=== PATIENT | male | born 1950 | race African-American/Black ===

== ENCOUNTER → 2020-07-18 14:21 | Outpatient (CLI) | payer MEDICARE, MEDICAID, SELFPAY | PROVIDERS: Visit Provider Emergency Medicine | DX: Z20.822 Contact with and (suspected) exposure to COVID-19 (principal) | CPT/HCPCS: U0003 ==

== ENCOUNTER 2020-07-20 08:20 | Day surgery (SDC) | payer MEDICARE, MEDICAID, SELFPAY ==
[2020-07-11 13:31] VITALS: BMI 29.7
[2020-07-20] VITALS (10 sets, daily range): BP systolic 117–190; BP diastolic 75–113; PULSE 54–83; RESP 18; TEMP 36.1–36.3; O2SAT 97–100
--- NOTE | 2020-07-20 09:53 | HMH.PROC ---
[facility] Procedure Note Procedure Note:: Upper Endoscopy Procedure Report: Esophagogastroduodenoscopy with cold biopsies and variceal band ligation Endoscopost: Aleks Mcrae II, MD Referring Physician: Luigi Nunez MD Date of Procedure: July 20, 2020 Equipment: Olympus GIF 190 standard upper endoscope Sedation: MAC sedation Indications: Mr. Love is a 70-year-old gentleman with anemia. I do not have any reports from referring physician and patient has cognitive impairment and is unable to provide reliable history. Procedure: Prior to the procedure, a history and physical exam was performed, and patient's medications and allergies were reviewed. The risks, benefits and alternatives of the sedation and procedure were discussed with the patient. All questions were answered and informed consent was obtained. The patient was brought to the procedure room. Patient identification and proposed procedure were verified by the physician and the nurse. The patient was placed in a left lateral decubitus position and the scope was passed under direct vision. Throughout the procedure, the patient's blood pressure, pulse, and oxygen saturations were monitored continuously. The upper GI endoscopy was accomplished without difficulty. The patient tolerated the procedure well. Findings: The scope was passed directly into the upper esophagus and advanced to the third portion of the duodenum. The post bulbar duodenum and duodenal bulb were normal with normal mucosa and conniventes. The scope was withdrawn through a normal duodenal bulb and pylorus into the stomach. There was reactive gastropathy of the antrum. There was a superficial small ulceration in the prepyloric region. Cold biopsies were taken from the lesser curvature to rule out H pylori. There was mild chronic gastritis and possible early portal gastropathy. Upon retroflexion there were small fundic varices. There was no hiatal hernia. The scope was then withdrawn into the esophagus. There was no evidence of reflux esophagitis or Coleman's. There was a serrated Z-line so biopsies were taken at the GE junction. There were large grade 2-3 esophageal varices with stigmata. Because of these large varices and the patient's reported history of anemia, these varices were banded using 7 bands with excellent ligation effect. The remainder of the esophageal mucosa was normal. Impression: 1. Esophageal varices?grade 2-3 status post band ligation x7 2. Small gastric fundic varices 4. Mild to moderate gastropathy with superficial prepyloric gastric ulceration Plan: I will follow-up the biopsies. I suspect that the patient has portal hypertension based upon the endoscopic findings. I would recommend ultrasound of the liver or CT scan of the abdomen and pelvis. I will check additional lab work today.
--- NOTE | 2020-07-20 10:16 | US_ITS ---
PROCEDURE: US LIVER CLINICAL INDICATION: R/O PORTAL HTN COMPARISON: No exams were available for comparison FINDINGS: PANCREAS: Pancreas is not well delineated due to overlying bowel gas. CT or MRI without and with contrast with pancreatic protocol may provide further evaluation if clinically desired. LIVER: Collateral vessels are present around the portal vein with no obvious color flow within the portal vein suspicious for portal vein thrombosis. No focal liver lesions are demonstrated. RIGHT KIDNEY: Unremarkable. Normal size and echogenicity. No hydronephrosis GALLBLADDER: The gallbladder slightly distended. No obvious stones. There is a small amount of pericholecystic fluid. IMPRESSION: No definite blood flow within the portal vein with collateral vessels in the periportal region consistent with portal vein thrombosis. Dictated by: Enmanuel Peter MD 07/20/2020 12:08 Enmanuel Peter MD in [place] 07/20/2020 12:08
[2020-07-20 11:28] LABS: Chloride 105 mmol/L (98-107)
[2020-07-20 11:29] LABS: Potassium 4.3 mmoL/L (3.5-5.1); Sodium 140 mmol/L (136-145)
[2020-07-20 11:31] LABS: Alanine Aminotransferase 38 U/L (12-78); Aspartate Amino Transferase 53 U/L (17-59); Blood Urea Nitrogen 13 mg/dl (9-20); Creatinine Clearance Estimated 84 mL/min (50-200); Estimated Glomerular Filt Rate 112 ml/min (>60); GFR (African American) 136 ML/MIN (>60)
[2020-07-20 11:32] LABS: Albumin Level 4.6 g/dl (3.5-5.0); Albumin/Globulin Ratio 1.4 (1.1-1.8); Alkaline Phosphatase 95 U/L (38-126); Ammonia 31 umol/L (9-30); Anion Gap 11.3 mEq/L (5-15); Bilirubin,Total 1.6 mg/dl (0.2-1.3); Carbon Dioxide 28 mmol/L (22.0-30.0); Globulin 3.3 g/dL (1.3-3.2); Glucose 116 mg/dl (74-100); Iron 87 ug/dL (49-181); Total Protein,Serum 7.9 g/dl (6.3-8.2)
--- NOTE | 2020-07-20 12:04 | SUR.PHASEII ---
TYLENOL ELIXIR 650MG PO GIVEN PER ORDER.
[2020-07-20 12:07] LABS: Ferritin 34.5 ng/ml (17.9-464)
--- NOTE | 2020-07-20 12:15 | SUR.PHASEII ---
REPORT CALLED TO SPEEDY AT [facility] [place]. DR CONTE CALLED WITH RESULTS OF LIVER US, PORTAL VEIN THROMBOSIS. DR. HOLLAND NOTIFIED AND VERBALIZED UNDERSTANDING, NO NEW ORDERS AT THIS TIME. VICHY UPDATE ON THIS INFO GIVEN TO MAGDALENA. VICHY STAFF MEMEBER THAT WAS WITH PT TOOK DISCHARGE INFORMATION WITH HER AND SWITCHED OUT WITH ANOTHER CAREGIVE, KALEE PULIDO. KALEE ACCOMPANIED PT OUT OF POST OP. PT STABLE AND AT BASELING.
--- NOTE | 2020-07-20 17:29 | P.PN_ITS ---
[facility] Anesthesia Checklist - Patient Identification Patient Identification: Arm Band - Structural Data Admitted From: Home Planned Operative Procedure/s: EGD Verified Documents: Surgical Consent, History and Physical - NPO Status Verified Time NPO: 00:00 - Airway Assessment C-Spine Mobility Assessed: Yes TMJ Mobility Assessed: Yes Dentition: Good Dentition - Neurological Assessment Level of Consciousness: Awake, Alert - Anesthesia Plan Anesthesia Risk discussed: Yes Anesthesia Plan: Verified ASA Class: III Anesthesia Type: MAC [facility] History Medical History: Reports:: Diabetes Mellitus Type 2, Hyperlipidemia, Hypertension Denies:: Cancer, Diabetes Mellitus Type 1, Internal Pacemaker, MRSA, Seizures *Have you ever received a pneumonia vaccine?: Yes *Have you received a flu vaccine this season?: Yes Anesthesia experience/problems:: None Other Surgeries: No: Pacemaker Amputation: No Fractures: No - *Social History Last grade of school completed: 9th or 10th Smoking Status: Former smoker Tobacco Type: cigarettes Alcohol Intake: former Alcohol Intake Frequency:: other Substance Use Type: denies use *Occupational Status:: disabled *Travel in the last 8 weeks: None Family Hx:: Unable to obtain
[2020-07-21 08:14] LABS: Hep A Ab, IgM Negative (Negative); Hepatitis B Core Antibody IgM Negative (Negative); Hepatitis B Surface Antigen Negative (Negative)
[2020-07-21 11:34] LABS: POC Glucose,Bedside 120 (70-110)
[2020-07-21 12:30] LABS: AFP, Tumor Marker 2.3 ng/mL (0.0-8.3); Hepatitis C Antibody 0.3 s/co ratio (0.0-0.9)
[2020-07-23 15:09] LABS: ALT (SGPT) P5P 35 IU/L (0-55); AST (SGOT) P5P 47 IU/L (0-40); Alpha 2-Macroglobulins, Qn 210 mg/dL (110-276); Apolipoprotein A-1 200 mg/dL (101-178); Bilirubin, Total 1.2 mg/dL (0.0-1.2); Cholesterol, Total 187 mg/dL (100-199); Fibrosis Score 0.45 (0.00-0.21); Fibrosis Stage F1-F2 (.); GGT 46 IU/L (0-65); Glucose 107 mg/dL (65-99); Haptoglobin 90 mg/dL (32-363); Steatosis Score 0.49 (0.00-0.30); Triglycerides 180 mg/dL (0-149)
== END 2020-07-20 12:21 | disposition home or self-care (01) ==
LOC: OUTP 08:24
PROVIDERS: PCP Emergency Medicine; Visit Provider Internal Medicine Gastroenterology
PROC: 0DJ08ZZ Inspection of Upper Intestinal Tract, Via Natural or Artificial Opening Endoscopic (ICD-10-PCS; CPT 43235; principal; 2020-07-20 09:30)
DX: I85.00 Esophageal varices without bleeding (principal); I86.4 Gastric varices; K31.9 Disease of stomach and duodenum, unspecified; K25.9 Gastric ulcer, unspecified as acute or chronic, without hemorrhage or perforation; K29.30 Chronic superficial gastritis without bleeding; G31.84 Mild cognitive impairment of uncertain or unknown etiology; D64.9 Anemia, unspecified; E11.9 Type 2 diabetes mellitus without complications; E78.5 Hyperlipidemia, unspecified; I10 Essential (primary) hypertension; Z87.891 Personal history of nicotine dependence; K74.60 Unspecified cirrhosis of liver; Z79.899 Other long term (current) drug therapy
CPT/HCPCS: 43239; 43244; 36415; 76705; 80053; 80074; 82105; 82140; 82728; 82962; 83540; 88305

== ENCOUNTER → 2020-08-20 11:38 | Outpatient (CLI) | payer MEDICARE, MEDICAID, SELFPAY | PROVIDERS: Visit Provider Emergency Medicine | DX: L02.212 Cutaneous abscess of back [any part, except buttock and flank] (principal) | CPT/HCPCS: 87070; 87077; 87186; 87205 ==

== ENCOUNTER → 2020-09-21 10:21 | Outpatient (CLI) | payer MEDICARE, MEDICAID, SELFPAY ==
--- NOTE | 2020-09-21 10:26 | CT_ITS ---
PROCEDURE: CT ABDOMEN PELVIS WO/W CON CLINICAL INDICATION: ANEMIA, UNSPECIFIED, UPPER GASTROINTESTINAL BLEEDING COMPARISON: No exams were available for comparison TECHNIQUE: IV Contrast: 75ML Isovue 370 Oral Contrast None Axial images obtained with sagittal and coronal reformats. All CT scans at the facility use one or more dose reduction, viz: automated exposure control, ma/kV adjustment per patient size (including targeted exams where dose is matched to indication, i.e. head), or iterative reconstruction technique. FINDINGS: LOWER THORAX: Minor bibasal atelectasis. Calcified granuloma in the right lower lobe. ABDOMEN & PELVIS: Few calcifications noted in the liver, likely secondary to prior granulomatous disease. There is minor surface irregularity and nodularity of the liver, concerning for cirrhosis. No focal lesions or abnormal enhancement is noted. The gallbladder is distended and demonstrates minor pericholecystic fluid. No evidence of calcified gallstones. No intra or extrahepatic biliary dilation. The pancreas, adrenal glands, and kidneys are unremarkable. The spleen measures 13 centimeters in the craniocaudal dimension, at the upper limit of normal. Few colonic diverticula without evidence of diverticulitis in the visualized colon. Otherwise the visualized large and small bowel loops demonstrate no focal abnormality. No free fluid or free intraperitoneal air noted. Vascular calcification is noted. Gastroesophageal and splenorenal collateral vessels are noted. Minor degenerative changes of the visualized lumbar spine. IMPRESSION: Findings are consistent with cirrhosis of the liver. Gastroesophageal and splenorenal portosystemic collateral circulation. Distended gallbladder with pericholecystic fluid, raises the concern for cholecystitis in correct clinical context. No evidence of cholelithiasis. Dictated by: Jody Mulligan 09/21/2020 14:29 Jdoy Mulligan in [place] 09/21/2020 14:29
== END ==
PROVIDERS: PCP Emergency Medicine; Visit Provider Internal Medicine Gastroenterology
DX: D64.9 Anemia, unspecified (principal); K92.89 Other specified diseases of the digestive system; I85.00 Esophageal varices without bleeding; K74.69 Other cirrhosis of liver
CPT/HCPCS: 74178; Q9967

== ENCOUNTER 2021-11-09 07:02 | Emergency (ER) | payer MEDICARE, MEDICAID, SELFPAY ==
[2021-11-09] VITALS (8 sets, daily range): BP systolic 114–144; BP diastolic 57–72; PULSE 63–77; RESP 12–18; TEMP 36.9–37; O2SAT 94–98; BMI 20.9
--- NOTE | 2021-11-09 07:09 | ECG_ITS ---
APPROVED REPORT Exam: Resting ECG HR:76 bpm ECG Measurements Heart Rate 76 AXES KS 144 P 63 QRSd 87 QRS 76 QT 403 T 51 QTc 434 Conclusion SINUS RHYTHM NORMAL ECG UNCONFIRMED REPORT Electronically signed by : Kalyan Mcdonald MD 11/10/2021 15:25:29
--- NOTE | 2021-11-09 07:09 | XR_ITS ---
PROCEDURE INFORMATION: Exam: XR Chest Exam date and time: 11/09/2021 7:25 AM Age: 71 years old Clinical indication: Angina; Additional info: Cardiac work up TECHNIQUE: Imaging protocol: Radiologic exam of the chest. Views: 1 view. COMPARISON: CT ABDOMEN PELVIS WO/W CON 09/21/2020 10:51 AM FINDINGS: Lungs: Unremarkable. No consolidation. Pleural spaces: Blunting in the left costophrenic angle may represent pleural reaction or pleural effusion Heart/Mediastinum: Unremarkable. No cardiomegaly. Bones/joints: Unremarkable. IMPRESSION: Blunting in the left costophrenic angle may represent pleural reaction or pleural effusion
[2021-11-09 07:43] LABS: Basophils % 0.7 % (0.1-2.0); Eosinophils # 0.1 K/mm3 (0.0-0.4); Hematocrit 39.3 % (42.0-52.0); Hemoglobin 12.7 g/dL (14.1-18.0); Lymphocytes # 1.5 K/mm3 (0.7-4.5); Lymphocytes % 29.1 % (10-50); Mean Corpuscular HGB Conc 32.4 g/dL (31.8-35.4); Mean Corpuscular Hemoglobin 31.6 pg (27.0-31.2); Mean Corpuscular Volume 97.6 fl (80-94); Mean Platelet Volume 8.6 fl (7.4-10.4); Monocytes # 0.5 K/mm3 (0.1-1.0); Monocytes % 9.3 % (1.7-9.3); Platelet Count 130 K/mm3 (142-424); Red Blood Count 4.03 M/mm3 (4.60-6.20); Red Cell Distribution Width 13.5 % (11.5-17.5)
--- NOTE | 2021-11-09 07:43 | HMH.EDDIZZ ---
Discharge Plan Disposition Patient Disposition: Home, Self-Care Chief Complaint: Dizziness Prescriptions Prescriptions: No Action minocycline 100 mg capsule 100 mg PO cephalexin [Keflex] 750 mg capsule 500 mg PO TID 10 Days Qty: 30 0RF metformin 500 mg tablet 500 mg PO BID atorvastatin 10 mg tablet 10 mg PO DAILY desmopressin 0.2 mg tablet 0.4 mg PO HS donepezil 10 mg tablet 10 mg PO DAILY omega-3 fatty acids [Fish Oil Concentrate] 1,000 mg capsule 1,000 mg PO DAILY fluticasone propionate [Allergy Relief (fluticasone)] 50 mcg/actuation spray,suspension 1 spray INTRANASAL DAILY Rx Instructions: administer into each nostril lisinopril 5 mg tablet 5 mg PO DAILY Systane (PF) 0.4-0.3 % dropperette 1 drp OPHTHALMIC Q12H PRN (Reason: eyes) propranolol 20 mg tablet 20 mg PO QAM pramipexole 1 mg tablet 1 mg PO HS paroxetine HCl [Paxil] 40 mg tablet 40 mg PO DAILY loratadine 10 mg capsule 10 mg PO DAILY memantine [Namenda XR] 28 mg capsule,sprinkle,ER 24hr 28 mg PO DAILY montelukast 10 mg tablet 10 mg PO HS multivitamin with iron Tablet 1 tab PO DAILY propranolol 20 mg tablet 40 mg PO QHS quetiapine 100 mg tablet 100 mg PO HS Januvia 100 mg tablet 100 mg PO QHS tamsulosin [Flomax] 0.4 mg capsule 0.4 mg PO DAILY oxybutynin chloride 5 mg tablet extended release 24hr 5 mg PO DAILY gabapentin 400 mg capsule 400 mg PO TID Qty: 90 3RF insulin glargine 100 UNIT/ML insulin pen 15 unit SQ HS Clinical Impressions Clinical Impression: Episodic lightheadedness Instructions Patient Instructions: Dizziness, Nonvertigo Discharge ED Provider: Luigi Nunez [facility] General Chief Complaint: Dizziness Stated Complaint: lethargic Time Seen by Provider: 11/09/21 07:43 Mode of Arrival: EMS Source of Information: Patient, EMS and Medical Record Limitations: Altered Mental Status Description of Symptoms (Recalled from ER Triage Doc. by RN): Per Neema, when they woke the patient up this morning he was slow to wake up and more tired than normal. They took his blood pressure and it was 81/52. Patient arrived via ems and his pressure was 118/63 History of Present Illness HPI Narrative: sent from [facility] for altered mental status with reported low bp - pt w/o specific c/o and no chest pain or vomiting and no diarrhea MD complaint: lightheadedness Onset (ago): hour(s) Timing: awoke with symptoms History of similar episodes: Yes History of trauma: No Severity: moderate Associated symptoms: denies other symptoms Related Data Home Medications Medication Instructions Recorded Confirmed atorvastatin 10 mg tablet 10 mg PO DAILY Cholesterol 06/08/20 05/02/21 desmopressin 0.2 mg tablet 0.4 mg PO HS . 06/08/20 05/02/21 donepezil 10 mg tablet 10 mg PO DAILY . 06/08/20 05/02/21 fluticasone propionate 50 1 spray intranasal DAILY Allergy 06/08/20 05/02/21 mcg/actuation nasal symptoms spray,suspension (Allergy Relief (fluticasone)) lisinopril 5 mg tablet 5 mg PO DAILY bp 06/08/20 05/02/21 loratadine 10 mg capsule 10 mg PO DAILY Allergy symptoms 06/08/20 05/02/21 memantine 28 mg capsule 28 mg PO DAILY . 06/08/20 05/02/21 sprinkle,extended release 24hr (Namenda XR) montelukast 10 mg tablet 10 mg PO HS Allergy symptoms 06/08/20 05/02/21 multivitamin with iron 1 tab PO DAILY Supplement 06/08/20 05/02/21 omega-3 fatty acids 1,000 mg 1,000 mg PO DAILY Supplement 06/08/20 05/02/21 capsule (Fish Oil Concentrate) oxybutynin chloride 5 mg 5 mg PO DAILY bladder 06/08/20 05/02/21 tablet,extended release 24 hr paroxetine HCl 40 mg tablet (Paxil) 40 mg PO DAILY . 06/08/20 05/02/21 peg 400-propylene glycol (PF) 0.4 1 drp ophthalmic (eye) Q12H PRN 06/08/20 05/02/21 %-0.3 % eye drops in a dropperette eyes (Systane (PF)) pramipexole 1 mg tablet 1 mg PO HS sleep 06/08
[2021-11-09 07:54] LABS: Alanine Aminotransferase 31 U/L (12-78); Albumin Level 3.9 g/dl (3.5-5.0); Alkaline Phosphatase 57 U/L (38-126); Anion Gap 11.6 mEq/L (5-15); Aspartate Amino Transferase 49 U/L (17-59); Bilirubin,Direct 0.3 mg/dl (0.0-0.4); Bilirubin,Total 1.3 mg/dl (0.2-1.3); Blood Urea Nitrogen 18 mg/dl (9-20); Calcium 8.7 mg/dl (8.4-10.2); Carbon Dioxide 27 mmol/L (22.0-30.0); Chloride 107 mmol/L (98-107); Creatinine Clearance Estimated 56 mL/min (50-200); Estimated Glomerular Filt Rate 60 ml/min (>60); GFR (African American) 73 ML/MIN (>60); Glucose 113 mg/dl (74-100); Potassium 3.6 mmoL/L (3.5-5.1); Sodium 142 mmol/L (136-145); Total Protein,Serum 6.8 g/dl (6.3-8.2)
[2021-11-09 08:06] LABS: Microscopic, Urine URINE MICROSCOPIC (MICROSCOPIC)
[2021-11-09 08:08] LABS: Appearance,Urine SL CLOUDY (Clear); Blood, Urine 2+ (Negative); Color,Urine DK YELLOW (Yellow); Glucose,Urine (UA) TRACE (Negative); Ketones,Urine 1+ (Negative); Leukocyte Esterase,Urine Negative (Negative); Nitrate,Urine Negative (Negative); Protein,Urine 1+ (Negative)
[2021-11-09 08:09] LABS: Troponin I < 0.01 ng/ml (0.00-0.034)
[2021-11-09 08:15] LABS: Bilirubin,Urine 1+ (Negative)
[2021-11-09 08:33] LABS: Bacteria,Urine Trace /lpf; RBC,Urine 20-50 #/hpf (0-3); Squamous Epithelial Cell,Urine Occasional #/hpf (0-5); WBC,Urine Occasional #/hpf (0-3)
--- NOTE | 2021-11-09 09:20 | PC.NURSE ---
called charlene at [facility] and gave report for return back
--- NOTE | 2021-11-09 09:24 | PC.NURSE ---
Called [facility] to transport pt.
== END 2021-11-09 10:01 | disposition home or self-care (01) ==
PROVIDERS: Emergency Provider Emergency Medicine; PCP Emergency Medicine
DX: R42 Dizziness and giddiness (principal); R53.83 Other fatigue
CPT/HCPCS: 36415; 71045; 80048; 80076; 81001; 84484; 85025; 93005; 96360; 99284

== ENCOUNTER 2021-11-12 14:09 | Emergency (ER) | payer MEDICARE, MEDICAID, SELFPAY ==
[2021-11-12 14:13] VITALS: BP 161/80; PULSE 79; RESP 18; TEMP 36.8; O2SAT 94; BMI 29.9
[2021-11-12 14:28] LABS: Microscopic, Urine URINE MICROSCOPIC (MICROSCOPIC)
[2021-11-12 14:30] LABS: Appearance,Urine TURBID (Clear); Bilirubin,Urine 3+ (Negative); Blood, Urine 3+ (Negative); Color,Urine BROWN (Yellow); Glucose,Urine (UA) TRACE (Negative); Ketones,Urine 1+ (Negative); Leukocyte Esterase,Urine 1+ (Negative); Nitrate,Urine POSITIVE (Negative); PH,Urine 6.5 (5.0-8.5); Protein,Urine 3+ (Negative); Specific Gravity, Urine 1.025 (1.005-1.030)
[2021-11-12 14:42] LABS: Bacteria,Urine 2+ /lpf; RBC,Urine TNTC #/hpf (0-3); Squamous Epithelial Cell,Urine Occasional #/hpf (0-5); WBC,Urine Occasional #/hpf (0-3)
--- NOTE | 2021-11-12 15:14 | HMH.EDGENADL ---
Discharge Plan Disposition Patient Disposition: Home, Self-Care Condition: Good Prescriptions Prescriptions: New cephalexin 500 mg capsule 500 mg PO TID Qty: 30 0RF No Action minocycline 100 mg capsule 100 mg PO cephalexin [Keflex] 750 mg capsule 500 mg PO TID 10 Days Qty: 30 0RF metformin 500 mg tablet 500 mg PO BID atorvastatin 10 mg tablet 10 mg PO DAILY desmopressin 0.2 mg tablet 0.4 mg PO HS donepezil 10 mg tablet 10 mg PO DAILY omega-3 fatty acids [Fish Oil Concentrate] 1,000 mg capsule 1,000 mg PO DAILY fluticasone propionate [Allergy Relief (fluticasone)] 50 mcg/actuation spray,suspension 1 spray INTRANASAL DAILY Rx Instructions: administer into each nostril lisinopril 5 mg tablet 5 mg PO DAILY Systane (PF) 0.4-0.3 % dropperette 1 drp OPHTHALMIC Q12H PRN (Reason: eyes) propranolol 20 mg tablet 20 mg PO QAM pramipexole 1 mg tablet 1 mg PO HS paroxetine HCl [Paxil] 40 mg tablet 40 mg PO DAILY loratadine 10 mg capsule 10 mg PO DAILY memantine [Namenda XR] 28 mg capsule,sprinkle,ER 24hr 28 mg PO DAILY montelukast 10 mg tablet 10 mg PO HS multivitamin with iron Tablet 1 tab PO DAILY propranolol 20 mg tablet 40 mg PO QHS quetiapine 100 mg tablet 100 mg PO HS Januvia 100 mg tablet 100 mg PO QHS tamsulosin [Flomax] 0.4 mg capsule 0.4 mg PO DAILY oxybutynin chloride 5 mg tablet extended release 24hr 5 mg PO DAILY gabapentin 400 mg capsule 400 mg PO TID Qty: 90 3RF insulin glargine 100 UNIT/ML insulin pen 15 unit SQ HS Referrals Follow up/Referrals: Provider,Referral, MD [Primary Care Provider] - See instructions Clinical Impressions Clinical Impression: Urinary tract infection Qualifiers: Urinary tract infection type: site unspecified Instructions Patient Instructions: DI for Urinary Tract Infection (UTI), DI for Urinary Tract Infection in Children Discharge ED Provider: Ortiz Wang General Adult HPI General Chief complaint: Urogenital-Male Stated complaint: urogential Time Seen by Provider: 11/12/21 15:04 Mode of Arrival: EMS Source of Information: Patient Limitations: No Limitations Description of Symptoms (Recalled from ER Triage Doc. by RN): Patient reports blood in urine and passing clots since thursday. Patient reports he was here in the ED on thursday and had a catheter placed. History of Present Illness HPI narrative: Complaint of blood in urine as well as clots passing clots in his urine since Thursday. Described as moderate without exacerbating or alleviating factors. He was here this past Thursday and had a catheter placed at that time. He denies pain he denies fever he denies abdominal pain vomiting or diarrhea. Related Data Home Medications Medication Instructions Recorded Confirmed atorvastatin 10 mg tablet 10 mg PO DAILY Cholesterol 06/08/20 05/02/21 desmopressin 0.2 mg tablet 0.4 mg PO HS . 06/08/20 05/02/21 donepezil 10 mg tablet 10 mg PO DAILY . 06/08/20 05/02/21 fluticasone propionate 50 1 spray intranasal DAILY Allergy 06/08/20 05/02/21 mcg/actuation nasal symptoms spray,suspension (Allergy Relief (fluticasone)) lisinopril 5 mg tablet 5 mg PO DAILY bp 06/08/20 05/02/21 loratadine 10 mg capsule 10 mg PO DAILY Allergy symptoms 06/08/20 05/02/21 memantine 28 mg capsule 28 mg PO DAILY . 06/08/20 05/02/21 sprinkle,extended release 24hr (Namenda XR) montelukast 10 mg tablet 10 mg PO HS Allergy symptoms 06/08/20 05/02/21 multivitamin with iron 1 tab PO DAILY Supplement 06/08/20 05/02/21 omega-3 fatty acids 1,000 mg 1,000 mg PO DAILY Supplement 06/08/20 05/02/21 capsule (Fish Oil Concentrate) oxybutynin chloride 5 mg 5 mg PO DAILY bladder 06/08/20 05/02/21 tablet,extended release 24 hr paroxetine HCl 40 mg tablet (Paxil) 40 mg PO DAILY . 06/08/20 05/02/21 peg 400-propylene glyc
[2021-11-12 15:59] LABS: Basophils % 0.4 % (0.1-2.0); Eosinophils # 0.1 K/mm3 (0.0-0.4); Eosinophils % 0.6 % (0.1-12.0); Hematocrit 38.9 % (42.0-52.0); Hemoglobin 12.7 g/dL (14.1-18.0); Lymphocytes # 1.3 K/mm3 (0.7-4.5); Lymphocytes % 15.1 % (10-50); Mean Corpuscular HGB Conc 32.7 g/dL (31.8-35.4); Mean Corpuscular Hemoglobin 31.7 pg (27.0-31.2); Mean Corpuscular Volume 96.8 fl (80-94); Mean Platelet Volume 8.9 fl (7.4-10.4); Monocytes # 0.5 K/mm3 (0.1-1.0); Monocytes % 5.4 % (1.7-9.3); Neutrophils # 6.9 K/mm3 (1.8-7.8); Neutrophils % 78.6 % (37.0-80.0); Platelet Count 133 K/mm3 (142-424); Red Blood Count 4.01 M/mm3 (4.60-6.20); Red Cell Distribution Width 13.5 % (11.5-17.5); White Blood Count 8.8 K/mm3 (4.8-10.8)
[2021-11-12 16:10] LABS: Alanine Aminotransferase 35 U/L (12-78); Albumin/Globulin Ratio 1.4 (1.1-1.8); Alkaline Phosphatase 58 U/L (38-126); Anion Gap 17.5 mEq/L (5-15); Aspartate Amino Transferase 50 U/L (17-59); Bilirubin,Total 1.6 mg/dl (0.2-1.3); Blood Urea Nitrogen 20 mg/dl (9-20); Carbon Dioxide 25 mmol/L (22.0-30.0); Chloride 104 mmol/L (98-107); Creatinine Clearance Estimated 81 mL/min (50-200); Estimated Glomerular Filt Rate 134 ml/min (>60); GFR (African American) 162 ML/MIN (>60); Globulin 2.8 g/dL (1.3-3.2); Glucose 170 mg/dl (74-100); Potassium 3.5 mmoL/L (3.5-5.1); Sodium 143 mmol/L (136-145); Total Protein,Serum 6.8 g/dl (6.3-8.2)
[2021-11-12 17:30] VITALS: BP 150/76; PULSE 72; RESP 20; TEMP 36.8; O2SAT 95
== END 2021-11-12 17:34 | disposition home or self-care (01) ==
PROVIDERS: Emergency Provider Emergency Medicine
DX: N39.0 Urinary tract infection, site not specified (principal); B96.4 Proteus (mirabilis) (morganii) as the cause of diseases classified elsewhere
CPT/HCPCS: 80053; 81001; 85025; 87086; 87088; 87186; 99283

== ENCOUNTER 2021-11-18 14:42 | Emergency (ER) | payer MEDICARE, MEDICAID, SELFPAY ==
[2021-11-18 14:42] VITALS: BP 90/45; PULSE 78; RESP 18; TEMP 36.6; O2SAT 98; BMI 27.4
--- NOTE | 2021-11-18 14:45 | PC.NURSE ---
PT HYPOTENSIVE UPON ARRIVAL, 90/45. HYPOTENSIVE PER NH AND EMS. IV ATTEMPTED X 2 PER [facility]. ATTEMPTED PER THIS NURSE X 2. ED MD MADE AWARE. WILL CONTINUE IV ACCESS
--- NOTE | 2021-11-18 14:53 | HMH.EDGENADL ---
Discharge Plan Disposition Patient Disposition: Xfer Other Condition: Fair Chief Complaint: Altered Mental Status Prescriptions Prescriptions: No Action minocycline 100 mg capsule 100 mg PO cephalexin [Keflex] 750 mg capsule 500 mg PO TID 10 Days Qty: 30 0RF metformin 500 mg tablet 500 mg PO BID atorvastatin 10 mg tablet 10 mg PO DAILY desmopressin 0.2 mg tablet 0.4 mg PO HS donepezil 10 mg tablet 10 mg PO DAILY omega-3 fatty acids [Fish Oil Concentrate] 1,000 mg capsule 1,000 mg PO DAILY fluticasone propionate [Allergy Relief (fluticasone)] 50 mcg/actuation spray,suspension 1 spray INTRANASAL DAILY Rx Instructions: administer into each nostril lisinopril 5 mg tablet 5 mg PO DAILY Systane (PF) 0.4-0.3 % dropperette 1 drp OPHTHALMIC Q12H PRN (Reason: eyes) propranolol 20 mg tablet 20 mg PO QAM pramipexole 1 mg tablet 1 mg PO HS paroxetine HCl [Paxil] 40 mg tablet 40 mg PO DAILY loratadine 10 mg capsule 10 mg PO DAILY memantine [Namenda XR] 28 mg capsule,sprinkle,ER 24hr 28 mg PO DAILY montelukast 10 mg tablet 10 mg PO HS multivitamin with iron Tablet 1 tab PO DAILY propranolol 20 mg tablet 40 mg PO QHS quetiapine 100 mg tablet 100 mg PO HS Januvia 100 mg tablet 100 mg PO QHS tamsulosin [Flomax] 0.4 mg capsule 0.4 mg PO DAILY oxybutynin chloride 5 mg tablet extended release 24hr 5 mg PO DAILY gabapentin 400 mg capsule 400 mg PO TID Qty: 90 3RF insulin glargine 100 UNIT/ML insulin pen 15 unit SQ HS cephalexin 500 mg capsule 500 mg PO TID Qty: 30 0RF Clinical Impressions Clinical Impression: Acute renal failure (ARF), Acute urinary retention, Acute metabolic encephalopathy Discharge ED Provider: Aiden Forman Adult HPI General Chief complaint: Altered Mental Status Stated complaint: abd pain Time Seen by Provider: 11/18/21 14:54 Mode of Arrival: EMS History of Present Illness HPI narrative: 71-year-old male from nursing facility who presents with abdominal discomfort, distention, diarrhea, and reportedly had been more listless and presented with symptoms consistent with failure to thrive. History is limited from the patient, he awakes and answers appropriately to person and place but is otherwise somewhat confused and lethargic. He does have distended abdomen though not markedly tender on palpation. Afebrile here, relatively hypotensive. They have been unable to establish IV access prehospital Related Data Home Medications Medication Instructions Recorded Confirmed atorvastatin 10 mg tablet 10 mg PO DAILY Cholesterol 06/08/20 05/02/21 desmopressin 0.2 mg tablet 0.4 mg PO HS . 06/08/20 05/02/21 donepezil 10 mg tablet 10 mg PO DAILY . 06/08/20 05/02/21 fluticasone propionate 50 1 spray intranasal DAILY Allergy 06/08/20 05/02/21 mcg/actuation nasal symptoms spray,suspension (Allergy Relief (fluticasone)) lisinopril 5 mg tablet 5 mg PO DAILY bp 06/08/20 05/02/21 loratadine 10 mg capsule 10 mg PO DAILY Allergy symptoms 06/08/20 05/02/21 memantine 28 mg capsule 28 mg PO DAILY . 06/08/20 05/02/21 sprinkle,extended release 24hr (Namenda XR) montelukast 10 mg tablet 10 mg PO HS Allergy symptoms 06/08/20 05/02/21 multivitamin with iron 1 tab PO DAILY Supplement 06/08/20 05/02/21 omega-3 fatty acids 1,000 mg 1,000 mg PO DAILY Supplement 06/08/20 05/02/21 capsule (Fish Oil Concentrate) oxybutynin chloride 5 mg 5 mg PO DAILY bladder 06/08/20 05/02/21 tablet,extended release 24 hr paroxetine HCl 40 mg tablet (Paxil) 40 mg PO DAILY . 06/08/20 05/02/21 peg 400-propylene glycol (PF) 0.4 1 drp ophthalmic (eye) Q12H PRN 06/08/20 05/02/21 %-0.3 % eye drops in a dropperette eyes (Systane (PF)) pramipexole 1 mg tablet 1 mg PO HS sleep 06/08/20 05/02/21 propranolol 20 mg tablet 20 mg PO QAM bp 06/08/20 05/02/21 p
--- NOTE | 2021-11-18 14:56 | XR_ITS ---
PROCEDURE INFORMATION: Exam: XR Chest Exam date and time: 11/18/2021 5:00 PM Age: 71 years old Clinical indication: Shortness of breath; Sternal or substernal pain; Additional info: Sob/cp TECHNIQUE: Imaging protocol: Radiologic exam of the chest. Views: 1 view. COMPARISON: CR XR CHEST PORTABLE 11/09/2021 7:25 AM FINDINGS: Lungs: Lung volumes are moderately diminished, slightly greater on the right, with mild elevation of the right hemidiaphragm. Mildly increased patchy perihilar and bibasilar opacities are nonspecific. The lungs appear otherwise clear. No focal areas of consolidation. Pleural spaces: No pleural effusions or appreciable adenopathy. Negative for pneumothorax. Heart/Mediastinum: Cardiac silhouette and pulmonary vasculature are within range of normal. Bones/joints: There is no evidence of acute fracture. IMPRESSION: 1. Diminished lung volumes. 2. Mildly increased nonspecific patchy perihilar and bibasilar opacities.
[2021-11-18 14:57] VITALS: BP 81/42; PULSE 77; RESP 18
--- NOTE | 2021-11-18 14:57 | CT_ITS ---
PROCEDURE INFORMATION: Exam: CT Abdomen And Pelvis Without Contrast Exam date and time: 11/18/2021 4:38 PM Age: 71 years old Clinical indication: Abdominal pain; Additional info: Abd pain, distension TECHNIQUE: Imaging protocol: Computed tomography of the abdomen and pelvis without contrast. Radiation optimization: All CT scans at this facility use at least one of these dose optimization techniques: automated exposure control; mA and/or kV adjustment per patient size (includes targeted exams where dose is matched to clinical indication); or iterative reconstruction. COMPARISON: CT ABDOMEN PELVIS WO/W CON 09/21/2020 10:51 AM FINDINGS: Lungs: There is a pulmonary parenchymal calcification in the right lower lobe consistent with remote granulomatous organism exposure. Nonspecific mild bibasilar streaky opacities suggest atelectasis or parenchymal scarring. Pleural spaces: There are no pleural effusions. Heart: There is moderate atherosclerotic calcification of the coronary arteries. There is no evidence of pericardial fluid collections. Diaphragm: Mild elevation of the right hemidiaphragm is present. Liver: The liver demonstrates punctate calcifications, consistent with remote granulomatous organism exposure. Gallbladder and bile ducts: The gallbladder is contracted/decompressed. Nonspecific gallbladder wall thickening may be on the basis gallbladder decompression. Correlate. Pancreas: Noncontrast images of the pancreas are within range of normal. Spleen: The spleen demonstrates punctate calcifications, consistent with remote granulomatous organism exposure. Adrenal glands: The right adrenal gland is normal. There is macronodularity to the left adrenal gland with a somewhat more focal nodular area in the superior portion measuring approximately 2.1 x 2.3 by 1.6 cm. Internal Hounsfield units measure between 32-57 Hounsfield units. Kidneys and ureters: There is mild bilateral nonspecific inflammatory perinephric stranding. There is mild right hydronephrosis. There is mild left hydronephrosis. There is mild fullness to portions of both ureters. No definite ureteric stone disease. Stomach and bowel: A small hiatal hernia is present. Lack of gastrointestinal contrast limits evaluation of bowel. Unopacified loops of small bowel are within range of normal. The stomach is otherwise within range of normal. The duodenum appears normal. Colon appears within range of normal. Appendix: No evidence of appendicitis. Intraperitoneal space: There is no free intraperitoneal air. No significant free fluid. Vasculature: The aorta and iliac arteries demonstrate moderate atherosclerotic calcification. Lymph nodes: No enlarged lymph nodes. Urinary bladder: The bladder is markedly distended. The Bladder measures approximately 19.1 by 11.1 by 11.2 cm. Reproductive: The prostate demonstrates mild nonspecific enlargement measuring 5.2 x 4.8 cm. The seminal vesicles are normal. The prostate demonstrates nonspecific parenchymal calcifications. Bones/joints: The thoracolumbar spine demonstrates mild degenerative changes at multiple levels. There is no evidence of acute fracture. Soft tissues: There is nonspecific gynecomastia, slightly more prominent on the left. Correlate clinically. There is a tiny fat-containing umbilical hernia. Fat stranding of the soft tissues of the posterolateral lower abdomen gluteal region may reflect edema/inflammation/cellulitis. Correlate. Other findings: Evaluation is limited by the lack of intravenous contrast. IMPRESSION: 1. Marked bladder distension with mild bilateral hydroureteronephrosis, possibly on the basis of outlet obstructi
--- NOTE | 2021-11-18 15:50 | PC.NURSE ---
1550 IV PLACED PER U/S PER DR. LOVE. LABS COLLECTED. IVF'S STARTED
[2021-11-18 16:02] VITALS: BP 91/50; PULSE 78; RESP 18; O2SAT 95
[2021-11-18 16:20] LABS: Basophils % 0.3 % (0.1-2.0); Eosinophils # 0.1 K/mm3 (0.0-0.4); Eosinophils % 1.3 % (0.1-12.0); Hemoglobin 11.8 g/dL (14.1-18.0); Lymphocytes # 1.2 K/mm3 (0.7-4.5); Lymphocytes % 15.1 % (10-50); Mean Corpuscular HGB Conc 33.6 g/dL (31.8-35.4); Mean Corpuscular Hemoglobin 32.2 pg (27.0-31.2); Mean Corpuscular Volume 95.8 fl (80-94); Mean Platelet Volume 9.5 fl (7.4-10.4); Monocytes # 0.9 K/mm3 (0.1-1.0); Monocytes % 10.9 % (1.7-9.3); Neutrophils # 5.7 K/mm3 (1.8-7.8); Neutrophils % 72.4 % (37.0-80.0); Platelet Count 149 K/mm3 (142-424); Red Blood Count 3.65 M/mm3 (4.60-6.20); Red Cell Distribution Width 13.4 % (11.5-17.5); White Blood Count 7.8 K/mm3 (4.8-10.8)
[2021-11-18 16:21] LABS: Chloride 95 mmol/L (98-107); Potassium 4.5 mmoL/L (3.5-5.1); Sodium 138 mmol/L (136-145)
[2021-11-18 16:23] LABS: Alanine Aminotransferase 49 U/L (12-78); Aspartate Amino Transferase 142 U/L (17-59); Creatinine Clearance Estimated 6 mL/min (50-200); Estimated Glomerular Filt Rate 4 ml/min (>60); GFR (African American) 5 ML/MIN (>60)
[2021-11-18 16:24] LABS: Albumin Level 3.9 g/dl (3.5-5.0); Albumin/Globulin Ratio 1.4 (1.1-1.8); Alkaline Phosphatase 64 U/L (38-126); Anion Gap 28.5 mEq/L (5-15); Bilirubin,Total 0.2 mg/dl (0.2-1.3); Calcium 7.9 mg/dl (8.4-10.2); Carbon Dioxide 19 mmol/L (22.0-30.0); Globulin 2.8 g/dL (1.3-3.2); Glucose 100 mg/dl (74-100); Lipase 131 U/L (23-300); Total Protein,Serum 6.7 g/dl (6.3-8.2)
[2021-11-18 16:28] LABS: Blood Urea Nitrogen 99 mg/dl (9-20)
--- NOTE | 2021-11-18 16:28 | PC.NURSE ---
5112 CRITICAL LAB FROM [facility] IN LAB. BUN [address] LOVE NOTIFIED
[2021-11-18 16:30] VITALS: BP 115/56; PULSE 76; RESP 18; O2SAT 98
[2021-11-18 16:31] LABS: Ammonia 15 umol/L (9-30)
[2021-11-18 16:37] LABS: Troponin I 0.01 ng/ml (0.00-0.034)
--- NOTE | 2021-11-18 16:39 | PC.NURSE ---
PT TO CT, INSTRUCTED NOT TO USE CONTRAST PER MD R/T BUN AND CREATININE
--- NOTE | 2021-11-18 16:56 | ECG_ITS ---
APPROVED REPORT Exam: Resting ECG HR:87 bpm ECG Measurements Heart Rate 87 AXES NV 151 P 54 QRSd 82 QRS 61 QT 356 T 29 QTc 401 Conclusion SINUS RHYTHM NORMAL ECG UNCONFIRMED REPORT Electronically signed by : Kalyan Mcdonald MD 11/19/2021 21:10:16
[2021-11-18 17:00] VITALS: BP 112/87; PULSE 51; RESP 20; O2SAT 96
--- NOTE | 2021-11-18 17:10 | PC.NURSE ---
1710 US IV INFILTRATED. ED MADE AWARE
--- NOTE | 2021-11-18 17:15 | PC.NURSE ---
COUDE MCKINLEY PLACED AFTER MUCH DIFFICULTY. SPECIMEN SENT TO LAB
--- NOTE | 2021-11-18 17:18 | PC.NURSE ---
bradford bag emptied 1500 of tea colored urine
--- NOTE | 2021-11-18 17:34 | PC.NURSE ---
placed call to [facility] for transfer
--- NOTE | 2021-11-18 17:43 | PC.NURSE ---
Dr Spoke with , no beds
--- NOTE | 2021-11-18 17:44 | PC.NURSE ---
placed call to [facility], waiting for call back.
--- NOTE | 2021-11-18 17:48 | PC.NURSE ---
placed call to [facility] for possible transfer
--- NOTE | 2021-11-18 18:00 | PC.NURSE ---
Dr Forman speaking with [facility]
--- NOTE | 2021-11-18 18:11 | PC.NURSE ---
covid swab sent
--- NOTE | 2021-11-18 18:16 | PC.NURSE ---
PT ACCEPTED FOR CARE BY DR. CONDE. PT REMAINS ON WAITLIST
[2021-11-18 18:17] LABS: Coronavirus 19, PCR Not Detected (NotDetected); Influenza A, PCR Not Detected (NotDetected); Influenza B, PCR Not Detected (NotDetected)
--- NOTE | 2021-11-18 18:17 | PC.NURSE ---
DR. LOVE AT BEDSIDE ATTEMPTING TO PLACE US IV
--- NOTE | 2021-11-18 18:25 | PC.NURSE ---
US IV PLACED PER DR. LOVE. RIGHT UPPER ARM 20 GAUGE. IVF'S RESTARTED.
--- NOTE | 2021-11-18 18:25 | PC.NURSE ---
Dr lee spoke with Dr Sanchez at [facility], pt accepted, on a wait list. facesheet faxed
--- NOTE | 2021-11-18 18:36 | PC.NURSE ---
PT REQUESTING SUPPER TRAY, OK'D PER MD. DIETARY NOTIFIED. PT PROVIDED DRINK AT THIS TIME
--- NOTE | 2021-11-18 18:45 | PC.NURSE ---
PT GIVEN SANDWICH AT THIS TIME. NO FURTHER NEEDS VOICED
[2021-11-18 18:46] LABS: Troponin I 0.02 ng/ml (0.00-0.034)
[2021-11-18 19:55] LABS: Microscopic, Urine URINE MICROSCOPIC (MICROSCOPIC)
[2021-11-18 19:58] LABS: Appearance,Urine CLOUDY (Clear); Blood, Urine 3+ (Negative); Color,Urine AMBER (Yellow); Glucose,Urine (UA) Negative (Negative); Ketones,Urine Negative (Negative); Leukocyte Esterase,Urine Negative (Negative); Nitrate,Urine POSITIVE (Negative); PH,Urine 6.5 (5.0-8.5); Protein,Urine 2+ (Negative); Specific Gravity, Urine 1.025 (1.005-1.030); Urobilinogen,Urine 0.2 EU/dl (0.2)
[2021-11-18 20:18] LABS: Bilirubin,Urine Negative (Negative)
[2021-11-18 20:19] LABS: Amorphous Sediment,Urine 2+ /lpf; Bacteria,Urine 4+ /lpf; RBC,Urine 50-100 #/hpf (0-3); Squamous Epithelial Cell,Urine Occasional #/hpf (0-5); WBC,Urine Occasional #/hpf (0-3)
--- NOTE | 2021-11-18 21:20 | PC.NURSE ---
Dr. Nunez s/w [facility]
[2021-11-18 21:37] VITALS: BP 109/52; PULSE 79; RESP 16; TEMP 36.6; O2SAT 99
== END 2021-11-18 22:05 | disposition other institution (70) ==
PROVIDERS: Emergency Provider Emergency Medicine; PCP Emergency Medicine
DX: R41.82 Altered mental status, unspecified (principal); J96.00 Acute respiratory failure, unspecified whether with hypoxia or hypercapnia; R33.9 Retention of urine, unspecified; G93.41 Metabolic encephalopathy; Z20.822 Contact with and (suspected) exposure to COVID-19; R53.81 Other malaise; R50.9 Fever, unspecified; D50.9 Iron deficiency anemia, unspecified; R19.7 Diarrhea, unspecified; I10 Essential (primary) hypertension; K21.9 Gastro-esophageal reflux disease without esophagitis; E78.5 Hyperlipidemia, unspecified; E11.9 Type 2 diabetes mellitus without complications; D22.9 Melanocytic nevi, unspecified; N40.0 Benign prostatic hyperplasia without lower urinary tract symptoms; F03.90 Unspecified dementia, unspecified severity, without behavioral disturbance, psychotic disturbance, mood disturbance, and anxiety; G20 Parkinson's disease; K74.60 Unspecified cirrhosis of liver; M62.81 Muscle weakness (generalized); N31.1 Reflex neuropathic bladder, not elsewhere classified; H04.129 Dry eye syndrome of unspecified lacrimal gland; H35.30 Unspecified macular degeneration; F79 Unspecified intellectual disabilities; F32.9 Major depressive disorder, single episode, unspecified; F41.9 Anxiety disorder, unspecified; F17.290 Nicotine dependence, other tobacco product, uncomplicated; Z79.1 Long term (current) use of non-steroidal anti-inflammatories (NSAID); Z79.4 Long term (current) use of insulin; Z79.51 Long term (current) use of inhaled steroids; Z79.84 Long term (current) use of oral hypoglycemic drugs; Z79.82 Long term (current) use of aspirin; Z79.899 Other long term (current) drug therapy; Z87.440 Personal history of urinary (tract) infections
CPT/HCPCS: 36415; 51702; 71045; 74176; 80053; 81001; 82140; 83690; 84484; 85025; 87086; 93005; 96360; 99285; C9803; U0003; U0005

== ENCOUNTER 2021-11-25 20:07 | Emergency (ER) | payer MEDICARE, MEDICAID, SELFPAY ==
[2021-11-25 20:05] VITALS: BP 187/88; PULSE 86; RESP 20; TEMP 36.9; O2SAT 95; BMI 27.3
[2021-11-25 20:29] VITALS: BP 183/87; PULSE 89; RESP 19; TEMP 36.9; O2SAT 94
--- NOTE | 2021-11-25 20:45 | HMH.EDGIBL ---
Discharge Plan Disposition Patient Disposition: Home, Self-Care Chief Complaint: GI Bleed Prescriptions Prescriptions: No Action minocycline 100 mg capsule 100 mg PO metformin 500 mg tablet 500 mg PO BID atorvastatin 10 mg tablet 10 mg PO DAILY donepezil 10 mg tablet 10 mg PO DAILY omega-3 fatty acids [Fish Oil Concentrate] 1,000 mg capsule 1,000 mg PO DAILY fluticasone propionate [Allergy Relief (fluticasone)] 50 mcg/actuation spray,suspension 1 spray INTRANASAL DAILY Rx Instructions: administer into each nostril lisinopril 5 mg tablet 5 mg PO DAILY Systane (PF) 0.4-0.3 % dropperette 1 drp OPHTHALMIC Q12H PRN (Reason: eyes) propranolol 20 mg tablet 20 mg PO QAM pramipexole 1 mg tablet 1 mg PO HS paroxetine HCl [Paxil] 40 mg tablet 40 mg PO DAILY loratadine 10 mg capsule 10 mg PO DAILY memantine [Namenda XR] 28 mg capsule,sprinkle,ER 24hr 28 mg PO DAILY montelukast 10 mg tablet 10 mg PO HS propranolol 20 mg tablet 40 mg PO QHS quetiapine 100 mg tablet 100 mg PO HS Januvia 100 mg tablet 100 mg PO QHS tamsulosin [Flomax] 0.4 mg capsule 0.4 mg PO DAILY oxybutynin chloride 5 mg tablet extended release 24hr 5 mg PO DAILY gabapentin 400 mg capsule 400 mg PO TID Qty: 90 3RF insulin glargine 100 UNIT/ML insulin pen 15 unit SQ HS Referrals Follow up/Referrals: Luigi Nunez MD [Primary Care Provider] - See instructions Clinical Impressions Clinical Impression: Colitis, Decubitus ulcer of sacral region, stage 3 Instructions Patient Instructions: DI for Gastrointestinal Bleeding, DI for Pressure Injuries Discharge ED Provider: Luigi Nunez GI Bleed HPI General Chief complaint: GI Bleed Stated complaint: Rectal bleeding Time Seen by Provider: 11/25/21 20:45 Mode of Arrival: EMS Source of Information: Patient, EMS and Medical Record Limitations: Altered Mental Status Description of Symptoms (Recalled from ER Triage Doc. by RN): Per skilled nursing, pt just arrived back from [facility] today d/t DION[facility], and @ 1945 they discovered bright red blood per rectum. Pt is a DNR per skilled nursing record, and [facility] at [facility]. Pt denies any complaints at this time. There is a wound noted to pt's coccyx area that has a small amount of blood noted. History of Present Illness HPI Narrative: recent admit at for [facility] - had episode of brrb tonight -pt w/o specific c/o - MD complaint: gross hematochezia Onset (ago): hour(s) Consistency: intermittent Severity: moderate Associated symptoms: denies other symptoms Related Data Home Medications Medication Instructions Recorded Confirmed atorvastatin 10 mg tablet 10 mg PO DAILY Cholesterol 06/08/20 05/02/21 donepezil 10 mg tablet 10 mg PO DAILY . 06/08/20 05/02/21 fluticasone propionate 50 1 spray intranasal DAILY Allergy 06/08/20 05/02/21 mcg/actuation nasal symptoms spray,suspension (Allergy Relief (fluticasone)) lisinopril 5 mg tablet 5 mg PO DAILY bp 06/08/20 05/02/21 loratadine 10 mg capsule 10 mg PO DAILY Allergy symptoms 06/08/20 05/02/21 memantine 28 mg capsule 28 mg PO DAILY . 06/08/20 05/02/21 sprinkle,extended release 24hr (Namenda XR) montelukast 10 mg tablet 10 mg PO HS Allergy symptoms 06/08/20 05/02/21 omega-3 fatty acids 1,000 mg 1,000 mg PO DAILY Supplement 06/08/20 05/02/21 capsule (Fish Oil Concentrate) oxybutynin chloride 5 mg 5 mg PO DAILY bladder 06/08/20 05/02/21 tablet,extended release 24 hr paroxetine HCl 40 mg tablet (Paxil) 40 mg PO DAILY . 06/08/20 05/02/21 peg 400-propylene glycol (PF) 0.4 1 drp ophthalmic (eye) Q12H PRN 06/08/20 05/02/21 %-0.3 % eye drops in a dropperette eyes (Systane (PF)) pramipexole 1 mg tablet 1 mg PO HS sleep 06/08/20 05/02/21 propranolol 20 mg tablet 20 mg PO QAM bp 06/08/20 05/02/21 propranolol 20 mg tablet 40 mg PO QHS bp 06/08/20 05/02/21 quetiapine
[2021-11-25 21:23] LABS: Basophils # 0.1 K/mm3 (0-0.2); Basophils % 0.8 % (0.1-2.0); Eosinophils # 0.1 K/mm3 (0.0-0.4); Eosinophils % 0.7 % (0.1-12.0); Hematocrit 29.8 % (42.0-52.0); Hemoglobin 9.8 g/dL (14.1-18.0); Lymphocytes # 0.8 K/mm3 (0.7-4.5); Lymphocytes % 9.5 % (10-50); Mean Corpuscular HGB Conc 32.9 g/dL (31.8-35.4); Mean Corpuscular Hemoglobin 31.7 pg (27.0-31.2); Mean Corpuscular Volume 96.4 fl (80-94); Monocytes # 0.5 K/mm3 (0.1-1.0); Monocytes % 5.9 % (1.7-9.3); Neutrophils # 7.2 K/mm3 (1.8-7.8); Neutrophils % 83.2 % (37.0-80.0); Platelet Count 268 K/mm3 (142-424); Red Cell Distribution Width 14.3 % (11.5-17.5); White Blood Count 8.6 K/mm3 (4.8-10.8)
--- NOTE | 2021-11-25 21:49 | CT_ITS ---
PROCEDURE INFORMATION: Exam: CT Abdomen And Pelvis Without Contrast Exam date and time: 11/25/2021 9:52 PM Age: 71 years old Clinical indication: Screening exam; Other: Possible gi bleed TECHNIQUE: Imaging protocol: Computed tomography of the abdomen and pelvis without contrast. Radiation optimization: All CT scans at this facility use at least one of these dose optimization techniques: automated exposure control; mA and/or kV adjustment per patient size (includes targeted exams where dose is matched to clinical indication); or iterative reconstruction. COMPARISON: CT ABDOMEN PELVIS WO CON 11/18/2021 4:38 PM FINDINGS: Pleural spaces: Tiny bilateral pleural effusions with associated atelectasis. Liver: Mild cirrhotic changes. Gallbladder and bile ducts: Tiny gallstones. Pancreas: Peripancreatic inflammatory changes could indicate acute pancreatitis. Correlate with amylase and lipase. Spleen: Normal. No splenomegaly. Adrenal glands: Normal. No mass. Kidneys and ureters: Normal. No hydronephrosis. Stomach and bowel: There is diffuse colonic wall thickening which could be due to lack of distention or low-grade colitis. No small bowel obstruction. Appendix: No evidence of appendicitis. Intraperitoneal space: Small perihepatic and pelvic ascites. Vasculature: Unremarkable. No abdominal aortic aneurysm. Lymph nodes: Unremarkable. No enlarged lymph nodes. Urinary bladder: Herrera catheter in the urinary bladder which is moderately distended. Reproductive: Unremarkable as visualized. Bones/joints: Unremarkable. No acute fracture. Soft tissues: There is mild soft tissue anasarca. IMPRESSION: 1. Acute pancreatitis cannot be ruled out. Correlate with amylase and lipase. 2. Low-grade pancolitis. The there is clinical concern for acute GI bleeding recommend abdomen and pelvis CT with IV contrast. 3. Cholelithiasis. 4. Small volume abdominopelvic ascites. 5. No obstructive uropathy.
[2021-11-25 21:52] LABS: Occult Blood,Stool Positive (Negative)
[2021-11-25 22:04] LABS: Chloride 109 mmol/L (98-107); Sodium 147 mmol/L (136-145)
[2021-11-25 22:05] LABS: Potassium 3.9 mmoL/L (3.5-5.1)
[2021-11-25 22:07] LABS: Blood Urea Nitrogen 36 mg/dl (9-20); Creatinine Clearance Estimated 81 mL/min (50-200); Estimated Glomerular Filt Rate 96 ml/min (>60); GFR (African American) 116 ML/MIN (>60)
[2021-11-25 22:08] LABS: Anion Gap 15.9 mEq/L (5-15); Calcium 8.8 mg/dl (8.4-10.2); Carbon Dioxide 26 mmol/L (22.0-30.0); Glucose 196 mg/dl (74-100)
--- NOTE | 2021-11-25 22:09 | PC.NURSE ---
Per radiology patient has had a bm. Pt has been cleaned. linens changed. Pt was placed on the bedpan to finish his bm per his request. Pt had a small bm.
[2021-11-25 23:04] LABS: Amylase 74 U/L (30-110)
[2021-11-25 23:05] LABS: Lipase 317 U/L (23-300)
[2021-11-26 00:09] VITALS: BP 178/67; PULSE 89; RESP 14; TEMP 36.6; O2SAT 98
== END 2021-11-26 00:23 | disposition home or self-care (01) ==
PROVIDERS: Emergency Provider Emergency Medicine; PCP Emergency Medicine
DX: K92.1 Melena (principal); K52.9 Noninfective gastroenteritis and colitis, unspecified; I10 Essential (primary) hypertension; H04.129 Dry eye syndrome of unspecified lacrimal gland; D50.9 Iron deficiency anemia, unspecified; R50.9 Fever, unspecified; E78.5 Hyperlipidemia, unspecified; K21.9 Gastro-esophageal reflux disease without esophagitis; D22.9 Melanocytic nevi, unspecified; E11.9 Type 2 diabetes mellitus without complications; G25.81 Restless legs syndrome; K74.60 Unspecified cirrhosis of liver; N40.0 Benign prostatic hyperplasia without lower urinary tract symptoms; H35.30 Unspecified macular degeneration; M62.81 Muscle weakness (generalized); L89.153 Pressure ulcer of sacral region, stage 3; F02.80 Dementia in other diseases classified elsewhere, unspecified severity, without behavioral disturbance, psychotic disturbance, mood disturbance, and anxiety; G20 Parkinson's disease; F70 Mild intellectual disabilities; F17.290 Nicotine dependence, other tobacco product, uncomplicated; Z79.4 Long term (current) use of insulin; Z79.51 Long term (current) use of inhaled steroids; Z79.84 Long term (current) use of oral hypoglycemic drugs; Z79.899 Other long term (current) drug therapy; Z88.6 Allergy status to analgesic agent; Z88.8 Allergy status to other drugs, medicaments and biological substances
CPT/HCPCS: 36415; 74176; 80048; 82150; 82272; 83690; 85025; 99285; G0328

== ENCOUNTER → 2021-12-03 09:32 | Outpatient (CLI) | payer MEDICARE, MEDICAID, SELFPAY ==
--- NOTE | 2021-12-03 09:41 | CT_ITS ---
FINAL REPORT TECHNIQUE: Axial CT images of the abdomen and pelvis were obtained before and after the administration of IV contrast. This study was performed with techniques to keep radiation doses as low as reasonably achievable (ALARA). Individualized dose reduction techniques using automated exposure control or adjustment of mA and/or kV according to the patient''s size were employed. CLINICAL HISTORY: PANCREATIC PROTOCOL, panc, elev lipase COMPARISON: 11/25/2021 FINDINGS: Abdomen: There is mild bibasilar atelectasis and small pleural effusions. The heart is normal in size. The liver has an unremarkable appearance, without evidence of mass or biliary duct dilatation. There are presumed small gallstones in the gallbladder. No adrenal masses present. There is fluid in the anterior para renal space adjacent to the pancreas which likely represents sequela of acute pancreatitis. Fluid has increased since the prior. There is no evidence of pancreatic necrosis or pancreatic pseudocyst. The spleen is mildly enlarged measuring 13.2 cm. There is a less than 1 cm right renal cyst. The aorta is normal in caliber. Moderate ascites in the abdomen and pelvis. Precontrast images demonstrate no evidence of nephrolithiasis. Pelvis: There is persistent diffuse colon wall thickening, may represent edema or possibly colitis. The appendix is partially visualized, normal where seen. There is a Herrera catheter in the bladder. No inflammatory process is seen. There is no evidence of bowel obstruction. IMPRESSION: Findings consistent with acute pancreatitis with increased retroperitoneal fluid and increased ascites. No evidence of pancreatic necrosis, abscess, or pseudocyst. Gallstones. Diffuse colon wall thickening, may represent edema or colitis. Reviewed, Interpreted and Dictated by Castro Alvarado III, MD Transcribed by Alexandrea Pruett Authenticated and [facility]
== END ==
PROVIDERS: PCP Emergency Medicine; Visit Provider Emergency Medicine
DX: R74.8 Abnormal levels of other serum enzymes (principal); K85.90 Acute pancreatitis without necrosis or infection, unspecified
CPT/HCPCS: 74178; Q9967

== ENCOUNTER → 2021-12-17 15:32 | Outpatient (CLI) | payer MEDICARE, MEDICAID, SELFPAY | PROVIDERS: PCP Emergency Medicine; Visit Provider Emergency Medicine | DX: Z51.89 Encounter for other specified aftercare (principal) | CPT/HCPCS: 87070; 87077; 87186; 87205 ==

== ENCOUNTER 2021-12-19 01:13 | Inpatient (IN) | payer MEDICARE, MEDICAID, SELFPAY ==
[2021-12-19] VITALS (19 sets, daily range): BP systolic 100–179; BP diastolic 45–84; PULSE 77–116; RESP 16–22; TEMP 37.1–38.6; O2SAT 92–97; BMI 27.4; BMI 27.7; BMI 27.6
--- NOTE | 2021-12-19 01:23 | CT_ITS ---
PROCEDURE INFORMATION: Exam: CT Abdomen And Pelvis With Contrast Exam date and time: 12/19/2021 2:04 AM Age: 71 years old Clinical indication: Abdominal pain; Additional info: Abd pain TECHNIQUE: Imaging protocol: Computed tomography of the abdomen and pelvis with contrast. Total images: 1 Radiation optimization: All CT scans at this facility use at least one of these dose optimization techniques: automated exposure control; mA and/or kV adjustment per patient size (includes targeted exams where dose is matched to clinical indication); or iterative reconstruction. Contrast material: ISOVUE; Contrast volume: 75 ml; Contrast route: IV; COMPARISON: CT ABDOMEN PELVIS WO/W CON 12/03/2021 10:07 AM FINDINGS: Limitations: Examination is limited by respiratory motion. Tubes, catheters and devices: Urinary bladder catheter present. Lungs: There is subsegmental bibasilar atelectasis. Liver: Hepatic cirrhosis is evident. Gallbladder and bile ducts: Distended gallbladder. Fluid is noted in the gallbladder fossa with asymmetric gallbladder wall thickening. Pancreas: Normal. No ductal dilation. Spleen: Normal. No splenomegaly. Adrenal glands: Normal. No mass. Kidneys and ureters: Urothelial thickening and inflammation in the region of each renal pelvis is concerning for ascending pyelitis. 9 mm low-density focus in the right kidney is too small to characterize but statistically favors a benign process (no further follow-up needed). No hydronephrosis. Stomach and bowel: Thickening of the right colon is present but often seen in patients with chronic liver disease. Hiatal hernia with unexpected appearance high-density material either in the wall of the distal esophagus and gastric cardia versus within the lumen. Differential diagnosis is a prominent intramural venous varix of portal hypertension, mucosal space tumor or hyperacute onset of intraluminal bleeding, as there is no significant clotted blood material in the gastric lumen. Venous varix favored. Appendix: Normal appendix. Intraperitoneal space: Unremarkable. No free air. No significant fluid collection. Vasculature: Atherosclerosis is evident. Incidental circumaortic left renal vein is present. Lymph nodes: Unremarkable. No enlarged lymph nodes. Urinary bladder: Question urinary bladder wall thickening/inflammation, possibly cystitis. Reproductive: Prostatomegaly noted. Bones/joints: See Soft tissues finding. Soft tissues: Decubitus ulceration overlying the sacrum has progressed significantly from 12/03/2021, now reaching the medial margin of the gluteal musculature. A linear calcific density along the superficial medial left gluteal musculature is new from prior and is significance uncertain, potentially some accumulated debris. Significant gluteal and low back cellulitis is noted with asymmetric thickening of the cranial medial left gluteal muscle that is concerning for infectious myositis. IMPRESSION: 1. Hiatal hernia with unexpected appearance high-density material either in the wall of the distal esophagus and gastric cardia versus within the lumen. Differential diagnosis is a prominent intramural venous varix of portal hypertension, mucosal space tumor or hyperacute onset of intraluminal bleeding, as there is no significant clotted blood material in the gastric lumen. Venous varix favored. Upper endoscopy could further define. 2. Urothelial thickening and inflammation in the region of each renal pelvis is concerning for ascending pyelitis. Recommend urinalysis. No hydronephrosis. 3. Question urinary bladder wall thickening/inflammation, possibly cystitis. recommend urinalysis. 4. Decu
--- NOTE | 2021-12-19 01:26 | HMH.EDABDPAI ---
Discharge Plan Disposition Patient Disposition: Admitted As Inpatient Chief Complaint: Abdominal Pain Clinical Impressions Clinical Impression: Dementia, Unspecified dementia without behavioral disturbance, Acute urinary retention, Diabetes, Acute UTI (urinary tract infection), SIRS (systemic inflammatory response syndrome), Decubitus ulcer of sacral region, stage 4, Infective myositis Discharge ED Provider: Luigi Nunez Abdominal Pain HPI General Chief Complaint: Abdominal Pain Stated Complaint: Problems urinating Time Seen by Provider: 12/19/21 01:26 Mode of Arrival: EMS Source of Information: Patient, EMS and Medical Record Limitations: No Limitations Description of Symptoms (Recalled from ER Triage Doc. by RN): per [facility] staff pt only have 100ml of urine for 12hrs. nursing tried to irrgate bradford with no outpt then replace bradford and still had no output. pt c.o abd pain History of Present Illness HPI narrative: pt sent from counts include 234 beds at the [facility] for concerns about bradford placement - pt w/o specific c/o - has known diabetes and bph and sacral decubitus and dementia - pt followed at counts include 234 beds at the [facility] by [facility] - pt was noted to have fever at er - MD complaint: abdominal pain Onset (ago): hour(s) Consistency: intermittent Location: suprapubic Severity: moderate Associated symptoms: fever Related Data Home Medications Medication Instructions Recorded Confirmed atorvastatin 10 mg tablet 10 mg PO DAILY Cholesterol 06/08/20 12/19/21 donepezil 10 mg tablet 10 mg PO DAILY . 06/08/20 12/19/21 fluticasone propionate 50 1 spray intranasal DAILY Allergy 06/08/20 12/19/21 mcg/actuation nasal symptoms spray,suspension (Allergy Relief (fluticasone)) memantine 28 mg capsule 28 mg PO DAILY . 06/08/20 12/19/21 sprinkle,extended release 24hr (Namenda XR) montelukast 10 mg tablet 10 mg PO HS Allergy symptoms 06/08/20 12/19/21 omega-3 fatty acids 1,000 mg 1,000 mg PO DAILY Supplement 06/08/20 12/19/21 capsule (Fish Oil Concentrate) oxybutynin chloride 5 mg 5 mg PO DAILY bladder 06/08/20 12/19/21 tablet,extended release 24 hr paroxetine HCl 40 mg tablet (Paxil) 40 mg PO DAILY . 06/08/20 12/19/21 peg 400-propylene glycol (PF) 0.4 1 drp ophthalmic (eye) Q12H PRN 06/08/20 12/19/21 %-0.3 % eye drops in a dropperette eyes (Systane (PF)) quetiapine 100 mg tablet 100 mg PO HS nerves 06/08/20 12/19/21 sitagliptin 100 mg tablet (Januvia) 100 mg PO QHS . 06/08/20 12/19/21 tamsulosin 0.4 mg capsule (Flomax) 0.4 mg PO DAILY prostate 06/08/20 12/19/21 insulin glargine 100 unit/mL (3 15 unit SQ HS Diabetes 07/20/20 12/19/21 mL) subcutaneous pen metformin 500 mg tablet 500 mg PO BID Diabetes 08/16/20 12/19/21 metoprolol succinate 25 mg 25 mg PO DAILY High blood pressure 12/19/21 12/19/21 tablet,extended release 24 hr (Toprol XL) Previous Rx's Medication Instructions Recorded gabapentin 400 mg capsule 400 mg PO TID Pain #90 caps 10/18/21 Allergies Allergy/AdvReac Type Severity Reaction Status Date / Time aspirin Allergy Mild Rash Verified 11/12/21 15:47 [facility] Medical History Anxiety disorder, unspecified Benign prostatic hyperplasia with lower urinary tract symptoms Dementia in other diseases classified elsewhere with behavioral disturbance Dry eye syndrome of unspecified lacrimal gland Essential (primary) hypertension Gastro-esophageal reflux disease without esophagitis Hyperlipidemia, unspecified Iron deficiency anemia secondary to blood loss (chronic) Major depressive disorder, recurrent, mild Melanocytic nevi, unspecified Mild intellectual disabilities Muscle weakness (generalized) Nicotine dependence, chewing tobacco, uncomplicated Other reduced mobility Parkinson's disease Personal history of urinary (tract) infections Reflex neuropathic bladder, not elsewhere classified Restless legs syndrome Secondary parkinsonism, unspecified Type 2 diabetes mellitus with unspeci
--- NOTE | 2021-12-19 01:30 | XR_ITS ---
PROCEDURE INFORMATION: Exam: XR Chest Exam date and time: 12/19/2021 2:27 AM Age: 71 years old Clinical indication: Fever TECHNIQUE: Imaging protocol: Radiologic exam of the chest. Views: 1 view. Total images: 237 COMPARISON: CR XR CHEST PORTABLE 11/18/2021 5:00 PM FINDINGS: Lungs: Patchy nonspecific bibasilar opacities favor atelectasis. Pleural spaces: Unremarkable. No pleural effusion. No pneumothorax. Heart/Mediastinum: Unremarkable. No cardiomegaly. Bones/joints: Unremarkable. IMPRESSION: Patchy nonspecific bibasilar opacities favor atelectasis.
[2021-12-19 01:39] LABS: Microscopic, Urine URINE MICROSCOPIC (MICROSCOPIC)
[2021-12-19 01:40] LABS: Basophils % 0.2 % (0.1-2.0); Eosinophils % 0.1 % (0.1-12.0); Hematocrit 31.9 % (42.0-52.0); Hemoglobin 10.6 g/dL (14.1-18.0); Lymphocytes # 0.8 K/mm3 (0.7-4.5); Lymphocytes % 5.3 % (10-50); Mean Corpuscular HGB Conc 33.3 g/dL (31.8-35.4); Mean Corpuscular Hemoglobin 29.4 pg (27.0-31.2); Mean Corpuscular Volume 88.6 fl (80-94); Mean Platelet Volume 7.9 fl (7.4-10.4); Monocytes # 0.6 K/mm3 (0.1-1.0); Monocytes % 3.9 % (1.7-9.3); Neutrophils # 14.2 K/mm3 (1.8-7.8); Neutrophils % 90.5 % (37.0-80.0); Platelet Count 319 K/mm3 (142-424); Red Blood Count 3.61 M/mm3 (4.60-6.20); Red Cell Distribution Width 15.1 % (11.5-17.5); White Blood Count 15.7 K/mm3 (4.8-10.8)
[2021-12-19 01:44] LABS: Alanine Aminotransferase 31 U/L (12-78); Albumin Level 3.4 g/dl (3.5-5.0); Albumin/Globulin Ratio 0.9 (1.1-1.8); Alkaline Phosphatase 152 U/L (38-126); Anion Gap 16.7 mEq/L (5-15); Aspartate Amino Transferase 34 U/L (17-59); Bilirubin,Total 0.7 mg/dl (0.2-1.3); Blood Urea Nitrogen 23 mg/dl (9-20); Calcium 8.6 mg/dl (8.4-10.2); Carbon Dioxide 28 mmol/L (22.0-30.0); Chloride 96 mmol/L (98-107); Creatinine Clearance Estimated 72 mL/min (50-200); Estimated Glomerular Filt Rate 84 ml/min (>60); GFR (African American) 101 ML/MIN (>60); Globulin 3.8 g/dL (1.3-3.2); Glucose 242 mg/dl (74-100); Potassium 3.7 mmoL/L (3.5-5.1); Sodium 137 mmol/L (136-145); Total Protein,Serum 7.2 g/dl (6.3-8.2)
[2021-12-19 01:50] LABS: C-Reactive Protein 84.4 mg/L (0-4)
[2021-12-19 01:53] LABS: MANUAL DIFFERENTIAL MANUAL DIFFERENTIAL (MANUAL DIFF)
[2021-12-19 02:01] LABS: Lactic Acid 1.7 mmol/L (0.7-2.1)
[2021-12-19 02:03] LABS: Procalcitonin 0.295 ng/mL (0.0-2.0)
[2021-12-19 02:41] LABS: Appearance,Urine CLOUDY (Clear); Blood, Urine 3+ (Negative); Color,Urine AMBER (Yellow); Glucose,Urine (UA) Negative (Negative); Ketones,Urine Negative (Negative); Leukocyte Esterase,Urine 3+ (Negative); Nitrate,Urine POSITIVE (Negative); PH,Urine 8.5 (5.0-8.5); Protein,Urine 1+ (Negative)
[2021-12-19 02:42] LABS: Bilirubin,Urine Negative (Negative)
[2021-12-19 03:07] LABS: Erythrocyte Sedimentation Rate 137 mm/hr (0-20)
[2021-12-19 03:11] LABS: Lymphocytes % 6 % (10-50); Monocytes % 2 % (2-9); Neutrophils % 92 % (42-76); Total Cells Counted 100
[2021-12-19 03:12] LABS: Platelet Estimate Normal; RBC Morphology Normal
[2021-12-19 03:21] LABS: Amorphous Sediment,Urine 1+ /lpf; Bacteria,Urine 4+ /lpf
[2021-12-19 03:34] LABS: Coronavirus 19, PCR Not Detected (NotDetected); Influenza A, PCR Not Detected (NotDetected); Influenza B, PCR Not Detected (NotDetected)
--- NOTE | 2021-12-19 03:38 | PC.NURSE ---
Spoke with Jesse at [facility] regarding vancomycin and zosyn dosing. Per [facility] dosing for zosyn ordered by my is appropriate and vancomycin dosing entered of 1250mg as a loading dose.
--- NOTE | 2021-12-19 04:16 | EXP.HP ---
History of Present Illness *Admission Date: 12/19/21 *Reason for visit:: Abdominal Pain, Difficulty urinating *History of present illness: Mr. Sanket Love is a 71-year-old male who is a resident of a long-term care facility. He has a past medical history that is positive for Sacral Decubitus Ulcer, Liver Cirrhosis, BPH, GERD, Hypertension, Macular Degeneration, Alzheimer's Dementia, Parkinson's and Diabetes Mellitus. He presented to [facility] by EMS from the longterm today due to abdominal pain and low urine output. The information for the History and Physical was obtained from the patient's chart. Per Records the patient has a chronic catheter and it was changed, despite changing the patient only had 100 ml of urine over the last 12 hours and with complaints of abdominal pain he was sent to the ER for evaluation. In the ER, the patient was noted to be febrile with a temperature of 101.4, WBC was elevated at 15.7. CT of the abdomen and pelvis showed high density material in the wall of the distal esophagus and gastric vardia, a distended gallbladder. The Sacral Decubitus ulcer was noted to be significantly worsened since last presentation. Urinalysis was concerning for UTI. Due to the concern for myosititis on CT of the abdomen and pelvis with the sacral decubitus was contacted. They evaluated imaging and did not feel that there was a concern for necrotizing fascitis. The patient will be admitted with initial impression: Sepsis. Surgery will be consulted for evaluation of decubitus ulcer. The patient will be placed on broad spectrum antibiotics while we await cultures. [facility] Medical History Anxiety disorder, unspecified Benign prostatic hyperplasia with lower urinary tract symptoms Dementia in other diseases classified elsewhere with behavioral disturbance Dry eye syndrome of unspecified lacrimal gland Essential (primary) hypertension Gastro-esophageal reflux disease without esophagitis Hyperlipidemia, unspecified Iron deficiency anemia secondary to blood loss (chronic) Major depressive disorder, recurrent, mild Melanocytic nevi, unspecified Mild intellectual disabilities Muscle weakness (generalized) Nicotine dependence, chewing tobacco, uncomplicated Other reduced mobility Parkinson's disease Personal history of urinary (tract) infections Reflex neuropathic bladder, not elsewhere classified Restless legs syndrome Secondary parkinsonism, unspecified Type 2 diabetes mellitus with unspecified complications Unspecified cirrhosis of liver Unspecified dementia without behavioral disturbance Unspecified macular degeneration Family History (Updated 12/19/21 @ 09:47 by Salina Matos RN) No significant family history Social History (Updated 12/19/21 @ 09:47 by Salina Matos RN) Smoking Status: Never smoker alcohol intake: former substance use type: denies use current occupational status: disabled Travel in the last 8 weeks: None housing: shelter current occupational exposures/hazards: No caffeine: Yes Review of Systems Review of Systems Review of systems:: unable to obtain Meds Home Medications and Allergies Home Medications Medication Instructions Recorded Confirmed Type atorvastatin 10 mg tablet 10 mg PO DAILY hyperlipidemia 06/08/20 12/19/21 History donepezil 10 mg tablet 10 mg PO DAILY alzheimer's 06/08/20 12/19/21 History fluticasone propionate 50 1 spray intranasal HS Allergy 06/08/20 12/19/21 History mcg/actuation nasal symptoms spray,suspension (Allergy Relief (fluticasone)) memantine 28 mg capsule 28 mg PO DAILY dementia 06/08/20 12/19/21 History sprinkle,extended release 24hr (Namenda XR) omega-3 fatty acids 1,000 mg 1,000 mg PO DAILY Supplement 06/08/20 12/19/21 History capsule (Fish Oil Concentrate) oxybutynin chloride 5 mg 5 mg PO DAILY urinary retention 06/08/20 12/19/21 Hist
[2021-12-19 04:23] LABS: Lipase 18 U/L (23-300)
[2021-12-19 06:53] LABS: POC Glucose,Bedside 170 (70-110)
--- NOTE | 2021-12-19 07:24 | PC.NURSE ---
Pt arrived to the floor at this time
--- NOTE | 2021-12-19 08:00 | PC.NURSE ---
pt to the floor at this time
--- NOTE | 2021-12-19 08:03 | PC.NURSE ---
PT BEING TRANSPORTED UP FOR ADMISSION
--- NOTE | 2021-12-19 08:39 | EXP.PHA.CONS ---
Pharmacy Consult Date: 12/19/21 Time: 08:39 Referring provider: DR. ZUNIGA Reason for Consult:: VANCOMYCIN DOSING Allergies Allergy/AdvReac Type Severity Reaction Status Date / Time aspirin Allergy Mild Rash Verified 11/12/21 15:47 Home Medications Medication Instructions Recorded Confirmed Type atorvastatin 10 mg tablet 10 mg PO DAILY hyperlipidemia 06/08/20 12/19/21 History donepezil 10 mg tablet 10 mg PO DAILY alzheimer's 06/08/20 12/19/21 History fluticasone propionate 50 1 spray intranasal DAILY Allergy 06/08/20 12/19/21 History mcg/actuation nasal symptoms spray,suspension (Allergy Relief (fluticasone)) memantine 28 mg capsule 28 mg PO DAILY . 06/08/20 12/19/21 History sprinkle,extended release 24hr (Namenda XR) montelukast 10 mg tablet 10 mg PO HS Allergy symptoms 06/08/20 12/19/21 History omega-3 fatty acids 1,000 mg 1,000 mg PO DAILY Supplement 06/08/20 12/19/21 History capsule (Fish Oil Concentrate) oxybutynin chloride 5 mg 5 mg PO DAILY bladder 06/08/20 12/19/21 History tablet,extended release 24 hr paroxetine HCl 40 mg tablet (Paxil) 40 mg PO DAILY . 06/08/20 12/19/21 History peg 400-propylene glycol (PF) 0.4 1 drp ophthalmic (eye) Q12H PRN 06/08/20 12/19/21 History %-0.3 % eye drops in a dropperette eyes (Systane (PF)) quetiapine 100 mg tablet 100 mg PO HS nerves 06/08/20 12/19/21 History sitagliptin 100 mg tablet (Januvia) 100 mg PO QHS . 06/08/20 12/19/21 History tamsulosin 0.4 mg capsule (Flomax) 0.4 mg PO DAILY prostate 06/08/20 12/19/21 History insulin glargine 100 unit/mL (3 15 unit SQ HS Diabetes 07/20/20 12/19/21 History mL) subcutaneous pen metformin 500 mg tablet 500 mg PO BID Diabetes 08/16/20 12/19/21 History gabapentin 400 mg capsule 400 mg PO TID Pain #90 caps 10/18/21 12/19/21 Rx metoprolol succinate 25 mg 25 mg PO DAILY High blood pressure 12/19/21 12/19/21 History tablet,extended release 24 hr (Toprol XL) New Prescriptions to Start Prescriptions: Height: 1.68 m Weight: 78.018 kg Laboratory Results:: Laboratory Results - last 24 hr 12/19/21 01:04: WBC 15.7 H, RBC 3.61 L, Hgb 10.6 L, Hct 31.9 L, MCV 88.6, MCH 29.4, MCHC 33.3, RDW 15.1, Plt Count 319, MPV 7.9, Neut % (Auto) 90.5 H, Lymph % (Auto) 5.3 L, [place] % (Auto) 3.9, Eos % (Auto) 0.1, Baso % (Auto) 0.2, Neut # (Auto) 14.2 H, Lymph # (Auto) 0.8, [place] # (Auto) 0.6, Eos # (Auto) 0.0, Baso # (Auto) 0.0, Total Counted 100, Neutrophils % (Manual) 92 H, Lymphocytes % (Manual) 6 L, Monocytes % (Manual) 2, Platelet Estimate Normal, RBC Morphology Normal, ESR 137 H 12/19/21 01:04: Sodium 137, Potassium 3.7, Chloride 96 L, Carbon Dioxide 28, Anion Gap 16.7 H, BUN 23 H, Creatinine 0.90, Estimated Creat Clear 72, Estimated GFR 84, Est GFR ( Amer) 101, Glucose 242 H, Calcium 8.6, Total Bilirubin 0.7, AST 34, ALT 31, Alkaline Phosphatase 152 H, C-Reactive Protein 84.4 H, Total Protein 7.2, Albumin 3.4 L, Globulin 3.8 H, Albumin/Globulin Ratio 0.9 L, Procalcitonin 0.295 12/19/21 01:04: Lipase 18 L 12/19/21 01:18: Urine Color [place], Urine Appearance Cloudy, Urine pH 8.5, Ur Specific [place] 1.010, Urine Protein 1+, Urine Glucose (UA) Negative, Urine Ketones Negative, Urine Blood 3+, Urine Nitrate Positive, Urine Bilirubin Negative, Urine Urobilinogen 1.0, Ur Leukocyte Esterase 3+ A, Urine RBC 5-10, Urine WBC 10-20, Amorphous Sediment 1+, Urine Bacteria 4+ 12/19/21 01:30: Lactate 1.7 12/19/21 03:24: SARS-CoV-2 (PCR) Not detected, Influenza A Untype (PCR) Not detected, Influenza Type B (PCR) Not detected 12/19/21 06:14: POC Glucose 170 H Medical History: Medical History (Updated 12/19/21 @ 04:47 by Luigi Nunez MD) Anxiety disorder, unspecified Benign prostatic hyperplasia with lower urinary tract symptoms Dementia in other diseases classified elsewhere with behavioral disturbance Dry eye syndrome of unspecified lacrimal gland Essential (primary) hypertension Gastro-esophageal reflux disease without esophagit
--- NOTE | 2021-12-19 09:58 | EXP.SURG.CON ---
History of Present Illness *Admission Date: 12/19/21 *Reason for visit:: Sacral decubitus;gallbladder distention;radiographic abnormality-esophagus *History of present illness: This is a 71-year-old gentleman seen in consultation from the hospital service for evaluation of sacral decubitus ulceration. CT scan is also noted distended gallbladder and an abnormality of the esophagus. Please see HPI from history and physical forwarded below. Forwarded from admission H&P: Mr. Sanket Love is a 71-year-old male who is a resident of a long-term care facility. He has a past medical history that is positive for Sacral Decubitus Ulcer, Liver Cirrhosis, BPH, GERD, Hypertension, Macular Degeneration, Alzheimer's Dementia, Parkinson's and Diabetes Mellitus. He presented to [facility] by EMS from the long-term today due to abdominal pain and low urine output. The information for the History and Physical was obtained from the patient's chart. Per Records the patient has a chronic catheter and it was changed, despite changing the patient only had 100 ml of urine over the last 12 hours and with complaints of abdominal pain he was sent to the ER for evaluation. In the ER, the patient was noted to be febrile with a temperature of 101.4, WBC was elevated at 15.7. CT of the abdomen and pelvis showed high density material in the wall of the distal esophagus and gastric vardia, a distended gallbladder. The Sacral Decubitus ulcer was noted to be significantly worsened since last presentation. Urinalysis was concerning for UTI. Due to the concern for myosititis on CT of the abdomen and pelvis with the sacral decubitus was contacted. They evaluated imaging and did not feel that there was a concern for necrotizing fascitis. The patient will be admitted with initial impression: Sepsis. Surgery will be consulted for evaluation of decubitus ulcer. The patient will be placed on broad spectrum antibiotics while we await cultures. PFSH PFSH Medical History Anxiety disorder, unspecified Benign prostatic hyperplasia with lower urinary tract symptoms Dementia in other diseases classified elsewhere with behavioral disturbance Dry eye syndrome of unspecified lacrimal gland Essential (primary) hypertension Gastro-esophageal reflux disease without esophagitis Hyperlipidemia, unspecified Iron deficiency anemia secondary to blood loss (chronic) Major depressive disorder, recurrent, mild Melanocytic nevi, unspecified Mild intellectual disabilities Muscle weakness (generalized) Nicotine dependence, chewing tobacco, uncomplicated Other reduced mobility Parkinson's disease Personal history of urinary (tract) infections Reflex neuropathic bladder, not elsewhere classified Restless legs syndrome Secondary parkinsonism, unspecified Type 2 diabetes mellitus with unspecified complications Unspecified cirrhosis of liver Unspecified dementia without behavioral disturbance Unspecified macular degeneration Family History (Updated 12/19/21 @ 09:47 by Salina Matos RN) No significant family history Social History (Updated 12/19/21 @ 09:47 by Salina Matos RN) Smoking Status: Never smoker alcohol intake: former substance use type: denies use current occupational status: disabled Travel in the last 8 weeks: None housing: residential current occupational exposures/hazards: No caffeine: Yes Meds Home Medications and Allergies Home Medications Medication Instructions Recorded Confirmed Type atorvastatin 10 mg tablet 10 mg PO DAILY hyperlipidemia 06/08/20 12/19/21 History donepezil 10 mg tablet 10 mg PO DAILY alzheimer's 06/08/20 12/19/21 History fluticasone propionate 50 1 spray intranasal HS Allergy 06/08/20 12/19/21 History mcg/actuation nasal symptoms
--- NOTE | 2021-12-19 10:08 | P.CONPHA_ITS ---
Pharmacy Intervention Comments: Home medication reconciliation completed using outpatient pharmacy and medication list from [facility].
--- NOTE | 2021-12-19 10:40 | SW/DCPLANNER ---
Addendum entered by Marilynn Temple 12/20/21 13:15: I have updated [facility]/ Edwin Phelan that the plan for this patient is to return tomorrow with a midline and IV Cefepime. Addendum entered by Marilynn Temple 12/20/21 10:53: Updated patient information has been faxed to [facility]/ Edwin [facility]helan. Addendum entered by Marilynn Temple 12/19/21 11:08: *CORRECTION: patient is SNF level of care at [facility]. Original Note: This patient currently resides at [facility] level of care per [facility]. I will continue to follow up with [facility] until patient is medically stable for discharge.
--- NOTE | 2021-12-19 11:16 | DIET.NUTRFU ---
Addendum entered by Yoana Kent RD, LD 12/19/21 11:23: Nursing also indicated 11# wt loss in past 30 days. Original Note: Spoke to Lillian the nurse at [facility] who takes care of patient. She report recent decline last couple weeks and GOLF CADDIE downgraded to MSOFT ground with thin d/t weakness. Previously was on regular and was independent with meals. Recently he has been requiring more assistance. He also receives protein powder/arginine for wound and house supplement for additional calories. She indicated he is diabetic but loves sweets. Will start ensure with trays when diet is upgraded along with prostat/vitamin C and zinc for wound healing.
--- NOTE | 2021-12-19 11:36 | HMH.PTWOUND ---
Rehab Inpt Wound Evaluation Rehab IP Wound Evaluation Start: 12/19/21 08:58 Freq: ONCE Status: Active Protocol: Document 12/19/21 11:31 KHADAR (Rec: 12/19/21 11:36 KHADAR [id number]) Rehab PT Wound Assessment Patient Status Premedicated Prior to Dressing Change No Subjective Subjective MD consult wants to continue w / Wound vac using white foam and black foam Wound Sacrum Wound Type Stasis Ulcer Wound Staging Stage IV Query Text:Stage I - Unbroken, red skin, no blanching. Stage II - Skin broken, superficial skin loss involving epidermis alone or also dermis. Partial loss of skin layers. Stage III - Pressure area involves epidermis, dermis and subcutaneous tissue, full thickness skin loss. Stage IV - Pressure area involves epidermis, subcutaneous tissue, bone and other supportive tissue. Full thickness skin loss with extensive destruction of underlying tissue and structures. Wound Length (cm) 5.0 Wound Width (cm) 5.0 Wound Depth (cm) 2.0 Wound Bed Appearance Dusky Red Percentage Granulated (%) 100 Wound Margins Description Well Defined Tunneling Position 11 oclock Tunneling Depth (cm) 2.5 Surrounding Tissue Appearance [place] Wound Drainage Description Sanguineous Drainage Amount Small Drainage Odor Slight Odor Dressing Status Dry & Intact Packing Type Woundvac Sponge Comment white and black - white in tunnel Primary Dressing Film Dressing Comment wound vac film Wound Debridement Amount of Tissue None Removed Plan/Recommendation Comment Maintain wound vac - supplies in room - dressing change per MD request - no greater than 72 hours - wound care will continue to follow for daily assessment - nsg to handle vac changes PRN when wound care unavailable Eval Complexity Eval Charge Codes 33203 - Moderate Complexity G-codes PT Current Status Other PT/OT Status PT Current Status Modifier CN-At least 100% impaired, limited or restricted PT Goal Status Other PT/OT Status PT Goal Status Modifer
[2021-12-19 12:06] LABS: POC Glucose,Bedside 151 (70-110)
[2021-12-19 16:27] LABS: POC Glucose,Bedside 153 (70-110)
--- NOTE | 2021-12-19 17:54 | PC.NURSE ---
PT IS RESTING IN BED. TURNED AND REPOSITIONED FREQUENTLY THIS SHIFT. ALERT AND ORIENTED X2. PT HAS A WOUND NOTED TO THE COCCYX CONNECTED TO WOUND VAC. LUNG SOUNDS DIMINISHED. ABDOMEN SOFT/NON TENDER WITH ACTIVE BOWEL SOUNDS. NOTIFIED PT'S BROTHER THIS MORNING TO ADDRESS CODE STATUS AND HE STATED FOR NOW HE WANTED PT TO BE A FULL CODE. WILL CONTINUE TO MONITOR.
--- NOTE | 2021-12-19 19:04 | PC.WOUNDNOTE ---
UNSTAGEABLE WOUND NOTED TO THE COCCYX
[2021-12-19 21:28] LABS: POC Glucose,Bedside 132 (70-110)
--- NOTE | 2021-12-19 23:24 | PC.NURSE ---
[address] Patient asleep . Trash emptied
[2021-12-20] VITALS (7 sets, daily range): BP systolic 133–179; BP diastolic 65–93; PULSE 68–126; RESP 18–20; TEMP 36.8–37.2; O2SAT 93–96
--- NOTE | 2021-12-20 05:26 | PC.NURSE ---
pt c/o headache this shift and had temp of 100.7. was medicated per apr. he has had no other complaints. he has been turned q2 hr this shift. wound vac in place to buttocks/coccyx. he is a&o to self and follows verbal commands. call light in reach pull alarm on and functioning
--- NOTE | 2021-12-20 05:47 | PC.NURSE ---
[address] Trash and ice water refilled
[2021-12-20 06:48] LABS: POC Glucose,Bedside 177 (70-110)
--- NOTE | 2021-12-20 08:04 | EXP.SURG.PN ---
Subjective Patient reports: no new complaints Narrative: Per nursing, the VAC dressing was changed yesterday (late morning/early afternoon) Exam Data for Last 24 hours Vital signs and Labs for Last 24 Hours: Temp Pulse Resp BP Pulse Ox 98.2 F 110 H 18 133/70 93 L 12/20/21 04:00 12/20/21 04:00 12/20/21 04:00 12/20/21 04:00 12/20/21 04:00 Laboratory Results - last 24 hr 12/19/21 11:56: POC Glucose 151 H 12/19/21 16:18: POC Glucose 153 H 12/19/21 21:21: POC Glucose 132 H 12/20/21 06:21: POC Glucose 177 H I & O for Last 24 hours: Intake & Output 12/17/21 12/18/21 12/19/21 12/20/21 11:59 11:59 11:59 11:59 Intake Total 0 / 0 1042 / 1042 Output Total 0 / 0 2550 / 2550 Balance 0 / 0 -1508 / -1508 Weight 171 lb 15.369 oz Microbiology Reports for the Last 24 Hours: Microbiology 12/19/21 01:18 Urine,Catheterized Urine Culture - Preliminary Constitutional Constitutional: no acute distress *Routine Skin Exam Comments: VAC dressing in position. No spreading cellulitis. Progress Note: A&P Assessment and plan (1) Decubitus ulcer: Status: Acute Assessment and plan: Continue antibiotics as per primary service Continue VAC dressing for now Initial VAC dressing change tomorrow morning Timing of future dressing changes will be pending evaluation of wound but will likely be every 2-3 days (2) Abnormal CT scan, gallbladder: Problem details: Forwarded from CT: Distended gallbladder. Fluid is noted in the gallbladder fossa with asymmetric gallbladder wall thickening. This is more likely secondary to periportal edema or hepatitis versus much less likely cholecystitis. Recommend liver function tests. Status: Acute Assessment and plan: No definitive evidence of cholecystitis. No need for urgent intervention. (3) Abnormal CT scan, esophagus: Problem details: Forwarded from CT: Hiatal hernia with unexpected appearance high-density material either in the wall of the distal esophagus and gastric cardia versus within the lumen. Differential diagnosis is a prominent intramural venous varix of portal hypertension, mucosal space tumor or hyperacute onset of intraluminal bleeding, as there is no significant clotted blood material in the gastric lumen. Venous varix favored. Upper endoscopy could further define. Status: Acute Assessment and plan: The patient's overall status warrants, outpatient evaluation reasonable (4) UTI (urinary tract infection): Status: Acute
[2021-12-20 09:35] LABS: Basophils % 0.1 % (0.1-2.0); Eosinophils % 0.3 % (0.1-12.0); Hematocrit 29.5 % (42.0-52.0); Hemoglobin 9.5 g/dL (14.1-18.0); Lymphocytes # 0.6 K/mm3 (0.7-4.5); Lymphocytes % 5.2 % (10-50); Mean Corpuscular HGB Conc 32.4 g/dL (31.8-35.4); Mean Corpuscular Hemoglobin 29.1 pg (27.0-31.2); Mean Corpuscular Volume 89.7 fl (80-94); Mean Platelet Volume 8.2 fl (7.4-10.4); Monocytes # 0.4 K/mm3 (0.1-1.0); Monocytes % 2.9 % (1.7-9.3); Neutrophils # 11.3 K/mm3 (1.8-7.8); Neutrophils % 91.5 % (37.0-80.0); Platelet Count 266 K/mm3 (142-424); Red Blood Count 3.29 M/mm3 (4.60-6.20); Red Cell Distribution Width 15.2 % (11.5-17.5); White Blood Count 12.3 K/mm3 (4.8-10.8)
[2021-12-20 09:37] LABS: MANUAL DIFFERENTIAL MANUAL DIFFERENTIAL (MANUAL DIFF)
[2021-12-20 09:40] LABS: Potassium 3.1 mmoL/L (3.5-5.1); Sodium 139 mmol/L (136-145)
[2021-12-20 09:41] LABS: Chloride 103 mmol/L (98-107)
[2021-12-20 09:43] LABS: Albumin Level 3.5 g/dl (3.5-5.0); Albumin/Globulin Ratio 0.9 (1.1-1.8); Alkaline Phosphatase 135 U/L (38-126); Bilirubin,Total 0.9 mg/dl (0.2-1.3); Calcium 8.2 mg/dl (8.4-10.2); Globulin 3.7 g/dL (1.3-3.2); Glucose 252 mg/dl (74-100); Total Protein,Serum 7.2 g/dl (6.3-8.2)
[2021-12-20 09:53] LABS: Alanine Aminotransferase 32 U/L (12-78); Aspartate Amino Transferase 46 U/L (17-59); Blood Urea Nitrogen 17 mg/dl (9-20); Creatinine Clearance Estimated 77 mL/min (50-200); Estimated Glomerular Filt Rate 165 ml/min (>60); GFR (African American) 199 ML/MIN (>60)
[2021-12-20 09:55] LABS: Anion Gap 17.1 mEq/L (5-15); Carbon Dioxide 22 mmol/L (22.0-30.0)
[2021-12-20 09:57] LABS: Lymphocytes % 1 % (10-50); Monocytes % 5 % (2-9); Neutrophils % 94 % (42-76); Platelet Estimate Normal; RBC Morphology Normal; Total Cells Counted 100
--- NOTE | 2021-12-20 10:36 | DIET.NUTRFU ---
Addendum entered by Yoana Kent RD, LD 12/20/21 11:20: Spoke to patient about adding in glucerna and he thinks he would like strawberry or vanilla. He had no complaints about the food and he likes the extra help with meals from the staff. Original Note: Based on meal intake, glucerna was added for additional calories and protein. Secondary to skin breakdown, would benefit from zinc, vitamin C and prostat to aid in healing. Will notify nursing and pharmacy
[2021-12-20 12:11] LABS: POC Glucose,Bedside 189 (70-110)
--- NOTE | 2021-12-20 13:47 | EXP.ACUTE.PN ---
Subjective *Date: 12/20/21 *Time: 13:55 Interval history: Mr. Love denies significant shortness of breath. States he feels better today. Complaining of tubing from his wound VAC for his sacral decubitus ulcer. Unfortunately had a fever overnight that is defervesced by this morning. Tolerating fair p.o. intake. Clinically showing improvement with improved orientation and alertness. Hemodynamically stable today. Blood cultures this morning came back positive for E. coli. Will adjust antibiotic regimen accordingly. Urine culture still pending. Continues to have purple urine in his [place]. Denies nausea, vomiting, diarrhea, chest pain. Medical Exam Vital signs and Labs for Last 24 Hours: Vital Signs Temp Pulse Resp BP Pulse Ox 12/20/21 08:00 98.4 F 126 H 20 159/65 H 95 12/20/21 04:00 98.2 F 110 H 18 133/70 93 L 12/19/21 23:44 98.9 F 98 H 16 138/78 97 12/19/21 20:00 100.7 F H 111 H 20 179/84 H 95 12/19/21 15:26 99.6 F 116 H 16 113/47 L 94 L Intake and Output 12/19/21 12/20/21 12/20/21 23:59 07:59 15:59 Intake Total 540 / 900 142 / 622 480 / 622 Output Total 1200 / 1950 600 / 600 Balance -660 / -1050 - 22 Intake: Intake, Oral Amount 240 / 600 480 / 480 Intake, Total IV Amount 300 / 300 142 / 142 Cefepime HCl 1 gm In 0.9 % 100 / 100 42 / 42 Sodium Chloride 50 ml @ 100 mls /hr IV Q8H HOANG Rx#:[id number] Metronidaz/Sod Chl 500 mg In 200 / 200 100 / 100 100 ml @ 100 mls/hr IV Q8H HOANG Rx#:[id number] Output: Output, Urine Amount 600 / 600 Output, Urine Amount (Catheter) 600 / 1350 600 / 600 [place] 600 / 1350 600 / 600 Other: Number of Unmeasured Voids 0 Number of Bowel Movements 1 Laboratory Results - last 24 hr 12/19/21 16:18: POC Glucose 153 H 12/19/21 21:21: POC Glucose 132 H 12/20/21 06:21: POC Glucose 177 H 12/20/21 09:22: WBC 12.3 H, RBC 3.29 L, Hgb 9.5 L, Hct 29.5 L, MCV 89.7, MCH 29.1, MCHC 32.4, RDW 15.2, Plt Count 266, MPV 8.2, Neut % (Auto) 91.5 H, Lymph % (Auto) 5.2 L, [place] % (Auto) 2.9, Eos % (Auto) 0.3, Baso % (Auto) 0.1, Neut # (Auto) 11.3 H, Lymph # (Auto) 0.6 L, [place] # (Auto) 0.4, Eos # (Auto) 0.0, Baso # (Auto) 0.0, Total Counted 100, Neutrophils % (Manual) 94 H, Lymphocytes % (Manual) 1 L, Monocytes % (Manual) 5, Platelet Estimate Normal, RBC Morphology Normal 12/20/21 09:22: Sodium 139, Potassium 3.1 L, Chloride 103, Carbon Dioxide 22, Anion Gap 17.1 H, BUN 17 D, Creatinine 0.50 L D, Estimated Creat Clear 77, Estimated GFR 165, Est GFR ( Amer) 199 D, Glucose 252 H, Calcium 8.2 L, Total Bilirubin 0.9, AST 46 D, ALT 32, Alkaline Phosphatase 135 H, Total Protein 7.2, Albumin 3.5, Globulin 3.7 H, Albumin/Globulin Ratio 0.9 L 12/20/21 12:01: POC Glucose 189 H I & O for Labs for Last 24 Hours: Intake & Output 12/17/21 12/18/21 12/19/21 12/20/21 23:59 23:59 23:59 23:59 Intake Total 900 / 900 622 / 622 Output Total 1950 / 1950 600 / 600 Balance -1050 / -1050 Weight 78 kg Microbiology Reports for the Last 24 Hours: Microbiology 12/19/21 01:30 Blood Blood Culture - Preliminary 12/19/21 01:30 Blood Blood Culture - Preliminary 12/19/21 01:18 Urine,Catheterized Urine Culture - Preliminary Constitutional: Present no acute distress, chronically ill appearing and cooperative Head: Present atraumatic and normocephalic ENT: Present mucous membranes moist Neck: Present normal inspection Respiratory: Present CTA bilaterally and normal respiratory effort; Absent wheezes or crackles Cardiac: Present Reg Rate and Rhythm GI: Present normal bowel sounds; Absent tenderness Rectal (male): Present deferred Comment:: bradford in place Extremities: Present normal inspection; Absent edema Skin: Present intact; Absent erythema Neuro: Present Grossly Intact, alert, awake and moves all extremities Assessment and Plan *Assessment and plan (1) Sepsis: Status: Acute
[2021-12-20 16:30] LABS: POC Glucose,Bedside 198 (70-110)
--- NOTE | 2021-12-20 17:40 | PC.NURSE ---
PT IS RESTING IN BED. TOLERATED SITTING UP IN THE CHAIR FOR SEVERAL HOURS THIS SHIFT. PT REQUIRES ASSISTANCE WITH MEALS. TURNED AND REPOSITIONED FREQUENTLY WHILE IN BED. WOUND VAC DRESSING NOTED TO THE COCCYX. WOUND VAC REINFORCED X2 THIS SHIFT. DRESSING WILL NEED TO BE CHANGED TOMORROW PER . LUNG SOUNDS CLEAR. ABDOMEN SOFT/NON TENDER WITH ACTIVE BOWEL SOUNDS., PT HAS A MIDLINE NOTED TO THE LUE. PT IS A 1 ASSIST TO GET OOB. WILL CONTINUE TO MONITOR.
[2021-12-20 20:41] LABS: POC Glucose,Bedside 207 (70-110)
--- NOTE | 2021-12-20 23:09 | PC.NURSE ---
attempted to locate amino acids for this patient, spoke with Shawn Cruz from [facility] pharm, and gatehouse attendant Jennifer, medication not available to be pulled, Car notified and stated ok not to give tonight
--- NOTE | 2021-12-21 03:38 | PC.NURSE ---
pt has rested well this shift, has had one bowel movement so far this shift, remains on room air with O2 sats 96%, bradford remains in place with nw[place] colored urine present, has been tachy this shift with HR 103-105
[2021-12-21 04:00] VITALS: BP 151/76; PULSE 117; RESP 18; TEMP 37.3; O2SAT 95
[2021-12-21 06:00] VITALS: BMI 27.6
[2021-12-21 06:02] LABS: POC Glucose,Bedside 166 (70-110)
[2021-12-21 07:32] LABS: Chloride 108 mmol/L (98-107); Sodium 142 mmol/L (136-145)
[2021-12-21 07:35] LABS: Alanine Aminotransferase 24 U/L (12-78); Albumin Level 3.2 g/dl (3.5-5.0); Albumin/Globulin Ratio 0.9 (1.1-1.8); Alkaline Phosphatase 123 U/L (38-126); Anion Gap 12.9 mEq/L (5-15); Aspartate Amino Transferase 37 U/L (17-59); Bilirubin,Total 0.6 mg/dl (0.2-1.3); Blood Urea Nitrogen 13 mg/dl (9-20); Calcium 8.2 mg/dl (8.4-10.2); Carbon Dioxide 24 mmol/L (22.0-30.0); Creatinine Clearance Estimated 77 mL/min (50-200); Estimated Glomerular Filt Rate 165 ml/min (>60); GFR (African American) 199 ML/MIN (>60); Globulin 3.4 g/dL (1.3-3.2); Glucose 138 mg/dl (74-100); Total Protein,Serum 6.6 g/dl (6.3-8.2)
--- NOTE | 2021-12-21 07:39 | EXP.DC.SUM ---
General Admission date:: 12/19/21 Discharge date: 12/21/21 HPI HPI HPI: Mr. Sanket Love is a 71-year-old male who is a resident of a long-term care facility.? He has a past medical history that is positive for Sacral Decubitus Ulcer, Liver Cirrhosis, BPH, GERD, Hypertension, Macular Degeneration, Alzheimer's Dementia, Parkinson's and Diabetes Mellitus. He presented to [facility] by EMS from the halfway today due to abdominal pain and low urine output.? The information for the History and Physical was obtained from the patient's chart.? Per Records the patient has a chronic catheter and it was changed, despite changing the patient only had 100 ml of urine over the last 12 hours and with complaints of abdominal pain he was sent to the ER for evaluation.? In the ER, the patient was noted to be febrile with a temperature of 101.4, WBC was elevated at 15.7.? CT of the abdomen and pelvis showed high density material in the wall of the distal esophagus and gastric vardia, a distended gallbladder.? The Sacral Decubitus ulcer was noted to be significantly worsened since last presentation.? Urinalysis was concerning for UTI.? Due to the concern for myosititis on CT of the abdomen and pelvis with the sacral decubitus was contacted.? They evaluated imaging and did not feel that there was a concern for necrotizing fascitis.? The patient will be admitted with initial impression:? Sepsis.? Surgery will be consulted for evaluation of decubitus ulcer.? The patient will be placed on broad spectrum antibiotics while we await cultures. Hospital Course Hospital Course Hospital Course: 71 year-old male who is a resident of a long-term care facility presents by EMS due to abdominal pain and low urine output, findings concerning for Sepsis Sepsis E. coli bacteremia - Sepsis Criteria met on admission. Started on spectrum antibiotics. Patient's symptoms gradually defervesced during hospitalization. Cultures obtained with wound culture obtained prior to admission. Blood cultures positive for E. coli with CTX-M gene (beta-lactamase resistance). Transitioned to ertapenem to complete 14-day course of antibiotics, last day of Abx 01/03/22. Final sensitivity pending at discharge. This should also cover for Proteus which has grown previously in his urine and in his sacral wound. Midline placed during admission, may be removed after completing antibiotics. Plan to continue wound VAC for sacral decubitus ulcer. Would recommend having wound care nursing facility ([facility]) resume care. Decubitus Ulcers -Surgery consulted for decubitus wound along with wound care.? No further debridement planned at this time. GERD - CT findings concerning for material in wall of distal esophagus. Suspicious for mass versus varices. Has a history of varices. No further work-up during inpatient course. Patient tolerating p.o. intake without difficulty. Tolerating modified diet. Recommend consideration for further work-up of CT findings and distal esophagus as an outpatient CAUTI -Present on admission.? Antibiotics as above. Catheter exchanged on day of discharge Dementia - Continue home medications Diabetes Mellitus - Sliding Scale insulin during admission. Resume outpatient regimen on discharge Moderate Protein calorie malnutrition -Nutrition consulted, Modified diet. Patient medically stable for discharge back to senior living for continued care of sacral wound and IV antibiotic treatment. Exam Data for Last 24 hours Vital signs and Labs for Last 24 Hours: Temp Pulse Resp BP Pulse Ox 99.1 F 117 H 18 151/76 H 95 12/21/21 04:00 12/21/21 04:00 12/21/21 04:00 12/21/21 04:00 12/21/21 04:00 Laboratory Results - last 24 hr 12/20/21 09:22: WBC 12.3 H, RBC 3.29 L, Hgb 9.5 L, Hct 29.5 L, MCV 89.7, MCH 29.1, MCHC 32.4, RDW 15.2, Plt Count 266, MPV 8.2, Neut % (Auto) 91.5 H, Lymph % (Auto) 5.2 L, [place] % (Auto) 2.9, Eos % (Auto) 0.3, Baso % (Auto)
[2021-12-21 07:44] LABS: Basophils % 0.2 % (0.1-2.0); Eosinophils % 0.6 % (0.1-12.0); Hematocrit 26.9 % (42.0-52.0); Hemoglobin 8.6 g/dL (14.1-18.0); Lymphocytes # 0.7 K/mm3 (0.7-4.5); Lymphocytes % 8.8 % (10-50); Mean Corpuscular Volume 90.6 fl (80-94); Mean Platelet Volume 8.2 fl (7.4-10.4); Monocytes # 0.3 K/mm3 (0.1-1.0); Monocytes % 3.7 % (1.7-9.3); Neutrophils # 6.5 K/mm3 (1.8-7.8); Neutrophils % 86.7 % (37.0-80.0); Platelet Count 242 K/mm3 (142-424); Red Blood Count 2.97 M/mm3 (4.60-6.20); Red Cell Distribution Width 15.2 % (11.5-17.5); White Blood Count 7.5 K/mm3 (4.8-10.8)
[2021-12-21 08:00] VITALS: BP 131/70; PULSE 124; RESP 20; TEMP 36.8; O2SAT 95
[2021-12-21 08:08] LABS: MANUAL DIFFERENTIAL MANUAL DIFFERENTIAL (MANUAL DIFF)
[2021-12-21 08:14] LABS: Potassium 2.9 mmoL/L (3.5-5.1)
[2021-12-21 09:49] LABS: Lymphocytes % 9 % (10-50); Monocytes % 1 % (2-9); Neutrophils % 90 % (42-76); Platelet Estimate Normal; Total Cells Counted 100
[2021-12-21 09:50] LABS: RBC Morphology Normal
--- NOTE | 2021-12-21 10:09 | PC.NURSE ---
report called to edwin. Bora bradford initiated, pt tolerated well. 16f. urine is straw colored. MIDline to LUE is c/d/i. i will clamp wound vac when EMS gets here for transport. Spoke with [facility] and one of their staff members came and picked up their wound vac on .
--- NOTE | 2021-12-21 10:48 | PC.NURSE ---
pt has been discahrged from the fqacility via EMS. report called to kera Pizarro. all pt belongings have been returned to him.
--- NOTE | 2021-12-23 12:38 | CARE MANAGER ---
Called and spoke with [facility], who states that patient is doing well and they received everything that was needed at discharge. No issues to report at this time.
== END 2021-12-21 10:49 | DRG 698 ==
LOC: ER 01:17 → 2ND 04:24
PROVIDERS: Nurse Practitioner Family; Admitting Provider Internal Medicine Adolescent Medicine; Emergency Provider Emergency Medicine; PCP Emergency Medicine; Visit Provider Internal Medicine Adolescent Medicine
DX: T83.592A Infection and inflammatory reaction due to indwelling ureteral stent, initial encounter (principal); A41.51 Sepsis due to Escherichia coli [E. coli]; L89.154 Pressure ulcer of sacral region, stage 4; N39.0 Urinary tract infection, site not specified; F33.9 Major depressive disorder, recurrent, unspecified; E44.0 Moderate protein-calorie malnutrition; N40.0 Benign prostatic hyperplasia without lower urinary tract symptoms; E11.9 Type 2 diabetes mellitus without complications; Z79.84 Long term (current) use of oral hypoglycemic drugs; F17.220 Nicotine dependence, chewing tobacco, uncomplicated; G20 Parkinson's disease; K74.60 Unspecified cirrhosis of liver; F02.80 Dementia in other diseases classified elsewhere, unspecified severity, without behavioral disturbance, psychotic disturbance, mood disturbance, and anxiety; K21.9 Gastro-esophageal reflux disease without esophagitis; K80.20 Calculus of gallbladder without cholecystitis without obstruction; Z68.27 Body mass index [BMI] 27.0-27.9, adult; Y84.6 Urinary catheterization as the cause of abnormal reaction of the patient, or of later complication, without mention of misadventure at the time of the procedure; G30.9 Alzheimer's disease, unspecified
CPT/HCPCS: 36410; 36415; 51702; 71045; 74177; 80053; 81001; 82962; 83605; 83690; 84145; 85007; 85025; 85651; 86140; 87040; 87070; 87077; 87086; 87088; 87186; 87205; 99285; C9803; J0692; J1335; J2543; Q9967; U0003; U0005

== ENCOUNTER → 2022-10-16 09:15 | Outpatient (CLI) | payer MEDICARE, MEDICAID, SELFPAY ==
--- NOTE | 2022-10-16 09:23 | US_ITS ---
FINAL REPORT CLINICAL HISTORY: CIRROHSIS COMPARISON: None FINDINGS: Sonographic images of the right upper quadrant were obtained. The pancreas is partially obscured. Coarsened hepatic echotexture is consistent with a history of cirrhosis. There is a 5.5 cm mass in the anterior aspect of the liver with possible central scar. The gallbladder appears normal without evidence of gallstones.There is no evidence of biliary ductal dilatation.The common duct measures 3 mm. Limited images of the right kidney are unremarkable. IMPRESSION: 5.5 cm mass anterior aspect of the liver. Recommend liver mass protocol CT or MRI for further evaluation. Coarsened hepatic echotexture consistent with cirrhosis. Reviewed, Interpreted and Dictated by Castro Alvarado III, MD Transcribed by Kim Hays Authenticated and . [facility]
== END ==
PROVIDERS: PCP Emergency Medicine; Visit Provider Physician Assistant
DX: R93.2 Abnormal findings on diagnostic imaging of liver and biliary tract (principal)
CPT/HCPCS: 76705

== ENCOUNTER → 2022-11-24 12:20 | Outpatient (CLI) | payer MEDICARE, SELFPAY ==
[2022-11-24 12:48] LABS: Basophils % 0.4 % (0.1-2.0); Eosinophils # 0.1 K/mm3 (0.0-0.4); Eosinophils % 2.5 % (0.1-12.0); Hematocrit 40.1 % (42.0-52.0); Hemoglobin 12.6 g/dL (14.1-18.0); Lymphocytes # 1.3 K/mm3 (0.7-4.5); Lymphocytes % 27.9 % (10-50); Mean Corpuscular HGB Conc 31.5 g/dL (31.8-35.4); Mean Corpuscular Hemoglobin 28.5 pg (27.0-31.2); Mean Corpuscular Volume 90.4 fl (80-94); Mean Platelet Volume 9.2 fl (7.4-10.4); Monocytes # 0.3 K/mm3 (0.1-1.0); Monocytes % 5.8 % (1.7-9.3); Neutrophils % 63.4 % (37.0-80.0); Platelet Count 106 K/mm3 (142-424); Red Blood Count 4.44 M/mm3 (4.60-6.20); Red Cell Distribution Width 14.4 % (11.5-17.5); White Blood Count 4.7 K/mm3 (4.8-10.8)
[2022-11-24 13:08] LABS: Alanine Aminotransferase 32 U/L (12-78); Albumin Level 4.1 g/dl (3.5-5.0); Albumin/Globulin Ratio 1.1 (1.1-1.8); Alkaline Phosphatase 87 U/L (38-126); Anion Gap 13.3 mEq/L (5-15); Aspartate Amino Transferase 39 U/L (17-59); Bilirubin,Total 1.3 mg/dl (0.2-1.3); Blood Urea Nitrogen 12 mg/dl (9-20); Calcium 9.1 mg/dl (8.4-10.2); Carbon Dioxide 25 mmol/L (22.0-30.0); Chloride 103 mmol/L (98-107); Estimated Glomerular Filt Rate 111 ml/min (>60); GFR (African American) 135 ML/MIN (>60); Globulin 3.6 g/dL (1.3-3.2); Glucose 352 mg/dl (74-100); Potassium 4.3 mmoL/L (3.5-5.1); Sodium 137 mmol/L (136-145); Total Protein,Serum 7.7 g/dl (6.3-8.2)
== END ==
PROVIDERS: PCP Emergency Medicine; Visit Provider Emergency Medicine
DX: G20 Parkinson's disease (principal); Z79.899 Other long term (current) drug therapy
CPT/HCPCS: 80053; 85025

== ENCOUNTER → 2022-11-25 08:55 | Outpatient (CLI) | payer MEDICARE, SELFPAY ==
--- NOTE | 2022-11-25 09:09 | MR_ITS ---
FINAL REPORT TECHNIQUE: Multiplanar and multisequence imaging was obtained before and after the intravenous injection of gadolinium contrast. CLINICAL HISTORY: LIVER MASS 15 ml prohance COMPARISON: CT dated December 19, 2021 and ultrasound dated October 16, 2022 FINDINGS: There is cirrhosis. No hepatic mass is seen on precontrast imaging. On diffusion weighted imaging there is no restricted diffusion seen in the liver. On postcontrast imaging there is no hypervascular hepatic mass. The portal and hepatic veins are patent. The gallbladder is present. The spleen is enlarged up to 14.1 cm in long axis.. The adrenal glands and pancreas are without acute abnormality. There is no hydronephrosis or renal mass. The kidneys are unremarkable. Limited evaluation of the GI tract demonstrates diverticulosis. There is no abdominal lymphadenopathy or ascites. Postcontrast images reveal no abnormal enhancement. IMPRESSION: Cirrhosis. No liver mass correlating with the abnormality on ultrasound. Reviewed, Interpreted and Dictated by Natalie Napier MD Transcribed by Nahun Alves Authenticated and [facility]
== END ==
PROVIDERS: PCP Emergency Medicine; Visit Provider Physician Assistant
DX: R16.0 Hepatomegaly, not elsewhere classified (principal)
CPT/HCPCS: 74183; A9576

== ENCOUNTER 2023-04-29 08:44 | Outpatient (CLI) | payer MEDICARE, MEDICAID, SELFPAY ==
--- NOTE | 2023-04-29 08:49 | US_ITS ---
FINAL REPORT TECHNIQUE: Sonographic images of the right upper quadrant were obtained. CLINICAL HISTORY: CIRRHOSIS OF THE LIVER COMPARISON: Prior ultrasound dated 10/16/2022, prior MRI dated 11/25/2022 FINDINGS: PANCREAS: The head and body of the pancreas are normal in appearance, while the tail of the pancreas is obscured by overlying bowel gas. LIVER: Homogeneous. There is a markedly abnormal contour of the liver, similar to the prior examinations, which is consistent with the clinical diagnosis of cirrhosis. The appearance of an abnormal mass in what is felt to be a large space between the right and left hepatic lobes likely represents loops of bowel and intra-abdominal fat rather than an intrahepatic mass. This was determined after correlation between the ultrasound, CT, and MRI images. No intrahepatic biliary ductal dilatation. GALLBLADDER: No gallstones. No gallbladder wall thickening or pericholecystic fluid. COMMON DUCT: 4 mm. Normal for age. RIGHT KIDNEY: The right kidney measures 10.7 cm. There is no hydronephrosis, mass, or stone. FREE FLUID: None. IMPRESSION: Markedly abnormal contour of the liver, with a large gap between the right and left hepatic lobes, which appears to be responsible for the ultrasound appearance of a focal mass, not seen on subsequent CT or MRI images. Follow-up imaging should be performed with CT or MRI rather than ultrasound. Reviewed, Interpreted and Dictated by Natalie Napier MD Transcribed by Tash Kiran Authenticated and [facility]
== END 2023-04-29 23:59 ==
LOC: RAD 08:45
PROVIDERS: PCP Internal Medicine; Visit Provider Physician Assistant
DX: K74.60 Unspecified cirrhosis of liver (principal)
CPT/HCPCS: 76705

== ENCOUNTER 2023-10-30 08:07 | Outpatient (CLI) | payer MEDICARE, MEDICAID, SELFPAY ==
--- NOTE | 2023-10-30 08:18 | CT_ITS ---
FINAL REPORT TECHNIQUE: Pre- and postcontrast images of the abdomen were performed by computed tomography. This study was performed with technique to keep radiation doses as low as reasonably achievable. (ALARA). CLINICAL HISTORY: LIVER MASS PROTOCOL COMPARISON: CT abdomen and pelvis dated 12/19/2021, MR abdomen dated 11/25/2022 FINDINGS: The lung bases are clear. There are calcified granulomas in the liver and spleen. The liver has a nodular peripheral margin consistent with cirrhosis. The spleen is larger than on the previous exam measuring 15.6 cm in craniocaudal dimension. The gallbladder is enlarged and lobular with mucosal thickening. The gallbladder wall measures up to 1.5 cm in thickness. The pancreas, adrenal glands, and kidneys are unremarkable. There is mild hazy stranding in the right hemiabdomen. Multiple varices are seen in the upper abdomen, particularly in the region of the splenic hilum. IMPRESSION: No definite hepatic mass identified. Moderate changes of cirrhosis with splenomegaly and varices which appear worse than on the previous exam. Markedly abnormal appearance of the gallbladder which appears lobulated with marked wall thickening. Chronic cholecystitis is not excluded. Correlate clinically. Reviewed, Interpreted and Dictated by Darrell Fernandez MD Transcribed by Kasey Kraus Authenticated and [facility]
[2023-10-30 08:42] LABS: Blood Urea Nitrogen 11 mg/dl (9-20); Estimated Glomerular Filt Rate 133 ml/min (>60); GFR (African American) 161 ML/MIN (>60)
[2023-10-30] MEDS: SODIUM CHLORIDE 0.9% 10ML SYR (RAD ONLY) 10 ML IV (09:05)
[2023-10-30] MEDS: IOPAMIDOL-370 (76%);100ML BOTTLE 75 ML IV (09:05)
== END 2023-10-30 23:59 | disposition home or self-care (01) ==
LOC: RAD 08:08
PROVIDERS: PCP Physician Assistant; Visit Provider Physician Assistant
DX: K74.60 Unspecified cirrhosis of liver (principal)
CPT/HCPCS: 36415; 74170; 82565; 84520; Q9967

== ENCOUNTER 2024-01-11 16:18 | Outpatient (CLI) | payer MEDICARE, MEDICAID, SELFPAY ==
[2024-01-11 16:39] LABS: Microscopic, Urine URINE MICROSCOPIC (MICROSCOPIC)
[2024-01-11 16:58] LABS: Appearance,Urine CLEAR (Clear); Bilirubin,Urine Negative (Negative); Blood, Urine Negative (Negative); Color,Urine YELLOW (Yellow); Glucose,Urine (UA) 1+ (Negative); Ketones,Urine Negative (Negative); Leukocyte Esterase,Urine 1+ (Negative); Nitrate,Urine POSITIVE (Negative); Protein,Urine Negative (Negative); Specific Gravity, Urine 1.025 (1.005-1.030)
[2024-01-11 19:01] LABS: Bacteria,Urine 4+ /lpf; Squamous Epithelial Cell,Urine Occasional #/hpf (0-5); WBC,Urine 50-100 #/hpf (0-3)
== END 2024-01-11 23:59 | disposition home or self-care (01) ==
LOC: LAB.DROPOF 16:20
PROVIDERS: PCP Family Medicine; Visit Provider Family Medicine
DX: R30.0 Dysuria (principal); R10.9 Unspecified abdominal pain
CPT/HCPCS: 81001; 87086; 87088; 87186

== ENCOUNTER 2024-02-18 14:45 | Observation (INO) | payer MEDICARE, MEDICAID, SELFPAY ==
[2024-02-18] VITALS (8 sets, daily range): BP systolic 134–207; BP diastolic 27–92; PULSE 57–74; RESP 15–18; TEMP 36.4–36.5; O2SAT 92–98; BMI 28.2; BMI 13.6
--- NOTE | 2024-02-18 15:28 | CT_ITS ---
PROCEDURE INFORMATION: Exam: CT Cervical Spine Without Contrast Exam date and time: 02/18/2024 5:38 PM Age: 73 years old Clinical indication: Neck pain; Additional info: * TECHNIQUE: Imaging protocol: Computed tomography of the cervical spine without contrast. Radiation optimization: All CT scans at this facility use at least one of these dose optimization techniques: automated exposure control; mA and/or kV adjustment per patient size (includes targeted exams where dose is matched to clinical indication); or iterative reconstruction. COMPARISON: CT CERVICAL SPINE WO CON 02/18/2024 5:38 PM FINDINGS: Bones: No evidence of acute fracture or malalignment. Lungs: No acute abnormality or suspicious mass lesion in the visualized lung apices. Soft tissues: Unremarkable. IMPRESSION: No evidence of acute osseous abnormality in the cervical spine.
--- NOTE | 2024-02-18 15:28 | CT_ITS ---
PROCEDURE INFORMATION: Exam: CT Abdomen And Pelvis With Contrast Exam date and time: 02/18/2024 5:47 PM Age: 73 years old Clinical indication: Abdominal pain; Generalized; Additional info: Abdominal pain/back pain TECHNIQUE: Imaging protocol: Computed tomography of the abdomen and pelvis with contrast. Radiation optimization: All CT scans at this facility use at least one of these dose optimization techniques: automated exposure control; mA and/or kV adjustment per patient size (includes targeted exams where dose is matched to clinical indication); or iterative reconstruction. Contrast material: ISOVUE; Contrast volume: 75 ml; Contrast route: IV; COMPARISON: CT ABDOMEN WO/W CON 10/30/2023 9:06 AM FINDINGS: Pleural spaces: Trace right pleural effusion. Esophagus: Distal esophageal wall thickening compatible with gastroesophageal reflux esophagitis. Liver: Unremarkable. Gallbladder and biliary ducts: Markedly thickened gallbladder wall with pericholecystic fat fluid and inflammatory changes in the surrounding mesenteric fat. No calcified gallstones. No intra- or extra-hepatic biliary ductal dilation. Pancreas: No pancreatic ductal dilation. Peripancreatic fat stranding, primarily around the pancreatic head and confluent with the inflammatory changes in the adjacent duodenum. Stable 11 mm cystic lesion in the pancreatic head. Spleen: Mild splenomegaly, measuring 13.0 cm in craniocaudal axis. Adrenal glands: Unremarkable. Kidneys and ureters: Unremarkable. Stomach and bowel: Wall thickening and prominent mucosal hyperenhancement in the gastric antrum and proximal duodenum with adjacent mesenteric fat stranding confluent with the pericholecystic fat stranding. Appendix: No evidence of appendicitis. Intraperitoneal space: Trace perihepatic ascites. No focal fluid collection. No pneumoperitoneum. Vasculature: Splenic vein is patent, but poorly opacified in the region of the pancreatic neck and concerning for potential thrombus in the setting of possible pancreatitis. No abdominal aortic aneurysm. Lymph nodes: Unremarkable. Urinary bladder: Unremarkable. Reproductive: Unremarkable. Bones/joints: No evidence of acute osseous abnormality. Soft tissues: Unremarkable. IMPRESSION: 1. Acute inflammatory changes centered in the right upper quadrant surrounding the gallbladder, gastric antrum/proximal duodenum and pancreatic head/neck. Findings could represent acute cholecystitis, pancreatitis, acute peptic ulcer disease or a combination of any of these. No evidence of cholelithiasis or perforated peptic ulcer, noting that ultrasound is more sensitive in detecting noncalcified gallstones. 2. Splenic vein is patent, but poorly opacified in the region of the pancreatic neck and concerning for potential thrombosis in the setting of possible pancreatitis. Attention on follow up imaging is recommended. 3. Trace right pleural effusion. 4. Distal esophageal wall thickening compatible with gastroesophageal reflux esophagitis. 5. Mild splenomegaly, similar to prior exam. 6. Stable 11 mm cystic lesion in the pancreatic head. Findings are favored to represent benign intraductal papillary mucinous neoplasm (IPMN). Please see comments below. 7. No pancreatic ductal dilation. COMMENTS: Regarding pancreatic cystic lesions less than 1.5 cm in size presenting in patients between 65-79 years of age, current guidelines recommend surveillance imaging every 2 years for 10 years, or confirmation of stability with prior imaging if available. (Reference: Dong, 2017) REFERENCES: Dong STEINBERG, et al. Management of Incidental Pancreatic Cysts: A White Paper of the ACR Incidental Findings Committee. J Am Darron Radiol. 2017;14(7):911-923.
--- NOTE | 2024-02-18 15:29 | XR_ITS ---
FINAL REPORT CLINICAL HISTORY: Left shoulder pain COMPARISON: None FINDINGS: 3 views of the left shoulder were obtained. There is a questionable nondisplaced fracture of the distal clavicle. Recommend correlation with clinical exam. There are mild degenerative changes of the glenohumeral joint. The acromioclavicular joint is intact. IMPRESSION: Questionable nondisplaced right distal clavicle fracture, favor artifact. Recommend correlation with clinical exam. Reviewed, Interpreted and Dictated by Randell Duggan MD Transcribed by Radha Lockhart Authenticated and [facility]
--- NOTE | 2024-02-18 15:29 | XR_ITS ---
FINAL REPORT CLINICAL HISTORY: Shortness of breath COMPARISON: None FINDINGS: No acute pulmonary opacity is present. There is no evidence of effusion or pneumothorax. Mediastinum is unremarkable. Heart size is normal. IMPRESSION: No acute abnormality. Reviewed, Interpreted and Dictated by Randell Duggan MD Transcribed by Radha Lockhart Authenticated and [facility]
--- NOTE | 2024-02-18 15:29 | CT_ITS ---
PROCEDURE INFORMATION: Exam: CT Thoracic Spine Without Contrast Exam date and time: 02/18/2024 5:40 PM Age: 73 years old Clinical indication: Pain in thoracic spine; Additional info: Midthoracic spine pain. TECHNIQUE: Imaging protocol: Computed tomography of the thoracic spine without contrast. Radiation optimization: All CT scans at this facility use at least one of these dose optimization techniques: automated exposure control; mA and/or kV adjustment per patient size (includes targeted exams where dose is matched to clinical indication); or iterative reconstruction. COMPARISON: CT CERVICAL SPINE WO CON 02/18/2024 5:38 PM FINDINGS: Bones/joints: No evidence of acute fracture or malalignment. Soft tissues: Unremarkable. Other findings: No emergent findings in the partially visualized thorax. IMPRESSION: No evidence of acute osseous abnormality in the thoracic spine.
--- NOTE | 2024-02-18 15:31 | ED_ITS ---
Discharge Plan Disposition Patient Disposition: Admitted Condition: Good Clinical Impressions Clinical Impression: UTI (urinary tract infection), Altered mental status, Back pain Discharge ED Provider: Vick Glovre Adult HPI <SUZETTE Rodriguez - Last Filed: 02/18/24 22:08> General Chief complaint: PAIN Stated complaint: left arm pain, back pain Time Seen by Provider: 02/18/24 15:17 Mode of Arrival: EMS Source of Information: Patient Limitations: No Limitations Description of Symptoms (Recalled from ER Triage Doc. by RN): Patient to ED via [facility] from [facility] with complaints of left sided back and shoulder pain. Nursing staff at [facility] states that patients baseline is alert, and ambulatory at facility. Patient states that this pain came out of nowhere on Thursday. Patient reports that the pain has progressively gotten worse over the past 5 days. Denies falls or injury to extremity History of Present Illness HPI narrative: 73-year-old male presents the emergency department via EMS from retirement facility for a 4-day history of mid thoracic spine pain, left-sided shoulder/arm pain, patient endorses no trauma per history, no bending lifting twisting injury, patient is somewhat of a poor historian, GCS of 14, has some confusion about date and time unsure of chronicity. Denies any fever chills chest pain shortness of breath, nausea vomiting abdominal pain constipation diarrhea, denies any hematuria melena hematochezia, hematemesis has been moving his bowels appropriately, he denies any alcohol tobacco or drug use. Initial triage vitals are grossly unremarkable. Patient does have past medical history that is quite extensive consisting of schizophrenia, GERD, BPH, data deficient history of esophageal varices determined by endoscopic, Parkinson's, neurogenic bladder, hypertension, anxiety/depression, dementia, hyperlipidemia, type 2 diabetes, iron deficiency anemia, Onset (ago): day(s) Related Data Home Medications ?Medication ?Instructions ?Recorded ?Confirmed atorvastatin 10 mg tablet 10 mg PO DAILY hyperlipidemia 06/08/20 02/18/24 fluticasone propionate 50 1 spray intranasal HS Allergy 06/08/20 02/18/24 mcg/actuation nasal symptoms spray,suspension (Allergy Relief (fluticasone)) memantine 28 mg capsule 28 mg PO DAILY dementia 06/08/20 02/18/24 sprinkle,extended release 24hr (Namenda XR) sitagliptin phosphate 100 mg 100 mg PO QHS Diabetes 06/08/20 02/18/24 tablet (Januvia) tamsulosin 0.4 mg capsule (Flomax) 0.4 mg PO DAILY prostate 06/08/20 02/18/24 omeprazole 20 mg tablet,delayed 20 mg PO DAILY acid reflux 12/19/21 02/18/24 release propylene glycol 0.6 % eye drops 1 drp Eye-Both BID dry eyes 12/19/21 02/18/24 (Systane Complete) acetaminophen 500 mg tablet (Pain 500 mg PO Q4H PRN Fever Or Pain 02/05/23 02/18/24 Reliever Extra Strength (acetaminophen)) donepezil 5 mg tablet 5 mg PO HS 02/05/23 02/18/24 insulin glargine 100 unit/mL (3 30 unit SQ HS Diabetes 02/05/23 02/18/24 mL) subcutaneous pen lactulose 10 gram/15 mL oral 20 g PO DAILY PRN Constipation 02/05/23 02/18/24 solution metformin 1,000 mg tablet 1,000 mg PO BID 02/05/23 02/18/24 metoprolol succinate 50 mg 50 mg PO DAILY 02/05/23 02/18/24 tablet,extended release 24 hr mirabegron 25 mg tablet,extended 25 mg PO DAILY 02/05/23 02/18/24 release 24 hr (Myrbetriq) omega-3 300 mg-dha 120 mg-epa 180 1 cap PO DAILY 02/18/24 02/18/24 mg-fish oil 1,000 mg capsule pen needle,diabetic dual safty 30 02/18/24 02/18/24 gauge x 3/16 (BD AutoShield Duo Pen Needle) Previous Rx's ?Medication ?Instructions ?Recorded montelukast 10 mg tablet 10 mg PO HS #0 tabs 12/21/21 potassium chloride 20 mEq 20 meq PO BID #0 tabs 12/21/21 tablet,extended release(part/cryst) multivitamin 1 tab PO DAILY #30 tabs 02/05/23 insulin regular human 100 unit/mL 1 sliding scale dose SQ 03/29/23 injection solution (Novolin R USEASDIRECTD #10 mL Regular U-100 Insulin) gabapentin 400 mg capsule 400 mg PO TID #90 caps 09/15/23 Allergies Allergy/AdvReac Type Severity Reaction Status Date / Time aspirin Allergy Mild Rash Verified 02/18/24 21:49 acetaminophen Allergy Rash Verified 02/18/24 21:49 PFSH <SUZETTE Rodriguez - Last Filed: 02/18/24 22:08> PFS Disclaimer: The information contained in this section may have been updated after the patient was seen, as this information can be updated by other users. Medical History Positive colorectal cancer screening using Cologuard test Schizophrenia, unspecified E coli bacteremia Catheter-associated urinary tract infection Abnormal CT scan, esophagus Abnormal CT scan, gallbladder Infective myositis Decubitus ulcer of sacral region, stage 4 Diabetes Unspecified cirrhosis of liver Essential (primary) hypertension Personal history of urinary (tract) infections Personal history of COVID-19 Benign prostatic hyperplasia with lower urinary tract symptoms Reflex neuropathic bladder, not elsewhere classified Gastro-esophageal reflux disease without esophagitis Unspecified macular degeneration Dry eye syndrome of unspecified lacrimal gland Restless legs syndrome Secondary parkinsonism, unspecified Mild intellectual disabilities Anxiety disorder, unspecified Major depressive disorder, recurrent, mild Nicotine dependence, chewing tobacco, uncomplicated Unspecified dementia without behavioral disturbance Hyperlipidemia, unspecified Type 2 diabetes mellitus with unspecified complications Iron deficiency anemia secondary to blood loss (chronic) Melanocytic nevi, unspecified Other reduced mobility Muscle weakness (generalized) Parkinson's disease Dementia in other diseases classified elsewhere with behavioral disturbance Surgical History History of esophagogastroduodenoscopy (EGD) Family History Other No significant family history Social History Smoking Status: Never smoker alcohol intake: former substance use type: denies use current occupational status: disabled Travel in the last 8 weeks: None housing: retirement current occupational exposures/hazards: No caffeine: Yes Other Medical History Have you received the Flu Vaccine for this season: No Have you received the Pneumonia Vaccine: Yes <SUZETTE Rodriguez - Last Filed: 02/18/24 22:08> ROS Obtained: Yes All systems reviewed & no additional complaints except as documented Physical Exam <SUZETTE Rodriguez - Last Filed: 02/18/24 22:08> General General appearance: alert and in no apparent distress Head Head exam: atraumatic and normocephalic Eye Eye exam: Present PERRL and EOMI ENT ENT exam: Present mucous membranes moist Neck Neck exam: Present normal inspection Chest Chest inspection: Present normal inspection and symmetric chest wall rise Respiratory Respiratory exam: Present normal lung sounds bilaterally; Absent respiratory distress, wheezes, stridor or accessory muscle use Cardiovascular Cardiovascular exam: Present regular rate and normal rhythm Abdominal Exam Abdominal exam: Present soft and distention; Absent tenderness, guarding, rebound or rigidity Extremities Exam Extremities exam: Present normal inspection, tenderness and other (Patient complains of pain in his left shoulder, but has full range of motion, has some mild paraspinal tenderness to palpation to his thoracic spine, negative cervical tenderness to palpation negative lumbar spinal tenderness to palpation or paraspinal tenderness palpation.) Back Exam Back exam: Present normal inspection and paraspinal tenderness Comment: There is some mild paraspinal tenderness to palpation to the cervical and mid thoracic spine is no pain to palpation or paraspinal tenderness to the lumbar spine Neurological Exam Neurological exam: Present alert and other (Patient is GCS of 14, some confusion about date and time unsure of chronicity no tremors noted, moves extremities to command.) Psychiatric Psychiatric exam: Present normal affect Skin Skin exam: Present warm and dry Medical Decision Making <SUZETTE Rodriguez - Last Filed: 02/18/24 22:08> Medical Records Medical records reviewed: Yes I reviewed the patient's medical records. Screening: Per USPSTF and CDC recommendations, given the prevalence of disease in our region, it is our hospital?s policy to screen for HIV and viral Hepatitis for all patients aged 18 and over and those with ongoing risk factors. [place] Inquiry Pt receiving controlled substance: No [place] was queried for this patient: No Vital Signs: 02/18/24 14:45 02/18/24 15:37 02/18/24 16:01 Temperature 97.6 F Temperature Source Oral Pulse Rate 64 64 Pulse Rate [Right] 67 Respiratory Rate 15 Blood Pressure 134/52 L 168/92 H Blood Pressure [Right Arm] 169/83 H Blood Pressure Mean [Right Arm] 111 Blood Pressure Source [Right Arm] Automatic Cuff Blood Pressure Position [Right Arm] Supine 02 Sat by Pulse Oximetry 97 98 98 Oxygen Delivery Method Room Air Room Air Room Air 02/18/24 18:03 02/18/24 18:19 02/18/24 18:31 Temperature Temperature Source Pulse Rate 74 58 L 58 L Pulse Rate [Right] Respiratory Rate Blood Pressure 207/87 H 148/73 H 157/71 H Blood Pressure [Right Arm] Blood Pressure Mean [Right Arm] Blood Pressure Source [Right Arm] Blood Pressure Position [Right Arm] 02 Sat by Pulse Oximetry 96 93 L 92 L Oxygen Delivery Method Room Air Room Air Room Air 02/18/24 21:27 Temperature 97.6 F Temperature Source Oral Pulse Rate 57 L Pulse Rate [Right] Respiratory Rate 18 Blood Pressure 164/79 H Blood Pressure [Right Arm] Blood Pressure Mean [Right Arm] Blood Pressure Source [Right Arm] Blood Pressure Position [Right Arm] 02 Sat by Pulse Oximetry Oxygen Delivery Method Room Air Lab Data Lab results reviewed: Yes I reviewed the patient's lab results. Lab Results 02/18/24 15:30: WBC 5.1, RBC 4.13 L, Hgb 10.5 L, Hct 32.8 L, MCV 79.4 L, MCH 25.4 L, MCHC 32.0, RDW 15.3, Plt Count 100 L, MPV 12.0 H, Neut % (Auto) 74.8, Lymph % (Auto) 16.4, [place] % (Auto) 7.6, Eos % (Auto) 0.6, Baso % (Auto) 0.4, Neut # (Auto) 3.8, Lymph # (Auto) 0.8, [place] # (Auto) 0.4, Eos # (Auto) 0.0, Baso # (Auto) 0.0, Sodium 136, Potassium 4.2, Chloride 109 H, Carbon Dioxide 22, Anion Gap 9.2, BUN 12, Creatinine 0.70, Estimated Creat Clear 76, Estimated GFR 111, Est GFR ( Amer) 135, Glucose 276 H, Calcium 9.0, Magnesium 1.4 L, T otal Bilirubin 1.8 H, AST 47, ALT 36, Alkaline Phosphatase 80, Troponin I < 0.01, NT-Pro-B Natriuret Pep 186 H, Total Protein 7.3, Albumin 4.1, Globulin 3.2, Albumin/Globulin Ratio 1.3, Lipase 182 02/18/24 17:57: Urine Color Yellow, Urine Appearance Clear, Urine pH 6.0, Ur Specific [place] 1.020, Urine Protein Negative, Urine Glucose (UA) 3+, Urine Ketones Negative, Urine Blood Trace-i, Urine Nitrate Positive A, Urine Bilirubin Negative, Urine Urobilinogen 1.0, Ur Leukocyte Esterase Trace, Urine RBC 10-20, Urine WBC Tntc, Ur Squamous Epith Cells 3-5, Urine Bacteria 4+ 02/18/24 15:30 02/18/24 15:30 Orders (Tests/Meds): ED MEDICATIONS Generic Name Dose Route Start Last Admin Trade Name Freq PRN Reason Stop Dose Admin Acetaminophen 650 mg 02/18/24 21:38 Acetaminophen 325mg Tab PO 03/19/24 21:37 Q4HP PRN Fever or Mild Pain (1-3) Al Hydrox/Mg Hydrox/Simethicone 30 ml 02/18/24 21:38 Aluminum/Magnesium/Simethicone 30ml Udc PO 03/19/24 21:37 QIDP PRN Dyspepsia Atorvastatin Calcium 10 mg 02/19/24 09:00 Atorvastatin 10mg Tablet PO 03/20/24 08:59 DAILY HOANG Cyclobenzaprine HCl 5 mg 02/19/24 09:00 Cyclobenzaprine 10mg Tablet PO 02/20/24 09:01 TID HOANG Docusate Sodium 100 mg 02/19/24 09:00 Docusate Sodium 100 Mg Capsule PO 03/20/24 08:59 DAILY HOANG Donepezil HCl 5 mg 02/19/24 21:00 Donepezil 5mg Tab PO 03/20/24 20:59 HS [facility] Enoxaparin Sodium 40 mg 02/19/24 09:00 Enoxaparin 40mg/0.4ml Syringe SUBCUT 03/20/24 08:59 DAILY HOANG Fluticasone Propionate 1 spray 02/19/24 21:00 Fluticasone Prop 50mcg Nasal [place] 16gm NS 03/20/24 20:59 HS [facility] Gabapentin 400 mg 02/19/24 09:00 Gabapentin 400mg Capsule PO 03/20/24 08:59 TID HOANG Ceftriaxone Sodium 1 gm/ 50 mls @ 100 mls/hr 02/18/24 21:29 02/18/24 22:24 Sodium Chloride IV 02/18/24 21:58 100 mls/hr ONCE ONE Administration Ceftriaxone Sodium 2 gm/ 100 mls @ 200 mls/hr 02/19/24 16:00 Sodium Chloride IV 02/25/24 15:59 Q24H HOANG Sodium Chloride 1,000 mls @ 100 mls/hr 02/18/24 21:45 02/18/24 22:25 Sod Chlor 0.9% 1000ml Bag IV 02/20/24 21:44 100 mls/hr .Q10H HOANG Administration Magnesium Sulfate 2 gm in 50 mls @ 50 mls/hr 02/18/24 22:38 02/18/24 23:10 Magnesium Sulfate 2gm/50ml Premix IV 02/18/24 23:37 50 mls/hr ONCE ONE Administration Insulin Glargine 20 unit 02/18/24 23:30 Insulin Glargine 100 Units/Ml 3ml Flexpen SUBCUT 03/19/24 23:29 HS [facility] Insulin Human Lispro 0 unit 02/19/24 06:00 Humalog 100 Units/Ml 10ml Vial (Ssi) SUBCUT 03/20/24 05:59 ACHS [facility] Protocol Ketorolac Tromethamine 15 mg 02/18/24 21:55 02/18/24 22:25 Ketorolac 30mg/Ml Vial IV 02/19/24 21:01 15 mg BID HOANG Administration Metoprolol Succinate 50 mg 02/19/24 09:00 Metoprolol Succinate Xl 50mg Tablet PO 03/20/24 08:59 DAILY HOANG Montelukast Sodium 10 mg 02/19/24 21:00 Montelukast Sodium 10mg Tab PO 03/20/24 20:59 HS [facility] Morphine Sulfate 2 mg 02/18/24 21:54 02/18/24 23:16 Morphine 2mg/Ml Syringe IV 03/19/24 21:51 2 mg Q6HP PRN Administration Severe Pain (7-10) Nicotine 21 mg 02/18/24 21:42 Nicotine 21mg/24hr Patch TD 03/19/24 21:41 DAILYP PRN Nicotine Cravings Non-Formulary Medication 20 gm 02/18/24 23:25 Lactulose PO DAILY PRN Constipation Non-Formulary Medication 28 mg 02/19/24 09:00 Memantine [Namenda Xr] PO 03/20/24 08:59 DAILY HOANG Non-Formulary Medication 25 mg 02/19/24 09:00 Mirabegron [Myrbetriq] PO 03/20/24 08:59 DAILY [facility] Non-Formulary Medication 1 tab 02/19/24 09:00 Multivitamin PO 03/20/24 08:59 DAILY HOANG Non-Formulary Medication 1 cap 02/19/24 09:00 [place] 6-Bsg-Gmt-Fish Oil PO 03/20/24 08:59 DAILY HOANG Non-Formulary Medication 100 mg 02/18/24 23:30 Sitagliptin Phosphate [Januvia] PO 03/19/24 23:29 QHS HOANG Non-Formulary Medication 1 drp 02/18/24 23:30 02/19/24 00:19 Propylene Glycol [Systane Complete] EYE-BOTH 03/19/24 23:29 Not Given BID HOANG Pantoprazole Sodium 40 mg 02/19/24 21:00 Pantoprazole 40mg Tablet PO 03/20/24 20:59 HS [facility] Prochlorperazine Edisylate 10 mg 02/18/24 23:30 Prochlorperazine 10mg/2ml Vial IM 03/19/24 23:29 Q6HP PRN Nausea And Vomiting Sodium Chloride 10 ml 02/18/24 21:42 Sodium Chloride 0.9% 10ml Flush Syringe IV 03/19/24 21:41 NEEDED PRN Maintain IV Site Tamsulosin HCl 0.4 mg 02/19/24 09:00 Tamsulosin 0.4mg Capsule PO 03/20/24 08:59 DAILY [facility] Tramadol HCl 100 mg 02/18/24 21:53 Tramadol 50mg Tablet PO 03/19/24 21:52 Q6HP PRN Moderate Pain (4-6) Discontinued Medications Generic Name Dose Route Start Last Admin Trade Name Freq PRN Reason Stop Dose Admin Hydromorphone HCl 0.5 mg 02/18/24 16:51 02/18/24 16:56 Hydromorphone 2mg/Ml Syringe IV 02/18/24 16:52 0.5 mg ONCE ONE Administration Ceftriaxone Sodium 1 gm/ 50 mls @ 100 mls/hr 02/18/24 18:24 02/18/24 19:00 Sodium Chloride IV 02/18/24 18:53 100 mls/hr ONCE ONE Administration Iopamidol 75 ml 02/18/24 17:49 02/18/24 17:50 Iopamidol-370 (76%);100ml Bottle IV 02/18/24 17:50 75 ml ONCE ONE Administration Morphine Sulfate 4 mg 02/18/24 16:19 02/18/24 16:24 Morphine 4mg/Ml Syringe IV 02/18/24 16:20 4 mg ONCE ONE Administration Morphine Sulfate 2 mg 02/18/24 21:38 Morphine 2mg/Ml Syringe IV 03/19/24 21:37 Q2HP PRN Severe Pain (7-10) Ondansetron HCl 4 mg 02/18/24 20:35 02/18/24 20:43 Ondansetron 4mg/2ml Vial IV 02/18/24 20:36 4 mg ONCE ONE Administration Ondansetron HCl 4 mg 02/18/24 21:38 Ondansetron 4mg/2ml Vial IV 03/19/24 21:37 Q8HP PRN Nausea Sodium Chloride 10 ml 02/18/24 17:49 02/18/24 17:49 Sodium Chloride 0.9% 10ml Syr (Rad Only) IV 02/18/24 17:50 10 ml ONCE ONE Administration ORDERS Category Date Time Status CT abdomen pelvis w con Stat Cat Scan 02/18/24 15:[address] cervical spine wo con Stat Cat Scan 02/18/24 15:[address] thoracic spine wo con Stat Cat Scan 02/18/24 15:29 Completed XR chest portable Stat Exams 02/18/24 15:29 Completed XR clavicle LT Stat Exams 02/18/24 20:07 Completed XR clavicle RT Stat Exams 02/18/24 20:07 Completed XR shoulder LT min 2V Stat Exams 02/18/24 15:29 Completed Complete Blood Count Auto Diff Stat Lab 02/18/24 15:30 Completed Comprehensive Metabolic Panel Stat Lab 02/18/24 15:30 Completed Lipase Stat Lab 02/18/24 15:30 Completed Magnesium Stat Lab 02/18/24 15:30 Completed NT Pro Brain Natriuretic Pep. Stat Lab 02/18/24 15:30 Completed Troponin I Stat Lab 02/18/24 15:30 Completed Urinalysis and Microscopic Stat Lab 02/18/24 17:57 Completed Urine Culture Stat Micro 02/18/24 17:57 Received Medical Decision Narrative: 73-year-old male presents to the emergency department with left-sided arm pain left shoulder pain and midthoracic back pain no trauma for several days, differential diagnose include but not limited to cervicalgia, cervical impingement syndrome, thoracic myofascial strain, cardiac arrhythmia, electrolyte disturbance, colitis, ileitis, pancreatitis, esophageal disorder, PUD, GERD, shoulder impingement syndrome, shoulder arthritis, rotator cuff tendinopathy, shoulder fracture, spine fracture, pneumonia. I discussed this patient's case with the attending physician Dr. Glover Obtain basic laboratory studies troponin and proBNP, EKG, lipase, magnesium level, will obtain x-ray of the chest, x-ray of the left shoulder, CT thoracic spine, CT cervical spine without contrast CT of the pelvis with contrast for further evaluation schedules are seen, urinalysis, will give 4 mg IV morphine for pain. Chronic anemia is noted at hemoglobin of 10.5, medic at 32.8, MCV is decreased 79.4, erythrocytopenia 4.13. Thrombocytopenia at 100, which appears chronic. CMP is notable for minimal hypomagnesia 1.4, total bilirubin is up at 1.8, which is appear chronic. proBNP is mildly elevated at 186, lipase within normal limits. Reviewed the patient's left shoulder x-ray along the corresponding radiologic report, questionable nondisplaced right distal clavicle fracture, favor artifact, recommend correlation with clinical exam. Reviewed the patient's chest x-ray along the corresponding radiologic report no acute abnormality. Unfortunately, patient is still in quite significant pain and is unable to tolerate CT. Will give 0.5 mg IV Dilaudid for pain in place of patient in a sling for possible clavicle fracture. Urinalysis noted for positive nitrites and trace leukocyte esterase will treat with ceftriaxone IV. 1 g. I reviewed the patient's CT abdomen pelvis with contrast along the corresponding radiologic report acute inflammatory change centered in the right upper quadrant surrounding the gallbladder, gastric antrum/proximal duodenum and pancreatic head/neck's, findings could represent acute cholecystitis pancreatitis acute peptic ulcer disease or commendation of any of these noting that ultrasound is more sensitive in detecting noncalcified gallstones, splenic vein is patent but poorly opacified in the region of the pancreatic neck concern for potential thrombus in the setting of possible pancreatitis attention and follow-up as recommended, trace right pleural effusion, distal esophageal wall thickening compatible with gastric reflux soft-itis, mild splenomegaly similar to prior exam, stable 11 mm cystic lesion 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 CT thoracic spine without contrast was reviewed along with corresponding radiologic report no evidence of acute osseous abnormality of the thoracic spine. I reviewed patient CT cervical spine without contrast along the corresponding radiologic report no evidence of acute osseous abnormality in the cervical spine. Dr. Glover performed bedside POCUS ultrasound on the patient's gallbladder, there are no acute stones or pericolic fluid/gallbladder sludge. Discussed the patient's Case with the hospitalist at 8:02 PM he declined the patient at this time due to no Ortho coverage and potential clavicle fracture will obtain dedicated clavicle radiographs for further evaluation/characterization. Will give 4 mg IV Zofran for nausea, record the nurse that patient had an episode of vomiting. Dedicated clavicle x-rays on the right and left are negative. Discussed this patient's case with hospitalist Dr. Mccracken at 9 PM he is in agreement with current admission plan/treatment plan for acute UTI altered mental status with possible radiographic evidence of pancreatitis. <Vick Glover MD - Last Filed: 02/19/24 00:58> Vital Signs: 02/18/24 14:45 02/18/24 15:37 02/18/24 16:01 Temperature 97.6 F Temperature Source Oral Pulse Rate 64 64 Pulse Rate [Right] 67 Respiratory Rate 15 Blood Pressure 134/52 L 168/92 H Blood Pressure [Right Arm] 169/83 H Blood Pressure Mean [Right Arm] 111 Blood Pressure Source [Right Arm] Automatic Cuff Blood Pressure Position [Right Arm] Supine 02 Sat by Pulse Oximetry 97 98 98 Oxygen Delivery Method Room Air Room Air Room Air 02/18/24 18:03 02/18/24 18:19 02/18/24 18:31 Temperature Temperature Source Pulse Rate 74 58 L 58 L Pulse Rate [Right] Respiratory Rate Blood Pressure 207/87 H 148/73 H 157/71 H Blood Pressure [Right Arm] Blood Pressure Mean [Right Arm] Blood Pressure Source [Right Arm] Blood Pressure Position [Right Arm] 02 Sat by Pulse Oximetry 96 93 L 92 L Oxygen Delivery Method Room Air Room Air Room Air 02/18/24 21:27 Temperature 97.6 F Temperature Source Oral Pulse Rate 57 L Pulse Rate [Right] Respiratory Rate 18 Blood Pressure 164/79 H Blood Pressure [Right Arm] Blood Pressure Mean [Right Arm] Blood Pressure Source [Right Arm] Blood Pressure Position [Right Arm] 02 Sat by Pulse Oximetry Oxygen Delivery Method Room Air Lab Data Lab Results 02/18/24 15:30: WBC 5.1, RBC 4.13 L, Hgb 10.5 L, Hct 32.8 L, MCV 79.4 L, MCH 25.4 L, MCHC 32.0, RDW 15.3, Plt Count 100 L, MPV 12.0 H, Neut % (Auto) 74.8, Lymph % (Auto) 16.4, [place] % (Auto) 7.6, Eos % (Auto) 0.6, Baso % (Auto) 0.4, Neut # (Auto) 3.8, Lymph # (Auto) 0.8, [place] # (Auto) 0.4, Eos # (Auto) 0.0, Baso # (Auto) 0.0, Sodium 136, Potassium 4.2, Chloride 109 H, Carbon Dioxide 22, Anion Gap 9.2, BUN 12, Creatinine 0.70, Estimated Creat Clear 76, Estimated GFR 111, Est GFR ( Amer) 135, Glucose 276 H, Calcium 9.0, Magnesium 1.4 L, T otal Bilirubin 1.8 H, AST 47, ALT 36, Alkaline Phosphatase 80, Troponin I < 0.01, NT-Pro-B Natriuret Pep 186 H, Total Protein 7.3, Albumin 4.1, Globulin 3.2, Albumin/Globulin Ratio 1.3, Lipase 182 02/18/24 17:57: Urine Color Yellow, Urine Appearance Clear, Urine pH 6.0, Ur Specific [place] 1.020, Urine Protein Negative, Urine Glucose (UA) 3+, Urine Ketones Negative, Urine Blood Trace-i, Urine Nitrate Positive A, Urine Bilirubin Negative, Urine Urobilinogen 1.0, Ur Leukocyte Esterase Trace, Urine RBC 10-20, Urine WBC Tntc, Ur Squamous Epith Cells 3-5, Urine Bacteria 4+ Orders (Tests/Meds): ED MEDICATIONS Generic Name Dose Route Start Last Admin Trade Name Freq PRN Reason Stop Dose Admin Acetaminophen 650 mg 02/18/24 21:38 Acetaminophen 325mg Tab PO 03/19/24 21:37 Q4HP PRN Fever or Mild Pain (1-3) Al Hydrox/Mg Hydrox/Simethicone 30 ml 02/18/24 21:38 Aluminum/Magnesium/Simethicone 30ml Udc PO 03/19/24 21:37 QIDP PRN Dyspepsia Atorvastatin Calcium 10 mg 02/19/24 09:00 Atorvastatin 10mg Tablet PO 03/20/24 08:59 DAILY [facility] Cyclobenzaprine HCl 5 mg 02/19/24 09:00 Cyclobenzaprine 10mg Tablet PO 02/20/24 09:01 TID [facility] Docusate Sodium 100 mg 02/19/24 09:00 Docusate Sodium 100 Mg Capsule PO 03/20/24 08:59 DAILY [facility] Donepezil HCl 5 mg 02/19/24 21:00 Donepezil 5mg Tab PO 03/20/24 20:59 HS [facility] Enoxaparin Sodium 40 mg 02/19/24 09:00 Enoxaparin 40mg/0.4ml Syringe SUBCUT 03/20/24 08:59 DAILY [facility] Fluticasone Propionate 1 spray 02/19/24 21:00 Fluticasone Prop 50mcg Nasal [place] 16gm NS 03/20/24 20:59 HS [facility] Gabapentin 400 mg 02/19/24 09:00 Gabapentin 400mg Capsule PO 03/20/24 08:59 TID [facility] Ceftriaxone Sodium 1 gm/ 50 mls @ 100 mls/hr 02/18/24 21:29 02/18/24 22:24 Sodium Chloride IV 02/18/24 21:58 100 mls/hr ONCE ONE Administration Ceftriaxone Sodium 2 gm/ 100 mls @ 200 mls/hr 02/19/24 16:00 Sodium Chloride IV 02/25/24 15:59 Q24H [facility] Sodium Chloride 1,000 mls @ 100 mls/hr 02/18/24 21:45 02/18/24 22:25 Sod Chlor 0.9% 1000ml Bag IV 02/20/24 21:44 100 mls/hr .Q10H HOANG Administration Magnesium Sulfate 2 gm in 50 mls @ 50 mls/hr 02/18/24 22:38 02/18/24 23:10 Magnesium Sulfate 2gm/50ml Premix IV 02/18/24 23:37 50 mls/hr ONCE ONE Administration Insulin Glargine 20 unit 02/18/24 23:30 Insulin Glargine 100 Units/Ml 3ml Flexpen SUBCUT 03/19/24 23:29 HS [facility] Insulin Human Lispro 0 unit 02/19/24 06:00 Humalog 100 Units/Ml 10ml Vial (Ssi) SUBCUT 03/20/24 05:59 ACHS HOANG Protocol Ketorolac Tromethamine 15 mg 02/18/24 21:55 02/18/24 22:25 Ketorolac 30mg/Ml Vial IV 02/19/24 21:01 15 mg BID HOANG Administration Metoprolol Succinate 50 mg 02/19/24 09:00 Metoprolol Succinate Xl 50mg Tablet PO 03/20/24 08:59 DAILY HOANG Montelukast Sodium 10 mg 02/19/24 21:00 Montelukast Sodium 10mg Tab PO 03/20/24 20:59 HS HOANG Morphine Sulfate 2 mg 02/18/24 21:54 02/18/24 23:16 Morphine 2mg/Ml Syringe IV 03/19/24 21:51 2 mg Q6HP PRN Administration Severe Pain (7-10) Nicotine 21 mg 02/18/24 21:42 Nicotine 21mg/24hr Patch TD 03/19/24 21:41 DAILYP PRN Nicotine Cravings Non-Formulary Medication 20 gm 02/18/24 23:25 Lactulose PO DAILY PRN Constipation Non-Formulary Medication 28 mg 02/19/24 09:00 Memantine [Namenda Xr] PO 03/20/24 08:59 DAILY HOANG Non-Formulary Medication 25 mg 02/19/24 09:00 Mirabegron [Myrbetriq] PO 03/20/24 08:59 DAILY HOANG Non-Formulary Medication 1 tab 02/19/24 09:00 Multivitamin PO 03/20/24 08:59 DAILY HOANG Non-Formulary Medication 1 cap 02/19/24 09:00 [place] 3-Zoa-Sdo-Fish Oil PO 03/20/24 08:59 DAILY HOANG Non-Formulary Medication 100 mg 02/18/24 23:30 Sitagliptin Phosphate [Januvia] PO 03/19/24 23:29 QHS HOANG Non-Formulary Medication 1 drp 02/18/24 23:30 02/19/24 00:19 Propylene Glycol [Systane Complete] EYE-BOTH 03/19/24 23:29 Not Given BID HOANG Pantoprazole Sodium 40 mg 02/19/24 21:00 Pantoprazole 40mg Tablet PO 03/20/24 20:59 HS HOANG Prochlorperazine Edisylate 10 mg 02/18/24 23:30 Prochlorperazine 10mg/2ml Vial IM 03/19/24 23:29 Q6HP PRN Nausea And Vomiting Sodium Chloride 10 ml 02/18/24 21:42 Sodium Chloride 0.9% 10ml Flush Syringe IV 03/19/24 21:41 NEEDED PRN Maintain IV Site Tamsulosin HCl 0.4 mg 02/19/24 09:00 Tamsulosin 0.4mg Capsule PO 03/20/24 08:59 DAILY HOANG Tramadol HCl 100 mg 02/18/24 21:53 Tramadol 50mg Tablet PO 03/19/24 21:52 Q6HP PRN Moderate Pain (4-6) Discontinued Medications Generic Name Dose Route Start Last Admin Trade Name Freq PRN Reason Stop Dose Admin Hydromorphone HCl 0.5 mg 02/18/24 16:51 02/18/24 16:56 Hydromorphone 2mg/Ml Syringe IV 02/18/24 16:52 0.5 mg ONCE ONE Administration Ceftriaxone Sodium 1 gm/ 50 mls @ 100 mls/hr 02/18/24 18:24 02/18/24 19:00 Sodium Chloride IV 02/18/24 18:53 100 mls/hr ONCE ONE Administration Iopamidol 75 ml 02/18/24 17:49 02/18/24 17:50 Iopamidol-370 (76%);100ml Bottle IV 02/18/24 17:50 75 ml ONCE ONE Administration Morphine Sulfate 4 mg 02/18/24 16:19 02/18/24 16:24 Morphine 4mg/Ml Syringe IV 02/18/24 16:20 4 mg ONCE ONE Administration Morphine Sulfate 2 mg 02/18/24 21:38 Morphine 2mg/Ml Syringe IV 03/19/24 21:37 Q2HP PRN Severe Pain (7-10) Ondansetron HCl 4 mg 02/18/24 20:35 02/18/24 20:43 Ondansetron 4mg/2ml Vial IV 02/18/24 20:36 4 mg ONCE ONE Administration Ondansetron HCl 4 mg 02/18/24 21:38 Ondansetron 4mg/2ml Vial IV 03/19/24 21:37 Q8HP PRN Nausea Sodium Chloride 10 ml 02/18/24 17:49 02/18/24 17:49 Sodium Chloride 0.9% 10ml Syr (Rad Only) IV 02/18/24 17:50 10 ml ONCE ONE Administration ORDERS Category Date Time Status CT abdomen pelvis w con Stat Cat Scan 02/18/24 15:[address] cervical spine wo con Stat Cat Scan 02/18/24 15:[address] thoracic spine wo con Stat Cat Scan 02/18/24 15:29 Completed XR chest portable Stat Exams 02/18/24 15:29 Completed XR clavicle LT Stat Exams 02/18/24 20:07 Completed XR clavicle RT Stat Exams 02/18/24 20:07 Completed XR shoulder LT min 2V Stat Exams 02/18/24 15:29 Completed Complete Blood Count Auto Diff Stat Lab 02/18/24 15:30 Completed Comprehensive Metabolic Panel Stat Lab 02/18/24 15:30 Completed Lipase Stat Lab 02/18/24 15:30 Completed Magnesium Stat Lab 02/18/24 15:30 Completed NT Pro Brain Natriuretic Pep. Stat Lab 02/18/24 15:30 Completed Troponin I Stat Lab 02/18/24 15:30 Completed Urinalysis and Microscopic Stat Lab 02/18/24 17:57 Completed Urine Culture Stat Micro 02/18/24 17:57 Received Medical Decision Narrative: 73-year-old male presents to the emergency department with left-sided arm pain left shoulder pain and midthoracic back pain no trauma for several days, differential diagnose include but not limited to cervicalgia, cervical impingement syndrome, thoracic myofascial strain, cardiac arrhythmia, electrolyte disturbance, colitis, ileitis, pancreatitis, esophageal disorder, PUD, GERD, shoulder impingement syndrome, shoulder arthritis, rotator cuff tendinopathy, shoulder fracture, spine fracture, pneumonia. I discussed this patient's case with the attending physician Dr. Glover Obtain basic laboratory studies troponin and proBNP, EKG, lipase, magnesium level, will obtain x-ray of the chest, x-ray of the left shoulder, CT thoracic spine, CT cervical spine without contrast CT of the pelvis with contrast for further evaluation schedules are seen, urinalysis, will give 4 mg IV morphine for pain. Chronic anemia is noted at hemoglobin of 10.5, medic at 32.8, MCV is decreased 79.4, erythrocytopenia 4.13. Thrombocytopenia at 100, which appears chronic. CMP is notable for minimal hypomagnesia 1.4, total bilirubin is up at 1.8, which is appear chronic. proBNP is mildly elevated at 186, lipase within normal limits. Reviewed the patient's left shoulder x-ray along the corresponding radiologic report, questionable nondisplaced right distal clavicle fracture, favor artifact, recommend correlation with clinical exam. Reviewed the patient's chest x-ray along the corresponding radiologic report no acute abnormality. Unfortunately, patient is still in quite significant pain and is unable to tolerate CT. Will give 0.5 mg IV Dilaudid for pain in place of patient in a sling for possible clavicle fracture. Urinalysis noted for positive nitrites and trace leukocyte esterase will treat with ceftriaxone IV. 1 g. I reviewed the patient's CT abdomen pelvis with contrast along the corresponding radiologic report acute inflammatory change centered in the right upper quadrant surrounding the gallbladder, gastric antrum/proximal duodenum and pancreatic head/neck's, findings could represent acute cholecystitis pancreatitis acute peptic ulcer disease or commendation of any of these noting that ultrasound is more sensitive in detecting noncalcified gallstones, splenic vein is patent but poorly opacified in the region of the pancreatic neck concern for potential thrombus in the setting of possible pancreatitis attention and follow-up as recommended, trace right pleural effusion, distal esophageal wall thickening compatible with gastric reflux soft-itis, mild splenomegaly similar to prior exam, stable 11 mm cystic lesion 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 CT thoracic spine without contrast was reviewed along with corresponding radiologic report no evidence of acute osseous abnormality of the thoracic spine. I reviewed patient CT cervical spine without contrast along the corresponding radiologic report no evidence of acute osseous abnormality in the cervical spine. Dr. Glover performed bedside POCUS ultrasound on the patient's gallbladder, there are no acute stones or pericolic fluid/gallbladder sludge. Discussed the patient's Case with the hospitalist at 8:02 PM he declined the patient at this time due to no Ortho coverage and potential clavicle fracture will obtain dedicated clavicle radiographs for further evaluation/characterization. Will give 4 mg IV Zofran for nausea, record the nurse that patient had an episode of vomiting. Dedicated clavicle x-rays on the right and left are negative. Discussed this patient's case with hospitalist Dr. Mccracken at 9 PM he is in agreement with current admission plan/treatment plan for acute UTI altered mental status with possible radiographic evidence of pancreatitis. I was consulted by the NIALL, and we discussed the complexity of the problems being addressed.I approved the treatment and management plan for this patient?s care in the Emergency Department, thus performing a substantive portion of the medical decision making.Signed, Vick Glover MD Critical Care <SUZETTE Rodriguez - Last Filed: 02/18/24 22:08> Critical Care Time Critical Care Time: No
--- NOTE | 2024-02-18 15:42 | ECG_ITS ---
APPROVED REPORT Exam: Resting ECG HR:62 bpm ECG Measurements Heart Rate 62 AXES ND 146 P 61 QRSd 85 QRS 90 QT 407 T 58 QTc 413 Conclusion SINUS RHYTHM NORMAL ECG UNCONFIRMED REPORT Electronically signed by : CAIT CARTAGENA, 02/19/2024 06:50:16
[2024-02-18 15:55] LABS: Hematocrit 32.8 % (42.0-52.0); Hemoglobin 10.5 g/dL (14.1-18.0); Mean Corpuscular Hemoglobin 25.4 pg (27.0-31.2); Mean Corpuscular Volume 79.4 fl (80-94); Red Blood Count 4.13 M/mm3 (4.60-6.20); Red Cell Distribution Width 15.3 % (11.5-17.5); White Blood Count 5.1 K/mm3 (4.8-10.8)
[2024-02-18 15:56] LABS: Basophils % 0.4 % (0.1-2.0); Eosinophils % 0.6 % (0.1-12.0); Lymphocytes % 16.4 % (10-50); Monocytes % 7.6 % (1.7-9.3); Neutrophils # 3.8 K/mm3 (1.8-7.8); Neutrophils % 74.8 % (37.0-80.0)
[2024-02-18 15:57] LABS: Lymphocytes # 0.8 K/mm3 (0.7-4.5); Monocytes # 0.4 K/mm3 (0.1-1.0)
[2024-02-18 15:59] LABS: Albumin Level 4.1 g/dl (3.5-5.0); Chloride 109 mmol/L (98-107); Potassium 4.2 mmoL/L (3.5-5.1); Sodium 136 mmol/L (136-145)
[2024-02-18 16:02] LABS: Alanine Aminotransferase 36 U/L (12-78); Albumin/Globulin Ratio 1.3 (1.1-1.8); Alkaline Phosphatase 80 U/L (38-126); Anion Gap 9.2 mEq/L (5-15); Aspartate Amino Transferase 47 U/L (17-59); Bilirubin,Total 1.8 mg/dl (0.2-1.3); Blood Urea Nitrogen 12 mg/dl (9-20); Carbon Dioxide 22 mmol/L (22.0-30.0); Creatinine Clearance Estimated 76 mL/min (50-200); Estimated Glomerular Filt Rate 111 ml/min (>60); GFR (African American) 135 ML/MIN (>60); Globulin 3.2 g/dL (1.3-3.2); Glucose 276 mg/dl (74-100); Lipase 182 U/L (23-300); Total Protein,Serum 7.3 g/dl (6.3-8.2)
[2024-02-18 16:03] LABS: Magnesium 1.4 mg/dl (1.6-2.3)
[2024-02-18 16:12] LABS: NT Pro Brain Natriuretic Pep. 186 pg/mL (0-125)
[2024-02-18 16:14] LABS: Troponin I < 0.01 ng/ml (0.00-0.034)
[2024-02-18 16:16] LABS: Platelet Count 100 K/mm3 (142-424)
[2024-02-18] MEDS: MORPHINE 4MG/ML SYRINGE 4 MG IV (16:24)
--- NOTE | 2024-02-18 16:34 | [facility].ITSTN ---
patient unable to lie still; unable to do scans at this time
--- NOTE | 2024-02-18 16:43 | PC.NURSE ---
Patient brought back from CT after being unable to tolerate laying flat, and holding still for imaging. Patient administered pain medication in CT, but still unable to lay still and tolerate flat position. PA informed of patient intolerance. Will attempt when pain medication takes more effect, and patient is able to tolerate.
[2024-02-18] MEDS: HYDROMORPHONE 2MG/ML SYRINGE 0.5 MG IV (16:56)
[2024-02-18] MEDS: SODIUM CHLORIDE 0.9% 10ML SYR (RAD ONLY) 10 ML IV (17:49)
[2024-02-18] MEDS: IOPAMIDOL-370 (76%);100ML BOTTLE 75 ML IV (17:50)
--- NOTE | 2024-02-18 17:59 | PC.NURSE ---
Called Radiology to check on L Shoulder read as the report states in the impression Right clavicle fracture , despite the XRay ordered was for Left shoulder. Daphne in radiology was notified of this and states she will look into it. Read by [facility]
[2024-02-18 18:07] LABS: Microscopic, Urine URINE MICROSCOPIC (MICROSCOPIC)
[2024-02-18 18:11] LABS: Appearance,Urine CLEAR (Clear); Bilirubin,Urine Negative (Negative); Blood, Urine TRACE-I (Negative); Color,Urine YELLOW (Yellow); Glucose,Urine (UA) 3+ (Negative); Ketones,Urine Negative (Negative); Leukocyte Esterase,Urine TRACE (Negative); Nitrate,Urine POSITIVE (Negative); Protein,Urine Negative (Negative)
[2024-02-18 18:37] LABS: Bacteria,Urine 4+ /lpf; WBC,Urine TNTC #/hpf (0-3)
[2024-02-18] MEDS: CEFTRIAXONE SODIUM 1 GM in 0.9 % SODIUM CHLORIDE 50 ML IV ×2 (19:00→22:24)
--- NOTE | 2024-02-18 20:07 | XR_ITS ---
PROCEDURE INFORMATION: Exam: XR Right Clavicle, Complete Exam date and time: 02/18/2024 8:14 PM Age: 73 years old Clinical indication: Pain; Shoulder; Right; Additional info: Incidental finding on left shoulder x-ray TECHNIQUE: Imaging protocol: Radiologic exam of the right clavicle. Complete exam. Views: Any number of views. COMPARISON: CT CERVICAL SPINE WO CON 02/18/2024 5:38 PM FINDINGS: Bones/joints: No evidence of acute fracture or malalignment. Acromioclavicular joint alignment is normal. Soft tissues: Unremarkable. IMPRESSION: No evidence of acute osseous abnormality in the right clavicle.
--- NOTE | 2024-02-18 20:07 | XR_ITS ---
PROCEDURE INFORMATION: Exam: XR Left Clavicle, Complete Exam date and time: 02/18/2024 8:16 PM Age: 73 years old Clinical indication: Pain; Shoulder; Left; Additional info: Incidental finding on left shoulder TECHNIQUE: Imaging protocol: Radiologic exam of the left clavicle. Complete exam. Views: Any number of views. COMPARISON: CR XR SHOULDER LT MIN 2V 02/18/2024 3:49 PM FINDINGS: Bones/joints: No evidence of acute fracture or malalignment. Acromioclavicular joint alignment is normal. Soft tissues: Unremarkable. IMPRESSION: No evidence of acute osseous abnormality in the left clavicle.
[2024-02-18] MEDS: ONDANSETRON 4MG/2ML VIAL 4 MG IV (20:43)
--- NOTE | 2024-02-18 21:07 | EXP.HP ---
History of Present Illness *Admission Date: 02/18/24 *Reason for visit:: Neck, back, shoulder pain, confusion *History of present illness: 73-year-old with past medical history of Parkinson's disease, dysphagia on mechanical soft diet, benign neoplasm of adrenal gland, ulcerative pancolitis, schizophrenia, iron deficiency anemia, diabetes on insulin, hyperlipidemia, nicotine dependence chewing tobacco, depression, restless leg syndrome, Alzheimer's disease, hypertension, history of esophageal bleeding, GERD, cirrhosis, BPH, neurogenic bladder. patient presents with confusion and urine with positive nitrates, trace leuk esterase, WBC TNTC, +4 bacteria. Patient extremely poor historian, but has capacity and oriented to person, location but disoriented to time. Patient able to mention upper extremity pain, but unable to describe character of pain. CT neck, shoulder, chest done in emergency room shows no acute fractures. X-ray shoulder initially showed acute clavicle fracture which turned out to be normal on dedicated clavicular films x 2. Patient lives in [facility], and states he has been there for several years. Denies fevers, chills, known sick contacts, recent travel, dysuria, chest pain, abdominal pain. Of special note, CT abdomen/pelvis shows signs of gallbladder disease and chronic versus acute pancreatitis. [facility] Disclaimer: The information contained in this section may have been updated after the patient was seen, as this information can be updated by other users. Medical History Positive colorectal cancer screening using Cologuard test Schizophrenia, unspecified E coli bacteremia Catheter-associated urinary tract infection Abnormal CT scan, esophagus Abnormal CT scan, gallbladder Infective myositis Decubitus ulcer of sacral region, stage 4 Diabetes Unspecified cirrhosis of liver Essential (primary) hypertension Personal history of urinary (tract) infections Personal history of COVID-19 Benign prostatic hyperplasia with lower urinary tract symptoms Reflex neuropathic bladder, not elsewhere classified Gastro-esophageal reflux disease without esophagitis Unspecified macular degeneration Dry eye syndrome of unspecified lacrimal gland Restless legs syndrome Secondary parkinsonism, unspecified Mild intellectual disabilities Anxiety disorder, unspecified Major depressive disorder, recurrent, mild Nicotine dependence, chewing tobacco, uncomplicated Unspecified dementia without behavioral disturbance Hyperlipidemia, unspecified Type 2 diabetes mellitus with unspecified complications Iron deficiency anemia secondary to blood loss (chronic) Melanocytic nevi, unspecified Other reduced mobility Muscle weakness (generalized) Parkinson's disease Dementia in other diseases classified elsewhere with behavioral disturbance Surgical History History of esophagogastroduodenoscopy (EGD) Family History Other No significant family history Social History Smoking Status: Never smoker alcohol intake: former substance use type: denies use current occupational status: disabled Travel in the last 8 weeks: None housing: correction current occupational exposures/hazards: No caffeine: Yes Other Medical History Have you received the Flu Vaccine for this season: No Have you received the Pneumonia Vaccine: Yes Review of Systems Review of Systems Review of systems:: pertinent systems reviewed and negative unless documented below Constitutional Constitutional: Reports system reviewed and no additional complaints, except as documented Meds Home Medications and Allergies Home Medications ?Medication ?Instructions ?Recorded ?Confirmed ?Type atorvastatin 10 mg tablet 10 mg PO DAILY hyperlipidemia 06/08/20 02/18/24 History fluticasone propionate 50 1 spray intranasal HS Allergy 06/08/20 02/18/24 History mcg/actuation nasal symptoms spray,suspension (Allergy Relief (fluticasone)) memantine 28 mg capsule 28 mg PO DAILY dementia 06/08/20 02/18/24 History sprinkle,extended release 24hr (Namenda XR) sitagliptin phosphate 100 mg 100 mg PO QHS Diabetes 06/08/20 02/18/24 History tablet (Januvia) tamsulosin 0.4 mg capsule (Flomax) 0.4 mg PO DAILY prostate 06/08/20 02/18/24 History omeprazole 20 mg tablet,delayed 20 mg PO DAILY acid reflux 12/19/21 02/18/24 History release propylene glycol 0.6 % eye drops 1 drp Eye-Both BID dry eyes 12/19/21 02/18/24 History (Systane Complete) montelukast 10 mg tablet 10 mg PO HS #0 tabs 12/21/21 02/18/24 Rx potassium chloride 20 mEq 20 meq PO BID #0 tabs 12/21/21 02/18/24 Rx tablet,extended release(part/cryst) acetaminophen 500 mg tablet (Pain 500 mg PO Q4H PRN Fever Or Pain 02/05/23 02/18/24 History Reliever Extra Strength (acetaminophen)) donepezil 5 mg tablet 5 mg PO HS 02/05/23 02/18/24 History insulin glargine 100 unit/mL (3 30 unit SQ HS Diabetes 02/05/23 02/18/24 History mL) subcutaneous pen lactulose 10 gram/15 mL oral 20 g PO DAILY PRN Constipation 02/05/23 02/18/24 History solution metformin 1,000 mg tablet 1,000 mg PO BID 02/05/23 02/18/24 History metoprolol succinate 50 mg 50 mg PO DAILY 02/05/23 02/18/24 History tablet,extended release 24 hr mirabegron 25 mg tablet,extended 25 mg PO DAILY 02/05/23 02/18/24 History release 24 hr (Myrbetriq) multivitamin 1 tab PO DAILY #30 tabs 02/05/23 02/18/24 Rx insulin regular human 100 unit/mL 1 sliding scale dose SQ 03/29/23 02/18/24 Rx injection solution (Novolin R USEASDIRECTD #10 mL Regular U-100 Insulin) gabapentin 400 mg capsule 400 mg PO TID #90 caps 09/15/23 02/18/24 Rx omega-3 300 mg-dha 120 mg-epa 180 1 cap PO DAILY 02/18/24 02/18/24 History mg-fish oil 1,000 mg capsule pen needle,diabetic dual safty 30 02/18/24 02/18/24 History gauge x 3/16 (BD AutoShield Duo Pen Needle) New Prescriptions to Start Prescriptions: Allergies Allergy/AdvReac Type Severity Reaction Status Date / Time aspirin Allergy Mild Rash Verified 02/18/24 21:49 acetaminophen Allergy Rash Verified 02/18/24 21:49 Exam Data for Last 24 hours Vital signs and Labs for Last 24 Hours: Temp Pulse Resp BP Pulse Ox O2 Del Method 97.6 F 58 L 15 157/71 H 92 L Room Air 02/18/24 14:45 02/18/24 18:31 02/18/24 14:45 02/18/24 18:31 02/18/24 18:31 02/18/24 18:31 Laboratory Results - last 24 hr 02/18/24 15:30: WBC 5.1, RBC 4.13 L, Hgb 10.5 L, Hct 32.8 L, MCV 79.4 L, MCH 25.4 L, MCHC 32.0, RDW 15.3, Plt Count 100 L, MPV 12.0 H, Neut % (Auto) 74.8, Lymph % (Auto) 16.4, [place] % (Auto) 7.6, Eos % (Auto) 0.6, Baso % (Auto) 0.4, Neut # (Auto) 3.8, Lymph # (Auto) 0.8, [place] # (Auto) 0.4, Eos # (Auto) 0.0, Baso # (Auto) 0.0, Sodium 136, Potassium 4.2, Chloride 109 H, Carbon Dioxide 22, Anion Gap 9.2, BUN 12, Creatinine 0.70, Estimated Creat Clear 76, Estimated GFR 111, Est GFR ( Amer) 135, Glucose 276 H, Calcium 9.0, Magnesium 1.4 L, Total Bilirubin 1.8 H, AST 47, ALT 36, Alkaline Phosphatase 80, Troponin I < 0.01, NT-Pro-B Natriuret Pep 186 H, Total Protein 7.3, Albumin 4.1, Globulin 3.2, Albumin/Globulin Ratio 1.3, Lipase 182 02/18/24 17:57: Urine Color Yellow, Urine Appearance Clear, Urine pH 6.0, Ur Specific [place] 1.020, Urine Protein Negative, Urine Glucose (UA) 3+, Urine Ketones Negative, Urine Blood Trace-i, Urine Nitrate Positive A, Urine Bilirubin Negative, Urine Urobilinogen 1.0, Ur Leukocyte Esterase Trace, Urine RBC 10-20, Urine WBC Tntc, Ur Squamous Epith Cells 3-5, Urine Bacteria 4+ I & O for Last 24 hours: Intake & Output 02/15/24 02/16/24 02/17/24 02/18/24 23:59 23:59 23:59 23:59 Weight 79.379 kg Constitutional Constitutional: no acute distress and obese *Routine HEENT Exam Head: Present normocephalic Eye: Present EOMI ENT: Present mucous membranes moist *Routine Neck Exam Neck: Present supple and full ROM Comments: Tender to palpation posterior neck paraspinal greater than spinal Routine Chest/Breast/Axilla Exam Breast: Present tenderness Comments: Tender to palpation left shoulder/back region paraspinal greater than spinal. No step-offs noted on inspection of patient cervical spine. *Routine Respiratory Exam Respiratory: Present accessory muscle use and CTA bilaterally *Routine Cardiovascular Exam Cardiovascular: Present RRR, Normal S1 and Normal S2 *Routine Abdominal Exam Abdominal: Present soft and normoactive bowel sounds; Absent tenderness, rebound or guarding *Routine Rectal Exam Rectal:: deferred *Routine Genitalia Exam Genitalia:: deferred *Routine Extremities Exam Extremities: Present full ROM *Routine Skin Exam Skin: Present intact Assessment and Plan *Assessment and plan (1) Back pain: Status: Acute Category: Medical Code(s): M54.9 - Dorsalgia, unspecified (2) Altered mental status: Status: Acute Category: Medical Code(s): R41.82 - Altered mental status, unspecified (3) UTI (urinary tract infection): Status: Acute Category: Medical Code(s): N39.0 - Urinary tract infection, site not specified (4) Restless legs syndrome: Status: Acute Category: Medical Code(s): G25.81 - Restless legs syndrome (5) Schizophrenia, unspecified: Status: Acute Category: Medical Code(s): F20.9 - Schizophrenia, unspecified (6) BPH (benign prostatic hyperplasia): Status: Acute Category: Medical Code(s): N40.0 - Benign prostatic hyperplasia without lower urinary tract symptoms (7) GERD (gastroesophageal reflux disease): Status: Acute Category: Medical Code(s): K21.9 - Gastro-esophageal reflux disease without esophagitis (8) Benign prostatic hyperplasia with lower urinary tract symptoms: Status: Chronic Qualifiers: Lower urinary tract symptom detail: urinary retention Qualified Code(s): N40.1 - Benign prostatic hyperplasia with lower urinary tract symptoms; R33.8 - Other retention of urine Category: Medical Code(s): N40.1 - Benign prostatic hyperplasia with lower urinary tract symptoms (9) Essential (primary) hypertension: Status: Acute Category: Medical Code(s): I10 - Essential (primary) hypertension (10) Reflex neuropathic bladder, not elsewhere classified: Status: Chronic Category: Medical Code(s): N31.1 - Reflex neuropathic bladder, not elsewhere classified (11) Unspecified cirrhosis of liver: Status: Acute Category: Medical Code(s): K74.60 - Unspecified cirrhosis of liver (12) Parkinson's disease: Status: Chronic Category: Medical Code(s): G20.A1 - Parkinson's disease without dyskinesia, without mention of fluctuations (13) Muscle weakness (generalized): Status: Chronic Category: Medical Code(s): M62.81 - Muscle weakness (generalized) (14) Type 2 diabetes mellitus with unspecified complications: Status: Chronic Category: Medical Code(s): E11.8 - Type 2 diabetes mellitus with unspecified complications (15) Iron deficiency anemia secondary to blood loss (chronic): Status: Chronic Category: Medical Code(s): D50.0 - Iron deficiency anemia secondary to blood loss (chronic) (16) Hyperlipidemia, unspecified: Status: Chronic Qualifiers: Hyperlipidemia type: mixed hyperlipidemia Qualified Code(s): E78.2 - Mixed hyperlipidemia Category: Medical Code(s): E78.5 - Hyperlipidemia, unspecified (17) Unspecified dementia without behavioral disturbance: Status: Chronic Category: Medical Code(s): F03.90 - Unspecified dementia, unspecified severity, without behavioral disturbance, psychotic disturbance, mood disturbance, and anxiety (18) Anxiety disorder, unspecified: Status: Chronic Qualifiers: Anxiety disorder type: generalized anxiety disorder Qualified Code(s): F41.1 - Generalized anxiety disorder Category: Medical Code(s): F41.9 - Anxiety disorder, unspecified (19) Calculus of gallbladder without cholecystitis without obstruction: Status: Acute Category: Medical Code(s): K80.20 - Calculus of gallbladder without cholecystitis without obstruction Plan 73-year-old with past medical history of Parkinson's disease, dysphagia on mechanical soft diet, benign neoplasm of adrenal gland, ulcerative pancolitis, schizophrenia, iron deficiency anemia, diabetes on insulin, hyperlipidemia, nicotine dependence chewing tobacco, depression, restless leg syndrome, Alzheimer's disease, hypertension, history of esophageal bleeding, GERD, cirrhosis, BPH, neurogenic bladder. Patient presents with confusion and urine with positive nitrates, trace leuk esterase, WBC TNTC, +4 bacteria. Patient admitted for metabolic encephalopathy secondary to UTI management. Problems as listed below: Imaging/labwork reviewed at time of admission: ? WBC 5.1, Hg 10.5, HCT 38.8, PLT 100, NA 136, K4.2, CL 109, serum bicarb 22, BUN 12, CR 0.7, GLU 276, MAG 1.4, total bili 1.8, AST 47, ALT 36, troponin 0.01. BNP 186. I will recheck CMP, CBC with differential, and magnesium in AM. -Urine Color Yellow, Urine Appearance Clear, Urine pH 6.0, Ur Specific [place] 1.020, Urine Protein Negative, Urine Glucose (UA) 3+, Urine Ketones Negative, Urine Blood Trace-i, Urine Nitrate Positive A, Urine Bilirubin Negative, Urine Urobilinogen 1.0, Ur Leukocyte Esterase Trace, Urine RBC 10-20, Urine WBC Tntc, Ur Squamous Epith Cells 3-5, Urine Bacteria 4+ Metabolic encephalopathy secondary to UTI: ?Rocephin 2 g IV every 12. Urine culture ordered in emergency room. I ordered blood cultures, procalcitonin. Cautious hydration with 100 cc/h normal saline x 24 hours Hypomagnesia: Mag 1.4. Will administer 2 g IV magnesium sulfate at time of admission. Acute versus chronic pancreatitis: ? CT abdomen/pelvis shows signs of pancreatitis. Reviewed patient's history noting history of cirrhosis, pancolitis from patient's correction records. Patient's lipase 182 at time of admission. Patient denied acute abdominal discomfort during my interview with patient today. Although patient did suffer from episode of vomiting x 1, patient denies issues of nausea/vomiting with meals. Therefore believe findings on CT likely chronic versus acute in terms of patient's pancreatitis. Will start patient on mechanical soft diet, and follow diet habits closely. If patient shows signs of GI discomfort, nausea, vomiting will consider downgrading patient's diet to n.p.o. and/or clear liquid diet. Arthritis versus muscle spasm related shoulder/neck/back pain with ruled out clavicle fracture: ?Patient sent to hospital complaining of neck/back/shoulder discomfort. Patient slightly tender to palpation during my exam in emergency room, but able to move affected joints without much difficulty. CT cervical/neck/thoracic showed no acute injuries. Believe patient likely suffering from arthritis or muscle spasm causing upper extremity discomfort. Place patient on Toradol 15 mg IV twice daily x [address] patient on cyclobenzaprine 5 mg p.o. 3 times daily x 4 doses. Wrote for as needed IV morphine given patient required IV Dilaudid in emergency room for relief of beforementioned pain. Although original x-ray shoulder shows possible clavicle fracture, dedicated clavicular films show no fracture. ?Of special note, I attempted to get patient transferred to outside facility with orthopedic surgery available since no Ortho consultation currently available. , [facility], and [facility] all refused to transfer patient. I therefore admitted patient at this institution with shoulder sling, and will treat patient's arthritis/muscle spasm upper extremity issues as stated above. Parkinson/Alzheimer's disease: Aricept 5 mg p.o. nightly, Namenda sprinkles 28 mg p.o. daily. Dysphagia: Mechanical diet. Consult speech therapy for evaluation during hospitalization. Benign neoplasm of the adrenal gland: Continue home management Ulcerative pancolitis: Chronic issue, will monitor during hospitalization but doubt acute management required Schizophrenia: Continue home management Iron deficiency anemia: H/H reviewed and noted above. Will check serial H&H's and intervene if necessary. Diabetes: Sitagliptin phosphate 100 mg p.o. nightly, sliding scale insulin moderate scale, diabetic diet, ACHS Accu-Cheks. Hyperlipidemia: Atorvastatin 10 mg p.o. daily Nicotine dependence: Chewing tobacco: Nicotine patch 21 mg transdermal daily as needed nicotine cravings Depression: Paroxetine 40 mg p.o. daily Hypertension: Metoprolol succinate 50 mg p.o. daily, hydralazine 10 mg IV every 6 as needed SBP over 160 BPH: Tamsulosin 0.5 p.o. daily GERD: Omeprazole 20 mg p.o. daily or what ever pharmacy substitute from formulary Cirrhosis: Continue home management. Avoid use of hepatotoxic medications during hospitalization. MDM COPD: mod. Pt with metabolic encephalopathy with UTI with systemic symptoms of weakness, confusion, low magnesium. Data: High. See above. I spoke with the emergency room doctor at length and agree patient requires acute hospitalization for IV antibiotics to resolve metabolic encephalopathy secondary to UTI. Risk: Moderate. Prescription drug management as noted above including MIVF, IV antibiotics and IV morphine. 35 minutes of total care time spent this patient by Dr. Mccracken 02/18/2024
--- NOTE | 2024-02-18 21:19 | PC.NURSE ---
REPORT CALLED TO TERRY
--- NOTE | 2024-02-18 22:07 | PC.NURSE ---
Patient medical record from nursing facility states he has an allergy to acetaminophen, but patient also has this prescribed as a PRN order at the facility.
[2024-02-18] MEDS: KETOROLAC 30MG/ML VIAL 15 MG IV (22:25)
[2024-02-18] MEDS: 0.9 % SODIUM CHLORIDE 1000ML 1,000 ML 100 ML IV (22:25)
[2024-02-18 22:48] LABS: Adenovirus,PCR Not Detected (NotDetected); Bordetella Pertussis Not Detected (NotDetected); Chlamydophila Pneumoniae, PCR Not Detected (NotDetected); Coronavirus 19, PCR Not Detected (NotDetected); Coronavirus 229E Not Detected (NotDetected); Coronavirus NL63 Not Detected (NotDetected); Coronavirus OC43 Not Detected (NotDetected); Coronovirus HKU1,PCR Not Detected (NotDetected); Human Metapneumovirus Not Detected (NotDetected); Influenza A, PCR Not Detected (NotDetected); Influenza AH1, 2009 Not Detected (NotDetected); Influenza AH1, PCR Not Detected (NotDetected); Influenza AH3,PCR Not Detected (NotDetected); Influenza B, PCR Not Detected (NotDetected); Mycoplasma Pneumoniae, PCR Not Detected (NotDetected); Parainfluenza 1, PCR Not Detected (NotDetected); Parainfluenza 2, PCR Not Detected (NotDetected); Parainfluenza 3, PCR Not Detected (NotDetected); Parainfluenza 4, PCR Not Detected (NotDetected); Respiratory Syncytial Virus Not Detected (NotDetected); Rhinovirus/Enterovirus Not Detected (NotDetected)
[2024-02-18] MEDS: MAGNESIUM SULFATE IN WATER 2 GM/50 ML PIGGYBACK IV (23:10)
[2024-02-18] MEDS: MORPHINE 2MG/ML SYRINGE 2 MG IV (23:16)
[2024-02-18 23:53] LABS: Procalcitonin 0.052 ng/mL (0.0-2.0)
--- NOTE | 2024-02-19 00:10 | PC.NURSE ---
Spoke with Pts brother who is POA about code status. He wanted to keep pt a full code.
[2024-02-19 01:10] LABS: POC Glucose,Bedside 170 (70-110)
[2024-02-19] MEDS: INSULIN GLARGINE 100 UNITS/ML 3ML FLEXPEN 20 UNIT SUBCUT (01:17)
[2024-02-19 04:00] VITALS: BP 124/76; PULSE 59; RESP 16; TEMP 36.8; O2SAT 96; BMI 13.6
[2024-02-19] MEDS: TRAMADOL 50MG TABLET 100 MG PO (06:18)
[2024-02-19] MEDS: humaLOG 100 UNITS/ML 10ML VIAL (SSI) SUBCUT ×2 (06:23→11:50)
[2024-02-19 06:36] LABS: POC Glucose,Bedside 193 (70-110)
--- NOTE | 2024-02-19 07:51 | SW/DCPLANNER ---
Addendum entered by Marilynn Temple 02/19/24 13:00: I have updated Selena east/ Edwin Phelan that patient will return with IM antibiotics. Addendum entered by Marilynn Temple 02/19/24 10:40: I have updated Selena w/ Ewdin Phelan that patient will return today [facility] level of care. Original Note: This patient currently resides at [facility] level of care. I will continue to follow up w/ Selena at [facility] until patient is medically stable for discharge. Discharge date is unknown at this time.
[2024-02-19 07:57] LABS: Chloride 111 mmol/L (98-107); Potassium 3.7 mmoL/L (3.5-5.1); Sodium 135 mmol/L (136-145)
[2024-02-19 07:59] LABS: Blood Urea Nitrogen 13 mg/dl (9-20); Creatinine Clearance Estimated 37 mL/min (50-200); Estimated Glomerular Filt Rate 133 ml/min (>60); GFR (African American) 161 ML/MIN (>60)
[2024-02-19 08:00] VITALS: BP 126/67; PULSE 71; RESP 18; TEMP 37; O2SAT 97
[2024-02-19 08:00] LABS: Anion Gap 5.7 mEq/L (5-15); Calcium 8.3 mg/dl (8.4-10.2); Carbon Dioxide 22 mmol/L (22.0-30.0); Glucose 181 mg/dl (74-100); Magnesium 1.9 mg/dl (1.6-2.3)
--- NOTE | 2024-02-19 08:00 | HMH.PHAINT1 ---
Pharmacy Intervention Comments: HOME MEDICATION LIST VERIFIED USING LIST FROM OUTPATIENT PHARMACY
[2024-02-19 08:09] LABS: Basophils % 0.6 % (0.1-2.0); Eosinophils % 1.4 % (0.1-12.0); Hematocrit 30.1 % (42.0-52.0); Hemoglobin 9.6 g/dL (14.1-18.0); Lymphocytes % 20.6 % (10-50); Mean Corpuscular HGB Conc 31.9 g/dL (31.8-35.4); Mean Corpuscular Hemoglobin 25.1 pg (27.0-31.2); Mean Corpuscular Volume 78.8 fl (80-94); Mean Platelet Volume 10.3 fl (7.4-10.4); Neutrophils # 3.4 K/mm3 (1.8-7.8); Neutrophils % 67.6 % (37.0-80.0); Red Blood Count 3.82 M/mm3 (4.60-6.20); Red Cell Distribution Width 15.2 % (11.5-17.5)
[2024-02-19 08:10] LABS: Eosinophils # 0.1 K/mm3 (0.0-0.4); Monocytes # 0.5 K/mm3 (0.1-1.0); Platelet Count 74 K/mm3 (142-424)
--- NOTE | 2024-02-19 09:06 | PC.NURSE ---
ATTEMPTED TO CALL PT'S POA BACK. LEFT A VOICEMAIL.
[2024-02-19] MEDS: KETOROLAC 30MG/ML VIAL 15 MG IV (09:15)
[2024-02-19] MEDS: GABAPENTIN 400MG CAPSULE 400 MG PO ×2 (09:15→12:37)
[2024-02-19] MEDS: METOPROLOL SUCCINATE XL 50MG TABLET 50 MG PO (09:16)
[2024-02-19] MEDS: DOCUSATE SODIUM 100 MG CAPSULE PO (09:16)
[2024-02-19] MEDS: MEMANTINE 10MG TABLET 10 MG PO (09:19)
--- NOTE | 2024-02-19 10:12 | HMH.PTEV ---
Physical Therapy Evaluation Rehab PT IP Evaluation Start: 02/18/24 21:47 Freq: ONCE Status: Active Protocol: Document 02/19/24 10:03 CHARAN (Rec: 02/19/24 10:12 CHARAN [id number]) Subjective/History History History Per H&P: 73-year-old with past medical history of Parkinson's disease, dysphagia on mechanical soft diet, benign neoplasm of adrenal gland, ulcerative pancolitis, schizophrenia, iron deficiency anemia, diabetes on insulin, hyperlipidemia, nicotine dependence chewing tobacco, depression, restless leg syndrome, Alzheimer's disease, hypertension, history of esophageal bleeding, GERD, cirrhosis, BPH, neurogenic bladder. patient presents with confusion and urine with positive nitrates, trace leuk esterase, WBC TNTC, +4 bacteria. Patient extremely poor historian, but has capacity and oriented to person, location but disoriented to time. Patient able to mention upper extremity pain, but unable to describe character of pain. CT neck, shoulder, chest done in emergency room shows no acute fractures. X-ray shoulder initially showed acute clavicle fracture which turned out to be normal on dedicated clavicular films x 2 . Patient lives in [facility], and states he has been there for several years. Denies fevers, chills, known sick contacts, recent travel, dysuria, chest pain, abdominal pain. Subjective Subjective Pt lives at [place]. Pt is a questionable historian. Pt reports he usually walks IND without use of AD. New diagnosis of cancer in past 12 No months? Rehab PT IP Eval Objective Appearance Patient Behavior Appropriate,Cooperative Difficulty following instructions mild Speech Pattern Clear Ambulation Patient Able to Ambulate Yes Ambulation Observation IP General Gait Pattern Observation Wide Based Gait Ambulation Distance (feet) 4 Ambulation Assistive Device None Ambulation Ability Contact Guard/Hand Hold Balance Ability to Arise Able, uses arms to help Sitting Balance Steady, safe Standing Balance Steady, wide stance Transfers Bed Transfer Ability Minimal x 1 (25% assist) Sit to Stand Bed Transfer Ability Contact Guard/Hand Hold Rehab PT IP prob,goals,plan Problems Date of Evaluation: 02/19/24 PT IP Problems Bed Mobility,Transfers,Gait, Self care,Safety Rehab Potential Rehab Potential Good Plan PT Intervention Plan Bed Mobility,Transfers,Gait, Balance,Safety,Therapeutic Exercise Other Intervention Plan 1-2 times PT Plan Frequency Daily Duration LOS Discharge Goals Bed Transfer Ability Independent Sit to Stand Chair Transfer Ability Independent Discharge Plan PT Discharge Plan Pt's mobility limited by L shoulder pain. Pt would benefit from skilled inpatient rehab upon return to [facility]. Pt would benefit from acute care PT while at [facility] to address mobility deficits and prevent further functional decline. Eval Complexity Eval Charge Codes 52453 - Moderate Complexity PHYSICIAN CERTIFICATION: I certify the specified therapy services for Sanket Love are required, authorized, and reviewed every 30 days.
--- NOTE | 2024-02-19 10:13 | HMH.PTEV ---
Physical Therapy Evaluation Rehab PT IP Evaluation Start: 02/18/24 21:47 Freq: ONCE Status: Active Protocol: Document 02/19/24 10:03 CHARAN (Rec: 02/19/24 10:12 CHRAAN [id number]) Subjective/History History History Per H&P: 73-year-old with past medical history of Parkinson's disease, dysphagia on mechanical soft diet, benign neoplasm of adrenal gland, ulcerative pancolitis, schizophrenia, iron deficiency anemia, diabetes on insulin, hyperlipidemia, nicotine dependence chewing tobacco, depression, restless leg syndrome, Alzheimer's disease, hypertension, history of esophageal bleeding, GERD, cirrhosis, BPH, neurogenic bladder. patient presents with confusion and urine with positive nitrates, trace leuk esterase, WBC TNTC, +4 bacteria. Patient extremely poor historian, but has capacity and oriented to person, location but disoriented to time. Patient able to mention upper extremity pain, but unable to describe character of pain. CT neck, shoulder, chest done in emergency room shows no acute fractures. X-ray shoulder initially showed acute clavicle fracture which turned out to be normal on dedicated clavicular films x 2 . Patient lives in [facility], and states he has been there for several years. Denies fevers, chills, known sick contacts, recent travel, dysuria, chest pain, abdominal pain. Subjective Subjective Pt lives at [place]. Pt is a questionable historian. Pt reports he usually walks IND without use of AD. New diagnosis of cancer in past 12 No months? Rehab PT IP Eval Objective Appearance Patient Behavior Appropriate,Cooperative Difficulty following instructions mild Speech Pattern Clear Ambulation Patient Able to Ambulate Yes Ambulation Observation IP General Gait Pattern Observation Wide Based Gait Ambulation Distance (feet) 4 Ambulation Assistive Device None Ambulation Ability Contact Guard/Hand Hold Balance Ability to Arise Able, uses arms to help Sitting Balance Steady, safe Standing Balance Steady, wide stance Transfers Bed Transfer Ability Minimal x 1 (25% assist) Sit to Stand Bed Transfer Ability Contact Guard/Hand Hold Rehab PT IP prob,goals,plan Problems Date of Evaluation: 02/19/24 PT IP Problems Bed Mobility,Transfers,Gait, Self care,Safety Rehab Potential Rehab Potential Good Plan PT Intervention Plan Bed Mobility,Transfers,Gait, Balance,Safety,Therapeutic Exercise Other Intervention Plan 1-2 times PT Plan Frequency Daily Duration LOS Discharge Goals Bed Transfer Ability Independent Sit to Stand Chair Transfer Ability Independent Discharge Plan PT Discharge Plan Pt's mobility limited by L shoulder pain. Pt would benefit from skilled inpatient rehab upon return to [facility]. Pt would benefit from acute care PT while at [facility] to address mobility deficits and prevent further functional decline. Eval Complexity Eval Charge Codes 86832 - Moderate Complexity PHYSICIAN CERTIFICATION: I certify the specified therapy services for Sanket Love are required, authorized, and reviewed every 30 days.
--- NOTE | 2024-02-19 10:29 | HMH.OTEV ---
OT Inpatient Evaluation Rehab OT IP Evaluation Start: 02/18/24 21:47 Freq: ONCE Status: Active Protocol: Document 02/19/24 10:06 KATIE (Rec: 02/19/24 10:29 KATIE [id number]) Rehab OT IP Assessment Subjective History 73-year-old with past medical history of Parkinson's disease , dysphagia on mechanical soft diet, benign neoplasm of adrenal gland, ulcerative pancolitis, schizophrenia, iron deficiency anemia, diabetes on insulin, hyperlipidemia, nicotine dependence chewing tobacco, depression, restless leg syndrome, Alzheimer's disease, hypertension, history of esophageal bleeding, GERD, cirrhosis, BPH, neurogenic bladder. patient presents with confusion and urine with positive nitrates, trace leuk esterase, WBC TNTC, +4 bacteria. Patient extremely poor historian, but has capacity and oriented to person, location but disoriented to time. Patient able to mention upper extremity pain, but unable to describe character of pain. CT neck, shoulder, chest done in emergency room shows no acute fractures. X-ray shoulder initially showed acute clavicle fracture which turned out to be normal on dedicated clavicular films x 2 . Patient lives in [facility], and states he has been there for several years. Denies fevers, chills, known sick contacts, recent travel, dysuria, chest pain, abdominal pain. Of special note, CT abdomen/ pelvis shows signs of gallbladder disease and chronic versus acute pancreatitis. Patient is a resident of long-term care facility. Nursing staff provides all ADLs and fx 'l mobility tasks as needed. patient uses AE/devices at times to ambulate. Subjective I can sit up. Instructed Patient on proper hand and foot placement to complete bed mobility from supine->sit @ EOB->stand with needing Min A x2. Patient stood ~30 secs with no LOB noted. Assisted patient back to bed with needs met. Objective Patient Orientation Person,Name,Age Right Upper Extremity Gross ROM WFL Left Upper Extremity Gross ROM Not Tested Bed Mobility bed mobility - supine/sit Assist Level Minimal x 2 (25% assist) Transfer Training Sit/Stand Transfer Assist Level Minimal x 1 (25% assist) Rehab OT IP prob,goals,plan Problems Date of Evaluation: 02/19/24 OT IP Problems Bed Mobility,Transfers,Balance ,Self care Rehab Potential Rehab Potential Good Equipment Needs Assistive Devices None / NA Plan OT intervention Plan Bed Mobility,Transfers,Balance ,Self care,Safety,Therapeutic Exercise OT Plan Frequency Daily Duration LOS Discharge Goals Bed Mobility Ability Assistance x1 Sit to Stand Chair Transfer Ability Supervision/Stand by Chair Transfer Ability Supervision/Stand by Chair Transfer Technique Sit to/from Ambulatory Chair Transfer Assistive Devices Rolling Walker Discharge Plan OT Discharge Plan Recommend patient to return back to [facility]. Patient to continue skilled OT services while here at [facility]. Eval Complexity Eval Charge Codes 50976 - Low Complexity PHYSICIAN CERTIFICATION: I certify the specified therapy services for Sanket Love are required, authorized, and reviewed every 30 days.
[2024-02-19 11:11] VITALS: BMI 24.3
[2024-02-19] MEDS: MAGNESIUM SULFATE IN WATER 2 GM/50 ML PIGGYBACK IV (11:26)
[2024-02-19 11:42] LABS: POC Glucose,Bedside 234 (70-110)
--- NOTE | 2024-02-19 11:46 | EXP.DC.SUM ---
General Admission date:: 02/18/24 HPI HPI HPI: 73-year-old with past medical history of Parkinson's disease, dysphagia on mechanical soft diet, benign neoplasm of adrenal gland, ulcerative pancolitis, schizophrenia, iron deficiency anemia, diabetes on insulin, hyperlipidemia, nicotine dependence chewing tobacco, depression, restless leg syndrome, Alzheimer's disease, hypertension, history of esophageal bleeding, GERD, cirrhosis, BPH, neurogenic bladder. patient presents with confusion and urine with positive nitrates, trace leuk esterase, WBC TNTC, +4 bacteria. Patient extremely poor historian, but has capacity and oriented to person, location but disoriented to time. Patient able to mention upper extremity pain, but unable to describe character of pain. CT neck, shoulder, chest done in emergency room shows no acute fractures. X-ray shoulder initially showed acute clavicle fracture which turned out to be normal on dedicated clavicular films x 2. Patient lives in [facility], and states he has been there for several years. Denies fevers, chills, known sick contacts, recent travel, dysuria, chest pain, abdominal pain. Of special note, CT abdomen/pelvis shows signs of gallbladder disease and chronic versus acute pancreatitis. Hospital Course Hospital Course Hospital Course: 73-year-old with past medical history of Parkinson's disease, dysphagia on mechanical soft diet, benign neoplasm of adrenal gland, ulcerative pancolitis, schizophrenia, iron deficiency anemia, diabetes on insulin, hyperlipidemia, nicotine dependence chewing tobacco, depression, restless leg syndrome, Alzheimer's disease, hypertension, history of esophageal bleeding, GERD, cirrhosis, BPH, neurogenic bladder. Patient presents with confusion and urine with positive nitrates, trace leuk esterase, WBC TNTC, +4 bacteria. Patient admitted for metabolic encephalopathy secondary to UTI management. Problems as listed below: #Acute metabolic encephalopathy #UTI ? Clinically improved with ceftriaxone. However, does have history of multidrug-resistant UTIs previously intermediate/resistant to ceftriaxone. ? Discharged with IM ertapenem 1 g daily for 4 more days. Received 1 dose of IV ertapenem today. ? Will follow-up on urine cultures and notify [facility] if antibiotic adjustments need to be made. #Acute muscle strain of posterior neck, left shoulder/arm ? Patient states he was pushing family members in a wheelchair recently and thinks he overexerted himself. Has had aching pain since last week. ? Patient sent to hospital complaining of neck/back/shoulder discomfort. Patient slightly tender to palpation during my exam in emergency room, but able to move affected joints without much difficulty. CT cervical/neck/thoracic showed no acute injuries. - Although original x-ray shoulder shows possible clavicle fracture, dedicated clavicular films show no fracture. Believe patient likely suffering from muscle strain and/or aggravation of underlying arthritis. ? Of note, we attempted to get patient transferred to outside facility with orthopedic surgery available since no Ortho consultation currently available. , [facility], and [facility] all refused to transfer patient. We therefore admitted patient at this institution with shoulder sling, and will treat patient's muscle strain/arthritis. I would encourage PT/OT and encourage advance activity as tolerated. ? PT/OT consulted, recommended further rehab at [facility]. ? Discharged with Mobic 7.5 mg twice daily as needed, Flexeril as needed. Chronic medical conditions: Parkinson/Alzheimer's disease: Aricept 5 mg p.o. nightly, Namenda sprinkles 28 mg p.o. daily. Benign neoplasm of the adrenal gland: Continue home management Ulcerative pancolitis: Chronic issue, will monitor during hospitalization but doubt acute management required Schizophrenia: Continue home management Diabetes: Sitagliptin phosphate 100 mg p.o. nightly Hyperlipidemia: Atorvastatin 10 mg p.o. daily Nicotine dependence: Chewing tobacco: Nicotine patch 21 mg transdermal daily as needed nicotine cravings Depression: Paroxetine 40 mg p.o. daily Hypertension: Metoprolol succinate 50 mg p.o. daily BPH: Tamsulosin 0.5 p.o. daily GERD: Omeprazole 20 mg p.o. daily or what ever pharmacy substitute from formulary Cirrhosis: Continue home management. Avoid use of hepatotoxic medications during hospitalization. Exam Data for Last 24 hours Vital signs and Labs for Last 24 Hours: Temp Pulse Resp BP Pulse Ox O2 Del Method 98.6 F 71 18 126/67 97 Room Air 02/19/24 08:00 02/19/24 08:00 02/19/24 08:00 02/19/24 08:00 02/19/24 08:00 02/19/24 08:00 Laboratory Results - last 24 hr 02/18/24 15:30: WBC 5.1, RBC 4.13 L, Hgb 10.5 L, Hct 32.8 L, MCV 79.4 L, MCH 25.4 L, MCHC 32.0, RDW 15.3, Plt Count 100 L, MPV 12.0 H, Neut % (Auto) 74.8, Lymph % (Auto) 16.4, [place] % (Auto) 7.6, Eos % (Auto) 0.6, Baso % (Auto) 0.4, Neut # (Auto) 3.8, Lymph # (Auto) 0.8, [place] # (Auto) 0.4, Eos # (Auto) 0.0, Baso # (Auto) 0.0, Sodium 136, Potassium 4.2, Chloride 109 H, Carbon Dioxide 22, Anion Gap 9.2, BUN 12, Creatinine 0.70, Estimated Creat Clear 76, Estimated GFR 111, Est GFR ( Amer) 135, Glucose 276 H, Calcium 9.0, Magnesium 1.4 L, Total Bilirubin 1.8 H, AST 47, ALT 36, Alkaline Phosphatase 80, Troponin I < 0.01, NT-Pro-B Natriuret Pep 186 H, Total Protein 7.3, Albumin 4.1, Globulin 3.2, Albumin/Globulin Ratio 1.3, Lipase 182 02/18/24 17:57: Urine Color Yellow, Urine Appearance Clear, Urine pH 6.0, Ur Specific Stow 1.020, Urine Protein Negative, Urine Glucose (UA) 3+, Urine Ketones Negative, Urine Blood Trace-i, Urine Nitrate Positive A, Urine Bilirubin Negative, Urine Urobilinogen 1.0, Ur Leukocyte Esterase Trace, Urine RBC 10-20, Urine WBC Tntc, Ur Squamous Epith Cells 3-5, Urine Bacteria 4+ 02/18/24 21:49: Procalcitonin 0.052 02/18/24 22:32: Chlamy pneumoniae PCR Not detected, Adenovirus (PCR) Not detected, B. pertussis DNA (PCR) Not detected, Coronavirus OC43 (PCR) Not detected, Coronavirus HKU1 (PCR) Not detected, Coronavirus 229E (PCR) Not detected, SARS-CoV-2 (PCR) Not detected, Coronavirus NL63 (PCR) Not detected, Human Metapneumovir PCR Not detected, Influenza A (H1) PCR Not detected, Influ A (H1N1/09) PCR Not detected, Influenza A (H3) PCR Not detected, Influenza Type A (PCR) Not detected, Influenza Type B (PCR) Not detected, M. pneumoniae (PCR) Not detected, Parainfluenza 1 (PCR) Not detected, Parainfluenza 2 (PCR) Not detected, Parainfluenza 3 (PCR) Not detected, Parainfluenza 4 (PCR) Not detected, RSV (PCR) Not detected, Entero/Rhino (PCR) Not detected 02/19/24 01:02: POC Glucose 170 H 02/19/24 06:22: POC Glucose 193 H 02/19/24 07:00: WBC 5.0, RBC 3.82 L, Hgb 9.6 L, Hct 30.1 L, MCV 78.8 L, MCH 25.1 L, MCHC 31.9, RDW 15.2, Plt Count 74 L D, MPV 10.3, Neut % (Auto) 67.6, Lymph % (Auto) 20.6, [place] % (Auto) 9.0, Eos % (Auto) 1.4, Baso % (Auto) 0.6, Neut # (Auto) 3.4, Lymph # (Auto) 1.0, [place] # (Auto) 0.5, Eos # (Auto) 0.1, Baso # (Auto) 0.0, Sodium 135 L, Potassium 3.7, Chloride 111 H, Carbon Dioxide 22, Anion Gap 5.7, BUN 13, Creatinine 0.60 L, Estimated Creat Clear 37, Estimated GFR 133, Est GFR ( Amer) 161, Glucose 181 H D, Calcium 8.3 L, Magnesium 1.9 D 02/19/24 11:35: POC Glucose 234 H I & O for Last 24 hours: Intake & Output 02/16/24 02/17/24 02/18/24 02/19/24 23:59 23:59 23:59 23:59 Intake Total 680 / 680 Output Total 300 / 300 Balance 380 / 380 Weight 38.419 kg 68.5 kg Microbiology Reports for the Last 24 Hours: Microbiology 02/18/24 17:57 Urine,Clean Catch Urine Culture - Preliminary Gram Negative Rods Constitutional Constitutional: no acute distress *Routine HEENT Exam Head: Present normocephalic Eye: Present EOMI and PERRL ENT: Present mucous membranes moist *Routine Neck Exam Neck: Present supple; Absent lymphadenopathy *Routine Respiratory Exam Respiratory: Present CTA bilaterally *Routine Cardiovascular Exam Cardiovascular: Present RRR *Routine Abdominal Exam Abdominal: Present soft and normoactive bowel sounds; Absent tenderness *Routine Extremities Exam Extremities: Absent cyanosis, clubbing or edema Comments: Mild to moderate pain with range of motion of left upper extremity at the shoulder. No effusion noted. *Routine Skin Exam Skin: Present warm; Absent rash *Routine Neurological Exam Neurological: Present alert and oriented X3 Results Data Completed and Pending Labs on day of discharge: Labs from last 24 hours 02/19/24 02/19/24 02/19/24 11:35 07:00 06:22 WBC 5.0 RBC 3.82 L Hgb 9.6 L Hct 30.1 L MCV 78.8 L MCH 25.1 L MCHC 31.9 RDW 15.2 Plt Count 74 L D MPV 10.3 Neut % (Auto) 67.6 Lymph % (Auto) 20.6 [place] % (Auto) 9.0 Eos % (Auto) 1.4 Baso % (Auto) 0.6 Neut # (Auto) 3.4 Lymph # (Auto) 1.0 [place] # (Auto) 0.5 Eos # (Auto) 0.1 Baso # (Auto) 0.0 Sodium 135 L Potassium 3.7 Chloride 111 H Carbon Dioxide 22 Anion Gap 5.7 BUN 13 Creatinine 0.60 L Estimated Creat Clear 37 Estimated GFR 133 Est GFR ( Amer) 161 Glucose 181 H D POC Glucose 234 H 193 H Calcium 8.3 L Magnesium 1.9 D Total Bilirubin AST ALT Alkaline Phosphatase Troponin I NT-Pro-B Natriuret Pep Total Protein Albumin Globulin Albumin/Globulin Ratio Lipase Procalcitonin Urine Color Urine Appearance Urine pH Ur Specific Stow Urine Protein Urine Glucose (UA) Urine Ketones Urine Blood Urine Nitrate Urine Bilirubin Urine Urobilinogen Ur Leukocyte Esterase Urine RBC Urine WBC Ur Squamous Epith Cells Urine Bacteria Chlamy pneumoniae PCR Adenovirus (PCR) B. pertussis DNA (PCR) Coronavirus OC43 (PCR) Coronavirus HKU1 (PCR) Coronavirus 229E (PCR) SARS-CoV-2 (PCR) Coronavirus NL63 (PCR) Human Metapneumovir PCR Influenza A (H1) PCR Influ A (H1N1/09) PCR Influenza A (H3) PCR Influenza Type A (PCR) Influenza Type B (PCR) M. pneumoniae (PCR) Parainfluenza 1 (PCR) Parainfluenza 2 (PCR) Parainfluenza 3 (PCR) Parainfluenza 4 (PCR) RSV (PCR) Entero/Rhino (PCR) 02/19/24 02/18/24 02/18/24 01:02 22:32 21:49 WBC RBC Hgb Hct MCV MCH MCHC RDW Plt Count MPV Neut % (Auto) Lymph % (Auto) [place] % (Auto) Eos % (Auto) Baso % (Auto) Neut # (Auto) Lymph # (Auto) [place] # (Auto) Eos # (Auto) Baso # (Auto) Sodium Potassium Chloride Carbon Dioxide Anion Gap BUN Creatinine Estimated Creat Clear Estimated GFR Est GFR ( Amer) Glucose POC Glucose 170 H Calcium Magnesium Total Bilirubin AST ALT Alkaline Phosphatase Troponin I NT-Pro-B Natriuret Pep Total Protein Albumin Globulin Albumin/Globulin Ratio Lipase Procalcitonin 0.052 Urine Color Urine Appearance Urine pH Ur Specific Stow Urine Protein Urine Glucose (UA) Urine Ketones Urine Blood Urine Nitrate Urine Bilirubin Urine Urobilinogen Ur Leukocyte Esterase Urine RBC Urine WBC Ur Squamous Epith Cells Urine Bacteria Chlamy pneumoniae PCR Not detected Adenovirus (PCR) Not detected B. pertussis DNA (PCR) Not detected Coronavirus OC43 (PCR) Not detected Coronavirus HKU1 (PCR) Not detected Coronavirus 229E (PCR) Not detected SARS-CoV-2 (PCR) Not detected Coronavirus NL63 (PCR) Not detected Human Metapneumovir PCR Not detected Influenza A (H1) PCR Not detected Influ A (H1N1/09) PCR Not detected Influenza A (H3) PCR Not detected Influenza Type A (PCR) Not detected Influenza Type B (PCR) Not detected M. pneumoniae (PCR) Not detected Parainfluenza 1 (PCR) Not detected Parainfluenza 2 (PCR) Not detected Parainfluenza 3 (PCR) Not detected Parainfluenza 4 (PCR) Not detected RSV (PCR) Not detected Entero/Rhino (PCR) Not detected 02/18/24 02/18/24 17:57 15:30 WBC 5.1 RBC 4.13 L Hgb 10.5 L Hct 32.8 L MCV 79.4 L MCH 25.4 L MCHC 32.0 RDW 15.3 Plt Count 100 L MPV 12.0 H Neut % (Auto) 74.8 Lymph % (Auto) 16.4 [place] % (Auto) 7.6 Eos % (Auto) 0.6 Baso % (Auto) 0.4 Neut # (Auto) 3.8 Lymph # (Auto) 0.8 [place] # (Auto) 0.4 Eos # (Auto) 0.0 Baso # (Auto) 0.0 Sodium 136 Potassium 4.2 Chloride 109 H Carbon Dioxide 22 Anion Gap 9.2 BUN 12 Creatinine 0.70 Estimated Creat Clear 76 Estimated GFR 111 Est GFR ( Amer) 135 Glucose 276 H POC Glucose Calcium 9.0 Magnesium 1.4 L Total Bilirubin 1.8 H AST 47 ALT 36 Alkaline Phosphatase 80 Troponin I < 0.01 NT-Pro-B Natriuret Pep 186 H Total Protein 7.3 Albumin 4.1 Globulin 3.2 Albumin/Globulin Ratio 1.3 Lipase 182 Procalcitonin Urine Color Yellow Urine Appearance Clear Urine pH 6.0 Ur Specific Stow 1.020 Urine Protein Negative Urine Glucose (UA) 3+ Urine Ketones Negative Urine Blood Trace-i Urine Nitrate Positive A Urine Bilirubin Negative Urine Urobilinogen 1.0 Ur Leukocyte Esterase Trace Urine RBC 10-20 Urine WBC Tntc Ur Squamous Epith Cells 3-5 Urine Bacteria 4+ Chlamy pneumoniae PCR Adenovirus (PCR) B. pertussis DNA (PCR) Coronavirus OC43 (PCR) Coronavirus HKU1 (PCR) Coronavirus 229E (PCR) SARS-CoV-2 (PCR) Coronavirus NL63 (PCR) Human Metapneumovir PCR Influenza A (H1) PCR Influ A (H1N1/09) PCR Influenza A (H3) PCR Influenza Type A (PCR) Influenza Type B (PCR) M. pneumoniae (PCR) Parainfluenza 1 (PCR) Parainfluenza 2 (PCR) Parainfluenza 3 (PCR) Parainfluenza 4 (PCR) RSV (PCR) Entero/Rhino (PCR) Preliminary micro results at discharge 02/18/24 17:57 Urine Culture - Preliminary Urine,Clean Catch Gram Negative Rods DS: Diagnosis Discharge Diagnosis (1) Back pain: Status: Acute Code(s): M54.9 - Dorsalgia, unspecified (2) Altered mental status: Status: Acute Code(s): R41.82 - Altered mental status, unspecified (3) UTI (urinary tract infection): Status: Acute Code(s): N39.0 - Urinary tract infection, site not specified (4) Restless legs syndrome: Status: Acute Code(s): G25.81 - Restless legs syndrome (5) Schizophrenia, unspecified: Status: Acute Code(s): F20.9 - Schizophrenia, unspecified (6) BPH (benign prostatic hyperplasia): Status: Acute Code(s): N40.0 - Benign prostatic hyperplasia without lower urinary tract symptoms (7) GERD (gastroesophageal reflux disease): Status: Acute Code(s): K21.9 - Gastro-esophageal reflux disease without esophagitis (8) Benign prostatic hyperplasia with lower urinary tract symptoms: Status: Chronic Code(s): N40.1 - Benign prostatic hyperplasia with lower urinary tract symptoms Qualifiers: Lower urinary tract symptom detail: urinary retention Qualified Code(s): N40.1 - Benign prostatic hyperplasia with lower urinary tract symptoms; R33.8 - Other retention of urine (9) Essential (primary) hypertension: Status: Acute Code(s): I10 - Essential (primary) hypertension (10) Reflex neuropathic bladder, not elsewhere classified: Status: Chronic Code(s): N31.1 - Reflex neuropathic bladder, not elsewhere classified (11) Unspecified cirrhosis of liver: Status: Acute Code(s): K74.60 - Unspecified cirrhosis of liver (12) Parkinson's disease: Status: Chronic Code(s): G20.A1 - Parkinson's disease without dyskinesia, without mention of fluctuations (13) Muscle weakness (generalized): Status: Chronic Code(s): M62.81 - Muscle weakness (generalized) (14) Type 2 diabetes mellitus with unspecified complications: Status: Chronic Code(s): E11.8 - Type 2 diabetes mellitus with unspecified complications (15) Iron deficiency anemia secondary to blood loss (chronic): Status: Chronic Code(s): D50.0 - Iron deficiency anemia secondary to blood loss (chronic) (16) Hyperlipidemia, unspecified: Status: Chronic Code(s): E78.5 - Hyperlipidemia, unspecified Qualifiers: Hyperlipidemia type: mixed hyperlipidemia Qualified Code(s): E78.2 - Mixed hyperlipidemia (17) Unspecified dementia without behavioral disturbance: Status: Chronic Code(s): F03.90 - Unspecified dementia, unspecified severity, without behavioral disturbance, psychotic disturbance, mood disturbance, and anxiety (18) Anxiety disorder, unspecified: Status: Chronic Code(s): F41.9 - Anxiety disorder, unspecified Qualifiers: Anxiety disorder type: generalized anxiety disorder Qualified Code(s): F41.1 - Generalized anxiety disorder (19) Calculus of gallbladder without cholecystitis without obstruction: Status: Acute Code(s): K80.20 - Calculus of gallbladder without cholecystitis without obstruction Meds Home Medications and Allergies Home Medications ?Medication ?Instructions ?Recorded ?Confirmed ?Type atorvastatin 10 mg tablet 10 mg PO HS 06/08/20 02/19/24 History fluticasone propionate 50 1 spray intranasal HS Allergy 06/08/20 02/18/24 History mcg/actuation nasal symptoms spray,suspension (Allergy Relief (fluticasone)) memantine 28 mg capsule 28 mg PO DAILY 06/08/20 02/18/24 History sprinkle,extended release 24hr (Namenda XR) sitagliptin phosphate 100 mg 100 mg PO HS 06/08/20 02/19/24 History tablet (Januvia) tamsulosin 0.4 mg capsule (Flomax) 0.4 mg PO HS 06/08/20 02/19/24 History omeprazole 20 mg tablet,delayed 20 mg PO DAILY 12/19/21 02/18/24 History release propylene glycol 0.6 % eye drops 1 drp Eye-Both BID dry eyes 12/19/21 02/18/24 History (Systane Complete) montelukast 10 mg tablet 10 mg PO HS #0 tabs 12/21/21 02/18/24 Rx potassium chloride 20 mEq 20 meq PO BID #0 tabs 12/21/21 02/18/24 Rx tablet,extended release(part/cryst) acetaminophen 500 mg tablet (Pain 500 mg PO Q4HP PRN Fever Or Pain 02/05/23 02/19/24 History Reliever Extra Strength (acetaminophen)) donepezil 5 mg tablet 5 mg PO HS 02/05/23 02/18/24 History insulin glargine 100 unit/mL (3 30 unit SQ HS Diabetes 02/05/23 02/18/24 History mL) subcutaneous pen (Basaglar KwikPen U-100 Insulin) lactulose 10 gram/15 mL oral 20 g PO DAILYP PRN Constipation 02/05/23 02/19/24 History solution metformin 1,000 mg tablet 1,000 mg PO BID 02/05/23 02/18/24 History metoprolol succinate 50 mg 50 mg PO DAILY 02/05/23 02/18/24 History tablet,extended release 24 hr mirabegron 25 mg tablet,extended 25 mg PO DAILY 02/05/23 02/18/24 History release 24 hr (Myrbetriq) multivitamin 1 tab PO DAILY #30 tabs 02/05/23 02/18/24 Rx insulin regular human 100 unit/mL 1 sliding scale dose SQ 03/29/23 02/03/24 Rx injection solution (Novolin R USEASDIRECTD #10 mL Regular U-100 Insulin) gabapentin 400 mg capsule 400 mg PO TID #90 caps 09/15/23 02/18/24 Rx omega-3 300 mg-dha 120 mg-epa 180 1 cap PO DAILY 02/18/24 02/18/24 History mg-fish oil 1,000 mg capsule pen needle,diabetic dual safty 30 02/18/24 02/18/24 History gauge x 3/16 (BD AutoShield Duo Pen Needle) cyclobenzaprine 10 mg tablet 10 mg PO HS PRN Left arm pain 7 02/19/24 Rx days #7 tabs meloxicam 7.5 mg tablet 7.5 mg PO BID PRN Left arm pain, 02/19/24 Rx back pain #14 tabs New Prescriptions to Start Prescriptions: jeffrybenzBaljit Hernandez meloxicam Baljit Rico Allergies Allergy/AdvReac Type Severity Reaction Status Date / Time aspirin Allergy Mild Rash Verified 02/18/24 21:49 acetaminophen Allergy Rash Verified 02/18/24 21:49 Discharge Plan Disposition Patient Disposition: [facility] Condition: Fair Discharge Order Discharge Orders: Discharge Order (Routine); Ordered 02/19/24 Ordered By: Baljit Rico Follow up Plan Prescriptions/Medication Reconciliation: New cyclobenzaprine 10 mg Tablet 10 mg PO HS PRN (Reason: Left arm pain) 7 Days Qty: 7 0RF meloxicam 7.5 mg tablet 7.5 mg PO BID PRN (Reason: Left arm pain, back pain) Qty: 14 0RF Continued atorvastatin 10 mg tablet 10 mg PO HS fluticasone propionate [Allergy Relief (fluticasone)] 50 mcg/actuation spray,suspension 1 spray INTRANASAL HS Rx Instructions: administer into each nostril memantine [Namenda XR] 28 mg capsule,sprinkle,ER 24hr 28 mg PO DAILY Januvia 100 mg tablet 100 mg PO HS tamsulosin [Flomax] 0.4 mg capsule 0.4 mg PO HS acetaminophen [Pain Reliever ES(acetaminophn)] 500 mg tablet 500 mg PO Q4HP PRN (Reason: Fever Or Pain) lactulose 10 gram/15 mL solution 20 g PO DAILYP PRN (Reason: Constipation) insulin glargine [Basaglar KwikPen U-100 Insulin] 100 unit/mL (3 mL) insulin pen 30 unit SQ HS donepezil 5 mg tablet 5 mg PO HS metformin 1,000 mg tablet 1,000 mg PO BID metoprolol succinate 50 mg tablet extended release 24 hr 50 mg PO DAILY Myrbetriq 25 mg tablet extended release 24 hr 25 mg PO DAILY multivitamin Tablet 1 tab PO DAILY Qty: 30 0RF Novolin R Regular U100 Insulin 100 unit/mL solution 1 sliding scale dose SQ USEASDIRECTD Qty: 10 4RF gabapentin 400 mg capsule 400 mg PO TID Qty: 90 5RF omeprazole 20 mg Tablet,Delayed Release (Dr/Ec) 20 mg PO DAILY Systane Complete 0.6 % Drops 1 drp Eye-Both BID potassium chloride 20 mEq Tablet,Er Particles/Crystals 20 meq PO BID Qty: 0 0RF montelukast 10 mg Tablet 10 mg PO HS Qty: 0 0RF (DME) BD AutoShield Duo Pen Needle 30 gauge x 3/16 needle MISCELLANEOUS omega 1-mhh-scp-fish oil 300 mg (120 mg- 180mg)-1,000 mg capsule 1 cap PO DAILY Patient Comments: GIVE 1 CAPSULE BY MOUTH ONCE DAILY Problem Reconciliation Problems Reviewed?: Yes Patient Discharge Instructions Patient Instructions: DI for Urinary Tract Infection (UTI) Print Language: [place] Providers Primary Care Provider: Chung Mckeon Admit Provider: Baljit Rico Attending Provider: Baljit Rico
[2024-02-19] MEDS: ERTAPENEM SODIUM 1 GM in 0.9 % SODIUM CHLORIDE 50 ML IV (13:21)
--- NOTE | 2024-02-19 13:46 | PC.NURSE ---
PT FAMILY NOTIFIED THAT PT WOULD BE GOING BACK TO [place] TODAY AND REPORT GIVEN TO SHELTER.
--- NOTE | 2024-02-19 14:57 | PC.NURSE ---
CALLED FOR UPDATE ON HOW LONG EMS WOULD BE. PERSONNEL STATED THAT SOMEONE SHOULD BE HERE SHORTLY.
--- NOTE | 2024-02-19 15:42 | HMH.SLDYSPHA ---
Speech & Language Evaluation Speech/Language Dysphagia Evaluation Start: 02/19/24 15:36 Freq: ONCE Status: Active Protocol: Document 02/19/24 15:36 SUZETTEKATHRYNEUGENIE (Rec: 02/19/24 15:41 [facility] Dysphagia Assess/Goals/Plan Assessment Date of Evaluation: 02/19/24 Evaluation Type Initial Certification Assessment/Problems aspiration concern per MD order Does Patient Qualify for Service No Qualify/Failure Comment Based on CSE results, no further skilled speech therapy services are warranted at this time. Mastication and Manipulation of bolus & Swallowing WFL. Recommendations PHYSICIAN CERTIFICATION: The specified therapy services are required, authorized, and reviewed every 30 days. Diet Recommendations Mechanical Soft Liquid Type Recommendations Normal/Thin SL Swallow Guidelines Standard Aspiration Prec., Reflux precautions Dysphagia Swallow Precautions/Strategies Small Bites and Sips,Alternate Liquids/Solids Plan Pt/Guardian verbally ack understanding Yes of dx/prognosis/goals G -code Required No Education Instructions provided Discussed results of CSE and diet recommendations with pt, nursing, and care management all of which expressed understanding. 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 patient presents with confusion and urine with positive nitrates, trace leuk esterase, WBC TNTC, +4 bacteria. Patient extremely poor historian, but has capacity and oriented to person, location but disoriented to time. Patient able to mention upper extremity pain, but unable to describe character of pain. CT neck, shoulder, chest done in emergency room shows no acute fractures. X-ray shoulder initially showed acute clavicle fracture which turned out to be normal on dedicated clavicular films x 2 . Patient lives in [facility], and states he has been there for several years. Denies fevers, chills, known sick contacts, recent travel, dysuria, chest pain, abdominal pain. CXR impressions clear. General Information General Current Food Consistancy Mechanical Soft,Thin Liquids Dentition Poor Dentition Ability to Follow Directions Good Communication Ability Mild Impairment Dysphagia:Food Presentation Evaluation Food Type Pureed,Mechanical Soft,Liquid, Pudding Dysphagia Evaluation Summary Pt seen sitting upright at side of bed for CSE. All bolus consistencies trialed x3 to assess for consistency and/or fatigue. No overt s/sxs of aspiration observed throughout CSE exhibited. Recommended to continue on MS/thin diet at this time. Bolus consistencies trialed include: thin liquids (via ice chip, spoonful of water, open cup/straw sip, and subsequent sips from open cup /straw), pudding, puree ( applesauce), and mechanical soft (nutrigrain bar.) Regulars not trialed 2' dentition. No further skilled speech therapy services warranted at this time. Stroke Dysphagia Assessment PHYSICIAN CERTIFICATION: I certify the specified therapy services for Sanket Love are required, authorized, and reviewed every 30 days.
== END 2024-02-19 15:15 ==
LOC: ER 21:08 → 2ND 21:16
PROVIDERS: Internal Medicine; Physician Assistant; Admitting Provider Student in an Organized Health Care Education/Training Program; Emergency Provider Emergency Medicine; PCP Nurse Practitioner Acute Care; Visit Provider Student in an Organized Health Care Education/Training Program
DX: G93.41 Metabolic encephalopathy (principal); M54.9 Dorsalgia, unspecified; N39.0 Urinary tract infection, site not specified; G25.81 Restless legs syndrome; F20.9 Schizophrenia, unspecified; N40.0 Benign prostatic hyperplasia without lower urinary tract symptoms; K21.9 Gastro-esophageal reflux disease without esophagitis; I10 Essential (primary) hypertension; N31.1 Reflex neuropathic bladder, not elsewhere classified; K74.60 Unspecified cirrhosis of liver; G20.A1 Parkinson's disease without dyskinesia, without mention of fluctuations; M62.81 Muscle weakness (generalized); E11.8 Type 2 diabetes mellitus with unspecified complications; D50.0 Iron deficiency anemia secondary to blood loss (chronic); E78.2 Mixed hyperlipidemia; F03.90 Unspecified dementia, unspecified severity, without behavioral disturbance, psychotic disturbance, mood disturbance, and anxiety; K80.20 Calculus of gallbladder without cholecystitis without obstruction; K51.00 Ulcerative (chronic) pancolitis without complications; B96.20 Unspecified Escherichia coli [E. coli] as the cause of diseases classified elsewhere; F32.A Depression, unspecified; Z79.4 Long term (current) use of insulin; Z79.01 Long term (current) use of anticoagulants; F17.220 Nicotine dependence, chewing tobacco, uncomplicated
CPT/HCPCS: 36415; 71045; 72125; 72128; 73000; 73030; 74177; 80048; 80053; 81001; 82962; 83690; 83735; 83880; 84145; 84484; 85025; 87040; 87086; 87088; 87186; 87633; 92610; 93005; 97162; 97165; 97530; 99285; G0378; J0696; J1171; J1335; J1885; J2270; J2405; J3475; J7030; Q9967

== ENCOUNTER 2024-05-25 08:32 | Outpatient (CLI) | payer MEDICARE, MEDICAID, SELFPAY ==
--- NOTE | 2024-05-25 08:38 | CT_ITS ---
FINAL REPORT TECHNIQUE: Thin section axial images were obtained from the lung bases to the pubic symphysis without IV contrast. Coronal and sagittal reconstruction images were obtained from the axial data. Exam was performed using dose reduction technique. This study was performed with techniques to keep radiation doses as low as reasonably achievable (ALARA). Individualized dose reduction techniques using automated exposure control or adjustment of mA and/or kV according to the patient's size were employed. CLINICAL HISTORY: UNSPECIFIED CIRRHOSIS OF THE LIVER COMPARISON: 02/18/2024 FINDINGS: A small right pleural effusion and right lower lobe atelectasis are present, stable since the prior CT of 02/18/2024. The liver is nodular, with prominent hypertrophic change of the caudate lobe. The portal vein is opacified. The hepatic veins are not opacified, and Budd-Chiari syndrome is not excluded. The appearance is similar to the prior exam. There is significant gallbladder wall thickening, nonspecific with ascites. The spleen is normal in size. The splenic vein is small. There is abnormal attenuation surrounding the tail of the pancreas, pancreatitis is not excluded. There is no evidence of hydronephrosis. There is a small renal lesion that may represent a cyst. There is no evidence of small bowel obstruction. The appendix is normal. There is wall thickening of the ascending colon, which is nonspecific with ascites. There is a small amount of abdominal and pelvic ascites present. The GI tract is otherwise without acute abnormality. The prostate is enlarged, with the urinary bladder unremarkable. No lymphadenopathy is noted in the abdomen or pelvis. No acute osseous abnormality is identified. IMPRESSION: Cirrhosis is again noted. The hepatic veins are not identified, and Budd-Chiari is not excluded. Gallbladder wall thickening as well as bowel wall thickening are identified as described above, which is nonspecific in the setting of ascites. Abnormal attenuation surrounding the pancreas, and underlying pancreatitis not excluded. Reviewed, Interpreted and Dictated by Natalie Napier MD Transcribed by Tash Kiran Authenticated and [facility]
[2024-05-25 09:14] LABS: Blood Urea Nitrogen 12 mg/dl (9-20); Estimated Glomerular Filt Rate 132 ml/min (>60); GFR (African American) 160 ML/MIN (>60)
[2024-05-25] MEDS: IOPAMIDOL-370 (76%);100ML BOTTLE 75 ML IV (10:09)
[2024-05-25] MEDS: SODIUM CHLORIDE 0.9% 10ML SYR (RAD ONLY) 10 ML IV (10:09)
== END 2024-05-25 23:59 | disposition home or self-care (01) ==
LOC: RAD 08:33
PROVIDERS: PCP Family Medicine; Visit Provider Physician Assistant
DX: K74.60 Unspecified cirrhosis of liver (principal)
CPT/HCPCS: 36415; 74178; 82565; 84520; Q9967

== ENCOUNTER 2024-06-01 07:44 | Outpatient (CLI) | payer MEDICARE, MEDICAID, SELFPAY ==
[2024-06-01 07:50] LABS: MANUAL DIFFERENTIAL MANUAL DIFFERENTIAL (MANUAL DIFF)
[2024-06-01 08:01] LABS: Basophils % 0.6 % (0.1-2.0); Eosinophils % 1.3 % (0.1-12.0); Hemoglobin 8.5 g/dL (14.1-18.0); Lymphocytes % 30.5 % (10-50); Mean Corpuscular HGB Conc 31.5 g/dL (31.8-35.4); Mean Corpuscular Hemoglobin 23.9 pg (27.0-31.2); Mean Corpuscular Volume 76.1 fl (80-94); Mean Platelet Volume 10.7 fl (7.4-10.4); Monocytes # 0.3 K/mm3 (0.1-1.0); Monocytes % 8.9 % (1.7-9.3); Neutrophils # 1.8 K/mm3 (1.8-7.8); Neutrophils % 58.4 % (37.0-80.0); Platelet Count 60 K/mm3 (142-424); Red Blood Count 3.55 M/mm3 (4.60-6.20); Red Cell Distribution Width 16.5 % (11.5-17.5); White Blood Count 3.2 K/mm3 (4.8-10.8)
[2024-06-01 08:04] LABS: Albumin Level 3.2 g/dl (3.5-5.0); Chloride 110 mmol/L (98-107); Potassium 3.7 mmoL/L (3.5-5.1); Sodium 141 mmol/L (136-145)
[2024-06-01 08:06] LABS: Blood Urea Nitrogen 10 mg/dl (9-20)
[2024-06-01 08:07] LABS: Alanine Aminotransferase 21 U/L (12-78); Albumin/Globulin Ratio 1.1 (1.1-1.8); Alkaline Phosphatase 78 U/L (38-126); Anion Gap 7.7 mEq/L (5-15); Aspartate Amino Transferase 30 U/L (17-59); Bilirubin,Total 1.8 mg/dl (0.2-1.3); Calcium 8.3 mg/dl (8.4-10.2); Carbon Dioxide 27 mmol/L (22.0-30.0); Cholesterol 128 mg/dl (140-200); Estimated Glomerular Filt Rate 111 ml/min (>60); GFR (African American) 134 ML/MIN (>60); Globulin 2.9 g/dL (1.3-3.2); Glucose 95 mg/dl (74-100); Total Protein,Serum 6.1 g/dl (6.3-8.2); Triglycerides 73 mg/dl (30-150); VLDL Cholesterol 15 mg/dL (0-40)
[2024-06-01 08:08] LABS: Chol/HDL Ratio 2.9 (1-3.5); HDL Cholesterol 44 mg/dl (40-60)
[2024-06-01 08:18] LABS: Direct LDL Cholesterol 54.49 mg/dL (100-129)
[2024-06-01 09:39] LABS: Eosinophils % 2 % (0-3); Hypochromasia 1+; Lymphocytes % 32 % (10-50); Monocytes % 6 % (2-9); Neutrophils % 60 % (42-76); Platelet Estimate Marked Decrease; Total Cells Counted 100
[2024-06-01 12:08] LABS: Hemoglobin A1C 6.8 % (4.0-6.0)
== END 2024-06-01 23:59 | disposition home or self-care (01) ==
LOC: LAB 07:44
PROVIDERS: PCP Nurse Practitioner Family; Visit Provider Nurse Practitioner Family
DX: E11.9 Type 2 diabetes mellitus without complications (principal); R94.5 Abnormal results of liver function studies; Z13.220 Encounter for screening for lipoid disorders
CPT/HCPCS: 36415; 80053; 80061; 82248; 83036; 85007; 85014; 85018; 85048; 85049

== ENCOUNTER 2024-06-11 16:31 | Outpatient (CLI) | payer MEDICARE, MEDICAID, SELFPAY ==
--- OUTSIDE RECORDS SUMMARY | 2024-06-11 16:34 | XMS_ITS ---
Laboratory report Created on: April 22, 2024 CAMILO, CHARLETTE : 1950 Sex: Male Author Name [employer] Unknown PROBLEMS Problems List Code Description K74.60 RESULTS Laboratory Orders Date Order Code Test 2024-04-19 285278 COMP. METABOLIC PANEL (14) 2024-04-19 [id number] CBC, PLATELET, N O DIFFERENTIAL 2024-04-19 [id number] PROTHROMBIN TIME (PT), SERIAL 2024-04-19 [id number] AFP, SERUM, TUMO R MARKER Laboratory Results Date LOINC Test Value Unit Reference Range Interpre tation 2024-04-19 2345-7 GLUCOSE 148 MG/DL 70-99 H 2024-04-19 3094-0 BUN 10 MG/DL 8-27 2024-04-19 2160-0 CREATININE .77 MG/DL 0.76-1.27 2024-04-19 66357-6 EGFR 95 ML/MIN/1.73 >59 2024-04-19 3097-3 BUN/CREATININE RATIO 13 10-24 2024-04-19 2951-2 SODIUM 143 MMOL/L 840-945 7495-02-18 2823-3 POTASSIUM 4 MMOL/L 3.5-5.2 2024-04-19 2075-0 CHLORIDE 109 MMOL/L 96-106 H 2024-04-19 2028-9 CARBON DIOXIDE, TOTAL 21 MMOL/L 20-29 2024-04-19 61929-3 CALCIUM 8.6 MG/DL 8.6-10.2 2024-04-19 2885-2 PROTEIN, TOTAL 6.9 G/DL 6.0-8.5 2024-04-19 1751-7 ALBUMIN 3.9 G/DL 3.8-4.8 2024-04-19 92848-4 GLOBULIN, TOTAL 3 G/DL 1.5-4.5 2024-04-19 1975-2 BILIRUBIN, TOTAL .8 MG/DL 0.0-1.2 2024-04-19 6768-6 ALKALINE PHOSPHATASE 92 IU/L 44-121 2024-04-19 1920-8 AST (SGOT) 27 IU/L 0-40 2024-04-19 1742-6 ALT (SGPT) 20 IU/L 0-44 2024-04-19 6690-2 WBC 3.5 X10E3/UL 3.4-10.8 2024-04-19 789-8 RBC 3.98 X10E6/UL 4.14-5.80 L 2024-04-19 718-7 HEMOGLOBIN 9.7 G/DL 13.0-17.7 L 2024-04-19 4544-3 HEMATOCRIT 32.6 % 37.5-51.0 L 2024-04-19 787-2 MCV 82 FL 79-97 2024-04-19 785-6 MCH 24.4 PG 26.6-33.0 L 2024-04-19 786-4 MCHC 29.8 G/DL 31.5-35.7 L 2024-04-19 788-0 RDW 15.2 % 11.6-15.4 2024-04-19 777-3 PLATELETS 100 X10E3/UL 150-450 LL 2024-04-19 6301-6 INR 1.1 0.9-1.2 2024-04-19 5902-2 PROTHROMBIN TIME 11.9 SEC 9.1-12.0 2024-04-19 96069-8 PDF IMAGE 2024-04-19 30650-2 AFP, SERUM, TUMO R MARKER 2 NG/ML 0.0-8.4
[2024-06-11 16:40] LABS: Microscopic, Urine URINE MICROSCOPIC (MICROSCOPIC)
[2024-06-11 16:46] LABS: Appearance,Urine CLEAR (Clear); Bilirubin,Urine Negative (Negative); Blood, Urine Negative (Negative); Color,Urine YELLOW (Yellow); Glucose,Urine (UA) Negative (Negative); Ketones,Urine Negative (Negative); Leukocyte Esterase,Urine TRACE (Negative); Nitrate,Urine POSITIVE (Negative); PH,Urine 7.5 (5.0-8.5); Protein,Urine Negative (Negative)
[2024-06-11 17:30] LABS: WBC,Urine 20-50 #/hpf (0-3)
[2024-06-11 17:31] LABS: Bacteria,Urine 4+ /lpf; Squamous Epithelial Cell,Urine Occasional #/hpf (0-5)
== END 2024-06-11 23:59 | disposition home or self-care (01) ==
LOC: LAB.DROPOF 16:33
PROVIDERS: Nurse Practitioner Family; PCP Family Medicine; Visit Provider Family Medicine
DX: R10.9 Unspecified abdominal pain (principal); N39.0 Urinary tract infection, site not specified; B96.20 Unspecified Escherichia coli [E. coli] as the cause of diseases classified elsewhere
CPT/HCPCS: 81001; 87086; 87088; 87186

== ENCOUNTER 2024-07-28 13:39 | Outpatient (CLI) | payer MEDICARE, MEDICAID, SELFPAY ==
[2024-07-28 13:48] LABS: Microscopic, Urine URINE MICROSCOPIC (MICROSCOPIC)
[2024-07-28 13:55] LABS: Bilirubin,Urine Negative (Negative); Blood, Urine 2+ (Negative); Color,Urine YELLOW (Yellow); Glucose,Urine (UA) Negative (Negative); Ketones,Urine Negative (Negative); Leukocyte Esterase,Urine 1+ (Negative); Nitrate,Urine POSITIVE (Negative); PH,Urine 6.5 (5.0-8.5); Protein,Urine 2+ (Negative)
[2024-07-28 14:09] LABS: Appearance,Urine Cloudy (Clear)
[2024-07-28 14:10] LABS: Bacteria,Urine 4+ /lpf; WBC,Urine 20-50 #/hpf (0-3)
== END 2024-07-28 23:59 | disposition home or self-care (01) ==
LOC: LAB.DROPOF 13:41
PROVIDERS: PCP Family Medicine; Visit Provider Family Medicine
DX: R10.9 Unspecified abdominal pain (principal); R30.0 Dysuria
CPT/HCPCS: 81001; 87086; 87088; 87186

== ENCOUNTER 2024-08-22 07:22 | Outpatient (CLI) | payer MEDICARE, MEDICAID, SELFPAY ==
--- OUTSIDE RECORDS SUMMARY | 2024-08-10 09:14 | XMS_ITS | Continuity of Care Document ---
Author Organization [facility] Phone Care Team Providers Care Brokerage Clerk Name Role Phone MEDARDO TAYLOR Primary Care Unavailable CASE, LOUIE Multani Admitting CASE, LOUIE Multani Primary Attending CASE, LOUIE Multani Surgeon ALLERGIES AND ADVERSE REACTIONS ALLERGIES AND ADVERSE REACTIONS Code System Allergy Substance Adverse Reaction Date Reaction (Severity) Comment Status Reported By Updated By 1191 RXNorm ASPIRIN Adverse reaction to substance stomach issues active [id number] on May 18, 2023 2:24:21 PM UT FAMILY HISTORY RELATION: Father Status: Cause of : Unknown Age at : Unknown SNOMED-CT Diagnosis Age At Onset Information not available RELATION: Mother Status: Cause of : Unknown Age at : Unknown SNOMED-CT Diagnosis Age At Onset Information not available RESULTS Patient: CAMILO OVALLES Date of : March 07 0 LABORATORY RESULTS ORDER 300: GLUCOSE BEDSIDE T ESTING (LOINC: 61315-0) ORDER DATE: August 08, 2024 1:55:00 PM UT Specimen Source: WHOLE BLOOD Specimen Type: Whole blood s ample PERFORMING LAB: [address] [id number] Result Comment: August 08, 2024 3:37:00 PM UT Test performed by: [id number] ; Instrument: [id number] Final Result Date: August 08, 2024 3:37:00 PM UT LOINC TEST [place] [address]-3 Glucose [Mass/volume ] in Capillary blood by Glucometer N 81 mg/dl 70 mg/dl - 105 mg/dl August 08 3:37:00 PM UT LABORATORY NARRATIVE RESULTS Information is not available RADIOLOGY RESULTS Information is not available PATHOLOGY NARRATIVE RESULTS ORDER 400: PATHOLOGY SPECIME N (LOINC: 98812-1) ORDER DATE: August 08, 2024 4:06:00 PM UT Specimen Source: PATH Specimen Type: Refer to path ology laboratory PERFORMING LAB: [address] [id number] Final Result Date: August 09, 2024 6:04:00 PM UTC TEST: PATHOLOGY SPECIMEN MICROBIOLOGY RESULTS No Micro Labs/Results Exist for Patient BLOOD ADMIN RESULTS Information is not available MEDICATIONS HOME MEDICATIONS Status RXNORM [facility] Medication Dose Route Frequency Dates Comments Reported By Updated By Active [id number] 98582 96980 1 Basaglar KwikPen Subcutaneous Solution Pen-injector 100 UNIT/ML 40.0 UNT SUBCUT ANEOUS BEDTIME Last Dose: August 08, 2024 1:00:0 0 AM [facility] CARE [id number] on August 08, 2024 1:39:43 PM UT Active 888508 90646 75597 0 Aricept Oral Tablet 5 MG 1.0 TAB ORAL DAILY Last Dose: August 07, 2024 1:00:0 0 PM [facility] [id number] on August 08, 2024 1:39:28 PM UT Active 958088 47602 96047 6 Ferrous Sulfate Oral Tablet 325 (65 Fe) MG 1.0 TAB ORAL BID Last Dose: August 08, 2024 1:00:0 0 AM [facility] [id number] on August 08, 2024 1:39:54 PM UT Active 99146 93995 5 Fish Oil Burp-Less Oral Capsule 1000 MG 1.0 CAP ORAL DAILY Last Dose: August 07, 2024 1:00:0 0 PM [facility] [id number] on August 08, 2024 1:40:11 PM UT Active 70183 51286 7 Fluticasone Propionate Diskus Inhalation Aerosol Powder Breath Activated 50 MCG/ACT 1.0 SPR NASAL BEDTIME Last Dose: August 08, 2024 1:00:0 0 AM [facility] [id number] on August 08, 2024 1:40:25 PM UT Active 511044 53118 53425 5 Gabapentin Oral Capsule 400 MG 1.0 TAB ORAL TID Last Dose: August 08, 2024 1:00:0 0 AM [facility] [id number] on August 08, 2024 1:40:36 PM UT Active 985820 05479 29841 8 Januvia Oral Tablet 100 MG 1.0 TAB ORAL BEDTIME Last Dose: August 08, 2024 1:00:0 0 AM [facility] [id number] on August 08, 2024 1:40:53 PM [facility] Active 496139 31963 55754 1 Lisinopril Oral Tablet 10 MG 1.0 TAB ORAL DAILY Last Dose: August 07, 2024 1:00:0 0 PM [facility] PATIENT [id number] on August 08, 2024 1:41:04 PM [facility] Active 6805474 29282 56927 9 metFORMIN HCl ER (MOD) Oral Tablet Extended Release 24 Hour 1000 MG 1.0 TAB ORAL BID Last Dose: August 08, 2024 1:00:0 0 AM [facility] [id number] on August 08, 2024 1:41:20 PM [facility] Active 058710 22307 60174 3 Lipitor Oral Tablet 10 MG 1.0 TAB ORAL DAILY Last Dose: PATIENT [id number] on August 05, 2024 7:34:01 PM [facility] Active 574040 74586 31243 7 Metoprolol Succinate ER Oral Tablet Extended Release 24 Hour 50 MG 1.0 TAB ORAL DAILY Last Dose: August 07, 2024 1:00:0 0 PM [facility] [id number] on August 08, 2024 1:41:29 PM [facility] Active 9261761 07782 79166 0 Myrbetriq Oral Tablet Extended Release 24 Hour 25 MG 1.0 TAB ORAL DAILY Last Dose: CARE [id number] on August 05, 2024 7:34:52 PM [facility] Active 32221 74300 6 Multivitamin Adult Oral Tablet 1.0 TAB ORAL DAILY Last Dose: August 07, 2024 1:00:0 0 PM [facility] [id number] on August 08, 2024 1:41:41 PM [facility] Active 895953 29179 09418 1 Tamsulosin HCl Oral Capsule 0.4 MG 1.0 TAB ORAL DAILY Last Dose: August 07, 2024 1:00:0 0 PM [facility] [id number] on August 08, 2024 1:42:40 PM [facility] Active 554846 79702 40680 2 Omeprazole Oral Capsule Delayed Release 20 MG 1.0 CAP ORAL DAILY Last Dose: August 07, 2024 1:00:0 0 PM [facility]9825 on August 08, 2024 1:42:07 PM [facility] Active 4022638 12685 50626 1 Potassium Chloride Radha ER Oral Tablet Extended Release 20 MEQ 1.0 TAB ORAL BID Last Dose: August 08, 2024 1:00:0 0 [facility] August 08, [facility]24 1:42:17 PM [facility] Active 13446 95405 3 Systane Preservative Free Ophthalmic Solution 0.4-0.3 % 1.0 DRP OPHTHA LMIC DAILY Last Dose: August 07, 2024 1:00:0 0 PM [facility]9825 on August 08, 2024 1:42:27 PM [facility] Active 113240 40779 20835 4 Namenda Titration Collins Oral Tablet 28 x 5 MG & 21 x 10 MG 1.0 TAB ORAL DAILY Last Dose: August 07, 2024 1:00:0 0 PM [facility] on August 08, 2024 1:41:51 PM [facility] DISCHARGE MEDICATIONS Status RXNORM [facility] Medication Dose Route Frequency Dates Comments Physician Updated By No Discharge Medication Info rmation Available [facility]PAT[facility] Medication Dose Route Frequency Rat e Quantity Dates Comments Physician Updated By Alva inued [id number] 1082 8011 704 LACTATED RINGERS SOLN 1000. 0 ML INTRAV ENOUS ONE TIME ADMINISTRA TION (UNSCHEDUL ED) 25.0 ML/HR Start: August 04, 2024 7:42:0 0 PM UT End: August 08, 2024 8:47:0 0 PM [facility] KERI MCKOY [id number] on August 09, 2024 4:25:00 AM [facility] Discont inued 7639777 0383 8004 904 sodium chloride 0.9% SOLN 1000. 0 ML INTRAV ENOUS ONE TIME ADMINISTRA TION (UNSCHEDUL ED) 25.0 ML/HR Start: August 04, 2024 7:42:0 0 PM UT End: August 08, 2024 8:47:0 0 PM UT KERI MCKOY [id number] on August 09, 2024 4:25:00 AM [facility] Discont inued 9185617 8623 8010 250 PERCOCET 5-325 MG TABS 1.0 TAB ORAL ONE TIME ONLY (SCHEDULED DOSE) Start: August 08, 2024 4:47:0 0 PM UT End: August 08, 2024 4:51:1 5 PM UTC CASE LOUIE Multani [id number] on August 08, 2024 4:51:00 PM UTC Discont inued 7272366 4199 8010 250 PERCOCET 5-325 MG TABS 1.0 TAB ORAL ONE TIME ONLY (SCHEDULED DOSE) Start: August 08, 2024 4:50:0 0 PM UTC End: August 08, 2024 4:50:0 0 PM UTC CASE LOUIE Multani INTERFAC ED on August 08, 2024 4:49:00 PM UTC Discont inued 5310992 3177 5034 542 PROPOFOL 500 MG/50ML EMUL 500.0 MG INTRAV ENOUS ONE TIME ONLY (SCHEDULED DOSE) 20.833 MG/HR Start: August 08, 2024 3:07:0 0 PM UTC End: August 08, 2024 8:47:0 0 PM UTC CASE LOUIE Multani [id number] on August 09, 2024 3:20:00 PM UTC Discont inued 337848 7317 8011 704 LACTATED RINGERS SOLN 1000. 0 ML IV CONTIN UOUS ONE TIME ONLY (SCHEDULED DOSE) Start: August 08, 2024 4:55:0 0 PM UTC End: August 08, 2024 4:55:0 0 PM UTC CASE LOUIE Multani [facility] ED on August 08, 2024 4:00:00 AM UTC SOCIAL HISTORY SOCIAL HISTORY SNOMED-CT Social History Element Description Effective Dates Offered Cessation Comment UpdatedBy [id number] Current Tobacco smoking status Never Smoked [id number] on August 03, 2024 7:38:35 PM UTC [id number] Historical Tobacco smoking status Former Smoker This information is from his nurse Fany at [facility]. She isn't aware of him smoking.marleni torres says he quit 10 yrs ago [id number] on May 18, 2023 12:49:40 PM UTC SOCIAL HISTORY - Gender Sex: Male SOCIAL HISTORY - Status : status i nformation is not available Intention in Next Year: intention information is not available SOCIAL HISTORY - Sexual Behavior Sexual Orientation Gender Identity SNOMED-CT Description SNO MED -CT Description Activity Level No of Partners Partner Type UpdatedBy Information is not available VITAL SIGNS PATIENT VITAL SIGNS This section displays the mo st recent value for each vital sign as of August 10, 2024 1:14:26 PM [facility] Loinc Code Vital Sign Activity Date Result Updated By 8302-2 Body height August 03, 2024 7:33:31 PM UT 167.64 cm (66.0 in) [id number] on August 03, 2024 7:33:31 PM [facility] 11185-5 Body mass index (BMI) [Ratio] August 03, 2024 7:33:31 PM UTC 30.352 kg/m2 [id number] on August 03, 2024 7:33:31 PM UT 3140-1 Body Surface Area Derived From Formula August 03, 2024 7:33:31 PM UTC 1.9485 m2 [id number] on August 03, 2024 7:33:[place] [address]-6 Body weight Measured August 03 7:33:31 PM UT 85.3 kg (188.0 lb) [id number] on August 03, 2024 7:33:31 PM [facility] PEDIATRIC GROWTH CHART - VITAL SIGNS This section displays Head C ircumference Percentile, Weight for Length Percentile and BMI Percentile Loinc Code Pediatric Measure Age (Months) Result Updat ed By No Pediatric Growth Chart Pe rcentile Information Available. PROCEDURES PATIENT PROCEDURES CODE SYSTEM DESCRIPTION STATUS PERFORMED DATE UPD ATED BY [id number] SNOMED-CT Esophagogastroduodenoscopy completed August 08, 2024 4:00:00 AM [facility] [id number] on August 08, 2024 4:02:28 PM [facility] PROCEDURE NOTE Procedure Note information i s not available. HEALTH CONCERNS Problems Concern Status Health Concern problem infor mation not available. Smoking Status Status Years Used Consumed packs p er day Health Concern smoking histo ry information not available. Family History Concern Status Health Concern family histor y information not available. ENCOUNTERS ENCOUNTER INFORMATION Reason for Visit EGD Admission August 08, 2024 12:47:[address] [id number] Discharge August 08, 2024 8:47:00 PM [facility] DISC HARGED TO HOME OR SELF CARE ENCOUNTER DIAGNOSES Notes information is not cordelia ilable. Code System Diagnosis Onset Date Diagnosis information is not available. 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 [id number] on August 10, 2024 1:13:49 PM UT K31.7 ICD10 POLYP OF STOMACH AND DUODENU M [id number] on August 10, 2024 1:13:49 PM UT I10 ICD10 ESSENTIAL (PRIMARY) HYPERTEN CHRIS [id number] on August 10, 2024 1:13:49 PM UT E78.5 ICD10 HYPERLIPIDEMIA, UNSPECIFIED XDS5373 on August 10, 2024 1:13:49 PM UT G20.A1 ICD10 PARKINSON'S DISE ASE WITHOUT DYSKINESIA, WITHOUT MENTION OF FLUCTUATIONS [id number] on August 10, 2024 1:13:49 PM UT M62.81 ICD10 MUSCLE WEAKNESS (GENERALIZED ) [id number] on August 10, 2024 1:13:49 PM UT F20.9 ICD10 SCHIZOPHRENIA, UNSPECIFIED A PS2710 on August 10, 2024 1:13:49 PM UT G25.81 ICD10 RESTLESS LEGS SYNDROME AAD66 17 on August 10, 2024 1:13:49 PM UT G30.9 ICD10 ALZHEIMER'S DISEASE, UNSPECI FIED PBP0243 on August 10, 2024 1:13:49 PM UT F02.80 ICD10 DEMENTIA IN OTHE R DISEASES CLASSIFIED ELSEWHERE, UNSPECIFIED SEVERITY, WITHOUT BEHAVIORAL DISTURBANCE, PSYCHOTIC DISTURBANCE, MOOD DISTURBANCE, AND ANXIETY [id number] on August 10, 2024 1:13:49 PM UT E66.01 ICD10 MORBID (SEVERE) OBESITY DUE TO EXCESS CALORIES [id number] on August 10, 2024 1:13:49 PM UT Z68.32 ICD10 BODY MASS INDEX [BMI] 32.0-3 2.9, ADULT SWS4004 on August 10, 2024 1:13:49 PM UT E11.9 ICD10 TYPE 2 DIABETES MELLITUS WITHOUT COMPLICATIONS [id number] on August 10, 2024 1:13:49 PM UT N40.0 ICD10 BENIGN PROSTATIC HYPERPLASIA WITHOUT LOWER URINARY TRACT SYMPTOMS ASU1763 on August 10, 2024 1:13:49 PM UT H35.30 ICD10 UNSPECIFIED MACULAR DEGENERA TION GSA3076 on August 10, 2024 1:13:49 PM UTC Z90.49 ICD10 ACQUIRED ABSENCE OF OTHER SPECIFIED PARTS OF DIGESTIVE TRACT ATJ2240 on August 10, 2024 1:13:49 PM UTC Z79.84 ICD10 SKIP LOCATOR (CURRE NT) USE OF ORAL HYPOGLYCEMIC DRUGS HGX9219 on August 10, 2024 1:13:49 PM UTC Z79.899 ICD10 OTHER ALF (CURRENT) DR UG THERAPY [id number] on August 10, 2024 1:13:49 PM UTC CARE TEAM Care Brokerage Clerk Role MEDARDO TAYLOR Primary Care LOUIE CASE Admitting LOUIE HO Primary Attending LOUIE CASE Surgeon CARE TEAM CARE solar sales manager Role on Team Status Start Date End Date Update d By CASE LOUIE WEBB Surgeon normal August 08 12:47:00 PM UT August 08, 2024 8:47:00 PM UT [id number] on August 10, 2024 1:13:57 PM UT CLAUDIA Upton PCP normal July 21, 2024 8:13:42 PM UT August 08, 2024 8:47:00 PM UT [id number] on August 10, 2024 1:13:57 PM UT CASE LOUIE Rangel WEBB Attending normal July 21 8:13:42 PM UT August 08, 2024 8:47:00 PM UT [id number] on August 10, 2024 1:13:57 PM UT CASE LOUIE Multani TRACEY Admitting normal July 21 8:13:42 PM UT August 08, 2024 8:47:00 PM UT [id number] on August 10, 2024 1:13:57 PM [facility]
--- OUTSIDE RECORDS SUMMARY | 2024-08-22 07:28 | XMS_ITS | Data Portability ---
Author Organization [place] - [facility] & MOISE Chapman ADMIN Address [address] [place] [address] Care Team Providers Care Process Architect Name Role Phone MANNY CHONG Primary Care Provider MANNY CHONG Referring Provider [phone] Assessment Encounter Date Assessment Date Assessment LastModified by Organization Details LastModified Time 04/02/2022 04/02/2022 71-year-old male who was previously admitted with acute pancreatitis, diagnosed with changes on CT. He denies alcohol use. No evidence of biliary abnormality was identified. His hepatic function labs are normal. His symptoms have resolved. He denies prior episodes of pancreatitis. 1) Pancreatitis: Etiology unclear. Appears non-obstructive. In the setting of hospitalization for possible hydronephritis. Triglyceride level normal. Medications reviewed. Consider repeat cross sectional imaging if symptoms worsen. Currently he is doing well. 2) Questionable cirrhosis: Mildly abnormal hepatic appearance on non-contrast CT, however contrast enhanced CT and US did not show this. He did have ascites that was likely reactive from his pancreatitis. His platelet count and hepatic function labs were normal. I do not suspect he has cirrhosis. PT/INR and AFP are normal. He should continue to have LFTs checked every few months, but no workup otherwise is indicated. Will plan for US liver in 4 months 3) Colitis: Non-specific. Resolved. He reports regular formed bowel movements currently. 4) Anemia: Stable. No report of GI blood loss. [email or web address] Not available 04/02/2022 16:54:56 09/30/2022 09/30/2022 72-year-old male with history of idiopathic acute pancreatitis, diagnosed with changes on CT. He denies alcohol use. No evidence of biliary abnormality was identified. He has not had recurrence since. 1) Pancreatitis: Etiology unclear. Consider repeat cross sectional imaging with recurrence. Currently he is doing well. 2) Questionable cirrhosis: Mildly abnormal hepatic appearance on non-contrast CT, however contrast enhanced CT and US did not show this. He did have ascites that was likely reactive from his pancreatitis. Most recent labs at his nursing facility showed low platelets at 70 and mildly elevated AST. We will repeat his lab workup per below and obtain a US liver for further evaluation. Would plan for q6 month monitoring for now. 3) Anemia: Stable. No report of GI blood loss. Repeat CBC. Not available 09/30/2022 11:37:46 04/16/2023 04/16/2023 73-year-old male with history of idiopathic acute pancreatitis and incidental finding of cirrhosis on prior imaging. He does not demonstrate signs of decompensation. He denies a history of alcohol abuse. No evidence of biliary abnormality was identified. He has not had recurrence of pancreatitis. 1) History of pancreatitis: Etiology unclear. Cross sectional imaging with no biliary abnormality. Currently he is doing well. 2) Cirrhosis: Compensated. Etiology is not clear. Will obtain lab workup per below. Obtain labs and formulated a MELD score. MELD-Na was 6 on 10/01/22. -Ascites: None evident -HE: None evidence -esophageal varices: Will schedule EGD for screening purposes. -HCC screening: He has a history of hepatic masses seen on US liver, however MRI did not re demonstrate this finding. Will repeat his US liver now and q6 months as well as obtain an AFP. -Prophylaxis: Will check for immunity to hepatitis A & B. 3) History of anemia: No report of GI blood loss. Repeat CBC. [email or web address] Not available 04/16/2023 12:13:52 10/15/2023 10/15/2023 73-year-old male with history of idiopathic acute pancreatitis and incidental finding of cirrhosis on prior imaging. He does not demonstrate signs of decompensation. He denies a history of alcohol abuse. No evidence of biliary abnormality was identified. He has not had recurrence of pancreatitis. 1) History of pancreatitis: Etiology unclear. Cross sectional imaging previously with no biliary abnormality. Currently he is doing well. 2) Idiopathic Cirrhosis: Compensated. Prior lab workup without etiology. Potentially due to VALERA. MELD has been stable. Repeat labs today. -Ascites: None evident -HE: None evidence -esophageal varices: Patient underwent serial banding procedures from April to August 2023. Repeat EGD 07/2024. -HCC screening: He has a history of abnormal US liver, however MRI did not re demonstrate this finding. He was noted to have a large gap between the right and left hepatic lobe accounting for finding on US. It was recommended that the patient have MRI or CT for surveillance moving forward. Order CT liver mass protocol for HCC surveillance. Order has been faxed to scheduling at [facility] due to location of the patient's nursing facility. -Prophylaxis: Will check for immunity to hepatitis A & B. 3) History of anemia: No report of GI blood loss. Repeat CBC for monitoring. No source of bleeding identified on recent EGD or colonoscopy. 4) History of colon polyps: 8 adenomatous polyps resected 10/13/23. Repeat in 3 years was recommended. f/u 6 months [email or web address] Not available 10/16/2023 08:05:33 04/19/2024 04/19/2024 74-year-old male with history of idiopathic acute pancreatitis and incidental finding of cirrhosis on prior imaging. He does not demonstrate signs of decompensation. He denies a history of alcohol abuse. No evidence of biliary abnormality was identified. He has not had recurrence of pancreatitis. 1) History of pancreatitis: Etiology unclear. Cross sectional imaging previously with no biliary abnormality. Currently he is doing well and has not experienced recurrent episodes. 2) Idiopathic Cirrhosis: Compensated. Prior lab workup without etiology. Potentially due to VALERA. MELD 3.0=8 on 10/15/23. Obtain labs now for continued monitoring. -Ascites: None evident -HE: None evident -esophageal varices: Patient underwent serial banding procedures from April to August 2023. Repeat EGD 07/2024. We will go ahead and coordinate this with his nursing facility. -HCC screening: He has a history of abnormal US liver, however MRI did not re demonstrate this finding. He was noted to have a large gap between the right and left hepatic lobe accounting for finding on US. It was recommended that the patient have MRI or CT for surveillance moving forward. Last CT reviewed and stable. Repeat now. Order faxed to [facility]. 3) History of anemia: No report of GI blood loss. Repeat CBC for monitoring. No source of bleeding identified on recent EGD or colonoscopy. 4) History of colon polyps: 8 adenomatous polyps resected 10/13/23. Repeat in 3 years was recommended. f/u 6 months [email or web address] Not available 04/19/2024 19:56:21 Plan of Treatment Reminders Order Date Submit Date Provider Last Modified By Organization Details Last Modified Time Details Appointments Establ ished Visit 15 min 2024 10:00A M Moises Kiran PA-C Not available Not available Not available Lab CMP, serum or plasma 2024 025 [facility], [address], [address], [place], [address], 04/20/2024 16:14:42 CBC 2024 025 [facility], [address], [address], [place], [address], 04/20/2024 16:14:43 PT/INR 2024 025 [facility], [address], [address], [place], [address], 04/20/2024 16:14:43 afp (alpha -fetop rotein ) tumor marker , serum or plasma 2024 025 [facility], [address], [address], [place], [address], 04/20/2024 16:14:44 CMP, serum or plasma 2023 024 [facility], [address], [address], [place], [address], 10/15/2023 13:18:43 CBC 2023 024 [email or web address] bel [facility], [address], [address], [place], [address], 10/28/2023 17:06:26 PT/INR 2023 024 [email or web address] bel [facility], [address], [address], [place], [address], 10/28/2023 17:06:37 afp (alpha -fetop rotein ) tumor marker , serum or plasma 2023 024 [facility], [address], [address], [place], [address], 10/16/2023 10:15:45 CMP, serum or plasma 2023 024 [facility], [address], [address], [place], [address], 04/24/2023 16:13:22 CBC w/ auto diff 2023 [facility]24 [facility], [address], [address], [place], [address], 04/24/2023 16:13:21 PT/INR 2023 024 [facility], [address], [address], [place], [address], 04/24/2023 16:13:23 afp (alpha -fetop rotein ) tumor marker , serum or plasma 2023 024 [facility], [address], [address], [place], [address], 04/24/2023 16:13:27 hepati tis B surfac e Ab, qualit ative, serum 2023 024 [facility], [address], [address], [place], [address], 04/24/2023 16:13:28 HBsAg (hepat itis B surfac e Ag), EIA, serum 2023 024 [facility], [address], [address], [place], [address], 04/24/2023 16:13:29 Hepati tis B virus core Ab, qual immuno assay, serum or plasma 2023 024 [facility], [address], [address], [place], [address], 04/24/2023 16:13:30 Hepati tis C IgG Ab, qual, serum 2023 024 [facility], [address], [address], [place], [address], 04/24/2023 16:13:25 hepati tis A virus Ab, qualit ative, immuno assay, serum 2023 024 [facility], [address], [address], [place], [address], 04/24/2023 16:13:31 HFE gene mutati on analys is, blood or tissue 2023 024 [facility], [address], [address], [place], [address], 04/24/2023 16:13:26 alpha- 1-anti trypsi n (aat), QN, serum 2023 024 [facility], [address], [address], [place], [address], 04/24/2023 16:13:24 autoim mune hepati tis diagno stic panel, serum 2023 024 [facility], [address], [address], [place], [address], 04/24/2023 16:13:20 igg, quanti tative , serum 2023 024 [facility], [address], [address], [place], [address], 04/24/2023 16:13:28 CMP, serum or plasma [address] (Registration ), [address], [place], [address], 10/07/2022 09:08:19 CBC w/ auto diff [address] (Registration ), [address], [place], [address], 10/07/2022 09:08:20 PT/INR [address] (Registration ), [address], [place], [address], 10/07/2022 09:08:20 afp (alpha -fetop rotein ) tumor marker , serum or plasma [address] (Registration ), [address], [place], [address], 10/07/2022 09:08:20 Referral None record ed. Procedures None record ed. Surgeries None record ed. Imaging CT, liver, w/wo contra st - Liver mass protoc ol (For HCC survei llance /ultra sound was not recomm ended for survei llance due to large gap betwee n the right and left hepati c lobe). [email or web address] (Scheduling), [address], [place], [address], 04/28/2024 09:56:22 CT, liver, w/wo contra st - Liver mass protoc ol (For HCC survei llance /ultra sound was not recomm ended for survei llance due to large gap betwee n the right and left hepati c lobe). 2023 024 [facility] (Scheduling), [address], [place], [address], 10/30/2023 10:02:38 US, liver [address] (Scheduling), [address], [place], [address], 05/04/2023 15:54:53 US, liver - [facility] schedu [facility] [place] Terry elias is a reside nt there. [address] (Scheduling), [address], [place], [address], 10/14/2022 08:58:34 Medication Orders None record ed. Patient TargetsNo targets recorded. Patient InstructionsNo instructions recorded. Reason for Referral None Reported. Results Created Date Observation Date Name Description Value Unit Range Abnormal Flag Note LastModifiedBy Organization Detail LastModifiedTime 04/16/1904/17/2023 HUMBERTO+A MA+ MA+LK M AB HUMBERTO direct NEGATI VE negati ve Not Available [facility] ([facility]) [address] [facility], [place], [address], 04/24/2023 16:13:20 04/16/19 24 04/17/2023 HUMBERTO+A MA+ MA+LK M AB actin (smooth muscle) antibody 10 units 0-19 Negat fish 0 - 19 Weak posit fish 20 - 30 Moder ate to stron g posit fish >30 Actin Antib odies are found in 52-85 % of patie nts with autoi mmune hepat itis or chron ic activ e hepat itis and in 22% of patie nts with prima ry bilia ry cirrh osis. Not Available [facility] ([facility]) [address] [facility], [place], [address], 04/24/2023 16:13:20 04/16/19 24 04/17/2023 HUMBERTO+A MA+ MA+LK M AB mitochondria l (M2) antibody <20.0 units 0.0-20 .0 Negat fish 0.0 - 20.0 Equiv ocal 20.1 - 24.9 Posit fish >24.9 Mitoc hondr ial (M2) Antib odies are found in 90-96 % of patie nts with prima ry bilia ry cirrh osis. Not Available [facility] ([facility]) [address] [facility], [place], [address], 04/24/2023 16:13:20 04/16/19 24 04/17/2023 HUMBERTO+A MA+ MA+LK M AB liver-kidney microsomal Ab 1.6 units 0.0-20 .0 Negat fish 0.0 - 20.0 Equiv ocal 20.1 - 24.9 Posit fish >24.9 LKM type 1 antib odies are detec patricia in patie nts with autoi mmune hepat itis type 2 and in up to 8% of patie nts with chron ic HCV infec tion. Not Available [facility] ([facility]) [address] [facility], [place], [address], 04/24/2023 16:13:20 04/16/19 24 04/17/2023 CBC WITH DIFFE RENTI AL/PL ATELE T WBC 3.8 x10e3 /uL 3.4-10 .8 Not Available [facility] ([facility]) [address] [place], [address], 04/24/2023 16:13:21 04/16/19 24 04/17/2023 CBC WITH DIFFE RENTI AL/PL ATELE T RBC 4.11 x10e6 /uL 4.14-5 .80 below low normal Not Available [facility] ([facility]) [address] [place], [address], 04/24/2023 16:13:21 04/16/19 24 04/17/2023 CBC WITH DIFFE RENTI AL/PL ATELE T hemoglobin 11.9 g/dL 13.0-1 7.7 below low normal Not Available [facility] ([facility]) [address] [facility], [place], [address], 04/24/2023 16:13:21 04/16/19 24 04/17/2023 CBC WITH DIFFE RENTI AL/PL ATELE T hematocrit 37.0 % 37.5-5 1.0 below low normal Not Available [facility] ([facility]) [address] [facility], [place], [address], 04/24/2023 16:13:21 04/16/19 24 04/17/2023 CBC WITH DIFFE RENTI AL/PL ATELE T MCV 90 fL 79-97 Not Available [facility] ([facility]) [address] [facility], [place], [address], 04/24/2023 16:13:21 04/16/19 24 04/17/2023 CBC WITH DIFFE RENTI AL/PL ATELE T MCH 29.0 pg 26.6-3 3.0 Not Available [facility] ([facility]) [address] [place], [address], 04/24/2023 16:13:21 04/16/19 24 04/17/2023 CBC WITH DIFFE RENTI AL/PL ATELE T MCHC 32.2 g/dL 31.5-3 5.7 Not Available [facility] ([facility]) [address] [place], [address], 04/24/2023 16:13:21 04/16/19 24 04/17/2023 CBC WITH DIFFE RENTI AL/PL ATELE T RDW 13.3 % 11.6-1 5.4 Not Available [facility] ([facility]) [address] [place], [address], 04/24/2023 16:13:21 04/16/19 24 04/17/2023 CBC WITH DIFFE RENTI AL/PL ATELE T platelets 68 x10e3 /uL 150-45 0 alert low Plate let count verif ied by micheline kelly of perip heral blood smear . Not Available [facility] ([facility]) [address] [place], [address], 04/24/2023 16:13:21 04/16/19 24 04/17/2023 CBC WITH DIFFE RENTI AL/PL ATELE T neutrophils 68 % not estab. Not Available [facility] ([facility]) [address] [place], [address], 04/24/2023 16:13:21 04/16/19 24 04/17/2023 CBC WITH DIFFE RENTI AL/PL ATELE T lymphs 22 % not estab. Not Available [facility] ([facility]) [address] [place], [address], 04/24/2023 16:13:21 04/16/19 24 04/17/2023 CBC WITH DIFFE RENTI AL/PL ATELE T monocytes 9 % not estab. Not Available [facility] ([facility]) [address] [place], [address], 04/24/2023 16:13:21 04/16/19 24 04/17/2023 CBC WITH DIFFE RENTI AL/PL ATELE T eos 1 % not estab. Not Available [facility] ([facility]) [address] [place], [address], 04/24/2023 16:13:21 04/16/19 24 04/17/2023 CBC WITH DIFFE RENTI AL/PL ATELE T basos 0 % not estab. Not Available [facility] ([facility]) [address] [place], [address], 04/24/2023 16:13:21 04/16/19 24 04/17/2023 CBC WITH DIFFE RENTI AL/PL ATELE T immature cells ENERGY CONSULTANT Not Available [facility] ([facility]) [address] [place], [address], 04/24/2023 16:13:21 04/16/19 24 04/17/2023 CBC WITH DIFFE RENTI AL/PL ATELE T neutrophils (absolute) 2.5 x10e3 /uL 1.4-7. 0 Not Available [facility] ([facility]) [address] [facility], [place], [address], 04/24/2023 16:13:21 04/16/19 24 04/17/2023 CBC WITH DIFFE RENTI AL/PL ATELE T lymphs (absolute) 0.8 x10e3 /uL 0.7-3. 1 Not Available [facility] ([facility]) [address] [facility], [place], [address], 04/24/2023 16:13:21 04/16/19 24 04/17/2023 CBC WITH DIFFE RENTI AL/PL ATELE T monocytes(ab solute) 0.3 x10e3 /uL 0.1-0. 9 Not Available [facility] ([facility]) [address] [place], [address], 04/24/2023 16:13:21 04/16/19 24 04/17/2023 CBC WITH DIFFE RENTI AL/PL ATELE T eos (absolute) 0.0 x10e3 /uL 0.0-0. 4 Not Available [facility] ([facility]) [address] [place], [address], 04/24/2023 16:13:21 04/16/19 24 04/17/2023 CBC WITH DIFFE RENTI AL/PL ATELE T baso (absolute) 0.0 x10e3 /uL 0.0-0. 2 Not Available [facility] ([facility]) [address] [place], [address], 04/24/2023 16:13:21 04/16/19 24 04/17/2023 CBC WITH DIFFE RENTI AL/PL ATELE T immature granulocytes 0 % not estab. Not Available [facility] ([facility]) [address] [facility], [place], [address], 04/24/2023 16:13:21 04/16/19 24 04/17/2023 CBC WITH DIFFE RENTI AL/PL ATELE T immature grans (abs) 0.0 x10e3 /uL 0.0-0. 1 Not Available [facility] ([facility]) [address] [facility], [place], [address], 04/24/2023 16:13:21 04/16/19 24 04/17/2023 CBC WITH DIFFE RENTI AL/PL ATELE T NRBC ENERGY CONSULTANT Not Available [facility] ([facility]) [address] [facility], [place], [address], 04/24/2023 16:13:21 04/16/19 24 04/17/2023 CBC WITH DIFFE RENTI AL/PL ATELE T hematology comments: NOTE: Verif ied by micro reymundo martinez n. Not Available [facility] ([facility]) [address] [facility], [place], [address], 04/24/2023 16:13:21 04/16/19 24 04/17/2023 COMP. METAB OLIC PANEL (14) glucose 219 mg/dL 70-99 above high normal Not Available [facility] ([facility]) [address] [facility], [place], [address], 04/24/2023 16:13:22 04/16/19 24 04/17/2023 COMP. METAB OLIC PANEL (14) BUN 12 mg/dL 8-27 Not Available [facility] ([facility]) [address] [facility], [place], [address], 04/24/2023 16:13:22 04/16/19 24 04/17/2023 COMP. METAB OLIC PANEL (14) creatinine 0.84 mg/dL 0.76-1 .27 Not Available [facility] ([facility]) [address], [place], [address], 04/24/2023 16:13:22 04/16/19 24 04/17/2023 COMP. METAB OLIC PANEL (14) eGFR 93 mL/mi n/1.7 3 >59 Not Available [facility] ([facility]) [address], [place], [address], 04/24/2023 16:13:22 04/16/19 24 04/17/2023 COMP. METAB OLIC PANEL (14) BUN/creatini ne ratio 14 10-24 Not Available [facility] ([facility]) [address] [facility], [place], [address], 04/24/2023 16:13:22 04/16/19 24 04/17/2023 COMP. METAB OLIC PANEL (14) sodium 140 mmol/ L 134-14 4 Not Available [facility] ([facility]) [address] [facility], [place], [address], 04/24/2023 16:13:22 04/16/19 24 04/17/2023 COMP. METAB OLIC PANEL (14) potassium 4.1 mmol/ L 3.5-5. 2 Not Available [facility] ([facility]) [address] [facility], [place], [address], 04/24/2023 16:13:22 04/16/19 24 04/17/2023 COMP. METAB OLIC PANEL (14) chloride 103 mmol/ L 96-106 Not Available [facility] ([place] [facility]) [address] [facility], [place], [address], 04/24/2023 16:13:22 04/16/19 24 04/17/2023 COMP. METAB OLIC PANEL (14) carbon dioxide, total 22 mmol/ L 20-29 Not Available [facility] ([place] [facility]) [address] [facility], [place], [address], 04/24/2023 16:13:22 04/16/19 24 04/17/2023 COMP. METAB OLIC PANEL (14) calcium 9.1 mg/dL 8.6-10 .2 Not Available [facility] ([facility]) [address] [facility], [place], [address], 04/24/2023 16:13:22 04/16/19 24 04/17/2023 COMP. METAB OLIC PANEL (14) protein, total 6.9 g/dL 6.0-8. 5 Not Available [facility] ([facility]) [address] [facility] [place], [address], 04/24/2023 16:13:22 04/16/19 24 04/17/2023 COMP. METAB OLIC PANEL (14) albumin 4.2 g/dL 3.8-4. 8 Not Available [facility] ([facility]) [address] [facility], [place], [address], 04/24/2023 16:13:22 04/16/19 24 04/17/2023 COMP. METAB OLIC PANEL (14) globulin, total 2.7 g/dL 1.5-4. 5 Not Available [facility] ([facility]) [address] [facility] [place], [address], 04/24/2023 16:13:22 04/16/19 24 04/17/2023 COMP. METAB OLIC PANEL (14) A/G ratio 1.6 1.2-2. 2 Not Available [facility] ([facility]) [address] [facility] [place], [address], 04/24/2023 16:13:22 04/16/19 24 04/17/2023 COMP. METAB OLIC PANEL (14) bilirubin, total 1.2 mg/dL 0.0-1. 2 Not Available [facility] ([facility]) [address] [facility] [place], [address], 04/24/2023 16:13:22 04/16/19 24 04/17/2023 COMP. METAB OLIC PANEL (14) alkaline phosphatase 78 IU/L 44-121 Not Available [facility] ([facility]) [address] [facility], [place], [address], 04/24/2023 16:13:22 04/16/19 24 04/17/2023 COMP. METAB OLIC PANEL (14) AST (SGOT) 28 IU/L 0-40 Not Available [facility] ([facility]) [address] [facility], [place], [address], 04/24/2023 16:13:22 04/16/19 24 04/17/2023 COMP. METAB OLIC PANEL (14) ALT (SGPT) 24 IU/L 0-44 Not Available [facility] ([facility]) [address] [facility], [place], [address], 04/24/2023 16:13:22 04/16/19 24 04/17/2023 PROTH ROMBI N TIME (PT), SERIA L INR 1.0 0.9-1. 2 Refer ence inter ramy is for non-a ntico agula patricia patie nts. Sugge sted INR thera peuti c range for Vitam in K antag onist thera py: Stand piyush Dose (mode rate inten sity thera peuti c range ): 2.0 - 3.0 Highe r inten sity thera peuti c range 2.5 - 3.5 Not Available [facility] ([facility]) [address] [facility], [place], [address], 04/24/2023 16:13:23 04/16/19 24 04/17/2023 PROTH ROMBI N TIME (PT), SERIA L prothrombin time 10.9 sec 9.1-12 .0 Not Available [facility] ([facility]) [address] [facility], [place], [address], 04/24/2023 16:13:23 04/16/19 24 04/17/2023 ILEANA MERCADO N TIME (PT), CHADIA L pdf . Not Available [facility] ([facility]) [address], [place], [address], 04/24/2023 16:13:23 04/16/19 24 04/16/2023 ALPHA -1-AN TITRY PSIN DEFIC IENCY additional information: COMMEN T Addit ional Clini naseem Infor matio n: Alpha -1 antit rypsi n defic iency is an autos omal reces sive metab olic disor maxim with varia ble sever ity and age at onset . Signs and sympt oms may inclu de incre ased risk for chron ic obstr uctiv e lung disea se that typic ally manif ests after age 30, liver disea se, and liver cance r. Liver disea se can be prese nt in infan cy as neona mesfin leandra stasi s (ermelinda dice) or in adult ross as cirrh osis and fibro sis. Lung and liver disea se may be accel erate d by envir onmen mesfin expos ures such as smoki ng and exces sive alcoh ol use. Estab lishe d treat ments for COPD and emphy sema are used to treat lung disea se; lung and/o r liver trans plant ation may be an optio n for those with with sever e disea se. Intra venou s augme ntati on thera py may be avail able for patie nts who meet crite keely. Comme nts: The ZZ and SZ genot ypes accou nt for more than 95% of indiv idual s with sever e alpha -1 antit rypsi n defic iency . To rule out other varia nts, furth er testi ng of sympt omati c indiv idual s heter ozygo us for one varia nt (S or Z) or with negat fish resul ts may inclu de pheno typin g (PI typin g), AAT level testi ng, and/o r expan ded genot yping . Ramón ic couns eling is recom radha d to discu ss the poten tial clini naseem impli catio ns of posit fish resul ts, as well as recom menda tions for testi ng famil y membe rs. Ramón ic Coord inato rs are avail able for healt h care provi ders to discu ss resul ts at [phone] Test Detai ls: Two varia nts aleksandra zed: c.109 6 G>A (p.Gl u366L ys), commo nly refer red to as the Z allel e or PI*Z c.863 A>T (p.Gl u288V al), commo nly refer red to as the S allel e or PI*S Metho ds/Li mitat ions: DNA aleksandra sis of the S and Z allel es in the SERPI NA1 gene ([id number]) was perfo rmed by multi plex allel e-spe cific PCR ampli ficat ion follo wed by gel elect ropho resis . Resul ts must be combi elver with clini naseem infor matio n for the most accur ate inter preta tion. Molec ular- based testi ng is highl y accur ate, but as in any labor atory test, rare diagn ostic error s may occur . False posit fish or false negat fish resul ts may occur for reaso ns that inclu de ramón ic varia nts, blood trans fusio ns, bone marro w trans plant ation , somat ic or tissu e-spe cific mosai cism, misla beled sampl es, or sandra eous repre senta tion of famil y relat ionsh ips. This test was devel oped and its perfo rmanc e amrita cteri stics deter mined by [facility]. It has not been clear ed or appro danay by the Food and Drug Admin istra tion. Refer ences : Anjum tapia RA, Wilbur guerrero G, Vince avalos ML, Karri vallejo M, Vladislav CE, Kim rincon K, Devendra dinero DK, Virgilio elias SL, Dacia vallejo JM, Neida carpenter JK, Nettie nevarez C, Melissa rincon J. The Diagn osis and Manag ement of Alpha -1 Antit rypsi n Defic iency in the Adult . Chron ic Obstr Pulm Dis. 2016 Aug 05;3(3 ):668 -682. doi: 10.15 326/j copdf ..2014. 0182. PMID: 66515 891; PMCID : PMC55 90951 . Neida [place], [place] ib[place]ra V, Shilo OLIVEIRA. 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 2005Dec 26 [Upda patricia 2019July 20]. In: Carlos A MP, [facility], Ernestina RA, et al., smith rs. GeneR emiliana vallejo(R) [Inte rnet] . Solitario valadez ([place]): [facility]; 1992- 2020. Avail able from: https :[email or web address] i.nlm .nih. gov/b ooks/ NBK15 19/ Not Available [facility] ([facility]) [address], [place], [address], 04/24/2023 16:13:24 04/16/1904/24/2023 ALPHA -1-AN TITRY PSIN DEFIC IENCY aat, DNA analysis COMMEN T Resul t: c.109 6 G>A (p.Gl u366L ys), Z allel e - Not detec patricia c.863 A>T (p.Gl u288V al), S allel e - Not detec patricia Not assoc iated with incre ased risk of devel oping clini bela relev ant sympt oms of alpha -1 antit rypsi n defic iency . See Addit ional Clini naseem Infor matio n and Comme nts. Not Available [facility] ([facility]) [address], [place], [address], 04/24/2023 16:13:24 04/16/1904/24/2023 ALPHA -1-AN TITRY PSIN DEFIC IENCY electronical ly signed by: ALEJANDRO LANDEROS, PHD Not Available [facility] ([facility]) [address], [place], [address], 04/24/2023 16:13:24 04/16/19 24 04/17/2023 HCV ANTIB JAMAR RFX TO QUANT PCR HCV Ab NON REACTI VE non reacti ve Not Available [facility] ([facility]) [address] [facility] [address], [place], [address], 04/24/2023 16:13:25 04/16/19 24 04/17/2023 HCV ANTIB JAMAR RFX TO QUANT PCR interpretati on: COMMEN T Not infec patricia with HCV unles s early or acute infec tion is suspe cted (whic h may be delay ed in an immun ocomp romis ed indiv idual ), or other evide nce exist s to indic ate HCV infec tion. Not Available [facility] ([facility]) [address], [place], [address], 04/24/2023 16:13:25 04/16/19 24 04/23/2023 HERED .HEMO CHROM ATOSI S, DNA hereditary hemochromato sis COMMEN T Resul t: c.845 G>A (p.Cy s282T yr) - Not Detec patricia c.187 C>G (p.Hi s63As p) - Not Detec patricia c.193 A>T (p.Se r65Cy s) - Not Detec patricia Not assoc iated with incre ased risk to devel op clini naseem sympt oms of Hered itary Hemoc hroma tosis . In sympt omati c indiv idual s, other cause s of iron overl oad shoul d be evalu ated. See Addit ional Infor matio n and Comme nts. Addit ional Clini naseem Infor matio n: Hered itary hemoc hroma tosis (HFE relat ed) is an autos omal reces sive iron stora ge disor maxim. Patie nts may have a ramón ic diagn osis of hered itary hemoc hroma tosis and never show clini naseem sympt oms. Clini naseem sympt oms typic ally appea r betwe en 40 to 60 years in males and after menop ause in femal es. Signs and sympt oms may inclu de organ damag e, prima rily in the liver , risk for hepat ocell ular carci noma, diabe eloy, and heart disea se due to iron accum ulati on. Life expec tancy may be decre ased in indiv idual s who devel op cirrh osis. Treat ment for clini bela sympt omati c indiv idual s may inclu de thera peuti c phleb otomy . Liver trans plant may be used to treat end stage liver failu re. For preve ntive care, monit oring for iron overl oad is recom radha d for patie nts who are homoz ygous for c.845 G>A (p.Cy s282T yr) and have yet to exper ience clini naseem sympt oms. Comme nts: The most commo n HFE varia nts assoc iated with hered itary hemoc hroma tosis are c.845 G>A (p.Cy s282T yr), c.187 C>G (p.Hi s63As p), c.193 A>T (p.Se r65Cy s). While patie nts homoz ygous for c.845 G>A (p.Cy s282T yr) are the most likel y to prese nt clini naseem sympt oms, less than 10% devel op clini bela signi fican t iron overl oad with tissu e and organ damag e. Ramón ic couns eling is recom radha d to discu ss the poten tial clini naseem impli catio ns of posit fish resul ts, as well as recom menda tions for testi ng famil y membe rs. Ramón ic Coord inato rs are avail able for healt h care provi ders to discu ss resul ts at [phone] Test Detai ls: Three varia nts aleksandra zed: c.845 G>A (p.Cy s282T yr), commo nly refer red to as C282Y c.187 C>G (p.Hi s63As p), commo nly refer red to as H63D c.193 A> T (p.Se r65Cy s), commo nly refer red to as S65C Metho ds/Li mitat ions: DNA Aleksandra sis of the HFE gene ([id number]) was perfo rmed by PCR ampli ficat ion follo wed by restr ictio n enzym e diges tion aleksandra ses. Resul ts must be combi elver with clini naseem infor matio n for the most accur ate inter preta tion. Molec ular- based testi ng is highl y accur ate, but as in any labor atory test, diagn ostic error s may occur . False posit fish or false negat fish resul ts may occur for reaso ns that inclu de ramón ic varia nts, blood trans fusio ns, bone marro w trans plant ation , somat ic or tissu e-spe cific mosai cism, misla beled sampl es, or sandra eous repre senta tion of famil y relat ionsh ips. This test was devel oped and its perfo rmanc e amrita cteri stics deter mined by [facility]. It has not been clear ed or appro danay by the Food and Drug Admin istra tion. Refer ences : Bowen BR, Dequan PC, Coltl ey KV, Zachary ochoa LW, Alfredo ochoa ; Ameri can [employer] iatio n for the Study of Liver Disea ses. Diagn osis and manag ement of hemoc hroma tosis : 2010 pract ice guide line by the Ameri can Assoc iatio n for the Study of Liver Disea ses. Hepat ology . 2010;5 4(1): 328-4 3. doi: 10.10 02/ p.243 30. PMID: 25619 290; PMCID : PMC31 10918 . Obi Coker, Vik ot P, Laisha morton DW, Sancho r H, Armando storey O, Jennifer n S, Alcarissa o I, Julia s M, Rory y S. EMQN best pract ice guide lines for the molec ular ramón ic diagn osis of hered itary hemoc hroma tosis (HH). Eur J Hum Ramón . 2016 May;2 4(4): 479-9 5. doi: 10.10 /ej hg.20 15.12 8. Epub 2014Sep 06. PMID: 31232 218; PMCID : PMC49 27014 . Not Available [facility] ([facility]) [address] [place], [address], 04/24/2023 16:13:26 04/16/19 24 04/23/2023 HERED .HEMO CHROM ATOSI S, DNA reviewed by: ALEJANDRO LANDEROS, PHD Not Available [facility] ([facility]) [address] [facility] [address], [place], [address], 04/24/2023 16:13:26 04/16/19 24 04/17/2023 AFP, SERUM , TUMOR MARKE R AFP, serum, tumor marker 1.9 NG/mL 0.0-8. 4 Mariusz Diagn ostic s Elect mariusz milum inesc ence Immun oassa y (ECLI A) Value s obtai elver with diffe rent assay metho ds or kits canno t be used inter flanagan eably . Resul ts canno t be inter prete d as absol [place] evide nce of the prese nce or absen ce of rupal contreras se. This test is not inter preta ble in pregn ant femal es. Not Available [facility] ([facility]) [address] [facility] [address], [place], [address], 04/24/2023 16:13:27 04/16/19 24 04/17/2023 HEP B SURFA CE AB, QUAL hep B surface Ab, qual NON REACTI VE Non React fish: Incon siste nt with immun ity, less than 10 mIU/m L React fish: Consi stent with immun ity, great er than 9.9 mIU/m L Not Available [facility] ([facility]) [address] [facility] [address], [place], [address], 04/24/2023 16:13:28 04/16/19 24 04/17/2023 IMMUN OGLOB ULIN G, QN, SERUM immunoglobul in g, qn, serum 1234 mg/dL 603-16 13 Not Available [facility] ([facility]) [address] [facility] [address], [place], [address], 04/24/2023 16:13:28 04/16/19 24 04/17/2023 HBSAG SCREE N HBsAg screen NEGATI VE negati ve Not Available [facility] ([facility]) [address] [facility] [address], [place], [address], 04/24/2023 16:13:29 04/16/19 24 04/17/2023 HEP B CORE AB, TOT hep B core Ab, tot NEGATI VE negati ve Not Available [facility] ([facility]) [address] [facility] [address], [place], [address], 04/24/2023 16:13:30 04/16/19 24 04/17/2023 HEP A AB, TOTAL hep A Ab, total NEGATI VE negati ve Comme nt: The HAV total antib jamar assay detec ts both IgG and IgM but does not diffe renti ate betwe en them. A negat fish resul t sugge sts susce ptibi lity to infec tion. A posit fish resul t could be due to vacci natio n, previ ously resol danay infec tion or activ e infec tion. Testi ng for HAV IgM shoul d be perfo rmed if activ e HAV infec tion is suspe cted. [facility] offer s profi les that will autom atica lly refle x posit fish HAV total antib jamar resul ts to IgM (e.g. , panel #[id number] HAV Antib jamar w/ Rfx). Not Available [facility] ([facility]) [address] [facility] [address], [place], [address], 04/24/2023 16:13:31 10/15/19 24 10/15/2023 CBC NO DIFF (HEMO GRAM) WBC 3.8 K/uL 4.0-10 .5 low Not Available [facility] ([facility]) [address], [place], [address], 10/15/2023 12:03:39 10/15/19 24 10/15/2023 CBC NO DIFF (HEMO GRAM) RBC 3.9 M/mm3 4.7-6. 1 low Not Available [facility] ([facility]) [address] , [place], [address], 10/15/2023 12:03:39 10/15/19 24 10/15/2023 CBC NO DIFF (HEMO GRAM) HGB 10.7 gm/dL 13.5-1 8.0 low Not Available [facility] ([facility]) [address], [place], [address], 10/15/2023 12:03:39 10/15/19 24 10/15/2023 CBC NO DIFF (HEMO GRAM) HCT 33.1 % 42.0-5 2.0 low Not Available [facility] ([facility]) [address], [place], [address], 10/15/2023 12:03:39 10/15/19 24 10/15/2023 CBC NO DIFF (HEMO GRAM) MCV 85.5 fL 78-100 Not Available [facility] ([facility]) [address], [place], [address], 10/15/2023 12:03:39 10/15/19 24 10/15/2023 CBC NO DIFF (HEMO GRAM) MCH 27.6 pg 27-31 Not Available [facility] ([facility]) [address], [place], [address], 10/15/2023 12:03:39 10/15/19 24 10/15/2023 CBC NO DIFF (HEMO GRAM) MCHC 32.3 g/dL 32-36 Not Available [facility] ([facility]) [address], [place], [address], 10/15/2023 12:03:39 10/15/19 24 10/15/2023 CBC NO DIFF (HEMO GRAM) RDW 14.4 % 11.5-1 4.0 high Not Available [facility] ([facility]) [address], [place], [address], 10/15/2023 12:03:39 10/15/19 24 10/15/2023 CBC NO DIFF (HEMO GRAM) platelet count 93 K/uL 150-45 0 low Not Available [facility] ([facility]) [address], [place], [address], 10/15/2023 12:03:39 10/15/19 24 10/15/2023 CBC NO DIFF (HEMO GRAM) MPV 10.6 fL 6-9.5 high Not Available [facility] ([facility]) [address], [place], [address], 10/15/2023 12:03:39 10/15/19 24 10/15/2023 CBC NO DIFF (HEMO GRAM) manual differential NO Not Available [facility] ([facility]) [address], [place], [address], 10/15/2023 12:03:39 10/15/19 24 10/15/2023 PT (PROT HROMB IN TIME) W INR prothrombin time 10.3 secon ds 9.3-11 .4 Not Available [facility] ([facility]) [address], [place], [address], 10/15/2023 12:23:44 10/15/19 24 10/15/2023 PT (PROT HROMB IN TIME) W INR INR 1.0 ratio 0.97-1 .05 INR is inten ded to be used ONLY for patie nts on stabl e oral antic oagul ant thera py. Thera peuti c Range s: 2.0-3 .0 Usual Thera peuti c Range 2.5-3 .5 For patie nts with histo ry of Multi ple Deep Vein Throm bus or Mecha nical Heart Valve s Not Available [facility] ([facility]) [address], [place], [address], 10/15/2023 12:23:44 10/15/19 24 10/15/2023 COMP METAB OLIC PANEL sodium 142 mmol/ L 136-14 5 Not Available [facility] ([facility]) [address], [place], [address], 10/15/2023 13:18:43 10/15/19 24 10/15/2023 COMP METAB OLIC PANEL potassium 4.2 mmol/ L 3.6-5. 0 Not Available [facility] ([facility]) [address], [place], [address], 10/15/2023 13:18:43 10/15/19 24 10/15/2023 COMP METAB OLIC PANEL chloride 107 mmol/ L 98-107 Not Available [facility] ([facility]) [address], [place], [address], 10/15/2023 13:18:43 10/15/19 24 10/15/2023 COMP METAB OLIC PANEL carbon dioxide 27.1 mmol/ L 21.0-3 2.0 Not Available [facility] ([facility]) [address] [place], [address], 10/15/2023 13:18:43 10/15/19 24 10/15/2023 COMP METAB OLIC PANEL anion gap 12.1 Not Available [facility] ([facility]) [address] [place], [address], 10/15/2023 13:18:43 10/15/19 24 10/15/2023 COMP METAB OLIC PANEL glucose 174 mg/dL 70-120 high Not Available [facility] ([facility]) [address] [place], [address], 10/15/2023 13:18:43 10/15/19 24 10/15/2023 COMP METAB OLIC PANEL BUN 7 mg/dL 7-18 Not Available [facility] ([facility]) [address], [place], [address], 10/15/2023 13:18:43 10/15/19 24 10/15/2023 COMP METAB OLIC PANEL creatinine 0.8 mg/dL 0.6-1. 3 Not Available [facility] ([facility]) [address], [place], [address], 10/15/2023 13:18:43 10/15/19 24 10/15/2023 COMP METAB OLIC PANEL glomerular filtration rate TNP mlper min 60- TEST NOT PERFO RMED GFR has only been valid ated from 18 to 70 years of age. Not Available [facility] ([facility]) [address], [place], [address], 10/15/2023 13:18:43 10/15/19 24 10/15/2023 COMP METAB OLIC PANEL total protein 7.3 g/dL 6.4-8. 2 Not Available [facility] ([facility]) [address], [place], [address], 10/15/2023 13:18:43 10/15/19 24 10/15/2023 COMP METAB OLIC PANEL albumin 3.5 g/dL 3.4-5. 0 Not Available [facility] ([facility]) [address], [place], [address], 10/15/2023 13:18:43 10/15/19 24 10/15/2023 COMP METAB OLIC PANEL globulin 3.8 Not Available [facility] ([facility]) [address], [place], [address], 10/15/2023 13:18:43 10/15/19 24 10/15/2023 COMP METAB OLIC PANEL alb/glob ratio 0.9 0.7-2 Not Available [facility] ([facility]) [address], [place], [address], 10/15/2023 13:18:43 10/15/19 24 10/15/2023 COMP METAB OLIC PANEL calcium 8.8 mg/dL 8.5-10 .5 Not Available [facility] ([facility]) [address], [place], [address], 10/15/2023 13:18:43 10/15/19 24 10/15/2023 COMP METAB OLIC PANEL bilirubin total 1.50 mg/dL 0.10-1 .00 high Not Available [facility] ([facility]) [address], [place], [address], 10/15/2023 13:18:43 10/15/19 24 10/15/2023 COMP METAB OLIC PANEL AST (SGOT) 31 U/L 0-37 Not Available [facility] ([facility]) [address], [place], [address], 10/15/2023 13:18:43 10/15/19 24 10/15/2023 COMP METAB OLIC PANEL ALT (SGPT) 23 U/L 0-65 Not Available [facility] ([facility]) [address], [place], [address], 10/15/2023 13:18:43 10/15/19 24 10/15/2023 COMP METAB OLIC PANEL alk phosphatase 82 U/L 46-116 Not Available [facility] ([facility]) [address], [place], [address], 10/15/2023 13:18:43 10/15/19 24 10/16/2023 AFP, SERUM , TUMOR MARKE R AFP, serum tumor marker 2.0 NG/mL 0.0-8. 4 Mariusz Diagn ostic s Elect mariusz milum inesc ence Immun oassa y (ECLI A) . Value s obtai elver with diffe rent assay metho ds or kits canno t be used inter flanagan eably . Resul ts canno t be inter prete d as absol [place] evide nce of the prese nce or absen ce of rupal yu disea se. . This test is not inter preta ble in pregn ant femal es. Perfo rmed at: [facility] - [facility] [address], [place] [address] Lab Direc tor: Bora baldwin PhD, Phone : [phone] Not Available [facility] ([facility]) [address], [place], [address], 10/16/2023 10:14:27 10/17/19 23 10/16/2022 US, liver No observ ation record ed. [facility] [address], [place], [address], 11/19/2022 08:49:17 11/19/19 23 10/16/2022 US, liver No observ ation record ed. [facility] (Med Record) [address], [place], [address], 11/19/2022 08:49:18 11/26/19 23 11/25/2022 MRI, liver , w/wo contr ast No observ ation record ed. [facility] [address], [place], [address], 11/26/2022 09:11:59 04/29/19 24 04/29/2023 US, liver No observ ation record ed. [facility] [address], [place], [address], 05/05/2023 13:02:48 10/30/19 24 10/30/2023 CT, liver , w/wo contr ast No observ ation record ed. [facility] [address], [place], [address], 03/23/2024 13:08:50 05/26/19 25 05/25/2024 palmer dhaliwal/estephania wahl tic resul t No observ ation record ed. [facility] [address], [place], [address], 05/25/2024 14:31:47 Result Notes None recorded. Problems Name Problem SNOMED Code Status Onset Date Resolution Date Notes Provider Name and Address Organization Details Recorded Time Colitis 52432300 Active 2021 Moises Kiran PA-C [address], [place], [address] , [place] - [facility] [place] & [place] 2 16:31:15 Imaging of liver abnormal 002446387 Active [address], [place], [address] , [place] - [facility] [place] & [place] 2 16:31:34 Idiopathic acute pancreatitis 486032674 Active [address], [place], [address] , [place] - [facility] [place] 2 16:33:50 Normocytic anemia 747542496 Active 2021 Moises Kiran PA-C [address], [place], [address] , [place] - [facility] [place] & [place] 2 16:36:20 Cirrhosis of liver 75127520 Active [address], [place], [address] , [place] - [facility] [place] & [place] 4 10:46:58 Problem Notes None recorded. Procedures Surgical History Date Name Laterality Status Provider Name and Address Organization Details Recorded Time 04/19/19 25 Venipuncture Gastro completed Nu [place] - [facility] & [place] 04/19/2024 11:13:54 Imaging Results None recorded. Procedure Notes None recorded. Medical Equipment None Reported. Allergies Allergen ID Allergen Name Allergen Category Reaction Reaction Severity Criticality Documentation Date Start Date Code Code System Note Provider Name and Address Organization Details Recorded Time 63625 Easprin medicatio n Not available Not available low 09/30/202274815 4 RxNorm Nuavis [facility], [place] - [facility] & [place] 3 10:56:07 Medications Name Sig Start Date Stop Date Status Note LastModified by Organization Details LastModified Time cyclobenzapr ine 10 mg tablet active Not Available Not Available Not Available pramipexole 1 mg tablet active Not Available Not Available Not Available metformin 500 mg tablet active Not Available Not Available Not Available Novolin 70/30 U-100 Insulin 100 unit/mL subcutaneous suspension active Not Available Not Available N ot Available paroxetine 10 mg tablet active Not Available Not Available Not Available donepezil 5 mg tablet active Not Available Not Available No t Available divalproex 250 mg tablet,delay ed release active Not Available Not Available N ot Available atorvastatin 10 mg tablet active Not Available Not Available Not Available azithromycin 250 mg tablet active Not Available Not Available Not Available metoprolol succinate ER 50 mg tablet,exten ded release 24 hr active Not Available Not Available Not Available valacyclovir 1 gram tablet active Not Available Not Available Not Available hydrocodone 5 mg-acetamino phen 325 mg tablet active Not Available Not Available Not Available donepezil 10 mg tablet active Not Available Not Available No t Available prednisone 20 mg tablet 04/19 completed Not Available Not Available Not Available desmopressin 0.2 mg tablet active Not Available Not Available Not Available gabapentin 400 mg capsule active Not Available Not Available Not Available quetiapine 200 mg tablet active Not Available Not Available Not Available quetiapine 100 mg tablet active Not Available Not Available Not Available acetaminophe n 500 mg tablet active Not Available Not Available Not Available meloxicam 7.5 mg tablet active Not Available Not Available Not Available potassium chloride ER 20 mEq tablet,exten ded release(part /cryst) active Not Available Not Available Not Available tamsulosin 0.4 mg capsule active Not Available Not Available Not Available hydrocortiso ne 1 % topical cream active Not Available Not Available Not Available cephalexin 500 mg capsule active Not Available Not Available Not Available paroxetine 20 mg tablet active Not Available Not Available Not Available erythromycin 5 mg/gram (0.5 %) eye ointment active Not Available Not Available Not Available mirtazapine 30 mg tablet active Not Available Not Available Not Available oseltamivir 75 mg capsule active Not Available Not Available Not Available metformin 1,000 mg tablet active Not Available Not Available Not Available oxybutynin chloride ER 5 mg tablet,exten ded release 24 hr active Not Available Not Available Not Available omeprazole 20 mg capsule,erasmo yed release active Not Available Not Available Not Available montelukast 10 mg tablet active Not Available Not Available Not Available lisinopril 5 mg tablet active Not Available Not Available No t Available mupirocin 2 % topical ointment active Not Available Not Available Not Available mirtazapine 15 mg tablet active Not Available Not Available Not Available metoprolol succinate ER 25 mg tablet,exten ded release 24 hr active Not Available Not Available Not Available insulin syringe U-100 with needle 1 mL 29 gauge x 1/2 active Not Available Not Available Not Available cefuroxime axetil 500 mg tablet active Not Available Not Available No t Available paroxetine 40 mg tablet active Not Available Not Available Not Available propranolol 20 mg tablet active Not Available Not Available Not Available oxybutynin chloride 5 mg tablet active Not Available Not Available No t Available cefdinir 300 mg capsule active Not Available Not Available N ot Available fluticasone propionate 50 mcg/actuatio n nasal spray,suspen alma active Not Available Not Available Not Available ertapenem 1 gram solution for injection active Not Available Not Available No t Available Risperdal Consta 25 mg/2 mL intramuscula r susp,extende d release active Not Available Not Available No t Available nitrofuranto in monohydrate/ macrocrystal s 100 mg capsule active Not Available Not Available Not Available lidocaine (PF) 10 mg/mL (1 %) injection solution active Not Available Not Available Not Available Januvia 100 mg tablet active Not Available Not Available No t Available Risperdal Consta 12.5 mg/2 mL intramuscula r susp,extende d release active Not Available Not Available No t Available diclofenac 1 % topical gel active Not Available Not Available Not Available Anti-Dandruf f 1 % shampoo active Not Available Not Available Not Available Suprep Bowel Prep Kit 17.5 gram-3.13 gram-1.6 gram oral solution Take 1 package by oral route for 2 days. 04/19 completed Not Available Not Available Not Available BD AutoShield Duo Pen Needle 30 gauge x 3/16 active Not Available Not Available Not Available Myrbetriq 25 mg tablet,exten ded release active Not Available Not Available Not Available memantine 28 mg capsule sprinkle,ext ended release 24hr active Not Available Not Available Not Available Basaglar KwikPen U-100 Insulin 100 unit/mL (3 mL) subcutaneous active Not Available Not Available Not Available Fiasp U-100 Insulin 100 unit/mL subcutaneous solution active Not Available Not Available Not Available Fiasp FlexTouch U-100 Insulin 100 unit/mL (3 mL) subcutaneous pen active Not Available Not Available Not Available Ozempic 0.25 mg or 0.5 mg (2 mg/1.5 mL) subcutaneous pen injector active Not Available Not Available Not Available Novolin 70-30 FlexPen U-100 Insulin 100 unit/mL (70-30) subcutaneous active Not Available Not Available Not Available Vitals Date Recorded Heart rate Systolic blood pressure Diastolic blood pressure Provider Name and Address Organization Details Last Updated DateTime 04/02/2022 71 /min 101 mm[Hg] 65 mm[Hg] Cassidy Bermudez [place] - [facility] & [place] 04/02/2022 13:06:28 Date Recorded Body temperature Oxygen saturation Oxygen saturation in Arterial blood by Pulse oximetry Heart rate Heart rate Systolic blood pressure Diastolic blood pressure Provider Name and Address Organization Details Last Updated DateTime 4 98.9 [degF] 97 % 97 % 68 /min 70 /min 129 mm[Hg] 61 mm[Hg] Nu Mars [place] - [facility] & [place] 4 11:59:32 Date Recorded Body height Provider Name an d Address Organization Details Last Updated DateTime 04/16/2023 167.64 cm Oneil Woods [place] - [facility] - [facility] & [place] 04/16/2023 11:34:17 Date Recorded Body height Body mass index (BMI) Body weight Body temperature Oxygen saturation Oxygen saturation in Arterial blood by Pulse oximetry Heart rate Heart rate Systolic blood pressure Diastolic blood pressure Provider Name and Address Organization Details Last Updated DateTime 5 167.64 cm 30.9 kg/m2 91854.9 4 g 97.9 [degF] 98 % 98 % 66 /min 65 /min 135 mm[Hg] 67 mm[Hg] Nu Mars [facility] & [place] 5 09:56:28 Date Recorded Body weight Body mass index (BMI) Body height Body temperature Heart rate Oxygen saturation Oxygen saturation in Arterial blood by Pulse oximetry Systolic blood pressure Diastolic blood pressure Provider Name and Address Organization Details Last Updated DateTime 3 77180.1 g 28.3 kg/m2 167.64 cm 98.8 [degF] 60 /min 96 % 96 % 122 mm[Hg] 78 mm[Hg] Nu Mars [facility] & [place] 3 10:55:10 Date Recorded Body height Body mass index (BMI) Body weight Oxygen saturation Oxygen saturation in Arterial blood by Pulse oximetry Body temperature Heart rate Heart rate Systolic blood pressure Diastolic blood pressure Provider Name and Address Organization Details Last Updated DateTime 4 167.64 cm 29.9 kg/m2 78472.0 3 g 98.3 % 98.3 % 96 [degF] 72 /min 65 /min 125 mm[Hg] 66 mm[Hg] Oneil Woods [facility] & [place] 4 10:32:13 Social History Question Answer Notes LastModified by [employer] Details LastModified Time Tobacco Smoking Status [facility] [place] 09/30/2022 10:55:01 What Is Your Level Of Caffeine Consumption? Moderate [email or web address] Information not available 09/30/2022 When Did You Quit Smoking? 6-10yearssince lastcigarette [email or web address] Information not available 09/30/2022 Sex: Unknown Functional Status Question Answer Note LastModified by Organizat ion Details LastModified Time Do you use any illicit or recreational drugs? No [email or web address] Information not available 09/30/2022 What is your level of alcohol consumption? None Information not available 09/30/2022 Mental Status None recorded. Family History Nothing Reported. Medical History No medical history recorded. Past Encounters Encounter ID Performer Location Encounter Start Date Encounter Closed Date Diagnosis/Indication Diagnosis SNOMED-CT Code Diagnosis ICD10 Code Diagnosis Note [id number] Moises Kiran, PA-C [facility] [place] [id number] 2 01/02/2022 14:01:38 01/02/2022 15:07:45 Idiopathic acute pancreatitis 015449788 K85.00 Colitis 73246418 K52.9 Imaging of liver abnormal 408115263 R93.2 Normocytic anemia 500340 002 D64.9 [id number] SUZETTE Jenkins-C [facility] [place] [address] 2 04/02/2022 12:58:06 04/02/2022 13:29:17 Idiopathic acute pancreatitis 270265933 K85.00 Colitis 06090938 K52.9 Imaging of liver abnormal 024780087 R93.2 Normocytic anemia 733021 002 D64.9 [id number] SUZETTE Jenkins-C [facility] [place] [address] 2 09/30/2022 10:33:00 09/30/2022 11:33:37 Idiopathic acute pancreatitis 048330477 K85.00 Colitis 31040639 K52.9 Imaging of liver abnormal 831429506 R93.2 Normocytic anemia 702867 002 D64.9 [id number] MABEL JenkinsC [facility] [place] [address] 2 04/16/2023 11:26:16 04/16/2023 12:22:25 Idiopathic acute pancreatitis 190755880 K85.00 Colitis 84648474 K52.9 Imaging of liver abnormal 045960921 R93.2 Normocytic anemia 674904 002 D64.9 Cirrhosis of liver 007 K74.60 [id number] SUZETTE Jenkins-C [facility] [place] [address] 2 10/15/2023 10:00:25 10/15/2023 11:07:37 Cirrhosis of liver 22473203 K74.60 Idiopathic acute pancreatitis 220872535 K85.00 Colitis 32919198 K52.9 Imaging of liver abnormal 123800578 R93.2 Normocytic anemia 572737 002 D64.9 [id number] Moises Kiran PA-C [facility] [address] [facility] [address] [place] [address] 04/19/2024 09:45:12 04/19/2024 11:05:03 Cirrhosis of liver 72806158 K74.60 Idiopathic acute pancreatitis 614005876 K85.00 Normocytic anemia 153069 002 D64.9 History of adenomatous polyp of colon 967096805 Z86.0100 Health Concerns Section Related Observation LastModified by Organization Detai ls LastModified Time None Recorded Concern Status LastModified by Organization Details LastModified Time None Recorded Advance Directives Directive None Recorded Payers Insurance Date Sequence Insurance Name Policy Number Policy Dailey Covered Member ID Dailey Member ID Guarantor Name 09/19/2023 1 [place] Sanket Love [id number] [place] 09/19/2023 2 [place] [facility] CHO[facility] - FFS/TRADITION AL [place] [id number] [place] 09/19/2023 [place] - [facility] (MEDICARE) [place] [id number] [place] 09/19/2023 [place] [employer] - [facility] [place] [id number] [place] 09/19/2023 [place] [employer] [place] [id number] [place] 08/12/2024 2 [place] [facility] HEALTH CHOICES - FFS/TRADITION AL [place] [id number] [place] 08/12/2024 1 [place]et [place] [id number] [place] Notes Date Note Type Note Provider Name and Address Organization Details Recorded Time 04/02/2022 text/html (PREVIOUS) 01/02/2022: Mr. Love is a very pleasant 71-year-old male resident of [facility] in [place], [place] who presents for follow-up of a recent hospitlization at [facility] for acute pancreatitis. The etiology for his pancreatitis was unclear. Lipase was minimally elevated. There was also noted to be possible mild cirrhosis seen on CT imaging without contrast as well as colitis versus colonic congestion. Abdominal ultrasound and Contrast enhanced CT did not note cirrhotic change or biliary abnormality. He had labs performed at his nursing facility earlier today. The showed normal hepatic function labs, normal renal function, hemoglobin decreased at 9.9, normal platelet count 154, and albumin decreased at 3.0. Currently he reports diarrhea and pain with this Herrera catheter. He denies a history of alcoholism. He is no longer having abdominal discomfort. CURRENT: Mr. Love is a very pleasant 72-year-old male resident of [facility] in [place], [place] who presents to the clinic today for follow-up of pancreatitis, colitis and cirrhosis workup. The patient denies any complaints today. He reports a good appetite. He denies any abdominal pain or tenderness. He reports regular daily bowel movements. He denies any N/V, hematemesis or hematochezia. Moises Kiran PA-C [address] [facility], [place], [address], [place] - [facility] - [place] & [place] 04/02/2022 16:55:08 09/30/2022 text/html (PREVIOUS) 01/02/2022: Mr. Love is a very pleasant 71-year-old male resident of [facility] in [place] who presents for follow-up of a recent hospitlization at [facility] for acute pancreatitis. The etiology for his pancreatitis was unclear. Lipase was minimally elevated. There was also noted to be possible mild cirrhosis seen on CT imaging without contrast as well as colitis versus colonic congestion. Abdominal ultrasound and Contrast enhanced CT did not note cirrhotic change or biliary abnormality. He had labs performed at his nursing facility earlier today. The showed normal hepatic function labs, normal renal function, hemoglobin decreased at 9.9, normal platelet count 154, and albumin decreased at 3.0. Currently he reports diarrhea and pain with this Herrera catheter. He denies a history of alcoholism. He is no longer having abdominal discomfort. PREVIOUS (04/02/22): Mr. Love is a very pleasant 72-year-old male resident of [facility] in [place] who presents to the clinic today for follow-up of pancreatitis, colitis and cirrhosis workup. The patient denies any complaints today. He reports a good appetite. He denies any abdominal pain or tenderness. He reports regular daily bowel movements. He denies any N/V, hematemesis or hematochezia. CURRENT (09/30/22 Sonya Kiran): Mr. Love returns to the office today for follow-up regarding history of idiopathic pancreatitis and questionable cirrhosis. He is doing very well at this time and denies any physical complaints currently. He reports tolerating an oral diet well and notes regular bowel movements. Moises Kiran PA-C [address] [facility], [place], [address], [facility] - [facility] & [place] 09/30/2022 11:38:40 04/16/2023 text/html (PREVIOUS) 01/02/2022: Mr. Love is a very pleasant 71-year-old male resident of [facility] in [place] who presents for follow-up of a recent hospitlization at [facility] for acute pancreatitis. The etiology for his pancreatitis was unclear. Lipase was minimally elevated. There was also noted to be possible mild cirrhosis seen on CT imaging without contrast as well as colitis versus colonic congestion. Abdominal ultrasound and Contrast enhanced CT did not note cirrhotic change or biliary abnormality. He had labs performed at his nursing facility earlier today. The showed normal hepatic function labs, normal renal function, hemoglobin decreased at 9.9, normal platelet count 154, and albumin decreased at 3.0. Currently he reports diarrhea and pain with this Herrera catheter. He denies a history of alcoholism. He is no longer having abdominal discomfort. PREVIOUS (04/02/22): Mr. Love is a very pleasant 72-year-old male resident of [facility] in [place] who presents to the clinic today for follow-up of pancreatitis, colitis and cirrhosis workup. The patient denies any complaints today. He reports a good appetite. He denies any abdominal pain or tenderness. He reports regular daily bowel movements. He denies any N/V, hematemesis or hematochezia. PREVIOUS (09/30/22 Sonya Kiran): Mr. Love returns to the office today for follow-up regarding history of idiopathic pancreatitis and questionable cirrhosis. He is doing very well at this time and denies any physical complaints currently. He reports tolerating an oral diet well and notes regular bowel movements. CURRENT (04/16/23): Mr. Love returns to the office today for follow-up. He previously underwent MRI liver due to finding of hepatic masses on US. MRI did not re demonstrate any hepatic mass. Findings were consistent with cirrhosis. He is feeling well currently and denies any physical complaints at this time. He has remained a resident at [facility]. Moises Kiran PA-C [address] [facility], [place], [address], [facility] - [place] & [place] 04/16/2023 12:14:06 10/15/2023 text/html (PREVIOUS) 01/02/2022: Mr. Love is a very pleasant 71-year-old male resident of [facility] in [place] who presents for follow-up of a recent hospitlization at [facility] for acute pancreatitis. The etiology for his pancreatitis was unclear. Lipase was minimally elevated. There was also noted to be possible mild cirrhosis seen on CT imaging without contrast as well as colitis versus colonic congestion. Abdominal ultrasound and Contrast enhanced CT did not note cirrhotic change or biliary abnormality. He had labs performed at his nursing facility earlier today. The showed normal hepatic function labs, normal renal function, hemoglobin decreased at 9.9, normal platelet count 154, and albumin decreased at 3.0. Currently he reports diarrhea and pain with this Herrera catheter. He denies a history of alcoholism. He is no longer having abdominal discomfort. PREVIOUS (04/02/22): Mr. Love is a very pleasant 72-year-old male resident of [facility] in [place] who presents to the clinic today for follow-up of pancreatitis, colitis and cirrhosis workup. The patient denies any complaints today. He reports a good appetite. He denies any abdominal pain or tenderness. He reports regular daily bowel movements. He denies any N/V, hematemesis or hematochezia. PREVIOUS (09/30/22 Sonya Kiran): Mr. Love returns to the office today for follow-up regarding history of idiopathic pancreatitis and questionable cirrhosis. He is doing very well at this time and denies any physical complaints currently. He reports tolerating an oral diet well and notes regular bowel movements. PREVIOUS (04/16/23): Mr. Love returns to the office today for follow-up. He previously underwent MRI liver due to finding of hepatic masses on US. MRI did not re demonstrate any hepatic mass. Findings were consistent with cirrhosis. He is feeling well currently and denies any physical complaints at this time. He has remained a resident at [facility]. CURRENT (10/16/23): Patient presents to the office today for six-month follow-up regarding cirrhosis as well as recent colonoscopy. He underwent screening colonoscopy 2 days ago due to recent positive Cologuard. Eight polyps were resected with pathology showing adenomatous histology without dysplasia. He is feeling well currently. Patient resides at [facility]. Accompanying staff did not corroborate any issues currently. More specifically, the patient denies lower extremity swelling, abdominal distention, irregular bowel habits, or concerns over worsening cognitive/mental status. Moises Kiran PA-C [address], [place], [address], [facility] - [place] - [place] & [place] 10/16/2023 08:06:10 04/19/2024 text/html PREVIOUS ( 4): Patient presents to the office today for six-month follow-up regarding cirrhosis as well as recent colonoscopy. He underwent screening colonoscopy 2 days ago due to recent positive Cologuard. Eight polyps were resected with pathology showing adenomatous histology without dysplasia. He is feeling well currently. Patient resides at [facility]. Accompanying staff did not corroborate any issues currently. More specifically, the patient denies lower extremity swelling, abdominal distention, irregular bowel habits, or concerns over worsening cognitive/mental status. CURRENT (04/19/24): Mr. Love is a very pleasant 74-year-old male with history of idiopathic pancreatitis, cirrhosis, esophageal varices, and colon polyps who returns to the the GI clinic today for 6 month follow-up. He states he is feeling well at this time and has no physical complaints. He continues to reside at [facility]. Moises Kiran PA-C [address], [place], [address], [place] - [facility] - [place] & [place] 04/19/2024 19:57:50
--- OUTSIDE RECORDS SUMMARY | 2024-08-22 07:28 | XMS_ITS | Clinical Summary ---
Author Organization [facility] [place] [address] Phone Care Team Providers Care Cloth Framer Name Role Phone Unavailable Primary Care Provider Unavailabl e Allergies No known active allergies Medications * This document contains information received from the source organization and may not represent a complete record from that organization. 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) Cirrhosis of liver (HCC) Diabetes mellitus (HCC) Mild intellectual disability Iron deficiency anemia Nicotine dependence, chewing tobacco, uncomplica patricia Social History Tobacco Use Types Packs/Day Years Used Date Smoking Tobacco: Former Cigarettes Smokeless Tobacco: Former Chew Tobacco Cessation:Counseling Given: No Alcohol Use Standard Drinks/Week Comments Not Currently 0 (1 standard drink = 0.6 oz pur e alcohol) Sex and Gender Information Value Date Recorded Sex Assigned at Not on file Legal Sex Male 9:17 AM EDT Gender Identity Not on file Sexual Orientation Not on file Obstetrics History Plan of Treatment Health Maintenance Due Date Last Done Comments Wellness Exam Medicare 1953 Hepatitis C Screening 1970 DTaP/TDaP/Td (1 - Tdap) 1971 Cologuard 1997 Colon Cancer Screening 1997 Colonoscopy 1997 FIT 1997 Sigmoidoscopy 1997 Virtual Colonography 1997 Pneumococcal Vaccine 50+ (1 of 1 - PCV) 2002 Zoster (1 of 2) 2002 AAA Screening 2017 COVID-19 Vaccine (2023-2 5 season) 2023 Influenza Vaccine (Season Ended) 2024 Hepatitis B Vaccine Aged Out No longe r eligible based on patient's age to complete this topic Meningococcal B Vaccine Aged Out No l onger eligible based on patient's age to complete this topic Insurance [place]ICAID [place] PART A AND B
--- OUTSIDE RECORDS SUMMARY | 2024-08-22 07:28 | XMS_ITS | Data Portability ---
Author Organization [facility] [place] [facility] Address [address] [place] [address] Assessment Encounter Date Assessment Date Assessment LastModified by Organization Details LastModified Time 01/31/2022 01/31/2022 Catheter in situ for about one month. Catheter is to be removed at nursing facility for voiding trial. Discontinue oxybutynin due to anticholinergic side effects for patient with history of dementia and Parkinson's. Addition of Myrbetriq. We will continuing flomax. Written order provided nursing facility. [email or web address] Not available 02/02/2022 09:17:54 03/13/2022 03/13/2022 Medical manageme nt lower urinary symptoms with tamsulosin and Myrbetriq. Monitor voiding pattern. Not available 03/30/2022 16:21:18 09/11/2022 09/11/2022 Medical manageme nt lower urinary symptoms with tamsulosin and Myrbetriq. Patient does not wish to continue with circumcision at the time. Urine for culture. FUP in 6 months Not available 09/21/2022 16:37:18 04/02/2023 04/02/2023 Medical manageme nt lower urinary symptoms with tamsulosin and Myrbetriq. Urine for culture. [email or web address] Not available 04/19/2023 13:05:58 04/28/2024 04/28/2024 Medical manageme nt lower urinary symptoms with tamsulosin and Myrbetriq. [email or web address] Not available 04/28/2024 22:12:52 Plan of Treatment Reminders Order Date Submit Date Provider Last Modified By Organization Details Last Modified Time Details Appointments RECHECK 2025 01:15P Nicholas QUIROGA MD Not available Not available Not available Lab urinalysi s panel, auto 2023 024 [email or web address] [id number] [facility] Extended Services With [address], [place], [address], 04/06/2023 12:47:30 culture, urine 2023 0[email or web address] [facility], [address] [place] [address], [phone], 04/06/2023 12:47:30 urinalysi s panel, auto 2022 023 [email or web address] 4 [facility] Extended Services With [address], [place], [address], 09/18/2022 09:01:48 culture, urine 2022 [email or web address] [facility], [address] [place] [address], [address], 09/18/2022 09:01:48 Referral None recorded. Procedures None recorded. Surgeries None recorded. Imaging None recorded. Medication Orders None recorded. Patient TargetsNo targets recorded. Patient Instructions Encounter Date Encounter Id Patient Instructions Last Modified By Organization Details Last Modified Time 03/13/2022 [id number] learning about healthy weight [email or web address] Not available 03/30/2022 16:21:13 09/11/2022 [id number] learning about healthy weight Not available 09/21/2022 16:37:22 04/28/2024 [id number] learning about healthy weight [email or web address] Not available 04/28/2024 22:12:53 Reason for Referral None Reported. Results Created Date Observation Date Name Description Value Unit Range Abnormal Flag Note LastModifiedBy Organization Detail LastModifiedTime 09/12/1909/13/2022 URINE CULTU RE urine culture abnormal ISOLA TE #1 COLON Y COUNT : > 100,0 00 CFU/M L Proba ble Gram Negat fish Bacil alvaro. ID and sensi tivit y in progr ess. See [place] te Resul t(s) Below ESBL Esche emory a coli Not Available [facility] [address] [place] [address], [address], 09/13/2022 16:27:30 09/12/19 23 09/11/2022 BACTE RIAL SUSCE PTIBI LITY PANEL BY MARITA results Organ ism: ESBL Esche emory a coli Not Available [facility] [address] [place] [address], [address], 09/13/2022 16:27:31 09/12/19 23 09/13/2022 BACTE RIAL SUSCE PTIBI LITY PANEL BY MARITA amox/K clav'ate(C) >16/8 ug/mL resistant Not Available [facility] [address] [place] [address], [address], 09/13/2022 16:27:31 09/12/19 23 09/13/2022 BACTE RIAL SUSCE PTIBI LITY PANEL BY MARITA ampicillin >16 ug/mL resistant Not Available [facility] [address] [place] [address], [address], 09/13/2022 16:27:31 09/12/19 23 09/13/2022 BACTE RIAL SUSCE PTIBI LITY PANEL BY MARITA cefazolin >16 ug/mL resistant Not Available [facility] [address] [place] [address], [address], 09/13/2022 16:27:31 09/12/19 23 09/13/2022 BACTE RIAL SUSCE PTIBI LITY PANEL BY MARITA cefuroxime >16 ug/mL resistant Not Available [facility] [address] [place] [address], [address], 09/13/2022 16:27:31 09/12/19 23 09/13/2022 BACTE RIAL SUSCE PTIBI LITY PANEL BY MARITA ciprofloxaci n >2 ug/mL resistant Not Available [facility] [address] [place] [address], [address], 09/13/2022 16:27:31 09/12/19 23 09/13/2022 BACTE RIAL SUSCE PTIBI LITY PANEL BY MARITA gentamicin <=4 ug/mL susceptib le Not Available [facility] [address] [place] [address], [address], 09/13/2022 16:27:31 09/12/19 23 09/13/2022 BACTE RIAL SUSCE PTIBI LITY PANEL BY MARITA imipenem <=1 ug/mL susceptib le Not Available [address], [address], 09/13/2022 16:27:31 09/12/19 23 09/13/2022 BACTE RIAL SUSCE PTIBI LITY PANEL BY MARITA levofloxacin >4 ug/mL resistant Not Available [address], [address], 09/13/2022 16:27:31 09/12/19 23 09/13/2022 BACTE RIAL SUSCE PTIBI LITY PANEL BY MARITA nitrofuranto in <=32 ug/mL susceptib le Not Available [address], [address], 09/13/2022 16:27:31 09/12/19 23 09/13/2022 BACTE RIAL SUSCE PTIBI LITY PANEL BY MARITA piperacillin /jen 32 ug/mL intermedi ate Not Available [address], [address], 09/13/2022 16:27:31 09/12/19 23 09/13/2022 BACTE RIAL SUSCE PTIBI LITY PANEL BY MARITA tetracycline >8 ug/mL resistant Not Available [facility] [address] [place], [address], 09/13/2022 16:27:31 09/12/19 23 09/13/2022 BACTE RIAL SUSCE PTIBI LITY PANEL BY MARITA tobramycin >8 ug/mL resistant Not Available [facility] [address] [place], [address], 09/13/2022 16:27:31 09/12/19 23 09/13/2022 BACTE RIAL SUSCE PTIBI LITY PANEL BY MARITA trimeth/sulf a >2/38 ug/mL resistant Not Available [facility] [address] [place], [address], 09/13/2022 16:27:31 09/12/19 23 09/11/2022 urina lysis panel , auto Unknown Analyte Clean Catch Not Available Replaced by [facility] Extended Services With [address], [place], [address], 09/11/2022 13:01:23 09/12/19 23 09/11/2022 urina lysis panel , auto Unknown Analyte Yellow Not Available [facility] Extended Services With [address], [place], [address], 09/11/2022 13:01:23 09/12/19 23 09/11/2022 urina lysis panel , auto Unknown Analyte Clear Not Available [facility] Extended Services With [address], [place], [address], 09/11/2022 13:01:23 09/12/19 23 09/11/2022 urina lysis panel , auto Unknown Analyte 1.020 Not Available [facility] Extended Services With [address], [place], [address], 09/11/2022 13:01:23 09/12/19 23 09/11/2022 urina lysis panel , auto Unknown Analyte 1.003- 1.035 Not Available [facility] Extended Services With [address], [place], [address], 09/11/2022 13:01:23 09/12/19 23 09/11/2022 urina lysis panel , auto Unknown Analyte 5.0 Not Available [facility] Extended Services With [address] Hernandez, [place], [address], 09/11/2022 13:01:23 09/12/19 23 09/11/2022 urina lysis panel , auto Unknown Analyte 5.0-8. 0 Not Available [facility] Extended Services With [address] Hernandez, [place], [address], 09/11/2022 13:01:23 09/12/19 23 09/11/2022 urina lysis panel , auto Unknown Analyte 500 Marianne/ul (++) Not Available [facility] Extended Services With [address], [place], [address], 09/11/2022 13:01:23 09/12/19 23 09/11/2022 urina lysis panel , auto Unknown Analyte Negati ve Not Available [facility] Extended Services With [address] [place], [address], 09/11/2022 13:01:23 09/12/19 23 09/11/2022 urina lysis panel , auto Unknown Analyte POSITI VE (Abnor mal) Not Available [facility] Extended Services With [address] [place], [address], 09/11/2022 13:01:23 09/12/19 23 09/11/2022 urina lysis panel , auto Unknown Analyte Negati ve Not Available [facility] Services With [address] [place], [place], [address], 09/11/2022 13:01:23 09/12/19 23 09/11/2022 urina lysis panel , auto Unknown Analyte Trace Not Available [facility] Extended Services With [address] [place], [address], 09/11/2022 13:01:23 09/12/19 23 09/11/2022 urina lysis panel , auto Unknown Analyte Negati ve Not Available [facility] Extended Services With [address] [place], [address], 09/11/2022 13:01:23 09/12/19 23 09/11/2022 urina lysis panel , auto Unknown Analyte Normal Not Available [facility] Extended Services With [address] [place], [address], 09/11/2022 13:01:23 09/12/19 23 09/11/2022 urina lysis panel , auto Unknown Analyte Normal Not Available [facility] Extended Services With [address], [place], [address], 09/11/2022 13:01:23 09/12/1909/11/2022 urina lysis panel , auto Unknown Analyte 15 mg/dl (Sm) Not Available [facility] Extended Services With [address] [place], [address], 09/11/2022 13:01:23 09/12/19 23 09/11/2022 urina lysis panel , auto Unknown Analyte Negati ve Not Available [facility] Extended Services With [address] [place], [address], 09/11/2022 13:01:23 09/12/19 23 09/11/2022 urina lysis panel , auto Unknown Analyte 1 mg/dl Not Available [facility] Extended Services With [address], [place], [address], 09/11/2022 13:01:23 09/12/19 23 09/11/2022 urina lysis panel , auto Unknown Analyte Normal 1 mg/dl Not Available [facility] Extended Services With [address] [place], [address], 09/11/2022 13:01:23 09/12/1909/11/2022 urina lysis panel , auto Unknown Analyte Negati ve Not Available [facility] Extended Services With [address] [place], [address], 09/11/2022 13:01:23 09/12/19 23 09/11/2022 urina lysis panel , auto Unknown Analyte Negati ve Not Available [facility] Extended Services With [address] [place], [address], 09/11/2022 13:01:23 09/12/19 23 09/11/2022 urina lysis panel , auto Unknown Analyte Negati ve Not Available [facility] Extended Services With [address] [place], [address], 09/11/2022 13:01:23 09/12/1909/11/2022 urina lysis panel , auto Unknown Analyte Negati ve Not Available [facility] Extended Services With [address] [place], [address], 09/11/2022 13:01:23 04/02/19 24 04/02/2023 URINE CULTU RE escherichia coli Organi sm: Escher ichia coli Not Available [facility] [address] [place] [address], [address], 04/04/2023 16:17:31 04/02/19 24 04/04/2023 URINE CULTU RE urine culture abnormal ISOLA TE #1 COLON Y COUNT : > 100,0 00 CFU/M L Proba ble Gram Negat fish Bacil alvaro. ID and sensi tivit y in progr ess. See [place] te Resul t(s) Below Esche emory a coli Not Available [facility] [address] [place] [address], [address], 04/04/2023 16:17:31 04/02/19 24 04/04/2023 URINE CULTU RE amox/K clav'ate(C) 16/8 ug/mL intermedi ate Not Available [facility] [address] [place] [address], [address], 04/04/2023 16:17:31 04/02/19 24 04/04/2023 URINE CULTU RE ampicillin >16 ug/mL resistant Not Available [facility] [address] [place] [address], [address], 04/04/2023 16:17:31 04/02/19 24 04/04/2023 URINE CULTU RE cefazolin <=2 ug/mL susceptib le Not Available [facility] [address] [place] [address], [address], 04/04/2023 16:17:31 04/02/19 24 04/04/2023 URINE CULTU RE ceftazidime <=1 ug/mL susceptib le Not Available [facility] [address] [place] [address], [address], 04/04/2023 16:17:31 04/02/19 24 04/04/2023 URINE CULTU RE ceftriaxone <=1 ug/mL susceptib le Not Available [facility] [address] [place] [address], [address], 04/04/2023 16:17:31 04/02/19 24 04/04/2023 URINE CULTU RE cefuroxime <=4 ug/mL susceptib le Not Available [facility] [address] [place] [address], [address], 04/04/2023 16:17:31 04/02/19 24 04/04/2023 URINE CULTU RE ciprofloxaci n >2 ug/mL resistant Not Available [facility] [address] [place] [address], [address], 04/04/2023 16:17:31 04/02/19 24 04/04/2023 URINE CULTU RE gentamicin <=4 ug/mL susceptib le Not Available [facility] [address] [place] [address], [address], 04/04/2023 16:17:31 04/02/19 24 04/04/2023 URINE CULTU RE imipenem <=1 ug/mL susceptib le Not Available [facility] [address] [place] [address], [address], 04/04/2023 16:17:31 04/02/19 24 04/04/2023 URINE CULTU RE levofloxacin >4 ug/mL resistant Not Available [facility] [address] [place] [address], [address], 04/04/2023 16:17:31 04/02/19 24 04/04/2023 URINE CULTU RE nitrofuranto in <=32 ug/mL susceptib le Not Available [facility] [address] [place] [address], [address], 04/04/2023 16:17:31 04/02/19 24 04/04/2023 URINE CULTU RE piperacillin /jen <=16 ug/mL susceptib le Not Available [facility] [address] [place] [address], [address], 04/04/2023 16:17:31 04/02/19 24 04/04/2023 URINE CULTU RE tetracycline >8 ug/mL resistant Not Available [facility] [address] [place], [address], 04/04/2023 16:17:31 04/02/19 24 04/04/2023 URINE CULTU RE tobramycin >8 ug/mL resistant Not Available [facility] [address] [place], [address], 04/04/2023 16:17:31 04/02/19 24 04/04/2023 URINE CULTU RE trimeth/sulf a >2/38 ug/mL resistant Not Available [facility] [address] [place], [address], 04/04/2023 16:17:31 04/02/19 24 04/02/2023 urina lysis panel , auto Unknown Analyte Clean Catch Not Available [facility] With [address], [place], [address], 04/02/2023 14:43:37 04/02/19 24 04/02/2023 urina lysis panel , auto Unknown Analyte Yellow Not Available [facility] Extended Services With [address], [place], [address], 04/02/2023 14:43:37 04/02/19 24 04/02/2023 urina lysis panel , auto Unknown Analyte Clear Not Available [facility] Extended Services With [address], [place], [address], 04/02/2023 14:43:37 04/02/19 24 04/02/2023 urina lysis panel , auto Unknown Analyte 1.020 Not Available [facility] Extended Services With [address], [place], [address], 04/02/2023 14:43:37 04/02/19 24 04/02/2023 urina lysis panel , auto Unknown Analyte 1.003- 1.035 Not Available [facility] Extended Services With [address] [place], [address], 04/02/2023 14:43:37 04/02/19 24 04/02/2023 urina lysis panel , auto Unknown Analyte 5.0 Not Available [facility] Extended Services With [address] [place], [address], 04/02/2023 14:43:37 04/02/19 24 04/02/2023 urina lysis panel , auto Unknown Analyte 5.0-8. 0 Not Available [facility] Extended Services With [address] [place], [address], 04/02/2023 14:43:37 04/02/19 24 04/02/2023 urina lysis panel , auto Unknown Analyte 500 Marianne/ul (++) Not Available [facility] Extended Services With [address] [place], [address], 04/02/2023 14:43:37 04/02/19 24 04/02/2023 urina lysis panel , auto Unknown Analyte Negati ve Not Available [facility] Extended Services With [address] [place], [address], 04/02/2023 14:43:37 04/02/19 24 04/02/2023 urina lysis panel , auto Unknown Analyte POSITI VE (Abnor mal) Not Available [facility] Extended Services With [address] [place], [address], 04/02/2023 14:43:37 04/02/19 24 04/02/2023 urina lysis panel , auto Unknown Analyte Negati ve Not Available [facility] Extended Services With [address] [place], [address], 04/02/2023 14:43:37 04/02/19 24 04/02/2023 urina lysis panel , auto Unknown Analyte Trace Not Available [facility] Extended Services With [address] [place], [address], 04/02/2023 14:43:37 04/02/19 24 04/02/2023 urina lysis panel , auto Unknown Analyte Negati ve Not Available [facility] Extended Services With [address] [place], [address], 04/02/2023 14:43:37 04/02/19 24 04/02/2023 urina lysis panel , auto Unknown Analyte >1000 mg/dl Not Available [facility] Extended Services With [address] [place], [address], 04/02/2023 14:43:37 04/02/19 24 04/02/2023 urina lysis panel , auto Unknown Analyte Normal Not Available [facility] Extended Services With [address] [place], [address], 04/02/2023 14:43:37 04/02/19 24 04/02/2023 urina lysis panel , auto Unknown Analyte 15 mg/dl (Sm) Not Available [facility] Extended Services With [address] [place], [address], 04/02/2023 14:43:37 04/02/19 24 04/02/2023 urina lysis panel , auto Unknown Analyte Negati ve Not Available [facility] Extended Services With [address] [place], [address], 04/02/2023 14:43:37 04/02/19 24 04/02/2023 urina lysis panel , auto Unknown Analyte 4 mg/dl Not Available [facility] Extended Services With [address] [place], [address], 04/02/2023 14:43:37 04/02/19 24 04/02/2023 urina lysis panel , auto Unknown Analyte Normal 1 mg/dl Not Available [facility] Extended Services With [address] [place], [address], 04/02/2023 14:43:37 04/02/19 24 04/02/2023 urina lysis panel , auto Unknown Analyte Negati ve Not Available [facility] Extended Services With [address] [place], [address], 04/02/2023 14:43:37 04/02/19 24 04/02/2023 urina lysis panel , auto Unknown Analyte Negati ve Not Available [facility] Extended Services With [address] [place], [address], 04/02/2023 14:43:37 04/02/19 24 04/02/2023 urina lysis panel , auto Unknown Analyte 50 Nadeem/ul Not Available [facility] Extended Services With [address] [place], [address], 04/02/2023 14:43:37 04/02/19 24 04/02/2023 urina lysis panel , auto Unknown Analyte Negati ve Not Available [facility] Extended Services With [address] [place], [address], 04/02/2023 14:43:37 Result Notes None recorded. Medical Equipment None Reported. Allergies Allergen ID Allergen Name Allergen Category Reaction Reaction Severity Criticality Documentation Date Start Date Code Code System Note Provider Name and Address Organization Details Recorded Time [id number] aspirin medicatio n Not available Not available Not available 01/25/20162012 1191 RxNorm Comme nt: Creat ed By: Toan gomez Date: 2012 8:21: 50 AM; Not Available [facility] 09:11:[facility] Medications Name Sig Start Date Stop Date Status Note LastModified by Organization Details LastModified Time amantadin e HCl 100 mg tablet Daily 2010 active Instruct ions: D/C BLUEGRAS S;Freque ncy: daily;Me dication Descript ion: amantadi ne; Dosage:1 ; Route:or al; refills: 0; Quantity :30 tablet Not Available Not Available Not Available Glucophag e 500 mg tablet Two times a day 04/28 completed Duration : 30 days;Grabiel quency: bid;Medi cation Descript ion: metformi n; Dosage:1 ; Route:or al; refills: 0; Quantity :60 tablet Not Available Not Available Not Available atorvasta tin 10 mg tablet active Medicati on Descript ion: atorvast atin; Route:or al; refills: 0 Not Available Not Available Not Available Phenergan 25 mg tablet As needed active Duration : 10 days;Grabiel quency: prn;Alt Frequenc y: prn;Medi cation Descript ion: prometha zine; Dosage:1 ; Route:or al; refills: 0; Quantity :10 tablet Not Available Not Available Not Available omeprazol e 40 mg capsule,d elayed release active Medicati on Descript ion: omeprazo le; Route:or al; refills: 0 Not Available Not Available Not Available quetiapin e 100 mg tablet active Medicati on Descript ion: quetiapi ne; Route:or al; refills: 0 Not Available Not Available Not Available Macrobid 100 mg capsule Take 1 capsule every 12 hours by oral route for 10 days. 04/28 completed Not Available Not Available Not Available propranol ol 40 mg tablet active Medicati on Descript ion: proprano lol; Route:or al; refills: 0 Not Available Not Available Not Available lutein 6 mg capsule 04/28 completed Medicati on Descript ion: lutein; Route:or al; refills: 0 Not Available Not Available Not Available glimepiri de 4 mg tablet 04/28 completed Medicati on Descript ion: glimepir jing; Route:or al; refills: 0 Not Available Not Available Not Available monteluka st 10 mg tablet 04/28 completed Medicati on Descript ion: monteluk ast; Route:or al; refills: 0 Not Available Not Available Not Available lisinopri l 5 mg tablet Bedtime active Frequenc y: hs;Medic ation Descript ion: lisinopr il; Dosage:1 ; Route:or al; refills: 0 Not Available Not Available Not Available Aricept 10 mg tablet Daily 04/28 completed Duration : 30 days;Ins truction s: D/C BLUEGRAS S;Freque ncy: daily;Me dication Descript ion: donepezi l; Dosage:1 ; Route:or al; refills: 0; Quantity :30 tablet Not Available Not Available Not Available multivita min with iron tablet 04/28 completed Duration : 10 days;Med ication Descript ion: multivit coates with iron; Route:or al; refills: 0; Quantity :30 tablet Not Available Not Available Not Available Namenda 10 mg tablet active Medicati on Descript ion: memantin e; Route:or al; refills: 0 Not Available Not Available Not Available gabapenti n 400 mg tablet active Medicati on Descript ion: gabapent in; Route:or al; refills: 0 Not Available Not Available Not Available loratadin e Daily active Frequenc y: daily;Me dication Descript ion: loratadi ne; Dosage:1 ; Route:or al; refills: 0 Not Available Not Available Not Available potassium chloride active Not Available Not Available Not Available meloxicam active Not Available Not Adelia ilable Not Available tamsulosi n active Not Available Not Available Not Available lactulose active Not Available Not Adelia ilable Not Available omeprazol e active Not Available Not Available Not Available Fish Oil active Medicati on Descript ion: omega-3 polyunsa turated fatty acids; Route:or al; refills: 0 Not Available Not Available Not Available monteluka st active Not Available Not Available Not Available Sudafed As needed active Duration : 10 days;Grabiel quency: prn;Medi cation Descript ion: pseudoep hedrine; Route:or al; refills: 0; Quantity :40 tablet Not Available Not Available Not Available paroxetin e HCl active Medicati on Descript ion: paroxeti ne; Route:or al; refills: 0 Not Available Not Available Not Available Tylenol active Not Available Not Avail able Not Available metoprolo l succinate active Not Available Not Available No t Available [place]-3 active Medicati on Descript ion: omega-3 polyunsa turated fatty acids; Route:or al; refills: 0 Not Available Not Available Not Available metformin active Not Available Not Adelia ilable Not Available donepezil active Not Available Not Adelia ilable Not Available multivita min active Not Available Not Available Not Available Systane (propylen e glycol) active Medicati on Descript ion: ocular lubrican t; Route:op hthalmic ; refills: 0 Not Available Not Available Not Available memantine active Not Available Not Adelia ilable Not Available Januvia 100 mg tablet active Medicati on Descript ion: sitaglip tin; Route:or al; refills: 0 Not Available Not Available Not Available Myrbetriq 25 mg tablet,ex tended release Take 1 tablet every day by oral route. active Not Available Not Available No t Available Flonase Allergy Relief 50 mcg/actua tion nasal spray,tremayne pension Daily active Frequenc y: daily;Me dication Descript ion: fluticas one nasal; Dosage:1 spray; Route:na jaycee; refills: 0; Quantity :1 spray Not Available Not Available Not Available Vitals Date Recorded Body height Provider Name an d Address Organization Details Last Updated DateTime 03/13/2022 167.64 cm Elisa [facility] 03/13/2022 14:39:29 Date Recorded Body height Provider Name an d Address Organization Details Last Updated DateTime 04/02/2023 167.64 cm Elisa [facility] 04/02/2023 14:42:36 Date Recorded Body height Provider Name an d Address Organization Details Last Updated DateTime 04/28/2024 167.64 cm Elisa [facility] 04/28/2024 13:54:24 Date Recorded Body height Provider Name an d Address Organization Details Last Updated DateTime 09/11/2022 167.64 cm Elisa Rasheed [facility] 09/11/2022 12:59:42 Date Recorded Body height Provider Name an d Address Organization Details Last Updated DateTime 01/31/2022 167.64 cm Kelsey Kiran [facility] 1 04/03/2021 09:16:49 Social History Question Answer Notes LastModified by Organizat ion Details LastModified Time Tobacco Smoking Status Never Smoker Kelsey Kiran [facility], [facility] 01/31/2022 09:17:43 What Was The Date Of Your Most Recent Tobacco Screening? 04/28/2024 [email or web address] Information not available 04/28/2024 What Is Your Relationship Status? Single Information not available 01/31/2022 Sex: Unknown Functional Status Question Answer Note LastModified by Organizat ion Details LastModified Time Do you or have you ever used any other forms of tobacco or nicotine? Yes chew tabacco [email or web address] Information not available 01/31/2022 What is your level of alcohol consumption? None [email or web address] Information not available 01/31/2022 Mental Status None recorded. Family History Relationship Description Onset Age of this Age Resolved Age Notes LastModified by Organization Details LastModified Time Brother Family history of malignant neoplasm prosta te cancer [email or web address] Not available 01/31/2022 09:17:15 Medical History Condition Response Arthritis Y Tuberculosis Y Asthma Y Allergies/Hayfever Y Chronic Obstructive Pulmonary Disease Y Diabetes Y Seizures/Epilepsy Y Hypertension Y Past Encounters Encounter ID Performer Location Encounter Start Date Encounter Closed Date Diagnosis/Indication Diagnosis SNOMED-CT Code Diagnosis ICD10 Code Diagnosis Note [id number] LOUIE QUIROGA MD [facility] [address] [place] [address] 01/31/2022 09:01:56 02/03/2022 20:16:01 Retention of urine 476568164 R33.9 Urinary tr act infectious disease 98340820 N39.0 Benign pro static hyperplasia with outflow obstruction 570733119 N40.1 [id number] LOUIE QUIROGA MD [facility] [address] [place] [address],[place] [address] 03/13/2022 14:20:04 03/31/2022 04:09:12 Benign prostatic hyperplasia with outflow obstruction 851887671 N40.1 Increased frequency of urination 021211040 R35.0 Nocturia 400137600 R35.1 [id number] LOUIE QUIROGA MD [facility] [address] [place] [address] ,[place] [address] 09/11/2022 12:43:22 09/11/2022 18:42:48 Urinary tract infectious disease 83335790 N39.0 Benign pro static hyperplasia with outflow obstruction 744725310 N40.1 Increased frequency of urination 697264393 R35.0 Nocturia 502114616 R35.1 Urinary he sitancy due to benign prostatic hypertrophy 9714618936 54583 N40.1 Tight foreskin 151572265 N47.1 [id number] LOUIE QUIROGA MD [facility] [address] [place] [address] ,[place] [address] 04/02/2023 14:03:06 04/02/2023 15:16:42 Urinary tract infectious disease 78922525 N39.0 Tight foreskin 165468996 N47.1 Benign pro static hyperplasia with outflow obstruction 198538049 N40.1 Increased frequency of urination 454921050 R35.0 Nocturia 959933148 R35.1 Urinary he sitancy due to benign prostatic hypertrophy 3482472501 62793 N40.1 [id number] LOUIE QUIROGA MD [facility] [address] [place] [address] ,[place] [address] 04/28/2024 13:29:48 04/28/2024 16:38:13 Benign prostatic hyperplasia with outflow obstruction 699575853 N40.1 Nocturia 254354977 R35.1 Health Concerns Section Related Observation LastModified by Organization Detai ls LastModified Time None Recorded Concern Status LastModified by Organization Details LastModified Time None Recorded Advance Directives Directive None Recorded Payers Insurance Date Sequence Insurance Name Policy Number Policy Dailey Covered Member ID Dailey Member ID Guarantor Name 04/29/2024 2 [place] [employer] [place] FFS/TRADITIO NAL Sanket Love [id number] Sanket Love 04/29/2024 1 [place] Sanket Love [id number] Sanket Love Notes Date Note Type Note Provider Name and Address Organization Details Recorded Time 01/31/2022 text/html 71-year-old male in the office for my initial evaluation and for discussion of urinary retention and UTI. He had history of Alzheimer dementia, Parkinson's disease, and diabetes mellitus. He also had recent ESBL E. coli UTI that is being treated with Invanz. Also as his baseline he takes flomax daily and oxybutynin 5 mg daily. He is a resident at [facility]. He has catheter in situ for about one month. It was placed when he was hospitalized. He has history of UTIs. I will discontinue oxybutynin due to anticholinergic side effects and aging male with history of dementia and Parkinson's and start myrbetriq and continue flomax. Denies symptoms of orthostasis. LOUIE QUIROGA MD [address] [place] [address], [phone], [facility] 02/02/2022 09:18:12 03/13/2022 text/html 72-year-old male in the office for follow-up evaluation of urinary retention and UTI. He has Alzheimer's dementia, Parkinson's disease, diabetes mellitus. He voids hourly with nocturia 1-2 times nightly. He does have hesitancy. No hematuria or dysuria. He continues taking Myrbetriq and tamsulosin. LOUIE QUIROGA MD [address] [place] [address], [phone], [facility] 03/30/2022 16:21:35 09/11/2022 text/html 72-year-old male in the office for follow-up evaluation of urinary retention and UTI. He has Alzheimer's dementia, Parkinson's disease, diabetes mellitus. Daytime frequency every 2 hours. Nocturia every hour, reportedly. He has hesitancy. He reports pain at the distal penis with difficulty retracting the foreskin. LOUIE QUIROGA MD [address] [place] [address], [phone], [facility] 09/21/2022 16:37:34 04/02/2023 text/html 73-year-old male in the office for follow-up evaluation of urinary retention and UTI. He has Alzheimer's dementia, Parkinson's disease, diabetes mellitus. Daytime frequency normal. Nocturia 2-3 times. No gross hematuria. Recent onset of frequent dysuria. Pain at the end of his penis has alleviated since last appointment. LOUIE QUIROGA MD [address] [place] [address] [place], [address], [facility] 04/19/2023 13:06:22 04/28/2024 text/html 74-year-old male in the office for follow-up evaluation of urinary retention and UTI. He has Alzheimer's dementia, Parkinson's disease, diabetes mellitus. Patient reports that urination symptoms are stable and he has no new concerns. Patient continues taking tamsulosin and Myrbetriq. LOUIE QUIROGA MD [address] [place] [address] [place], [address], [facility] 04/28/2024 22:13:06
[2024-08-22 07:37] LABS: Iron 41 ug/dL (49-181)
[2024-08-22 07:47] LABS: Total Iron Binding Capacity 294 ug/dL (261-462)
[2024-08-22 08:13] LABS: Ferritin 28.4 ng/ml (17.9-464)
[2024-08-22 08:22] LABS: Basophils % 0.5 % (0.1-2.0); Eosinophils # 0.1 Kmm3 (0.0-0.4); Eosinophils % 3.2 % (0.1-12.0); Hematocrit 34.3 % (42.0-52.0); Hemoglobin 11.1 g/dL (14.1-18.0); Immature Granulocytes # 0.01 10^3uL; Immature Granulocytes % 0.3 %; Lymphocytes % 26.4 % (10-50); Mean Corpuscular HGB Conc 32.4 g/dL (31.8-35.4); Mean Corpuscular Hemoglobin 27.3 pg (27.0-31.2); Mean Corpuscular Volume 84.3 fl (80-94); Mean Platelet Volume 10.7 fl (7.4-10.4); Monocytes # 0.3 K/mm3 (0.1-1.0); Monocytes % 8.9 % (1.7-9.3); Neutrophils # 2.3 K/mm3 (1.8-7.8); Neutrophils % 60.7 % (37.0-80.0); Nucleated Red Blood Cells # 0 10^3/uL; Nucleated Red Blood Cells % 0 %; Platelet Count 91 K/mm3 (142-424); Red Blood Count 4.07 M/mm3 (4.60-6.20); Red Cell Distribution Width 17.2 % (11.5-17.5); Red Cell Distribution Width-SD 52.8 fL; White Blood Count 3.7 K/mm3 (4.8-10.8)
[2024-08-24 10:35] LABS: Anion Gap 10.7 mEq/L (5-15); Blood Urea Nitrogen 11 mg/dl (9-20); Calcium 8.7 mg/dl (8.4-10.2); Carbon Dioxide 26 mmol/L (22.0-30.0); Chloride 105 mmol/L (98-107); Estimated Glomerular Filt Rate 111 ml/min (>60); GFR (African American) 134 ML/MIN (>60); Glucose 182 mg/dl (74-100); Potassium 3.7 mmoL/L (3.5-5.1); Sodium 138 mmol/L (136-145)
[2024-08-24 12:04] LABS: Hemoglobin A1C 7.3 % (4.0-6.0)
== END 2024-08-22 23:59 | disposition home or self-care (01) ==
PROVIDERS: Nurse Practitioner Family; PCP Family Medicine; Visit Provider Family Medicine
DX: D64.9 Anemia, unspecified (principal)
CPT/HCPCS: 36415; 80048; 82728; 83036; 83540; 83550; 85025

== ENCOUNTER 2024-10-07 07:14 | Outpatient (CLI) | payer MEDICARE, MEDICAID, SELFPAY ==
--- OUTSIDE RECORDS SUMMARY | 2024-10-07 07:15 | XMS_ITS ---
Author Name Auto Generated, Auto Generated Organization [facility] ator Address [address] [place] [address] Phone [phone] Care Team Providers Care Psychological Operations Specialist Name Role Phone Elton Fields Unavailable [phone] Luigi Nunez Unavailable Functional Status Narrative Start Date End Date Endurance ThuDec 16 08:00:00 EDT 2021 Bowel incontinence ThuDec 16 08:00:00 EDT 2021 Bladder incontinence ThuDec 16 08:00:00 EDT Ambulation ThuDec 16 08:00:00 EDT 2021 Mental Status No Results Allergies and Intolerances Name Onset Date Reaction Severity aspirin (Allergy) ThuDec 16 21:16:00 EDT 2021 Medications Medication Directions Start Date End Date Tylenol Extra Strength 500 mg tablet 1tab TABLET Oral PRN Every 4 Hours Indication: pain or fever ThuDec 18 00:00:00 EDT 2021Dec 18 00:00:00 EDT 2021 Dilaudid 2 mg tablet 1mg(1/2tab) TABLET Oral PRN Every 6 Hours Indication: pain soa ThuDec 18 00:00:00 EDT 2021Dec 18 00:00:00 EDT 2021 atorvastatin 10 mg tablet 1 tab TABLET O ral Every 1 Day Indication: hyperlipidemia ThuDec 16 00:00:00 EDT 2021Dec 18 00:00:00 EDT 2021 Aricept 5 mg tablet 1 tablet TABLET Oral Hour Of Sleep Indication: dementia ThuDec 16 00:00:00 EDT 2021Dec 18 00:00:00 EDT 2021 Fish OiL 300 mg-1,000 mg capsule 1 capsule CAPSULE Oral Every 1 Day Indication: supplement ThuDec 16 00:00:00 EDT 2021Dec 18 00:00:00 EDT 2021 fluticasone propionate 50 mcg/actuation nasal spray,suspension 1 spray intoeach nostril SPRAY, SUSPENSION Intranasal Hour Of Sleep Indication: allergies ThuDec 16 00:00:00 EDT 2021Dec 18 00:00:00 EDT 2021 gabapentin 400 mg capsule 1 capsule CAPS ULE Oral 3 Times Daily Indication: pain ThuDec 16 00:00:00 EDT 2021Dec 18 00:00:00 EDT 2021 Januvia 100 mg tablet 1 tablet TABLET Or al Hour Of Sleep Indication: diabetes ThuDec 16 00:00:00 EDT 2021Dec 18 00:00:00 EDT 2021 lutein 10 mg tablet 1 tablet TABLET Oral Every 1 Day Indication: prevention of eye disease ThuDec 16 00:00:00 EDT 2021Dec 18 00:00:00 EDT 2021 Namenda XR 28 mg capsule sprinkle,extended release 1 capsule CAPSULE SPRINKLE, EXTENDED RELEASE 24 HR Oral Every 1 Day Indication: dementia ThuDec 16 00:00:00 EDT 2021Dec 18 00:00:00 EDT 2021 metFORMIN 500 mg tablet 1 tablet TABLET Oral 2 Times Daily Indication: diabetes ThuDec 16 00:00:00 EDT 2021Dec 18 00:00:00 EDT 2021 Toprol XL 25 mg tablet,extended release 1 tablet TABLET, EXTENDED RELEASE 24 HR Oral Every 1 Day Indication: hypertension ThuDec 16 00:00:00 ED2021Dec 18 00:00:00 EDT 2021 oxybutynin chloride ER 5 mg tablet,extended release 24 hr 1 tablet TABLET, EXTENDED RELEASE 24 HR Oral Every 1 Day Indication: urinary retention ThuDec 16 00:00:00 EDT 2021Dec 18 00:00:00 EDT 2021 PARoxetine 40 mg tablet 1 tablet TABLET Oral Every 1 Day Indication: depression ThuDec 16 00:00:00 EDT 2021Dec 18 00:00:00 EDT 2021 QUEtiapine 100 mg tablet 1 tablet TABLET Oral Every 1 Day Indication: anxiety ThuDec 16 00:00:00 ED2021Dec 18 00:00:00 EDT 2021 Flomax 0.4 mg capsule 1 capsule CAPSULE Oral Every 1 Day Indication: BPH BPH ThuDec 16 00:00:00 ED2021Dec 18 00:00:00 EDT 2021 Systane (PF) 0.4 %-0.3 % eye drops in a dropperette 1 drop DROPPERETTE, SINGLE-USE DROP DISPENSER Both Eyes Every 12 Hours Indication: dry eyes ThuDec 16 00:00:00 EDT 2021Dec 18 00:00:00 2021 Vitamin C 500 mg tablet 1 tablet TABLET Oral 2 Times Daily Indication: supplement ThuDec 16 00:00:00 2021Dec 18 00:00:00 ED2021 multivitamin capsule 1 capsule CAPSULE O ral Every 1 Day Indication: supplement ThuDec 16 00:00:00 ED2021Dec 18 00:00:00 ED2021 Arginaid 4.5 gram-156 mg/9.2 gram oral powder packet 1 packet POWDER IN PACKET (EA) Oral Every 1 Day Indication: supplement ThuDec 16 00:00:00 ED2021Dec 18 00:00:00 ED2021 omeprazole 20 mg capsule,delayed release 1 capsule CAPSULE,DELAYED RELEASE (ENTERIC COATED) Oral Every 1 Day Indication: GERD ThuDec 16 00:00:00 ED2021Dec 18 00:00:00 ED2021 lactulose 10 gram/15 mL oral solution 30ml SOLUTION, ORAL Oral PRN Every 1 Day Indication: constipation ThuDec 16 00:00:00 T 2021Dec 18 00:00:00 EDT 2021 Treatment Plan Goals Problem/Goal: Wound(s) due t o decreased immobility which is due to progression of disease. Facility staff will demonstrate understanding of treatment plan and dressing changes for wounds including effective therapeutic regimen as evidenced by evidence of wound healing and no indication of infection. Problem/Goal: Potential for falls due to increasing weakness due to progression of disease. Patient will be free from falls as evidenced by zero falls occurring and being reported.. BEREAVEMENT Grief due to int angible losses. Storage Wharfage Clerk will assist patient/family in naming personal and intangible losses as evidenced by calm affect. BEREAVEMENT Anticipatory Gri ef due to decline. Patient/Family will identify areas of loss as evidenced by expressed peace. EXISTENTIAL Spiritual risk d ue to decline. Patient/family will have a sense of hope purpose and meaning as evidenced by expressed peace. Problems No Known Problems Goals Section Goals Problem/Goal: Wound(s) due t o decreased immobility which is due to progression of disease. Facility staff will demonstrate understanding of treatment plan and dressing changes for wounds including effective therapeutic regimen as evidenced by evidence of wound healing and no indication of infection. Problem/Goal: Potential for falls due to increasing weakness due to progression of disease. Patient will be free from falls as evidenced by zero falls occurring and being reported.. BEREAVEMENT Grief due to int angible losses. Storage Wharfage Clerk will assist patient/family in naming personal and intangible losses as evidenced by calm affect. BEREAVEMENT Anticipatory Gri ef due to decline. Patient/Family will identify areas of loss as evidenced by expressed peace. EXISTENTIAL Spiritual risk d ue to decline. Patient/family will have a sense of hope purpose and meaning as evidenced by expressed peace. Reason for Referral
--- OUTSIDE RECORDS SUMMARY | 2024-10-07 07:15 | XMS_ITS ---
Author Name Auto Generated, Auto Generated Organization [facility] at[facility] Address [address] [place] [address] Phone [phone] Care Team Providers Care Range Mounter Name Role Phone Elton Fields Unavailable [phone] Luigi Nunez Unavailable Functional Status Narrative Start [...] BEREAVEMENT Grief due to int angible losses. Raw Stock Dyeing Machine Tender will assist patient/family in naming personal and [...] BEREAVEMENT Grief due to int angible losses. Raw Stock Dyeing Machine Tender will assist patient/family in naming personal and [...]
--- OUTSIDE RECORDS SUMMARY | 2024-10-07 07:16 | XMS_ITS | Clinical Summary ---
Author Organization [facility] [place] [address] Phone Care Team Providers Care Tenter Name Role Phone Unavailable Primary Care Provider [...] 2) 2002 AAA Screening 2017 COVID-19 Vaccine ( - 2023-2 5 season) 2023 Influenza Vaccine (#1) 2024 Hepatitis B Vaccine Aged Out No longe r eligible based on patient's age to complete this topic Meningococcal B Vaccine Aged Out No l onger eligible based on patient's age to complete this topic Insurance [place] PART [place] AND B
[2024-10-07 07:23] LABS: Hematocrit 32.3 % (42.0-52.0); Hemoglobin 10.7 g/dL (14.1-18.0); Immature Granulocytes % 0.3 %; Mean Corpuscular HGB Conc 33.1 g/dL (31.8-35.4); Mean Corpuscular Hemoglobin 28.8 pg (27.0-31.2); Mean Corpuscular Volume 86.8 fl (80-94); Nucleated Red Blood Cells % 0 %; Platelet Count 79 K/mm3 (142-424); Red Blood Count 3.72 M/mm3 (4.60-6.20); Red Cell Distribution Width-SD 50.2 fL; White Blood Count 3.3 K/mm3 (4.8-10.8)
[2024-10-07 07:50] LABS: INR 1.06 (0.9-1.1); Prothrombin Time 11.7 seconds (10.1-12.5)
[2024-10-07 07:52] LABS: Albumin Level 3.2 g/dl (3.5-5.0); Chloride 109 mmol/L (98-107); Potassium 3.7 mmoL/L (3.5-5.1); Sodium 141 mmol/L (136-145)
[2024-10-07 07:54] LABS: Blood Urea Nitrogen 9 mg/dl (9-20); Creatinine,Serum 0.60 mg/dl (0.66-1.25); Estimated Glomerular Filt Rate 132 ml/min (>60); GFR (African American) 160 ML/MIN (>60)
[2024-10-07 07:55] LABS: Alanine Aminotransferase 26 U/L (12-78); Albumin/Globulin Ratio 1.2 (1.1-1.8); Alkaline Phosphatase 83 U/L (38-126); Anion Gap 8.7 mEq/L (5-15); Aspartate Amino Transferase 35 U/L (17-59); Bilirubin,Total 1.4 mg/dl (0.2-1.3); Calcium 8.4 mg/dl (8.4-10.2); Carbon Dioxide 27 mmol/L (22.0-30.0); Globulin 2.7 g/dL (1.3-3.2); Iron 44 ug/dL (49-181); Total Protein,Serum 5.9 g/dl (6.3-8.2)
[2024-10-07 08:00] LABS: Glucose 50 mg/dl (74-100)
[2024-10-07 08:04] LABS: Total Iron Binding Capacity 272 ug/dL (261-462)
[2024-10-07 08:31] LABS: Ferritin 30.1 ng/ml (17.9-464)
[2024-10-07 10:59] LABS: Vitamin B12 237 pg/mL (239-931)
[2024-10-07 11:18] LABS: Folate 12.80 ng/mL
== END 2024-10-07 23:59 | disposition home or self-care (01) ==
PROVIDERS: PCP Family Medicine; Visit Provider Physician Assistant
DX: K74.60 Unspecified cirrhosis of liver (principal)
CPT/HCPCS: 36415; 80053; 82105; 82607; 82728; 82746; 83540; 83550; 85025; 85610

== ENCOUNTER 2024-10-11 18:37 | Emergency (ER) | payer MEDICARE, MEDICAID, SELFPAY ==
[2024-10-11] VITALS (9 sets, daily range): BP systolic 108–153; BP diastolic 51–109; PULSE 55–61; RESP 9–26; TEMP 36.6; O2SAT 92–99; BMI 29.8
--- NOTE | 2024-10-11 18:36 | ECG_ITS ---
APPROVED REPORT Exam: Resting ECG HR:55 bpm ECG Measurements Heart Rate 55 AXES NH 149 P 63 QRSd 86 QRS 93 QT 399 T 58 QTc 387 Conclusion SINUS BRADYCARDIA BORDERLINE RIGHT AXIS DEVIATION [QRS AXIS > 90] BORDERLINE ECG UNCONFIRMED REPORT Sinus bradycardia. No ST elevations or depressions. QTc normal at 387 Electronically signed by : TOM MCCOLLUM, 10/12/2024 18:13:59
--- NOTE | 2024-10-11 18:48 | XR_ITS ---
PROCEDURE INFORMATION: Exam: XR Chest Exam date and time: 10/11/2024 7:37 PM Age: 74 years old Clinical indication: Other: Chest pain; Additional info: Cp TECHNIQUE: Imaging protocol: Radiologic exam of the chest. Views: 1 view. COMPARISON: CR XR CHEST PORTABLE 02/18/2024 3:49 PM FINDINGS: Tubes, catheters and devices: Monitoring leads project over the chest. Lungs: Patchy airspace opacities in the right lower lobe. Pleural spaces: Unremarkable. No pleural effusion. No pneumothorax. Heart/Mediastinum: Unremarkable. No cardiomegaly. Bones/joints: Unremarkable. IMPRESSION: Patchy airspace opacities in the right lower lobe. Suspicious for pneumonia.
--- NOTE | 2024-10-11 18:48 | CT_ITS ---
PROCEDURE INFORMATION: Exam: CT Chest With Contrast; Diagnostic Exam date and time: 10/11/2024 9:07 PM Age: 74 years old Clinical indication: Pain; Chest pressure; Additional info: Chest pain after egd TECHNIQUE: Imaging protocol: Diagnostic computed tomography of the chest with contrast. Radiation optimization: All CT scans at this facility use at least one of these dose optimization techniques: automated exposure control; mA and/or kV adjustment per patient size (includes targeted exams where dose is matched to clinical indication); or iterative reconstruction. Contrast material: ISOVUE; Contrast volume: 75 ml; Contrast route: IV; COMPARISON: CR XR CHEST PORTABLE 10/11/2024 7:37 PM FINDINGS: Limitations: Motion artifact degrades image quality and limits the sensitivity of this examination. Lungs: Multiple calcified granulomata in the right lung. Right basilar atelectasis. Pleural spaces: Unremarkable. No pneumothorax. No pleural effusion. Heart: Unremarkable. No cardiomegaly. No pericardial effusion. Coronary arteries: Mild calcification of the coronary arteries. Lymph nodes: Calcified right hilar and mediastinal lymph nodes. Vasculature: Unremarkable. No aortic aneurysm. Intraperitoneal space: Abdominal ascites. Bones/joints: Unremarkable. No acute fracture. Soft tissues: Unremarkable. IMPRESSION: 1. No acute findings. 2. Evidence of prior granulomatous exposure. 3. Mild atherosclerotic calcification of the coronary arteries.
--- NOTE | 2024-10-11 18:51 | HMH.EDGENADL ---
Discharge Plan Disposition Patient Disposition: Home, Self-Care Prescriptions Prescriptions: No Action ferrous sulfate 325 mg (65 mg iron) tablet 325 mg PO BID atorvastatin 10 mg tablet 10 mg PO HS fluticasone propionate [Allergy Relief (fluticasone)] 50 mcg/actuation spray,suspension 1 spray INTRANASAL HS Rx Instructions: administer into each nostril memantine [Namenda XR] 28 mg capsule,sprinkle,ER 24hr 28 mg PO DAILY Januvia 100 mg tablet 100 mg PO HS tamsulosin [Flomax] 0.4 mg capsule 0.4 mg PO HS acetaminophen [Pain Reliever ES(acetaminophn)] 500 mg tablet 500 mg PO Q4HP PRN (Reason: Fever Or Pain) lactulose 10 gram/15 mL solution 20 g PO DAILYP PRN (Reason: Constipation) donepezil 5 mg tablet 5 mg PO HS metformin 1,000 mg tablet 1,000 mg PO BID metoprolol succinate 50 mg tablet extended release 24 hr 50 mg PO DAILY Myrbetriq 25 mg tablet extended release 24 hr 25 mg PO DAILY multivitamin Tablet 1 tab PO DAILY Qty: 30 0RF insulin glargine [Basaglar KwikPen U-100 Insulin] 100 unit/mL (3 mL) insulin pen 40 unit SQ HS guaifenesin [Pily-Tussin] 100 mg/5 mL liquid 200 mg PO Q4H PRN (Reason: cough) Qty: 118 0RF gabapentin 400 mg capsule 400 mg PO TID Qty: 90 5RF omeprazole 20 mg Tablet,Delayed Release (Dr/Ec) 20 mg PO DAILY Systane Complete 0.6 % Drops 1 drp Eye-Both BID potassium chloride 20 mEq Tablet,Er Particles/Crystals 20 meq PO BID Qty: 0 0RF (DME) BD AutoShield Duo Pen Needle 30 gauge x 3/16 needle MISCELLANEOUS omega 4-npp-nof-fish oil 300 mg (120 mg- 180mg)-1,000 mg capsule 1 cap PO DAILY Patient Comments: GIVE 1 CAPSULE BY MOUTH ONCE DAILY meloxicam 7.5 mg tablet 7.5 mg PO BID PRN (Reason: Left arm pain, back pain) Qty: 14 0RF Activity Restrictions/Add. Instructions Additional Instructions/Restrictions: If you develop any new or worsening symptoms, such as worsening chest pain, shortness of breath, difficulty swallowing, or if you become concerned for your health for any reason, return to the emergency department for evaluation. I encourage you to follow-up with your gastroenterology team if you continue to have pain in your throat. Clinical Impressions Clinical Impression: Chest pain Print Language Print Language: Malaysian Discharge ED Provider: Jarrett Roa General Adult HPI <Steff James APRN - Last Filed: 10/11/24 19:30> General Chief complaint: Chest Pain Stated complaint: CHEST PAIN Time Seen by Provider: 10/11/24 18:41 History of Present Illness HPI narrative: patient is a 74-year-old male PMHx dementia, esophageal varices, schizophrenia, GERD, BPH, hyperlipidemia, diabetes who presents to the ED with caregiver for complaints of chest pain. Caregiver states that patient had a EGD at [facility] today and has had chest pain since the EGD was performed. Related Data Home Medications ?Medication ?Instructions ?Recorded ?Confirmed atorvastatin 10 mg tablet 10 mg PO HS 06/08/20 09/26/24 fluticasone propionate 50 1 spray intranasal HS Allergy 06/08/20 09/26/24 mcg/actuation nasal symptoms spray,suspension (Allergy Relief (fluticasone)) memantine 28 mg capsule 28 mg PO DAILY 06/08/20 09/26/24 sprinkle,extended release 24hr (Namenda XR) sitagliptin phosphate 100 mg 100 mg PO HS 06/08/20 09/26/24 tablet (Januvia) tamsulosin 0.4 mg capsule (Flomax) 0.4 mg PO HS 06/08/20 09/26/24 omeprazole 20 mg tablet,delayed 20 mg PO DAILY 12/19/21 09/26/24 release propylene glycol 0.6 % eye drops 1 drp Eye-Both BID dry eyes 12/19/21 09/26/24 (Systane Complete) acetaminophen 500 mg tablet (Pain 500 mg PO Q4HP PRN Fever Or Pain 02/05/23 09/26/24 Reliever Extra Strength (acetaminophen)) donepezil 5 mg tablet 5 mg PO HS 02/05/23 09/26/24 lactulose 10 gram/15 mL oral 20 g PO DAILYP PRN Constipation 02/05/23 09/26/24 solution metformin 1,000 mg tablet 1,000 mg PO BID 02/05/23 09/26/24 metoprolol succinate 50 mg 50 mg PO DAILY 02/05/23 09/26/24 tablet,extended release 24 hr mirabegron 25 mg tablet,extended 25 mg PO DAILY 02/05/23 09/26/24 release 24 hr (Myrbetriq) omega-3 300 mg-dha 120 mg-epa 180 1 cap PO DAILY 02/18/24 09/26/24 mg-fish oil 1,000 mg capsule pen needle,diabetic dual safty 30 02/18/24 09/26/24 gauge x 3/16 (BD AutoShield Duo Pen Needle) ferrous sulfate 325 mg (65 mg 325 mg PO BID 06/14/24 09/26/24 iron) tablet insulin glargine 100 unit/mL (3 40 unit SQ HS Diabetes 06/14/24 09/26/24 mL) subcutaneous pen (Basaglar KwikPen U-100 Insulin) Previous Rx's ?Medication ?Instructions ?Recorded potassium chloride 20 mEq 20 meq PO BID #0 tabs 12/21/21 tablet,extended release(part/cryst) multivitamin 1 tab PO DAILY #30 tabs 02/05/23 meloxicam 7.5 mg tablet 7.5 mg PO BID PRN Left arm pain, 02/19/24 back pain #14 tabs guaifenesin 100 mg/5 mL oral 200 mg (10 mL) PO Q4H PRN cough 08/04/24 liquid (Pily-Tussin) #118 mL gabapentin 400 mg capsule 400 mg PO TID #90 caps 09/01/24 Allergies Allergy/AdvReac Type Severity Reaction Status Date / Time aspirin Allergy Mild Rash Verified 08/23/24 13:21 acetaminophen Allergy Rash Verified 08/23/24 13:21 [facility] <Steff James APRN - Last Filed: 10/11/24 19:30> [facility] Disclaimer: The information contained in this section may have been updated after the patient was seen, as this information can be updated by other users. Medical History Anemia Dementia in other diseases classified elsewhere with behavioral disturbance Colon cancer screening Corns and callosities Calculus of gallbladder without cholecystitis without obstruction Schizophrenia, unspecified Decubitus ulcer of sacral region, stage 4 Diabetes Unspecified cirrhosis of liver Essential (primary) hypertension Personal history of urinary (tract) infections Personal history of COVID-19 Benign prostatic hyperplasia with lower urinary tract symptoms Reflex neuropathic bladder, not elsewhere classified Gastro-esophageal reflux disease without esophagitis Unspecified macular degeneration Dry eye syndrome of unspecified lacrimal gland Restless legs syndrome Secondary parkinsonism, unspecified Anxiety disorder, unspecified Major depressive disorder, recurrent, mild Nicotine dependence, chewing tobacco, uncomplicated Hyperlipidemia, unspecified Type 2 diabetes mellitus with unspecified complications Iron deficiency anemia secondary to blood loss (chronic) Melanocytic nevi, unspecified Other reduced mobility Muscle weakness (generalized) Surgical History History of esophagogastroduodenoscopy (EGD) 05/18/[address] Franco Morales at [facility]. Large esophageal varices with 9 bands and polyps. Family History Other No significant family history Social History Smoking Status: Never smoker alcohol intake: former substance use type: denies use current occupational status: disabled Travel in the last 8 weeks?: None housing: long-term current occupational exposures/hazards: No caffeine: Yes Have you lived/traveled outside [place] in past 30 days?: No Contact w/someone who lives/traveled outside US past 30 days?: No Exposure to someone with infectious disease in past 14 days?: No Do you have a fever (greater than 100.4 F or 38 C)?: No Have you tested positive for COVID-19?: No Exposed to someone with COVID-19 in past 14 days?: No Do you have a sore throat?: No Do you have a cough?: No Do you have any weakness?: No Do you have any diarrhea?: No Are you experiencing any unusual bleeding?: No Do you have any muscle aches/pain?: No Do you have any abdominal pain?: No Are you experiencing loss of taste or smell?: No Other Medical History Have you received the Flu Vaccine for this season: No Have you received the Pneumonia Vaccine: Yes (12/2018, 06/30/20) <Steff James APRN - Last Filed: 10/11/24 19:30> ROS Obtained: Yes Systems reviewed as appropriate & no additional complaints except as documented Physical Exam <Steff James APRN - Last Filed: 10/11/24 19:30> General General appearance: alert and in no apparent distress Head Head exam: atraumatic ENT ENT exam: Present normal exam Neck Neck exam: Present normal inspection Chest Chest inspection: Present normal inspection Respiratory Respiratory exam: Present normal lung sounds bilaterally Cardiovascular Cardiovascular exam: Present regular rate Abdominal Exam Abdominal exam: Present soft Back Exam Back exam: Present full ROM Neurological Exam Neurological exam: Present alert and oriented X3 Skin Skin exam: Present warm and dry Medical Decision Making <Steff James APRN - Last Filed: 10/11/24 19:30> Medical Records Screening: Per USPSTF and CDC recommendations, given the prevalence of disease in our region, it is our hospital?s policy to screen for HIV and viral Hepatitis for all patients aged 18 and over and those with ongoing risk factors. [place] Inquiry Pt receiving controlled substance: No Vital Signs: 10/11/24 18:37 10/11/24 19:01 10/11/24 20:02 Temperature 97.9 F Temperature Source Oral Pulse Rate 56 L 58 L Pulse Rate [Apical] 60 Respiratory Rate 18 11 L 14 Blood Pressure 153/70 H 152/72 H Blood Pressure [Right Arm] 136/109 H Blood Pressure Mean 106 Blood Pressure Mean [Right Arm] 118 Blood Pressure Source [Right Arm] Automatic Cuff Blood Pressure Position [Right Arm] Sitting 02 Sat by Pulse Oximetry 99 97 98 Oxygen Delivery Method Room Air 10/11/24 20:30 10/11/24 20:36 Temperature Temperature Source Pulse Rate 56 L 55 L Pulse Rate [Apical] Respiratory Rate 18 Blood Pressure 146/72 H Blood Pressure [Right Arm] Blood Pressure Mean 96 Blood Pressure Mean [Right Arm] Blood Pressure Source [Right Arm] Blood Pressure Position [Right Arm] 02 Sat by Pulse Oximetry 97 Oxygen Delivery Method Lab Data Lab Results 10/11/24 20:35: Sodium 139, Potassium 3.8, Chloride 109 H, Carbon Dioxide 25, Anion Gap 8.8, BUN 10, Creatinine 0.60 L, Estimated Creat Clear 79, Estimated GFR 132, Est GFR ( Amer) 160, Glucose 82, Calcium 8.5, Total Bilirubin 2.7 H, AST 55, ALT 31, Alkaline Phosphatase 88, Troponin I < 0.01, NT-Pro-B Natriuret Pep 194 H, Total Protein 6.8, Albumin 3.8, Globulin 3.0, Albumin/Globulin Ratio 1.3, HCV Ab HARMAN w/Rflx PCR Qn Negative, HIV Ag/Ab Combo Qual Negative 10/11/24 21:30: WBC 5.4, RBC 4.13 L, Hgb 11.9 L, Hct 36.0 L, MCV 87.2, MCH 28.8, MCHC 33.1, RDW 15.9, Plt Count 88 L, MPV 10.5 H, Neut % (Auto) 72.0, Lymph % (Auto) 20.1, [place] % (Auto) 6.2, Eos % (Auto) 0.9, Baso % (Auto) 0.6, Neut # (Auto) 3.9, Lymph # (Auto) 1.1, [place] # (Auto) 0.3, Eos # (Auto) 0.1, Baso # (Auto) 0.0, Troponin I 0.03 10/11/24 21:30 10/11/24 20:35 Orders (Tests/Meds): ED MEDICATIONS Discontinued Medications Generic Name Dose Route Start Last Admin Trade Name Freq PRN Reason Stop Dose Admin Iopamidol 75 ml 10/11/24 21:37 10/11/24 21:38 Iopamidol-370 (76%);100ml Bottle IV 10/11/24 21:38 75 ml ONCE ONE Administration Morphine Sulfate 4 mg 10/11/24 18:56 10/11/24 19:25 Morphine 4mg/Ml Syringe IV 10/11/24 18:57 4 mg ONCE ONE Administration Ondansetron HCl 4 mg 10/11/24 18:56 10/11/24 19:25 Ondansetron 4mg/2ml Vial IV 10/11/24 18:57 4 mg ONCE ONE Administration Sodium Chloride 10 ml 10/11/24 21:37 10/11/24 21:38 Sodium Chloride 0.9% 10ml Syr (Rad Only) IV 10/11/24 21:38 10 ml ONCE ONE Administration ORDERS Category Date Time Status CT chest w con Stat Cat Scan 10/11/24 18:48 Completed CXR --portable [XR chest portable] Stat Exams 10/11/24 18:48 Completed BNP [NT Pro Brain Natriuretic Pep.] Stat Lab 10/11/24 20:35 Completed CBC w/Auto Diff [Complete Blood Count Auto Diff] Stat Lab 10/11/24 21:30 Completed CMP [Comprehensive Metabolic Panel] Stat Lab 10/11/24 20:35 Completed HIV Combo Stat Lab 10/11/24 20:35 Completed Hepatitis C Ab Qual. W/ RFX Stat Lab 10/11/24 20:35 Completed Trop I [Troponin I] Stat Lab 10/11/24 20:35 Completed Troponin I Q3H Lab 10/11/24 21:30 Completed Troponin I Q3H Lab 10/12/24 01:00 Ordered Medical Decision Narrative: In summary, patient is a 74-year-old male PMHx dementia, esophageal varices, schizophrenia, GERD, BPH, hyperlipidemia, diabetes who presents to the ED with caregiver for complaints of chest pain. Caregiver states that patient had a EGD at [facility] today and has had chest pain since the EGD was performed. Patient did not have a chest pain workup at [facility]. Patient states the chest pain is centrally located and his chest feels tight . He denies any cardiac history, denies any cardiac stents. Patient denies fever, chills, body aches, headache, shortness of breath, abdominal pain. Upon initial evaluation patient is alert, oriented and cooperative. He is hemodynamically stable. No chest wall tenderness upon palpation. Discussed with patient we will proceed with CT of the chest, chest x-ray and labs. Care transferred to ED attending pending workup. <Jarrett Roa MD - Last Filed: 10/11/24 23:15> Vital Signs: 10/11/24 18:37 10/11/24 19:01 10/11/24 20:02 Temperature 97.9 F Temperature Source Oral Pulse Rate 56 L 58 L Pulse Rate [Apical] 60 Respiratory Rate 18 11 L 14 Blood Pressure 153/70 H 152/72 H Blood Pressure [Right Arm] 136/109 H Blood Pressure Mean 106 Blood Pressure Mean [Right Arm] 118 Blood Pressure Source [Right Arm] Automatic Cuff Blood Pressure Position [Right Arm] Sitting 02 Sat by Pulse Oximetry 99 97 98 Oxygen Delivery Method Room Air 10/11/24 20:30 10/11/24 20:36 Temperature Temperature Source Pulse Rate 56 L 55 L Pulse Rate [Apical] Respiratory Rate 18 Blood Pressure 146/72 H Blood Pressure [Right Arm] Blood Pressure Mean 96 Blood Pressure Mean [Right Arm] Blood Pressure Source [Right Arm] Blood Pressure Position [Right Arm] 02 Sat by Pulse Oximetry 97 Oxygen Delivery Method Lab Data Lab Results 10/11/24 20:35: Sodium 139, Potassium 3.8, Chloride 109 H, Carbon Dioxide 25, Anion Gap 8.8, BUN 10, Creatinine 0.60 L, Estimated Creat Clear 79, Estimated GFR 132, Est GFR ( Amer) 160, Glucose 82, Calcium 8.5, Total Bilirubin 2.7 H, AST 55, ALT 31, Alkaline Phosphatase 88, Troponin I < 0.01, NT-Pro-B Natriuret Pep 194 H, Total Protein 6.8, Albumin 3.8, Globulin 3.0, Albumin/Globulin Ratio 1.3, HCV Ab HARMAN w/Rflx PCR Qn Negative, HIV Ag/Ab Combo Qual Negative 10/11/24 21:30: WBC 5.4, RBC 4.13 L, Hgb 11.9 L, Hct 36.0 L, MCV 87.2, MCH 28.8, MCHC 33.1, RDW 15.9, Plt Count 88 L, MPV 10.5 H, Neut % (Auto) 72.0, Lymph % (Auto) 20.1, [place] % (Auto) 6.2, Eos % (Auto) 0.9, Baso % (Auto) 0.6, Neut # (Auto) 3.9, Lymph # (Auto) 1.1, [place] # (Auto) 0.3, Eos # (Auto) 0.1, Baso # (Auto) 0.0, Troponin I 0.03 Orders (Tests/Meds): ED MEDICATIONS Discontinued Medications Generic Name Dose Route Start Last Admin Trade Name Grabielq PRN Reason Stop Dose Admin Iopamidol 75 ml 10/11/24 21:37 10/11/24 21:38 Iopamidol-370 (76%);100ml Bottle IV 10/11/24 21:38 75 ml ONCE ONE Administration Morphine Sulfate 4 mg 10/11/24 18:56 10/11/24 19:25 Morphine 4mg/Ml Syringe IV 10/11/24 18:57 4 mg ONCE ONE Administration Ondansetron HCl 4 mg 10/11/24 18:56 10/11/24 19:25 Ondansetron 4mg/2ml Vial IV 10/11/24 18:57 4 mg ONCE ONE Administration Sodium Chloride 10 ml 10/11/24 21:37 10/11/24 21:38 Sodium Chloride 0.9% 10ml Syr (Rad Only) IV 10/11/24 21:38 10 ml ONCE ONE Administration ORDERS Category Date Time Status CT chest w con Stat Cat Scan 10/11/24 18:48 Completed CXR --portable [XR chest portable] Stat Exams 10/11/24 18:48 Completed BNP [NT Pro Brain Natriuretic Pep.] Stat Lab 10/11/24 20:35 Completed CBC w/Auto Diff [Complete Blood Count Auto Diff] Stat Lab 10/11/24 21:30 Completed CMP [Comprehensive Metabolic Panel] Stat Lab 10/11/24 20:35 Completed HIV Combo Stat Lab 10/11/24 20:35 Completed Hepatitis C Ab Qual. W/ RFX Stat Lab 10/11/24 20:35 Completed Trop I [Troponin I] Stat Lab 10/11/24 20:35 Completed Troponin I Q3H Lab 10/11/24 21:30 Completed Troponin I Q3H Lab 10/12/24 01:00 Ordered Medical Decision Narrative: In summary, patient is a 74-year-old male PMHx dementia, esophageal varices, schizophrenia, GERD, BPH, hyperlipidemia, diabetes who presents to the ED with caregiver for complaints of chest pain. Caregiver states that patient had a EGD at [facility] today and has had chest pain since the EGD was performed. Patient did not have a chest pain workup at [facility]. Patient states the chest pain is centrally located and his chest feels tight . He denies any cardiac history, denies any cardiac stents. Patient denies fever, chills, body aches, headache, shortness of breath, abdominal pain. Upon initial evaluation patient is alert, oriented and cooperative. He is hemodynamically stable. No chest wall tenderness upon palpation. Discussed with patient we will proceed with CT of the chest, chest x-ray and labs. Care transferred to ED attending pending workup. Jarrett Roa MD Patient's workup showed no leukocytosis, stably low hemoglobin at 11.9, hematocrit 36, platelets chronically low at 88 but at baseline. CMP unremarkable nonactionable. Liver enzymes within normal limits. Troponin 0.01 and 0.03. BNP mildly elevated at [address] imaging interpreted by me personally demonstrated no evidence of pneumothorax, no pneumomediastinum, no other significant findings. See final radiology report for details. Patient's workup here in the emergency department is unremarkable. This felt the patient's pain was likely secondary to the procedure that he had performed today if there is no evidence of perforation or other complications. He is resting comfortably at this time. He states that his symptoms have resolved. Given this, is felt that he is appropriate for discharge at this time. Return precautions were given. All questions were answered. He demonstrated understanding and was in agreement this plan. He was then discharged from the emergency department in stable condition. Critical Care <Steff James, ALODIZE MACHINE OPERATOR - Last Filed: 10/11/24 19:30> Critical Care Time Critical Care Time: No
--- OUTSIDE RECORDS SUMMARY | 2024-10-11 19:17 | XMS_ITS ---
Author Name Auto Generated, Auto Generated Organization [facility] at[facility] Address [address] [place] [address] Phone [phone] Care Team Providers Care Mathematical Engineer Name Role Phone Elton Fields Unavailable [phone] Luigi Nunez Unavailable [phone] Functional Status Narrative Start Date End Date [...] BEREAVEMENT Grief due to int angible losses. Wind Turbine Installer will assist patient/family in naming personal and [...] BEREAVEMENT Grief due to int angible losses. Wind Turbine Installer will assist patient/family in naming personal and [...]
--- OUTSIDE RECORDS SUMMARY | 2024-10-11 19:17 | XMS_ITS ---
Author Name Auto Generated, Auto Generated Organization [facility] at[facility] Address [address] [place] [address] Phone [phone] Care Team Providers Care Basin Finish Operator Tig Welder Name Role Phone Elton Fields Unavailable [phone] Luigi Nunez Unavailable [phone] Functional Status Narrative Start Date End Date [...] BEREAVEMENT Grief due to int angible losses. Ssn/Ssbn Weapons Equipment Operator will assist patient/family in naming personal and [...] BEREAVEMENT Grief due to int angible losses. Ssn/Ssbn Weapons Equipment Operator will assist patient/family in naming personal and [...]
--- OUTSIDE RECORDS SUMMARY | 2024-10-11 19:18 | XMS_ITS ---
Laboratory report Created on: October 11, 2024 CHARLETTE PAGE : 1950 Sex: Male Author Organization Unknown PROBLEMS Problems List Code Description RESULTS Laboratory Orders Date Order Code Test 2024-10-07 [id number] AFP, SERUM, TUMO R MARKER Laboratory Results Date LOINC Test Value Unit Reference Range Interpre tation 2024-10-07 [id number] AFP, SERUM, TUMO R MARKER <1.8 NG/ML 0.0-8.4
--- OUTSIDE RECORDS SUMMARY | 2024-10-11 19:18 | XMS_ITS | Clinical Summary ---
Author Organization [facility] [place] [address] Phone Care Team Providers Care Selling Underwriter Name Role Phone Unavailable Primary Care Provider [...] age to complete this topic Insurance [place] PART [place] AND B
[2024-10-11] MEDS: MORPHINE 4MG/ML SYRINGE 4 MG IV (19:25)
[2024-10-11] MEDS: ONDANSETRON 4MG/2ML VIAL 4 MG IV (19:25)
--- NOTE | 2024-10-11 20:41 | PC.NURSE ---
difficulty with IV access. Multiple attempts. made. This RN attempted US IV, was unable. Dr Roa placed USGIV ro RAC, but was unable to get blood. Lab called to bedside and was able to get 3 ml of blood. States they should have enough blood to run the labs that are ordered.
[2024-10-11 21:10] LABS: Alanine Aminotransferase 31 U/L (12-78); Albumin Level 3.8 g/dl (3.5-5.0); Albumin/Globulin Ratio 1.3 (1.1-1.8); Alkaline Phosphatase 88 U/L (38-126); Anion Gap 8.8 mEq/L (5-15); Aspartate Amino Transferase 55 U/L (17-59); Bilirubin,Total 2.7 mg/dl (0.2-1.3); Blood Urea Nitrogen 10 mg/dl (9-20); Calcium 8.5 mg/dl (8.4-10.2); Carbon Dioxide 25 mmol/L (22.0-30.0); Chloride 109 mmol/L (98-107); Creatinine Clearance Estimated 79 mL/min (50-200); Creatinine,Serum 0.60 mg/dl (0.66-1.25); Estimated Glomerular Filt Rate 132 ml/min (>60); GFR (African American) 160 ML/MIN (>60); Globulin 3.0 g/dL (1.3-3.2); Glucose 82 mg/dl (74-100); Potassium 3.8 mmoL/L (3.5-5.1); Sodium 139 mmol/L (136-145); Total Protein,Serum 6.8 g/dl (6.3-8.2)
[2024-10-11 21:21] LABS: NT Pro Brain Natriuretic Pep. 194 pg/mL (0-125)
[2024-10-11 21:25] LABS: Troponin I < 0.01 ng/ml (0.00-0.034)
[2024-10-11] MEDS: IOPAMIDOL-370 (76%);100ML BOTTLE 75 ML IV (21:38)
[2024-10-11] MEDS: SODIUM CHLORIDE 0.9% 10ML SYR (RAD ONLY) 10 ML IV (21:38)
[2024-10-11 21:41] LABS: Hematocrit 36.0 % (42.0-52.0); Hemoglobin 11.9 g/dL (14.1-18.0); Immature Granulocytes % 0.2 %; Mean Corpuscular HGB Conc 33.1 g/dL (31.8-35.4); Mean Corpuscular Hemoglobin 28.8 pg (27.0-31.2); Mean Corpuscular Volume 87.2 fl (80-94); Nucleated Red Blood Cells % 0 %; Platelet Count 88 K/mm3 (142-424); Red Blood Count 4.13 M/mm3 (4.60-6.20); Red Cell Distribution Width-SD 50.8 fL; White Blood Count 5.4 K/mm3 (4.8-10.8)
[2024-10-11 22:37] LABS: Troponin I 0.03 ng/ml (0.00-0.034)
[2024-10-11 22:40] LABS: Hepatitis C Ab Qual. W/ RFX NEGATIVE (Negative)
[2024-10-12 02:58] VITALS: BP 95/47; PULSE 54; RESP 14; TEMP 36.6; O2SAT 96
== END 2024-10-12 02:30 | disposition home or self-care (01) ==
PROVIDERS: Nurse Practitioner; Emergency Provider Student in an Organized Health Care Education/Training Program
DX: R07.9 Chest pain, unspecified (principal); I85.00 Esophageal varices without bleeding; I10 Essential (primary) hypertension; E78.5 Hyperlipidemia, unspecified; E11.9 Type 2 diabetes mellitus without complications
CPT/HCPCS: 71045; 71260; 80053; 83880; 84484; 85025; 86803; 87389; 93005; 96374; 96375; 99285; J2270; J2405; Q9967

== ENCOUNTER 2024-11-30 07:49 | Outpatient (CLI) | payer MEDICARE, MEDICAID, SELFPAY ==
[2024-11-30 09:50] LABS: Valproic Acid, (Depakene) 25.1 ug/ml (50-100)
== END 2024-11-30 23:59 | disposition home or self-care (01) ==
PROVIDERS: PCP Nurse Practitioner Family; Visit Provider Nurse Practitioner Family
DX: F20.9 Schizophrenia, unspecified (principal)
CPT/HCPCS: 36415; 80164

== ENCOUNTER 2025-01-04 08:42 | Outpatient (CLI) | payer MEDICARE, MEDICAID, SELFPAY ==
--- OUTSIDE RECORDS SUMMARY | 2025-01-04 08:48 | XMS_ITS | Clinical Summary ---
Author Organization [facility] [place] [address] Phone Care Team Providers Care Senior Software Development Engineer Name Role Phone Unavailable Primary Care Provider [...] on file Sexual Orientation Not on file Plan of Treatment Health Maintenance Due Date Last Done Comments Wellness Exam Medicare 1953 Hepatitis C Screening 1970 DTaP/TDaP/Td (1 - Tdap) 1971 Cologuard 1997 Colon Cancer Screening 1997 Colonoscopy 1997 FIT 1997 Sigmoidoscopy 1997 Virtual Colonography 1997 Pneumococcal Vaccine 50+ (1 of 1 - PCV) 2002 Zoster (1 of 2) 2002 AAA Screening 2017 COVID-19 Vaccine (2024-2 6 season) 2024 Influenza Vaccine (#1) 2024 Hepatitis B Vaccine Aged Out No longe r eligible based on patient's age to complete this topic Meningococcal B Vaccine Aged Out No l onger eligible based on patient's age to complete this topic Insurance MEDICAID [place] [address]
--- OUTSIDE RECORDS SUMMARY | 2025-01-04 08:48 | XMS_ITS | Data Portability ---
Author Organization [place] - [facility] - [place] & MOISE Chapman ADMIN Address [address] [place] [address] Care Team Providers Care Sql Consultant Name Role Phone MANNY CHONG Primary Care Provider MANNY CHONG Referring Provider Assessment Encounter Date Assessment Date Assessment LastModified by Organization Details LastModified Time 09/30/2022 09/30/2022 72-year-old male with history of [...] report of GI blood loss. Repeat CBC. [email or web address] Not available 09/30/2022 11:37:46 04/16/2023 04/16/2023 73-year-old [...] report of GI blood loss. Repeat CBC. [email or web address] Not available 04/16/2023 12:13:52 10/15/2023 10/15/2023 73-year-old [...] Order has been faxed to scheduling at [facility] due to location of the patient's nursing facility. -Prophylaxis: Will check for immunity to hepatitis A & B. 3) History of anemia: No report of GI blood loss. Repeat CBC for monitoring. No source of bleeding identified on recent EGD or colonoscopy. 4) History of colon polyps: 8 adenomatous polyps resected 10/13/23. Repeat in 3 years was recommended. f/u 6 months [email or web address] Not available 10/16/2023 08:05:33 04/19/2024 04/19/2024 74-year-old [...] and stable. Repeat now. Order faxed to [facility]. 3) History of anemia: No report of GI blood loss. Repeat CBC for monitoring. No source of bleeding identified on recent EGD or colonoscopy. 4) History of colon polyps: 8 adenomatous polyps resected 10/13/23. Repeat in 3 years was recommended. f/u 6 months Not available 04/19/2024 19:56:21 10/04/2024 10/04/2024 74-year-old male with history of idiopathic acute pancreatitis and incidental finding of cirrhosis on prior imaging. Appears compensated. He denies a history of alcohol abuse. He is undergoing CT imaging q6 months for HCC screening due to anatomical variant on US that has been mistaken as a mass. This was last performed in April and showed abnormal attentuation surrounding the pancreas. He has a history of idiopathic pancreatitis. 1) Abnormal imaging of the pancreas: He has a history of pancreatitis, etiology unclear. CT imaging 04/2024 showed abnormal attenuation surrounding the pancreas without biliary abnormality noted. Currently, he is asymptomatic regarding this. -Schedule EUS for evaluation of the hepatic parenchyma. 2) Idiopathic Cirrhosis: Compensated. Prior lab workup without etiology. Potentially due to VALERA. MELD 3.0=7 on 04/19/24. Obtain labs now for continued monitoring. Order provide for [facility]. -Ascites: None evident -HE: None evident -Esophageal varices: Repeat EGD 07/2024 with banding performed x3 for grade III esophageal varices. Schedule repeat 6 month EGD now . We will coordinate with his nursing facility. -HCC screening: He [...] and stable. Repeat now. Order faxed to [facility]. 3) History of anemia: No report of GI blood loss. Repeat CBC for monitoring. Will check iron study, B12, and folate. No source of bleeding identified on recent EGD or colonoscopy. 4) History of colon polyps: 8 adenomatous polyps resected 10/13/23. Repeat in 3 years was recommended. f/u 6 months unless otherwise indicated by labs, imaging, or endoscopic procedures. [email or web address] Not available 10/04/2024 13:44:48 Plan of Treatment Reminders Order Date Submit Date Provider Last Modified By Organization Details Last Modified Time Details Appointments Establ ished Visit 15 min 2025 10:00A M Moises Kiran PA-C Not available Not available Not available Lab iron + TIBC + ferrit in, serum [address] (Lab), [address] [place] [address]y [address], [place], [address], 10/17/2024 15:23:06 vitami n B12 + folate , serum or blood 2024 025 [facility] (Lab), [address], [place], [address], 10/07/2024 13:00:12 iron satura tion, serum [address] (Lab), [address], [place], [address], 10/17/2024 15:23:06 afp (alpha -fetop rotein ) tumor marker , serum or plasma 2024 025 [facility] (Lab), [address], [place], [address], 10/08/2024 14:54:54 CBC 2024 025 [email or web address] [facility] (Lab), [address], [place], [address], 10/17/2024 15:23:05 CMP, serum or plasma 2024 025 [facility] (Lab), [address], [place], [address], 10/07/2024 12:27:40 PT/INR 2024 025 [facility] (Lab), [address], [place], [address], 10/07/2024 10:21:50 CMP, serum or plasma 2024 025 [place] [facility], [address], [address], [place], [address], 04/20/2024 16:14:42 CBC 2024 025 [place] [facility], [address], [address], [place], [address], 04/20/2024 16:14:43 PT/INR 2024 025 [place] [facility], [address], [address], [place], [address], 04/20/2024 16:14:43 afp (alpha -fetop rotein ) tumor marker , serum or plasma 2024 025 [place] [facility], [address], [address], [place], [address], 04/20/2024 16:14:44 CMP, serum or plasma 2023 024 [place] [facility], [address], [address], [place], [address], 10/15/2023 13:18:43 CBC 2023 024 [email or web address], [address], [address], [place], [address], 10/28/2023 17:06:26 PT/INR 2023 024 [email or web address], [address], [address], [place], [address], 10/28/2023 17:06:37 afp (alpha -fetop rotein ) tumor marker , serum or plasma 2023 024 [facility], [address], [address], [place], [address], 10/16/2023 10:15:45 CMP, serum or plasma 2023 024 [place] [facility], [address], [address], [place], [address], 04/24/2023 16:13:22 CBC w/ auto diff 2023 024 [place] [facility], [address], [address], [place], [address], 04/24/2023 16:13:21 PT/INR 2023 024 [place] [facility], [address], [address], [place], [address], 04/24/2023 16:13:23 afp (alpha -fetop rotein ) tumor marker , serum or plasma 2023 024 [place] [facility], [address], [address], [place], [address], 04/24/2023 16:13:27 hepati tis B surfac e Ab, qualit ative, serum 2023 024 [place] [facility], [address], [address], [place], [address], 04/24/2023 16:13:28 HBsAg (hepat itis B surfac e Ag), EIA, serum 2023 024 [place] [facility], [address], [address], [place], [address], 04/24/2023 16:13:29 Hepati tis B virus core Ab, qual immuno assay, serum or plasma 2023 024 [facility], [address], [address], [place], [address], 04/24/2023 16:13:30 Hepati tis C IgG Ab, qual, serum 2023 024 [facility], [address], [address], [place], [address], 04/24/2023 16:13:25 hepati tis A virus Ab, qualit ative, immuno assay, serum 2023 024 [facility], [address], [address], [place], [address], 04/24/2023 16:13:31 HFE gene mutati on analys is, blood or tissue 2023 024 [facility], [address], [address], [place], [address], 04/24/2023 16:13:26 alpha- 1-anti trypsi n (aat), QN, serum 2023 024 [place] [facility], [address], [address], [place], [address], 04/24/2023 16:13:24 autoim mune hepati tis diagno stic panel, serum 2023 024 [place] [facility], [address], [address], [place], [address], 04/24/2023 16:13:20 igg, quanti tative , serum 2023 024 [place] [facility], [address], [address], [place], [address], 04/24/2023 16:13:28 CMP, serum or plasma [address] (Registration ), [address] [facility], [place], [address], 10/07/2022 09:08:19 CBC w/ auto diff [address] (Registration ), [address] [place], [address], 10/07/2022 09:08:20 PT/INR [address] (Registration ), [address] [place], [address], 10/07/2022 09:08:20 afp (alpha -fetop rotein ) tumor marker , serum or plasma [address] (Registration ), [address] [place], [address], 10/07/2022 09:08:20 Referral None record ed. Procedures None record ed. Surgeries None record ed. Imaging CT, liver, w/wo contra st - Liver mass protoc ol (For HCC survei llance /ultra sound was not recomm ended for survei llance due to large gap betwee n the right and left hepati c lobe). 2024 025 [email or web address] [facility] (Scheduling), [address], [place], [address], 10/12/2024 11:58:42 CT, liver, w/wo contra st - Liver mass protoc ol (For HCC survei llance /ultra sound was not recomm ended for survei llance due to large gap betwee n the right and left hepati c lobe). 2024 025 [email or web address] [facility] (Scheduling), [address], [place], [address], 04/28/2024 09:56:22 CT, liver, w/wo contra st - Liver mass protoc ol (For HCC survei llance /ultra sound was not recomm ended for survei llance due to large gap betwee n the right and left hepati c lobe). 2023 024 [facility] (Scheduling), [address], [place], [place], [address], 10/30/2023 10:02:38 [place], liver [address] (Scheduling), [address], [place], [address], 05/04/2023 15:54:53 [place], liver - Please schedu le [facility] humberto. Amandajosi t is a reside nt there. [address] (Scheduling), [address], [place], [address], 10/14/2022 08:58:34 Medication Orders None record ed. Patient TargetsNo targets recorded. Patient InstructionsNo instructions recorded. Reason for Referral None Reported. Results Created Date Observation Date Name Description Value Unit Range Abnormal Flag Note LastModifiedBy Organization Detail LastModifiedTime 04/16/19 24 04/17/2023 HUMBERTO+A MA+ MA+LK M AB HUMBERTO direct NEGATI VE negati ve Not Available [facility] ([facility]) [address] [place], [address], 04/24/2023 16:13:20 04/16/19 24 04/17/2023 HUMBERTO+A MA+ [...] bilia ry cirrh osis. Not Available [facility] ([facility]) [address] [facility], [place], [address], 04/24/2023 16:13:20 04/16/19 24 04/17/2023 HUMBERTO+A MA+ MA+LK M AB mitochondria l (M2) antibody <20.0 units 0.0-20 .0 Negat fish 0.0 - 20.0 Equiv ocal 20.1 - 24.9 Posit fish >24.9 Mitoc hondr ial (M2) Antib odies are found in 90-96 % of patie nts with prima ry bilia ry cirrh osis. Not Available [facility] ([facility]) [address] [place], [address], 04/24/2023 16:13:20 04/16/19 24 04/17/2023 HUMBERTO+A MA+ [...] ic HCV infec tion. Not Available [facility] ([facility]) [address] [facility], [place], [address], 04/24/2023 16:13:20 04/16/19 24 04/17/2023 CBC WITH DIFFE RENTI AL/PL ATELE T WBC 3.8 x10e3 /uL 3.4-10 .8 Not Available [facility] ([facility]) [address] [facility], [place], [address], 04/24/2023 16:13:21 04/16/19 24 04/17/2023 CBC WITH DIFFE RENTI AL/PL ATELE T RBC 4.11 x10e6 /uL 4.14-5 .80 below low normal Not Available [facility] ([facility]) [address] [facility], [place], [address], 04/24/2023 16:13:21 04/16/19 24 04/17/2023 CBC WITH DIFFE RENTI AL/PL ATELE T hemoglobin 11.9 g/dL 13.0-1 7.7 below low normal Not Available [facility] ([facility]) [address] [facility], [place], [address], 04/24/2023 16:13:21 04/16/19 24 04/17/2023 CBC WITH DIFFE RENTI AL/PL ATELE T hematocrit 37.0 % 37.5-5 1.0 below low normal Not Available [facility] ([facility]) [address] [facility], [place], [address], 04/24/2023 16:13:21 04/16/19 24 04/17/2023 CBC WITH DIFFE RENTI AL/PL ATELE T MCV 90 fL 79-97 Not Available [facility] ([facility]) [address] [facility], [place], [address], 04/24/2023 16:13:21 04/16/19 24 04/17/2023 CBC WITH DIFFE RENTI AL/PL ATELE T MCH 29.0 pg 26.6-3 3.0 Not Available [facility] ([facility]) [address] [place], [address], 04/24/2023 16:13:21 04/16/19 24 04/17/2023 CBC WITH DIFFE RENTI AL/PL ATELE T MCHC 32.2 g/dL 31.5-3 5.7 Not Available [facility] ([facility]) [address] [place], [address], 04/24/2023 16:13:21 04/16/19 24 04/17/2023 CBC WITH DIFFE RENTI AL/PL ATELE T RDW 13.3 % 11.6-1 5.4 Not Available [facility] ([facility]) [address] [place], [address], 04/24/2023 16:13:21 04/16/19 24 04/17/2023 CBC WITH DIFFE RENTI AL/PL ATELE T platelets 68 x10e3 /uL 150-45 0 alert low Plate let count verif ied by nimcoi juan kelly of perip heral blood smear . Not Available [facility] ([facility]) [address] [place], [address], 04/24/2023 16:13:21 04/16/19 24 04/17/2023 CBC WITH DIFFE RENTI AL/PL ATELE T neutrophils 68 % not estab. Not Available [facility] ([facility]) [address] [place], [address], 04/24/2023 16:13:21 04/16/19 24 04/17/2023 CBC WITH DIFFE RENTI AL/PL ATELE T lymphs 22 % not estab. Not Available [facility] ([facility]) [address] [place], [address], 04/24/2023 16:13:21 04/16/19 24 04/17/2023 CBC WITH DIFFE RENTI AL/PL ATELE T monocytes 9 % not estab. Not Available [facility] ([facility]) [address] [facility], [place], [address], 04/24/2023 16:13:21 04/16/19 24 04/17/2023 CBC WITH DIFFE RENTI AL/PL ATELE T eos 1 % not estab. Not Available [facility] ([facility]) [address] [facility], [place], [address], 04/24/2023 16:13:21 04/16/19 24 04/17/2023 CBC WITH DIFFE RENTI AL/PL ATELE T basos 0 % not estab. Not Available [facility] ([facility]) [address] [facility], [place], [address], 04/24/2023 16:13:21 04/16/19 24 04/17/2023 CBC WITH DIFFE RENTI AL/PL ATELE T immature cells RUBBER CALENDER HELPER Not Available [facility] ([facility]) [address] [place], [address], 04/24/2023 16:13:21 04/16/19 24 04/17/2023 CBC WITH DIFFE RENTI AL/PL ATELE T neutrophils (absolute) 2.5 x10e3 /uL 1.4-7. 0 Not Available [facility] ([facility]) [address] [facility], [place], [address], 04/24/2023 16:13:21 04/16/19 24 04/17/2023 CBC WITH DIFFE RENTI AL/PL ATELE T lymphs (absolute) 0.8 x10e3 /uL 0.7-3. 1 Not Available [facility] ([facility]) [address] [place], [address], 04/24/2023 16:13:21 04/16/19 24 04/17/2023 CBC WITH DIFFE RENTI AL/PL ATELE T monocytes(ab solute) 0.3 x10e3 /uL 0.1-0. 9 Not Available [facility] ([facility]) [address] [facility], [place], [address], 04/24/2023 16:13:21 04/16/19 24 04/17/2023 CBC WITH DIFFE RENTI AL/PL ATELE T eos (absolute) 0.0 x10e3 /uL 0.0-0. 4 Not Available [facility] ([facility]) [address] [facility], [place], [address], 04/24/2023 16:13:21 04/16/19 24 04/17/2023 CBC WITH DIFFE RENTI AL/PL ATELE T baso (absolute) 0.0 x10e3 /uL 0.0-0. 2 Not Available [facility] ([facility]) [address] [facility], [place], [address], 04/24/2023 16:13:21 04/16/19 24 04/17/2023 CBC WITH DIFFE RENTI AL/PL ATELE T immature granulocytes 0 % not estab. Not Available [facility] ([facility]) [address] [facility], [place], [address], 04/24/2023 16:13:21 04/16/19 24 04/17/2023 CBC WITH DIFFE RENTI AL/PL ATELE T immature grans (abs) 0.0 x10e3 /uL 0.0-0. 1 Not Available [facility] ([facility]) [address] [facility], [place], [address], 04/24/2023 16:13:21 04/16/19 24 04/17/2023 CBC WITH DIFFE RENTI AL/PL ATELE T NRBC RUBBER CALENDER HELPER Not Available [facility] ([facility]) [address] [facility], [place], [address], 04/24/2023 16:13:21 04/16/19 24 04/17/2023 CBC WITH DIFFE RENTI AL/PL ATELE T hematology comments: NOTE: Verif ied by micro reymundo rinaldii juan n. Not Available [facility] ([facility]) [address] [facility], [place], [address], 04/24/2023 16:13:21 04/16/19 24 04/17/2023 COMP. METAB OLIC PANEL (14) glucose 219 mg/dL 70-99 above high normal Not Available [facility] ([facility]) [address] [facility], [place], [address], 04/24/2023 16:13:22 04/16/19 24 04/17/2023 COMP. METAB OLIC PANEL (14) BUN 12 mg/dL 8-27 Not Available [facility] ([facility]) [address] [facility], [place], [address], 04/24/2023 16:13:22 04/16/19 24 04/17/2023 COMP. METAB OLIC PANEL (14) creatinine 0.84 mg/dL 0.76-1 .27 Not Available [facility] ([facility]) [address] [facility], [place], [address], 04/24/2023 16:13:22 04/16/19 24 04/17/2023 COMP. METAB OLIC PANEL (14) eGFR 93 mL/mi n/1.7 3 >59 Not Available [facility] ([facility]) [address] [place], [address], 04/24/2023 16:13:22 04/16/19 24 04/17/2023 COMP. METAB OLIC PANEL (14) BUN/creatini ne ratio 14 10-24 Not Available [facility] ([facility]) [address] [place], [address], 04/24/2023 16:13:22 04/16/19 24 04/17/2023 COMP. METAB OLIC PANEL (14) sodium 140 mmol/ L 134-14 4 Not Available [facility] ([facility]) [address] [place], [address], 04/24/2023 16:13:22 04/16/19 24 04/17/2023 COMP. METAB OLIC PANEL (14) potassium 4.1 mmol/ L 3.5-5. 2 Not Available [facility] ([facility]) [address] [place], [address], 04/24/2023 16:13:22 04/16/19 24 04/17/2023 COMP. METAB OLIC PANEL (14) chloride 103 mmol/ L 96-106 Not Available [facility] ([facility]) [address] [place], [address], 04/24/2023 16:13:22 04/16/19 24 04/17/2023 COMP. METAB OLIC PANEL (14) carbon dioxide, total 22 mmol/ L 20-29 Not Available [facility] ([facility]) [address] [place], [address], 04/24/2023 16:13:22 04/16/19 24 04/17/2023 COMP. METAB OLIC PANEL (14) calcium 9.1 mg/dL 8.6-10 .2 Not Available [facility] ([facility]) [address] [place], [address], 04/24/2023 16:13:22 04/16/19 24 04/17/2023 COMP. METAB OLIC PANEL (14) protein, total 6.9 g/dL 6.0-8. 5 Not Available [facility] ([facility]) [address] [place], [address], 04/24/2023 16:13:22 04/16/19 24 04/17/2023 COMP. METAB OLIC PANEL (14) albumin 4.2 g/dL 3.8-4. 8 Not Available [facility] ([facility]) [address] [place], [address], 04/24/2023 16:13:22 04/16/19 24 04/17/2023 COMP. METAB OLIC PANEL (14) globulin, total 2.7 g/dL 1.5-4. 5 Not Available [facility] ([facility]) [address] [facility], [place], [address], 04/24/2023 16:13:22 04/16/19 24 04/17/2023 COMP. METAB OLIC PANEL (14) A/G ratio 1.6 1.2-2. 2 Not Available [facility] ([facility]) [address] [facility], [place], [address], 04/24/2023 16:13:22 04/16/19 24 04/17/2023 COMP. METAB OLIC PANEL (14) bilirubin, total 1.2 mg/dL 0.0-1. 2 Not Available [facility] ([facility]) [address] [facility], [place], [address], 04/24/2023 16:13:22 04/16/19 24 04/17/2023 COMP. METAB OLIC PANEL (14) alkaline phosphatase 78 IU/L 44-121 Not Available [facility] ([facility]) [address] [facility], [place], [address], 04/24/2023 16:13:22 04/16/19 24 04/17/2023 COMP. METAB OLIC PANEL (14) AST (SGOT) 28 IU/L 0-40 Not Available [facility] ([facility]) [address] [facility], [place], [address], 04/24/2023 16:13:22 04/16/19 24 04/17/2023 COMP. METAB OLIC PANEL (14) ALT (SGPT) 24 IU/L 0-44 Not Available [facility] ([facility]) [address] [facility], [place], [address], 04/24/2023 16:13:22 04/16/19 24 04/17/2023 PROTH ROMBI [...] range 2.5 - 3.5 Not Available [facility] ([facility]) [address] [place], [address], 04/24/2023 16:13:23 04/16/19 24 04/17/2023 PROTH ROMBI N TIME (PT), SERIA L prothrombin time 10.9 sec 9.1-12 .0 Not Available [facility] ([facility]) [address] [place], [address], 04/24/2023 16:13:23 04/16/19 24 04/17/2023 PROTH ROMBI N TIME (PT), SERIA L pdf . Not Available [facility] ([facility]) [address] [facility], [place], [address], 04/24/2023 16:13:23 04/16/19 24 04/16/2023 ALPHA -1-AN [...] ders to discu ss resul ts at [phone] GENE (1979 ). Test Detai ls: Two varia nts [...] es in the SERPI NA1 gene (NM_[id number] .4) was perfo rmed by multi plex [...] e amrita cteri stics deter mined by [facility]. It has not been clear ed or appro danay by the Food and Drug Admin istra tion. Refer ences : Anjum tapia RA, Wilbur guerrero G, Vince avalos ML, Karri vallejo M, Vladislav CE, Kim rincon K, Devendra dinero DK, Virgilio t SL, Dacia vallejo JM, Neida FOUNTAIN, Nettie nevarez C, Melissa Olea. The Diagn osis and Manag ement of Alpha -1 Antit rypsi n Defic iency in the Adult . Chron ic Obstr Pulm Dis. 2016 Aug 05;3(3 ):668 -682. doi: 10.15 326/j copdf .3.32014. 0182. PMID: 35821 891; PMCID : PMC55 07469 . Neida FOUNTAIN, [place] ibarra V, Shilo OLIVEIRA. 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 2005Dec 26 [Upda patricia 2019July 20]. In: Carlos A MP, Justice hill HH, Ernestina ARMAS, et al., sivaito rs. GeneR emiliana vallejo(R) [Inte rnet] . Solitario valadez ([place]): Unive rsity of Solitario Swartz; 1992- 2020. Avail able from: https ://[place].enmab i.nlm .nih. gov/b yolandaoks/ NBK15 19/ Not Available [facility] ([facility]) [address] [facility], [place], [address], 04/24/2023 16:13:24 04/16/19 24 04/24/2023 ALPHA -1-AN TITRY PSIN DEFIC IENCY aat, [...] n and Comme nts. Not Available [facility] ([facility]) [address] [facility], [place], [address], 04/24/2023 16:13:24 04/16/19 24 04/24/2023 ALPHA -1-AN TITRY PSIN DEFIC IENCY electronical ly signed by: ALEJANDRO LANDEROS, PHD Not Available [facility] ([facility]) [address] [facility], [place], [address], 04/24/2023 16:13:24 04/16/19 24 04/17/2023 HCV ANTIB JAMAR RFX TO QUANT PCR HCV Ab NON REACTI VE non reacti ve Not Available [facility] ([facility]) [address] [facility], [place], [address], 04/24/2023 16:13:25 04/16/19 24 04/17/2023 HCV ANTIB JAMAR RFX TO QUANT PCR interpretati on: COMMEN T Not infec patricia with HCV unles s early or acute infec tion is suspe cted (whic h may be delay ed in an immun ocomp romis ed indiv idual ), or other evide nce exist s to indic ate HCV infec tion. Not Available [facility] ([facility]) [address] [facility], [place], [address], 04/24/2023 16:13:25 04/16/19 24 04/23/2023 HERED .HEMO [...] oms, less than 10% devel op clini beal signi fican t iron overl oad with tissu e and organ damag e. Ramón ic couns lazara is recom radha d to discu ss the poten tial clini naseem impli catio ns of posit fish resul ts, as well as recom menda tions for testi ng famil y membe rs. Ramón ic Coord inato rs are avail able for healt h care provi ders to discu ss resul ts at [phone] GENE (5236 ). Test Detai ls: Three varia nts aleksandra zed: c.845 G>A (p.Cy s282T yr), commo nly refer red to as C282Y c.187 C>G (p.Hi s63As p), commo nly refer red to as H63D c.193 A> T (p.Se r65Cy s), commo nly refer red to as S65C Metho ds/Li mitat ions: DNA Aleksandra sis of the HFE gene (NM_[id number] [id number] .4) was perfo rmed by PCR ampli [...] e amrita cteri stics deter mined by [facility]. It has not been clear ed [...] . 2010;5 4(1): 328-4 3. doi: 10.10 / p.243 30. PMID: 62709 290; PMCID : PMC31 13340 . Obi G, Vik mejia P, Laisha morton DW, Sancho r H, Armando storey O, Jennifer n S, Vale o I, Julia vallejo M, Rory y S. EMQN best pract ice guide lines for the molec ular ramón ic diagn osis of hered itary hemoc hroma tosis (HH). Eur J Hum Ramón . 2016 May;2 4(4): 479-9 5. doi: 10.10 / hg.20 15.12 8. Epub 2014Sep 06. PMID: 94942 218; PMCID : [id number] . Not Available [facility] ([facility]) [address] [place], [address], 04/24/2023 16:13:26 04/16/19 24 04/23/2023 HERED .HEMO CHROM ATOSI S, DNA reviewed by: ALEJANDRO LANDEROS, PHD Not Available [facility] ([facility]) [address] [place], [address], 04/24/2023 16:13:26 04/16/19 24 04/17/2023 AFP, SERUM , TUMOR MARKE R AFP, serum, tumor marker 1.9 NG/mL 0.0-8. 4 Mariusz Diagn ostic s Elect mariusz milum inesc ence Immun oassa y (ECLI A) Value s obtai elver with diffe rent assay metho ds or kits canno t be used inter [place] . Resul ts canno t be inter prete d as absol [place] evide nce of the prese nce or absen ce of rupal contreras se. This test is not inter preta ble in pregn ant femal es. Not Available [facility] ([facility]) [address] [facility], [place], [address], 04/24/2023 16:13:27 04/16/19 24 04/17/2023 HEP B SURFA CE AB, QUAL hep B surface Ab, qual NON REACTI VE Non React fish: Incon siste nt with immun ity, less than 10 mIU/m L React fish: Consi stent with immun ity, great er than 9.9 mIU/m L Not Available [facility] ([facility]) [address] [place], [address], 04/24/2023 16:13:28 04/16/19 24 04/17/2023 IMMUN OGLOB ULIN G, QN, SERUM immunoglobul in g, qn, serum 1234 mg/dL 603-16 13 Not Available [facility] ([facility]) [address] [place], [address], 04/24/2023 16:13:28 04/16/19 24 04/17/2023 HBSAG SCREE N HBsAg screen NEGATI VE negati ve Not Available [facility] ([facility]) [address] [place], [address], 04/24/2023 16:13:29 04/16/19 24 04/17/2023 HEP B CORE AB, TOT hep B core Ab, tot NEGATI VE negati ve Not Available [facility] ([facility]) [address] [place], [address], 04/24/2023 16:13:30 04/16/19 24 04/17/2023 HEP A [...] resul ts to IgM (e.g. , panel #[id number] HAV Antib jamar w/ Rfx). Not Available [facility] ([facility]) [address] [facility], [place], [address], 04/24/2023 16:13:31 10/15/19 24 10/15/2023 CBC NO DIFF (HEMO GRAM) WBC 3.8 K/uL 4.0-10 .5 low Not Available [facility] ([facility]) [address] [facility], [place], [address], 10/15/2023 12:03:39 10/15/19 24 10/15/2023 CBC NO DIFF (HEMO GRAM) RBC 3.9 M/mm3 4.7-6. 1 low Not Available [facility] ([facility]) [address] [facility], [place], [address], 10/15/2023 12:03:39 10/15/19 24 10/15/2023 CBC NO DIFF (HEMO GRAM) HGB 10.7 gm/dL 13.5-1 8.0 low Not Available [facility] ([facility]) [address] [place], [address], 10/15/2023 12:03:39 10/15/19 24 10/15/2023 CBC NO DIFF (HEMO GRAM) HCT 33.1 % 42.0-5 2.0 low Not Available [facility] ([facility]) [address] [facility], [place], [address], 10/15/2023 12:03:39 10/15/19 24 10/15/2023 CBC NO DIFF (HEMO GRAM) MCV 85.5 fL 78-100 Not Available [facility] ([facility]) [address], [place], [address], 10/15/2023 12:03:39 10/15/19 24 10/15/2023 CBC NO DIFF (HEMO GRAM) MCH 27.6 pg 27-31 Not Available [facility] ([facility]) [address], [place], [address], 10/15/2023 12:03:39 10/15/19 24 10/15/2023 CBC NO DIFF (HEMO GRAM) MCHC 32.3 g/dL 32-36 Not Available [facility] ([facility]) [address], [place], [address], 10/15/2023 12:03:39 10/15/19 24 10/15/2023 CBC NO DIFF (HEMO GRAM) RDW 14.4 % 11.5-1 4.0 high Not Available [facility] ([facility]) [address], [place], [address], 10/15/2023 12:03:39 10/15/19 24 10/15/2023 CBC NO DIFF (HEMO GRAM) platelet count 93 K/uL 150-45 0 low Not Available [facility] ([facility]) [address], [place], [address], 10/15/2023 12:03:39 10/15/19 24 10/15/2023 CBC NO DIFF (HEMO GRAM) MPV 10.6 fL 6-9.5 high Not Available [facility] ([facility]) [address], [place], [address], 10/15/2023 12:03:39 10/15/19 24 10/15/2023 CBC NO DIFF (HEMO GRAM) manual differential NO Not Available [facility] ([facility]) [address], [place], [address], 10/15/2023 12:03:39 10/15/19 24 10/15/2023 PT (PROT HROMB IN TIME) W INR prothrombin time 10.3 secon ds 9.3-11 .4 Not Available [facility] ([facility]) [address], [place], [address], 10/15/2023 12:23:44 10/15/19 24 10/15/2023 PT (PROT [...] Mecha nical Heart Valve s Not Available [facility] ([facility]) [address] , [place], [address], 10/15/2023 12:23:44 10/15/19 24 10/15/2023 COMP METAB OLIC PANEL sodium 142 mmol/ L 136-14 5 Not Available [facility] ([facility]) [address] , [place], [address], 10/15/2023 13:18:43 10/15/19 24 10/15/2023 COMP METAB OLIC PANEL potassium 4.2 mmol/ L 3.6-5. 0 Not Available [facility] ([facility]) [address] , [place], [address], 10/15/2023 13:18:43 10/15/19 24 10/15/2023 COMP METAB OLIC PANEL chloride 107 mmol/ L 98-107 Not Available [facility] ([facility]) [address], [place], [address], 10/15/2023 13:18:43 10/15/19 24 10/15/2023 COMP METAB OLIC PANEL carbon dioxide 27.1 mmol/ L 21.0-3 2.0 Not Available [facility] ([facility]) [address], [place], [address], 10/15/2023 13:18:43 10/15/19 24 10/15/2023 COMP METAB OLIC PANEL anion gap 12.1 Not Available [facility] ([facility]) [address], [place], [address], 10/15/2023 13:18:43 10/15/19 24 10/15/2023 COMP METAB OLIC PANEL glucose 174 mg/dL 70-120 high Not Available [facility] ([facility]) [address], [place], [address], 10/15/2023 13:18:43 10/15/19 24 10/15/2023 COMP METAB OLIC PANEL BUN 7 mg/dL 7-18 Not Available [facility] ([facility]) [address], [place], [address], 10/15/2023 13:18:43 10/15/19 24 10/15/2023 COMP METAB OLIC PANEL creatinine 0.8 mg/dL 0.6-1. 3 Not Available [facility] ([facility]) [address] [place], [address], 10/15/2023 13:18:43 10/15/19 24 10/15/2023 COMP METAB OLIC PANEL glomerular filtration rate TNP mlper min 60- TEST NOT PERFO RMED GFR has only been valid ated from 18 to 70 years of age. Not Available [facility] [address], [place], [address], 10/15/2023 13:18:43 10/15/19 24 10/15/2023 COMP METAB OLIC PANEL total protein 7.3 g/dL 6.4-8. 2 Not Available [facility] [address], [place], [address], 10/15/2023 13:18:43 10/15/19 24 10/15/2023 COMP METAB OLIC PANEL albumin 3.5 g/dL 3.4-5. 0 Not Available [facility] ([facility]) [address], [place], [address], 10/15/2023 13:18:43 10/15/19 24 10/15/2023 COMP METAB OLIC PANEL globulin 3.8 Not Available [facility] ([facility]) [address] , [place], [address], 10/15/2023 13:18:43 10/15/19 24 10/15/2023 COMP METAB OLIC PANEL alb/glob ratio 0.9 0.7-2 Not Available [facility] ([facility]) [address], [place], [address], 10/15/2023 13:18:43 10/15/19 24 10/15/2023 COMP METAB OLIC PANEL calcium 8.8 mg/dL 8.5-10 .5 Not Available [facility] ([facility]) [address] , [place], [address], 10/15/2023 13:18:43 10/15/19 24 10/15/2023 COMP METAB OLIC PANEL bilirubin total 1.50 mg/dL 0.10-1 .00 high Not Available [facility] ([facility]) [address] , [place], [address], 10/15/2023 13:18:43 10/15/19 24 10/15/2023 COMP METAB OLIC PANEL AST (SGOT) 31 U/L 0-37 Not Available [facility] ([facility]) [address], [place], [address], 10/15/2023 13:18:43 10/15/19 24 10/15/2023 COMP METAB OLIC PANEL ALT (SGPT) 23 U/L 0-65 Not Available [facility] ([facility]) [address], [place], [address], 10/15/2023 13:18:43 10/15/19 24 10/15/2023 COMP METAB OLIC PANEL alk phosphatase 82 U/L 46-116 Not Available [facility] ([facility]) [address], [place], [address], 10/15/2023 13:18:43 10/15/19 24 10/16/2023 AFP, SERUM [...] t be inter prete d as absol [place] evide nce of the prese nce or absen ce of [facility] aimee baig se. . This test is not inter preta ble in pregn ant femal es. Perfo rmed at: - [place] [address] Lab Direc tor: Bora baldwin PhD, Phone : [phone] Not Available [facility] ([facility]) [address], [place], [address], 10/16/2023 10:14:27 04/19/19 25 04/20/2024 COMP. METAB OLIC PANEL (14) glucose 148 mg/dL 70-99 above high normal Not Available [facility] ([facility]) [address] [facility] [address], [place], [address], 04/20/2024 16:14:42 04/19/19 25 04/20/2024 COMP. METAB OLIC PANEL (14) BUN 10 mg/dL 8-27 normal Not Available [facility] ([facility]) [address] [facility] [place], [address], 04/20/2024 16:14:42 04/19/19 25 04/20/2024 COMP. METAB OLIC PANEL (14) creatinine 0.77 mg/dL 0.76-1 .27 normal Not Available [facility] ([facility]) [address] [facility] [place], [address], 04/20/2024 16:14:42 04/19/19 25 04/20/2024 COMP. METAB OLIC PANEL (14) eGFR 95 mL/mi n/1.7 3 >59 normal Not Available [facility] ([facility]) [address] [facility] [place], [address], 04/20/2024 16:14:42 04/19/19 25 04/20/2024 COMP. METAB OLIC PANEL (14) BUN/creatini ne ratio 13 10-24 normal Not Available [facility] ([facility]) [address] [facility] [place], [address], 04/20/2024 16:14:42 04/19/19 25 04/20/2024 COMP. METAB OLIC PANEL (14) sodium 143 mmol/ L 134-14 4 normal Not Available [facility] ([facility]) [address] [facility] [place], [address], 04/20/2024 16:14:42 04/19/19 25 04/20/2024 COMP. METAB OLIC PANEL (14) potassium 4.0 mmol/ L 3.5-5. 2 normal Not Available [facility] ([facility]) [address] [facility] [place], [address], 04/20/2024 16:14:42 04/19/19 25 04/20/2024 COMP. METAB OLIC PANEL (14) chloride 109 mmol/ L 96-106 above high normal Not Available [facility] ([facility]) [address] [place], [address], 04/20/2024 16:14:42 04/19/19 25 04/20/2024 COMP. METAB OLIC PANEL (14) carbon dioxide, total 21 mmol/ L 20-29 normal Not Available [facility] ([facility]) [address] [place], [address], 04/20/2024 16:14:42 04/19/19 25 04/20/2024 COMP. METAB OLIC PANEL (14) calcium 8.6 mg/dL 8.6-10 .2 normal Not Available [facility] ([facility]) [address] [place], [address], 04/20/2024 16:14:42 04/19/19 25 04/20/2024 COMP. METAB OLIC PANEL (14) protein, total 6.9 g/dL 6.0-8. 5 normal Not Available [facility] ([facility]) [address] [place], [address], 04/20/2024 16:14:42 04/19/19 25 04/20/2024 COMP. METAB OLIC PANEL (14) albumin 3.9 g/dL 3.8-4. 8 normal Not Available [facility] ([facility]) [address] [facility] [place], [address], 04/20/2024 16:14:42 04/19/19 25 04/20/2024 COMP. METAB OLIC PANEL (14) globulin, total 3.0 g/dL 1.5-4. 5 Not Available [facility] ([facility]) [address] [facility] [place], [address], 04/20/2024 16:14:42 04/19/19 25 04/20/2024 COMP. METAB OLIC PANEL (14) bilirubin, total 0.8 mg/dL 0.0-1. 2 normal Not Available [facility] ([facility]) [address] [place], [address], 04/20/2024 16:14:42 04/19/19 25 04/20/2024 COMP. METAB OLIC PANEL (14) alkaline phosphatase 92 IU/L 44-121 normal Not Available [facility] ([facility]) [address] [place], [address], 04/20/2024 16:14:42 04/19/19 25 04/20/2024 COMP. METAB OLIC PANEL (14) AST (SGOT) 27 IU/L 0-40 normal Not Available [facility] ([facility]) [address] [place], [address], 04/20/2024 16:14:42 04/19/19 25 04/20/2024 COMP. METAB OLIC PANEL (14) ALT (SGPT) 20 IU/L 0-44 normal Not Available [facility] ([facility]) [address] [place], [address], 04/20/2024 16:14:42 04/19/19 25 04/20/2024 CBC, PLATE LET, NO DIFFE RENTI AL WBC 3.5 x10e3 /uL 3.4-10 .8 normal Not Available [facility] ([facility]) [address] [place], [address], 04/20/2024 16:14:43 04/19/19 25 04/20/2024 CBC, PLATE LET, NO DIFFE RENTI AL RBC 3.98 x10e6 /uL 4.14-5 .80 below low normal Not Available [facility] ([facility]) [address] [place], [address], 04/20/2024 16:14:43 04/19/19 25 04/20/2024 CBC, PLATE LET, NO DIFFE RENTI AL hemoglobin 9.7 g/dL 13.0-1 7.7 below low normal Not Available [facility] ([facility]) [address] [facility] [address], [place], [address], 04/20/2024 16:14:43 04/19/19 25 04/20/2024 CBC, PLATE LET, NO DIFFE RENTI AL hematocrit 32.6 % 37.5-5 1.0 below low normal Not Available [facility] ([facility]) [address] [facility] [address], [place], [address], 04/20/2024 16:14:43 04/19/19 25 04/20/2024 CBC, PLATE LET, NO DIFFE RENTI AL MCV 82 fL 79-97 normal Not Available [facility] ([facility]) [address] [facility] [address], [place], [address], 04/20/2024 16:14:43 04/19/19 25 04/20/2024 CBC, PLATE LET, NO DIFFE RENTI AL MCH 24.4 pg 26.6-3 3.0 below low normal Not Available [facility] ([facility]) [address] [facility] [address], [place], [address], 04/20/2024 16:14:43 04/19/19 25 04/20/2024 CBC, PLATE LET, NO DIFFE RENTI AL MCHC 29.8 g/dL 31.5-3 5.7 below low normal Not Available [facility] ([facility]) [address] [place], [address], 04/20/2024 16:14:43 04/19/19 25 04/20/2024 CBC, PLATE LET, NO DIFFE RENTI AL RDW 15.2 % 11.6-1 5.4 Not Available [facility] ([facility]) [address] [place], [address], 04/20/2024 16:14:43 04/19/19 25 04/20/2024 CBC, PLATE LET, NO DIFFE RENTI AL platelets 100 x10e3 /uL 150-45 0 alert low Not Available [facility] ([facility]) [address] [facility], [place], [address], 04/20/2024 16:14:43 04/19/19 25 04/20/2024 CBC, PLATE LET, NO DIFFE RENTI AL NRBC 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 2 Refer ence inter ramy is for non-a ntico agula patricia patie nts. Sugge sted INR thera peuti c range for Vitam in K antag onist thera py: Stand piyush Dose (mode rate inten sity thera peuti c range ): 2.0 - 3.0 Highe r inten sity thera peuti c range 2.5 - 3.5 Not Available [facility] ([facility]) [address] [place], [address], 04/20/2024 16:14:43 04/19/19 25 04/20/2024 PROTH ROMBI N TIME (PT), SERIA L prothrombin time 11.9 sec 9.1-12 .0 normal Not Available [facility] ([facility]) [address] [place], [address], 04/20/2024 16:14:43 04/19/19 25 04/20/2024 PROTH ROMBI N TIME (PT), SERIA L pdf . Not Available [facility] ([facility]) [address] [place], [address], 04/20/2024 16:14:43 04/19/19 25 04/20/2024 AFP, SERUM , TUMOR MARKE R AFP, serum, tumor marker 2.0 NG/mL 0.0-8. 4 normal Mariusz Diagn ostic s Elect mariusz milum inesc ence Immun oassa y (ECLI A) Value s obtai elver with diffe rent assay metho ds or kits canno t be used inter [place] . Resul ts canno t be inter prete d as absol [place] evide nce of the prese nce or absen ce of rupal yu disea se. This test is not inter preta ble in pregn ant femal es. Not Available [facility] ([facility]) [address], [place], [address], 04/20/2024 16:14:44 10/17/19 23 10/16/2022 US, liver No observ ation record ed. [facility] [address], [place], [address], 11/19/2022 08:49:17 11/19/19 23 10/16/2022 US, liver No observ ation record ed. [facility] (Med Record) [address], [place], [address], 11/19/2022 08:49:18 11/26/19 23 11/25/2022 MRI, liver , w/wo contr ast No observ ation record ed. [facility] [address], [place], [address], 11/26/2022 09:11:59 04/29/19 24 04/29/2023 US, liver No observ ation record ed. [facility] [address], [place], [address], 05/05/2023 13:02:48 10/30/19 24 10/30/2023 CT, liver , w/wo contr ast No observ ation record ed. [facility] [address], [place], [address], 03/23/2024 13:08:50 05/26/19 25 05/25/2024 CT, abdom en, w/o contr ast No observ ation record ed. [email or web address] [facility] [address], [place], [address], 09/21/2024 10:34:24 Result Notes None recorded. Problems Name Problem SNOMED Code Status Onset Date Resolution Date Notes Provider Name and Address Organization Details Recorded Time Colitis 20334603 Active 2021 Moises Kirna PA-C [address], [place], [address] , [place] - [facility] - [place] & [place] 2 16:31:15 Imaging of liver abnormal 019093245 Active 2021 Moises Kiran PA-C [address], [place], [address] , [place] - [facility] - [place] & [place] 2 16:31:34 Idiopathic acute pancreatitis 677271468 Active 2021 Moises Kiran PA-C [address], [place], [address] , [place] [facility] - [place] & [place] 2 16:33:50 Normocytic anemia 278912531 Active 2021 Moises Kiran PA-C [address], [place], [address] , [place] [facility] - [place] & [place] 2 16:36:20 Cirrhosis of liver 77528063 Active 2023 Moises Kiran PA-C [address], [place], [address] , [place] [facility] - [place] & [place] 4 10:46:58 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 Procedures Surgical History Date Name Laterality Status Provider Name and Address Organization Details Recorded Time 04/19/19 25 Venipuncture Gastro completed [facility] & [place] 04/19/2024 11:13:54 Imaging Results None recorded. Procedure Notes None recorded. Medical Equipment None Reported. Allergies Allergen ID Allergen Name Allergen Category Reaction Reaction Severity Criticality Documentation Date Start Date Code Code System Note Provider Name and Address Organization Details Recorded Time 21975 Easprin medicatio n Not available Not available low 09/30/2022 81324 4 RxNorm [facility] & [place] 3 10:56:07 Medications Name Sig Start Date Stop Date Status Note LastModified by Organization Details LastModified Time cyclobenzapr ine 10 mg tablet active Not Available Not Available Not Available pramipexole 1 mg tablet 10/04 completed Not Available Not Available Not Available metformin 500 mg tablet active Not Available Not Available Not Available Novolin 70/30 U-100 Insulin 100 unit/mL subcutaneous suspension active Not Available Not Available N ot Available paroxetine 10 mg tablet 10/04 completed Not Available Not Available Not Available donepezil 5 mg tablet active Not Available Not Available No t Available divalproex 250 mg tablet,delay ed release active Not Available Not Available N ot Available atorvastatin 10 mg tablet active Not Available Not Available Not Available azithromycin 250 mg tablet 10/04 completed Not Available Not Available Not Available metoprolol succinate ER 50 mg tablet,exten ded release 24 hr active Not Available Not Available Not Available valacyclovir 1 gram tablet 10/04 completed Not Available Not Available Not Available hydrocodone 5 mg-acetamino phen 325 mg tablet 10/04 completed Not Available Not Available Not Available donepezil 10 mg tablet active Not Available Not Available No t Available prednisone 20 mg tablet 04/19 completed Not Available Not Available Not Available desmopressin 0.2 mg tablet active Not Available Not Available Not Available gabapentin 400 mg capsule active Not Available Not Available Not Available quetiapine 200 mg tablet 10/04 completed Not Available Not Available Not Available quetiapine 100 mg tablet 10/04 completed Not Available Not Available Not Available acetaminophe [...] Available Not Available cephalexin 500 mg capsule 10/04 completed Not Available Not Available Not Available paroxetine 20 mg tablet 10/04 completed Not Available Not Available Not Available erythromycin 5 mg/gram (0.5 %) eye ointment active Not Available Not Available Not Available mirtazapine 30 mg tablet 10/04 completed Not Available Not Available Not Available oseltamivir 75 mg capsule 10/04 completed Not Available Not Available Not Available metformin 1,000 mg tablet active Not Available Not Available Not Available oxybutynin chloride ER 5 mg tablet,exten ded release 24 hr 10/04 completed Not Available Not Available Not Available omeprazole 20 mg capsule,erasmo yed release active Not Available Not Available Not Available montelukast 10 mg tablet active Not Available Not Available Not Available lisinopril 5 mg tablet active Not Available Not Available No t Available mupirocin 2 % topical ointment active Not Available Not Available Not Available mirtazapine 15 mg tablet 10/04 completed Not Available Not Available Not Available metoprolol succinate ER 25 mg tablet,exten ded release 24 hr active Not Available Not Available Not Available insulin syringe U-100 with needle 1 mL 29 gauge x 1/2 active Not Available Not Available Not Available cefuroxime axetil 500 mg tablet 10/04 completed Not Available Not Available Not Available paroxetine 40 mg tablet 10/04 completed Not Available Not Available Not Available propranolol 20 mg tablet 10/04 completed Not Available Not Available Not Available oxybutynin chloride 5 mg tablet 10/04 completed Not Available Not Available Not Available cefdinir 300 mg capsule 10/04 completed Not Available Not Available Not Available fluticasone propionate 50 mcg/actuatio n nasal spray,suspen alma active Not Available Not Available Not Available ertapenem 1 gram solution for injection 10/04 completed Not Available Not Available Not Available Risperdal Consta 25 mg/2 mL intramuscula r susp,extende d release 10/04 completed Not Available Not Available Not Available nitrofuranto in monohydrate/ macrocrystal s 100 mg capsule 10/04 completed Not Available Not Available Not Available lidocaine (PF) 10 mg/mL (1 %) injection solution active Not Available Not Available Not Available Januvia 100 mg tablet active Not Available Not Available No t Available Risperdal Consta 12.5 mg/2 mL intramuscula r susp,extende d release 10/04 completed Not Available Not Available Not Available diclofenac 1 % topical gel active [...] mg (2 mg/1.5 mL) subcutaneous pen injector 10/04 completed Not Available Not Available Not Available Novolin 70-30 FlexPen U-100 Insulin 100 unit/mL (70-30) subcutaneous active Not Available Not Available Not Available Vitals Date Recorded Body temperature Oxygen saturation Oxygen saturation in Arterial blood by Pulse oximetry Heart rate Heart rate Systolic And Diastolic Provider Name and Address Organization Details Last Updated DateTime 4 98.9 [degF] 97 % 97 % 68 /min 70 /min 129/61 mm[Hg] Nu SHAVER - [facility] & [place] 4 11:59:32 Date Recorded Body height Provider Name an d Address Organization Details Last Updated DateTime 04/16/2023 167.64 cm Oneil SHAVER - [facility] - [facility] & [place] 04/16/2023 11:34:17 Date Recorded Body height Body mass index (BMI) Body weight Body temperature Oxygen saturation Oxygen saturation in Arterial blood by Pulse oximetry Heart rate Heart rate Systolic And Diastolic Provider Name and Address Organization Details Last Updated DateTime 5 167.64 cm 30.9 kg/m2 31093.9 4 g 97.9 [degF] 98 % 98 % 66 /min 65 /min 135/67 mm[Hg] Nu SHAVER - NT [facility] & [place] 5 09:56:28 Date Recorded Body weight Body mass index (BMI) Body height Body temperature Heart rate Oxygen saturation Oxygen saturation in Arterial blood by Pulse oximetry Systolic And Diastolic Provider Name and Address Organization Details Last Updated DateTime 3 99117.1 g 28.3 kg/m2 167.64 cm 98.8 [degF] 60 /min 96 % 96 % 122/78 mm[Hg] Nu SHAVER - NT [facility] & [place] 3 10:55:10 Date Recorded Body height Body mass index (BMI) Body weight Body temperature Oxygen saturation Oxygen saturation in Arterial blood by Pulse oximetry Heart rate Systolic And Diastolic Provider Name and Address Organization Details Last Updated DateTime 5 167.64 cm 29.9 kg/m2 86979.5 9 g 98.1 [degF] 98 % 98 % 60 /min 122/71 mm[Hg] Katalina Jose SIVAKUMAR - LPNT [facility] & [place] 5 10:13:34 Date Recorded Body height Body mass index (BMI) Body weight Oxygen saturation Oxygen saturation in Arterial blood by Pulse oximetry Body temperature Heart rate Heart rate Systolic And Diastolic Provider Name and Address Organization Details Last Updated DateTime 4 167.64 cm 29.9 kg/m2 32829.0 3 g 98.3 % 98.3 % 96 [degF] 72 /min 65 /min 125/66 mm[Hg] [facility] & [place] 4 10:32:13 Social History Question Answer Notes LastModified by Organizat ion Details LastModified Time Tobacco Smoking Status Former Smoker Nu villar, [facility] & [place] 09/30/2022 10:55:01 What Is Your Level Of Caffeine Consumption? Moderate [email or web address] Information not available 09/30/2022 When Did You Quit Smoking? 6-10yearssince lastcigarette [email or web address] Information not available 09/30/2022 Sex: Unknown Functional Status Question Answer Note LastModified by Organizat ion Details LastModified Time Do you use any illicit or recreational drugs? No [email or web address] Information not available 09/30/2022 What is your level of alcohol consumption? None [email or web address] Information not available 09/30/2022 Mental Status None recorded. Family History Nothing Reported. Medical History No medical history recorded. Immunizations Vaccine Type Date Status Note Provider Nam e and Address Organization Details Recorded Time Influenza, split virus, trivalent, preservative 8 completed Not Available [facility] 10/04/2024 10:01:06 Influenza, split virus, trivalent, preservative 9 completed Not Available [facility] 10/04/2024 10:01:06 Influenza, split virus, trivalent, preservative 0 completed Not Available [facility] 10/04/2024 10:01:06 Influenza, split virus, trivalent, PF 4 completed Not Available [facility] 10/04/2024 10:01:06 Influenza, split virus, quadrivalent, PF 5 completed Not Available [facility] 10/04/2024 10:01:06 COVID-19, mRNA, LNP-S, PF, 30 mcg/0.3 mL dose 1 completed Not Available [facility] 10/04/2024 10:01:06 Past Encounters Encounter ID Performer Location Encounter Start Date Encounter Closed Date Diagnosis/Indication Diagnosis SNOMED-CT Code Diagnosis ICD10 Code Diagnosis IMO Codes Diagnosis Note [id number] Moises Kiran PA-C [facility] [place] [address] 01/02/2022 14:01:38 01/02/2022 15:07:45 Idiopathic acute pancreatitis 396848248 K85.00 Colitis 60913248 K52.9 Imaging of liver abnormal 785989428 R93.2 Normocytic anemia 845247 002 D64.9 [id number] Moises Kiran PA-C [facility] [place] [address] 04/02/2022 12:58:06 04/02/2022 13:29:17 Idiopathic acute pancreatitis 258768142 K85.00 Colitis 54373668 K52.9 Imaging of liver abnormal 197423851 R93.2 Normocytic anemia 264556 002 D64.9 [id number] Moises Kiran PA-C [facility] [place] [address] 09/30/2022 10:33:00 09/30/2022 11:33:37 Idiopathic acute pancreatitis 891860457 K85.00 Colitis 01552627 K52.9 Imaging of liver abnormal 789787463 R93.2 Normocytic anemia 435743 002 D64.9 [id number] Moises Kiran PA-C [facility] [place] [address] 2 04/16/2023 11:26:16 04/16/2023 12:22:25 Idiopathic acute pancreatitis 357909613 K85.00 Colitis 06551784 K52.9 Imaging of liver abnormal 533140327 R93.2 Normocytic anemia 479139 002 D64.9 Cirrhosis of liver 007 K74.60 [id number] Moises Kiran PA-C [facility] [place] [address] 10/15/2023 10:00:25 10/15/2023 11:07:37 Cirrhosis of liver 86717174 K74.60 Idiopathic acute pancreatitis 615065943 K85.00 Colitis 82252136 K52.9 Imaging of liver abnormal 565278774 R93.2 Normocytic anemia 434616 002 D64.9 [id number] Moises Kiran PA-C [facility] [address] [place] [address] 04/19/2024 09:45:12 04/19/2024 11:05:03 Cirrhosis of liver 17370122 K74.60 Idiopathic acute pancreatitis 386816214 K85.00 Normocytic anemia 413771 002 D64.9 History of adenomatous polyp of colon 956146073 Z86.0100 [id number] Moises Kiran PA-C [facility] [address] [place] [address] 10/04/2024 09:57:23 10/04/2024 10:46:16 Idiopathic acute pancreatitis 862629262 K85.00 Cirrhosis of liver 007 K74.60 Normocytic anemia 962151 002 D64.9 History of adenomatous polyp of colon 277244929 Z86.0100 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 300360785 K74.60 I85.10 [id number] Plain X-ra y of pancreas abnormal 2137709496 R93.5 [id number] Health Concerns Section Related Observation LastModified by Organization Detai ls LastModified Time None Recorded Concern Status LastModified by Organization Details LastModified Time None Recorded Advance Directives Directive None Recorded Payers Insurance Date Sequence Insurance Name Policy Number Policy Dailey Covered Member ID Dailey Member ID Guarantor Name 09/19/2023 1 [place] Sanket Rangel Ivan [id number] Sanket Love 09/19/2023 2 MEDICAID-[facility] CHOICES - FFS/TRADITION AL Sanket Rangel Ivan [id number] Sanket Love 09/19/2023 [place] A - [facility] (MEDICARE) Sanket Rangel Love [id number] Sanket Love 09/19/2023 [place] Pick1 [facility] Sanket Love [id number] Sanket Love 09/19/2023 [place] [employer] Sanket Love [id number] Sanket Love 10/01/2024 2 [place] HE[place] - FFS/TRADITION [place] Snaket Love [id number] Sanket Love 10/01/2024 1 [place] Sanket Love [id number] Sanket Love Notes Date Note Type Note Provider Name and Address Organization Details Recorded Time 09/30/2022 text/html (PREVIOUS) 01/02/2022: Mr. Love is a very pleasant 71-year-old male resident of [facility] in [place], [place] who presents for follow-up of a recent hospitlization at [facility] for acute pancreatitis. The etiology for his [...] a very pleasant 72-year-old male resident of [facility] in [place], [place] who presents to the clinic today [...] notes regular bowel movements. Moises Kiran PA-C [address], [place], [address], [facility] & [place] 09/30/2022 11:38:40 04/16/2023 text/html (PREVIOUS) 01/02/2022: Mr. Love is a very pleasant 71-year-old male resident of [facility] in [place] who presents for follow-up of a recent hospitlization at [facility] for acute pancreatitis. The etiology for his [...] a very pleasant 72-year-old male resident of [facility] in [place] who presents to the clinic today [...] time. He has remained a resident at [facility]. Moises Kiran PA-C [address], [place], [address], [facility] & [place] 04/16/2023 12:14:06 10/15/2023 text/html (PREVIOUS) 01/02/2022: Mr. Love is a very pleasant 71-year-old male resident of [facility] in [place] who presents for follow-up of a recent hospitlization at [facility] for acute pancreatitis. The etiology for his [...] a very pleasant 72-year-old male resident of [facility] in [place] who presents to the clinic today [...] time. He has remained a resident at [facility]. CURRENT (10/16/23): Patient presents to the office today for six-month follow-up regarding cirrhosis as well as recent colonoscopy. He underwent screening colonoscopy 2 days ago due to recent positive Cologuard. Eight polyps were resected with pathology showing adenomatous histology without dysplasia. He is feeling well currently. Patient resides at [facility]. Accompanying staff did not corroborate any issues currently. More specifically, the patient denies lower extremity swelling, abdominal distention, irregular bowel habits, or concerns over worsening cognitive/mental status. Moises Kiran PA-C [address], [place], [address], [facility] & [place] 10/16/2023 08:06:10 04/19/2024 text/html PREVIOUS (10/16/23): Patient presents to the office today for six-month follow-up regarding cirrhosis as well as recent colonoscopy. He underwent screening colonoscopy 2 days ago due to recent positive Cologuard. Eight polyps were resected with pathology showing adenomatous histology without dysplasia. He is feeling well currently. Patient resides at [facility]. Accompanying staff did not corroborate any issues [...] physical complaints. He continues to reside at [facility]. Moises Kiran PA-C [address], [place], [address], [facility] & [place] 04/19/2024 19:57:50 10/04/2024 text/html CURRENT (10/04/24): Mr. Love returns to the office today for 6 month follow-up regarding cirrhosis. He reports feeling well at this time. He continues to reside at [facility]. He underwent EGD 2 months ago with banding of grade III esophageal varices x3. 6 month repeat was recommended. He denies symptoms relating to decompensation at this time. Moises Kiran PA-C [address], [place], [address], [facility] & [place] 10/04/2024 13:45:52
[2025-01-04 12:06] LABS: Hemoglobin A1C 5.0 % (4.0-6.0)
== END 2025-01-04 23:59 | disposition home or self-care (01) ==
PROVIDERS: PCP Family Medicine; Visit Provider Family Medicine
DX: E11.9 Type 2 diabetes mellitus without complications (principal); Z12.5 Encounter for screening for malignant neoplasm of prostate
CPT/HCPCS: 36415; 83036; G0103

== ENCOUNTER 2025-01-18 11:45 | Emergency (ER) | payer MEDICARE, MEDICAID, SELFPAY ==
[2025-01-18 11:43] VITALS: BP 134/65; PULSE 71; RESP 18; TEMP 36.4; O2SAT 100; BMI 34.2
--- NOTE | 2025-01-18 12:12 | XR_ITS ---
FINAL REPORT CLINICAL HISTORY: Nonspecific Chest pain COMPARISON: 10/11/2024 FINDINGS: A portable view of the chest was obtained. Cardiac and mediastinal silhouettes are within normal limits. Rvpdv-uomiwcy-dhid-left basilar opacity, atelectasis versus pneumonia.. There appear to be small bilateral pleural effusions. No pneumothorax.. IMPRESSION: Bibasilar opacity, atelectasis versus pneumonia. Small pleural effusions. Reviewed, Interpreted and Dictated by Natalie Napier MD Transcribed by Kim Hays Authenticated and [facility]
--- NOTE | 2025-01-18 12:12 | CT_ITS ---
FINAL REPORT TECHNIQUE: Thin section axial images are obtained through the abdomen and pelvis after intravenous contrast. Reconstruction images were obtained from the axial data. Exam was performed using dose reduction techniques. CLINICAL HISTORY: abdominal distension, hx of cirrhosis COMPARISON: 05/25/2024 FINDINGS: LUNG BASES: Right middle lobe and lower lobe airspace disease favors atelectasis. Small xpklf-yupwcyp-mspa-left pleural effusions. Heart size is normal. LIVER: Nodular contour consistent with cirrhosis. No focal lesion. Portal vein patent. As noted on the prior exam, hepatic veins not well seen. GALLBLADDER/BILIARY SYSTEM: Gallbladder is present. No gallstones. No biliary dilatation. SPLEEN: Enlarged at 14 cm. PANCREAS: Unremarkable. ADRENALS: Unremarkable. KIDNEYS/URETERS/BLADDER: No hydronephrosis. Small hypodense right renal lesion is likely a cyst. Wall thickening of the urinary bladder likely related to chronic outlet obstruction. GI TRACT: No evidence of small-bowel obstruction. Wall thickening of small bowel loops likely related to ascites. Normal appendix. No acute colon abnormality. PELVIC ORGANS: Prostate enlarged. LYMPH NODES/RETROPERITONEUM/MESENTERY: No lymphadenopathy. No abdominal aortic aneurysm. ABDOMINAL WALL: Small umbilical hernia with ascitic fluid in the hernia.. FREE FLUID: Moderate to large ascites. BONES: No acute osseous abnormality. IMPRESSION: Cirrhosis with moderate to large ascites. No abnormality otherwise. Enlarged prostate with findings of chronic outlet obstruction. Small bilateral pleural effusions and right lower lung atelectasis. Reviewed, Interpreted and Dictated by Natalie Napier MD Transcribed by Kim Hays Authenticated and [facility]
--- NOTE | 2025-01-18 12:17 | ECG_ITS ---
APPROVED REPORT Exam: Resting ECG HR:68 bpm ECG Measurements Heart Rate 68 AXES AR 143 P 32 QRSd 90 QRS 72 QT 369 T 31 QTc 387 Conclusion SINUS RHYTHM NORMAL ECG UNCONFIRMED REPORT Normal sinus rhythm. No ST elevation or depression. QTc normal at 387. Electronically signed by : TOM MCCOLLUM, 01/19/2025 14:25:55
--- NOTE | 2025-01-18 12:18 | HMH.EDGENADL ---
Discharge Plan Disposition Patient Disposition: Xfer SNF Condition: Good Prescriptions Prescriptions: New cefdinir 300 mg capsule 300 mg PO BID 10 Days Qty: 20 0RF No Action ferrous sulfate 325 mg (65 mg iron) tablet 325 mg PO BID guaifenesin [Pily-Tussin] 100 mg/5 mL liquid 100 mg PO Q4H PRN (Reason: cough) divalproex [Depakote] 250 mg tablet,delayed release (DR/EC) 250 mg PO BID atorvastatin 10 mg tablet 10 mg PO HS fluticasone propionate [Allergy Relief (fluticasone)] 50 mcg/actuation spray,suspension 1 spray INTRANASAL HS Rx Instructions: administer into each nostril memantine [Namenda XR] 28 mg capsule,sprinkle,ER 24hr 28 mg PO DAILY Januvia 100 mg tablet 100 mg PO HS tamsulosin [Flomax] 0.4 mg capsule 0.4 mg PO HS acetaminophen [Pain Reliever ES(acetaminophn)] 500 mg tablet 500 mg PO Q4HP PRN (Reason: Fever Or Pain) lactulose 10 gram/15 mL solution 20 g PO DAILYP PRN (Reason: Constipation) donepezil 5 mg tablet 5 mg PO HS metformin 1,000 mg tablet 1,000 mg PO BID metoprolol succinate 50 mg tablet extended release 24 hr 50 mg PO DAILY Myrbetriq 25 mg tablet extended release 24 hr 25 mg PO DAILY multivitamin Tablet 1 tab PO DAILY Qty: 30 0RF insulin glargine [Basaglar KwikPen U-100 Insulin] 100 unit/mL (3 mL) insulin pen 40 unit SQ HS gabapentin 400 mg capsule 400 mg PO TID Qty: 90 5RF omeprazole 20 mg Tablet,Delayed Release (Dr/Ec) 20 mg PO DAILY Systane Complete 0.6 % Drops 1 drp Eye-Both BID potassium chloride 20 mEq Tablet,Er Particles/Crystals 20 meq PO BID Qty: 0 0RF (DME) BD AutoShield Duo Pen Needle 30 gauge x 3/16 needle MISCELLANEOUS omega 0-pcw-yuv-fish oil 300 mg (120 mg- 180mg)-1,000 mg capsule 1 cap PO DAILY Patient Comments: GIVE 1 CAPSULE BY MOUTH ONCE DAILY meloxicam 7.5 mg tablet 7.5 mg PO BID PRN (Reason: Left arm pain, back pain) Qty: 14 0RF Referrals Follow up/Referrals: Kalyan Vines MD [Primary Care Provider, Family Practice] - See instructions Activity Restrictions/Add. Instructions Additional Instructions/Restrictions: No evidence of any acute abdominal emergency specifically no evidence that she had spontaneous bacterial peritonitis however there is evidence that she have a urinary tract infection which may be the cause of your symptoms antibiotics were sent to your pharmacy please return to the emergency department with any worsening symptoms. Clinical Impressions Clinical Impression: End stage liver disease, UTI (urinary tract infection) Instructions Patient Instructions: DI for Acute Abdominal Pain Print Language Print Language: Kyrgyz Discharge ED Provider: Jarrett Roa General Adult HPI <Jarrett Roa MD - Last Filed: 01/18/25 20:08> General Chief complaint: Abdominal Pain Stated complaint: abdominal pain Time Seen by Provider: 01/18/25 12:07 Mode of Arrival: EMS Source of Information: Patient and EMS Description of Symptoms (Recalled from ER Triage Doc. by RN): patient presnts via jamie for abdominal swelling. patient is not a great historian. patient stated it started hurting this morning and became very swollen. History of Present Illness HPI narrative: Sanket Love is a 74-year-old male presenting from [facility] for complaints of abdominal swelling and pain. Patient has a history of type 2 diabetes, dementia, cirrhosis with previous paracentesis, hypertension, schizophrenia. Patient is a poor historian but states that his abdomen has been swollen for some time . He knows his name but does not know where he is. He states that he takes a fluid pill and has still been urinating well. He does report some chest pain and shortness of breath currently. Per nursing report from [facility], patient told him that he felt that his belly was distended and wanted to go to the emergency department. Related Data Home Medications ?Medication ?Instructions ?Recorded ?Confirmed atorvastatin 10 mg tablet 10 mg PO HS 06/08/20 01/03/25 fluticasone propionate 50 1 spray intranasal HS Allergy 06/08/20 01/03/25 mcg/actuation nasal symptoms spray,suspension (Allergy Relief (fluticasone)) memantine 28 mg capsule 28 mg PO DAILY 06/08/20 01/03/25 sprinkle,extended release 24hr (Namenda XR) sitagliptin phosphate 100 mg 100 mg PO HS 06/08/20 01/03/25 tablet (Januvia) tamsulosin 0.4 mg capsule (Flomax) 0.4 mg PO HS 06/08/20 01/03/25 omeprazole 20 mg tablet,delayed 20 mg PO DAILY 12/19/21 01/03/25 release propylene glycol 0.6 % eye drops 1 drp Eye-Both BID dry eyes 12/19/21 01/03/25 (Systane Complete) acetaminophen 500 mg tablet (Pain 500 mg PO Q4HP PRN Fever Or Pain 02/05/23 01/03/25 Reliever Extra Strength (acetaminophen)) donepezil 5 mg tablet 5 mg PO HS 02/05/23 01/03/25 lactulose 10 gram/15 mL oral 20 g PO DAILYP PRN Constipation 02/05/23 01/03/25 solution metformin 1,000 mg tablet 1,000 mg PO BID 02/05/23 01/03/25 metoprolol succinate 50 mg 50 mg PO DAILY 02/05/23 01/03/25 tablet,extended release 24 hr mirabegron 25 mg tablet,extended 25 mg PO DAILY 02/05/23 01/03/25 release 24 hr (Myrbetriq) omega-3 300 mg-dha 120 mg-epa 180 1 cap PO DAILY 02/18/24 01/03/25 mg-fish oil 1,000 mg capsule pen needle,diabetic dual safty 30 02/18/24 01/03/25 gauge x 3/16 (BD AutoShield Duo Pen Needle) ferrous sulfate 325 mg (65 mg 325 mg PO BID 06/14/24 01/03/25 iron) tablet insulin glargine 100 unit/mL (3 40 unit SQ HS Diabetes 06/14/24 01/03/25 mL) subcutaneous pen (Basaglar KwikPen U-100 Insulin) divalproex 250 mg tablet,delayed 250 mg PO BID 11/30/24 01/03/25 release (Depakote) guaifenesin 100 mg/5 mL oral 100 mg PO Q4H PRN cough 01/03/25 liquid (Pily-Tussin) Previous Rx's ?Medication ?Instructions ?Recorded potassium chloride 20 mEq 20 meq PO BID #0 tabs 12/21/21 tablet,extended release(part/cryst) multivitamin 1 tab PO DAILY #30 tabs 02/05/23 meloxicam 7.5 mg tablet 7.5 mg PO BID PRN Left arm pain, 02/19/24 back pain #14 tabs gabapentin 400 mg capsule 400 mg PO TID #90 caps 12/17/24 cefdinir 300 mg capsule 300 mg PO BID 10 days #20 caps 01/18/25 Allergies Allergy/AdvReac Type Severity Reaction Status Date / Time aspirin Allergy Mild Rash Verified 01/03/25 10:31 acetaminophen Allergy Rash Verified 01/03/25 10:31 [facility] <Jarrett Roa MD - Last Filed: 01/18/25 20:08> [facility] Disclaimer: The information contained in this section may have been updated after the patient was seen, as this information can be updated by other users. Medical History Anemia Dementia in other diseases classified elsewhere with behavioral disturbance Colon cancer screening Corns and callosities Calculus of gallbladder without cholecystitis without obstruction Schizophrenia, unspecified Decubitus ulcer of sacral region, stage 4 Diabetes Unspecified cirrhosis of liver Essential (primary) hypertension Personal history of urinary (tract) infections Personal history of COVID-19 Benign prostatic hyperplasia with lower urinary tract symptoms Reflex neuropathic bladder, not elsewhere classified Gastro-esophageal reflux disease without esophagitis Unspecified macular degeneration Dry eye syndrome of unspecified lacrimal gland Restless legs syndrome Secondary parkinsonism, unspecified Anxiety disorder, unspecified Major depressive disorder, recurrent, mild Nicotine dependence, chewing tobacco, uncomplicated Hyperlipidemia, unspecified Type 2 diabetes mellitus with unspecified complications Iron deficiency anemia secondary to blood loss (chronic) Melanocytic nevi, unspecified Other reduced mobility Muscle weakness (generalized) Surgical History History of esophagogastroduodenoscopy (EGD) 05/18/[address] Franco Morales at [facility]. Large esophageal varices with 9 bands and polyps. Family History Other No significant family history Social History Smoking Status: Current some day smoker tobacco type: cigarettes alcohol intake: former substance use type: denies use current occupational status: disabled Travel in the last 8 weeks?: None housing: [facility] current occupational exposures/hazards: No caffeine: Yes Have you lived/traveled outside US in past 30 days?: No Contact w/someone who lives/traveled outside US past 30 days?: No Exposure to someone with infectious disease in past 14 days?: No Do you have a fever (greater than 100.4 F or 38 C)?: No Have you tested positive for COVID-19?: No Exposed to someone with COVID-19 in past 14 days?: No Do you have a sore throat?: No Do you have a cough?: No Do you have any weakness?: No Do you have any diarrhea?: No Are you experiencing any unusual bleeding?: No Do you have any muscle aches/pain?: No Do you have any abdominal pain?: No Are you experiencing loss of taste or smell?: No Other Medical History Have you received the Flu Vaccine for this season: No Have you received the Pneumonia Vaccine: Yes (12/2018, 06/30/20) <Jarrett Roa MD - Last Filed: 01/18/25 20:08> ROS Obtained: Yes Systems reviewed as appropriate & no additional complaints except as documented <Lefty Sam MD - Last Filed: 01/18/25 17:40> ROS Obtained: Yes All systems reviewed & no additional complaints except as documented Physical Exam <Jarrett Roa MD - Last Filed: 01/18/25 20:08> General General appearance: in no apparent distress Respiratory Respiratory exam: Absent respiratory distress, wheezes or stridor Abdominal Exam Abdominal exam: Present soft, distention (with fluid wave) and tenderness (generalized tenderness); Absent rigidity Extremities Exam Extremities exam: Absent edema <Lefty Sam MD - Last Filed: 01/18/25 17:40> General General appearance: alert Respiratory Respiratory exam: Present normal lung sounds bilaterally Cardiovascular Cardiovascular exam: Present regular rate Neurological Exam Neurological exam: Present alert and oriented X3 Medical Decision Making <Jarrett Roa MD - Last Filed: 01/18/25 20:08> Medical Records Screening: Per USPSTF and CDC recommendations, given the prevalence of disease in our region, it is our hospital?s policy to screen for HIV and viral Hepatitis for all patients aged 18 and over and those with ongoing risk factors. Vital Signs: 01/18/25 11:43 01/18/25 17:56 Temperature 97.5 F L 98.8 F Temperature Source Oral Oral Pulse Rate 74 Pulse Rate [Right Radial] 71 Respiratory Rate 18 20 Blood Pressure 151/88 H Blood Pressure [Right Arm] 134/65 Blood Pressure Mean [Right Arm] 88 Blood Pressure Source Automatic Cuff Blood Pressure Source [Right Arm] Automatic Cuff Blood Pressure Position Sitting Blood Pressure Position [Right Arm] Sitting 02 Sat by Pulse Oximetry 100 Oxygen Delivery Method Room Air Room Air Lab Data Lab Results 01/18/25 12:35: WBC 4.6 L, RBC 3.78 L, Hgb 11.1 L, Hct 33.8 L, MCV 89.4, MCH 29.4, MCHC 32.8, RDW 14.8, Plt Count 110 L, MPV 9.9, Neut % (Auto) 69.8, Lymph % (Auto) 19.4, [place] % (Auto) 9.1, Eos % (Auto) 1.1, Baso % (Auto) 0.4, Neut # (Auto) 3.2, Lymph # (Auto) 0.9, [place] # (Auto) 0.4, Eos # (Auto) 0.1, Baso # (Auto) 0.0, Sodium 140, Potassium 4.1, Chloride 107, Carbon Dioxide 27, Anion Gap 10.1, BUN 9, Creatinine 0.70, Estimated Creat Clear 96, Estimated GFR 111, Est GFR ( Amer) 134, Glucose 66 L, Lactate 2.2 H, Calcium 9.0, Magnesium 1.5 L, Total Bilirubin 1.0, AST 36, ALT 23, Alkaline Phosphatase 97, Ammonia < 9 L, Troponin I < 0.01, NT-Pro-B Natriuret Pep 233 H, Total Protein 7.3, Albumin 3.8, Globulin 3.5 H, Albumin/Globulin Ratio 1.1, Lipase 76 01/18/25 15:30: Fluid Source Peritoneal fluid, Fluid Volume 16.5, Fluid Appearance Normal, Fluid RBC (Auto) 0, Fld Tot Nucleated Cell 89, Fld Polynuclear WBCs % 15, Fld Mononuclear WBCs % 85 01/18/25 16:58: Urine Color Yellow, Urine Appearance Clear, Urine pH 7.0, Ur Specific [place] 1.010, Urine Protein Negative, Urine Glucose (UA) Negative, Urine Ketones 2+, Urine Blood 3+ A, Urine Nitrate Positive A, Urine Bilirubin Negative, Urine Urobilinogen 0.2, Ur Leukocyte Esterase Trace, Urine RBC 10-20, Urine WBC 10-20, Ur Squamous Epith Cells None, Urine Bacteria 3+ 01/18/25 17:35: Lactate 1.6, Troponin I < 0.01 01/18/25 12:35 01/18/25 12:35 Orders (Tests/Meds): ED MEDICATIONS Discontinued Medications Generic Name Dose Route Start Last Admin Trade Name Freq PRN Reason Stop Dose Admin Magnesium Sulfate 2 gm in 50 mls @ 50 mls/hr 01/18/25 13:03 01/18/25 15:24 Magnesium Sulfate 2gm/50ml Premix IV 01/18/25 14:02 Infused ONCE ONE Infusion Iopamidol 75 ml 01/18/25 13:26 01/18/25 13:31 Iopamidol-370 (76%);100ml Bottle IV 01/18/25 13:27 75 ml ONCE ONE Administration Sodium Chloride 10 ml 01/18/25 13:26 01/18/25 13:31 Sodium Chloride 0.9% 10ml Syr (Rad Only) IV 01/18/25 13:27 10 ml ONCE ONE Administration ORDERS Category Date Time Status CT abdomen pelvis w con Stat Cat Scan 01/18/25 12:12 Completed CXR --portable [XR chest portable] Stat Exams 01/18/25 12:12 Completed POCUS Point of Care (ER Only) Stat Exams 01/18/25 12:16 Completed Ammonia Stat Lab 01/18/25 12:35 Completed BNP [NT Pro Brain Natriuretic Pep.] Stat Lab 01/18/25 12:35 Completed Body Fluid: Cell Count w/ Diff Stat Lab 01/18/25 15:30 Completed CBC w/Auto Diff [Complete Blood Count Auto Diff] Stat Lab 01/18/25 12:35 Completed CMP [Comprehensive Metabolic Panel] Stat Lab 01/18/25 12:35 Completed Lactic Acid Follow Up (RFLX 1) Stat Lab 01/18/25 17:35 Completed Lactic Acid Stat Lab 01/18/25 12:35 Completed Lipase Stat Lab 01/18/25 12:35 Completed Magnesium Stat Lab 01/18/25 12:35 Completed Troponin I Q3H Lab 01/18/25 17:35 Completed Troponin I Stat Lab 01/18/25 12:35 Completed UA [Urinalysis and Microscopic] Stat Lab 01/18/25 16:58 Completed Body Fluid Cult & Gram Stain Stat Micro 01/18/25 15:30 Results Urine Culture Stat Micro 01/18/25 16:58 Received Medical Decision Narrative: Rae Love is a 74-year-old male presenting from [facility] for complaints of abdominal swelling and pain. Patient has a history of type 2 diabetes, dementia, cirrhosis with previous paracentesis, hypertension, schizophrenia. Patient is a poor historian but states that his abdomen has been swollen for some time . He knows his name but does not know where he is. He states that he takes a fluid pill and has still been urinating well. He does report some chest pain and shortness of breath currently. Per nursing report from [facility], patient told him that he felt that his belly was distended and wanted to go to the emergency department. On arrival, patient is hemodynamically stable, in no acute distress, breathing comfortably on room air with appropriate oxygen saturation. Physical exam, as stated above, does show a distended abdomen with fluid wave. He is mildly tender but none peritonitic. No guarding or rebound. Cardiopulmonary exam reveals no wheezing, rales or rhonchi. No murmurs or rubs. Differential diagnosis includes, but is not limited to: SBP, worsening liver failure, electrolyte derangement, ACS, pleural effusion, pneumonia, among others. The most morbid conditions were considered and workup was based on these. EKG was interpreted by me personally. Normal sinus rhythm. No ST elevation or depression. QTc of 387 Chest x-ray was interpreted by me personally. There is small bilateral pleural effusions bibasilar atelectasis. 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 Laboratory studies are grossly unremarkable and nonactionable. Stable anemia. Electrolytes within normal limits. No DIONE. Lactate initially 2.2 and improved to 1.6. Magnesium mildly low at 1.5. Bilirubin and liver enzymes within normal limits. Troponin negative x 2. Ammonia less than 9. NT proBNP BNP very mildly elevated 2.33. Lipase normal at 76. Urine studies are pending at this time. CT abdomen pelvis was interpreted by me personally. There is cirrhosis with moderate to large ascites but no acute findings otherwise. See radiology report for details. Consent for paracentesis was provided by patient's POA. Patient's right abdomen was cleaned with chlorhexidine swab and sterile technique was used. Ultrasound was used to identify large fluid pocket on the right abdomen. This area was anesthetized using 1% lidocaine and a Z pattern. A 6 Greenlandic safety centesis catheter was then inserted with positive drawback of clear yellow fluid. Patient had approximately 1000 mL of ascitic fluid removed. SBP studies were sent. Total nucleated cells within the ascitic fluid is 89 with only 15 polynuclear white blood cells, ruling out SBP. Patient's paracentesis catheter was removed without significant bleeding. At this time, patient's care was transferred to oncoming physician, Dr. Sam, pending patient's urine studies and ultimate disposition. I do anticipate patient discharge [facility] to his [facility] This is Dr. Sam I took over from Dr. Knox at 5 PM pending cell counts from paracentesis. There is no evidence of any SBP from paracentesis cell count standpoint also patient did have a positive nitrite urinalysis we will treat this with antibiotics which may be the cause of his symptoms. Otherwise no emergent medical condition identified. Patient was discharged in a stable condition. <Lefty Sam MD - Last Filed: 01/18/25 17:40> [place] Inquiry Pt receiving controlled substance: No Vital Signs: 01/18/25 11:43 01/18/25 17:56 Temperature 97.5 F L 98.8 F Temperature Source Oral Oral Pulse Rate 74 Pulse Rate [Right Radial] 71 Respiratory Rate 18 20 Blood Pressure 151/88 H Blood Pressure [Right Arm] 134/65 Blood Pressure Mean [Right Arm] 88 Blood Pressure Source Automatic Cuff Blood Pressure Source [Right Arm] Automatic Cuff Blood Pressure Position Sitting Blood Pressure Position [Right Arm] Sitting 02 Sat by Pulse Oximetry 100 Oxygen Delivery Method Room Air Room Air Lab Data Lab Results 01/18/25 12:35: WBC 4.6 L, RBC 3.78 L, Hgb 11.1 L, Hct 33.8 L, MCV 89.4, MCH 29.4, MCHC 32.8, RDW 14.8, Plt Count 110 L, MPV 9.9, Neut % (Auto) 69.8, Lymph % (Auto) 19.4, [place] % (Auto) 9.1, Eos % (Auto) 1.1, Baso % (Auto) 0.4, Neut # (Auto) 3.2, Lymph # (Auto) 0.9, [place] # (Auto) 0.4, Eos # (Auto) 0.1, Baso # (Auto) 0.0, Sodium 140, Potassium 4.1, Chloride 107, Carbon Dioxide 27, Anion Gap 10.1, BUN 9, Creatinine 0.70, Estimated Creat Clear 96, Estimated GFR 111, Est GFR ( Amer) 134, Glucose 66 L, Lactate 2.2 H, Calcium 9.0, Magnesium 1.5 L, Total Bilirubin 1.0, AST 36, ALT 23, Alkaline Phosphatase 97, Ammonia < 9 L, Troponin I < 0.01, NT-Pro-B Natriuret Pep 233 H, Total Protein 7.3, Albumin 3.8, Globulin 3.5 H, Albumin/Globulin Ratio 1.1, Lipase 76 01/18/25 15:30: Fluid Source Peritoneal fluid, Fluid Volume 16.5, Fluid Appearance Normal, Fluid RBC (Auto) 0, Fld Tot Nucleated Cell 89, Fld Polynuclear WBCs % 15, Fld Mononuclear WBCs % 85 01/18/25 16:58: Urine Color Yellow, Urine Appearance Clear, Urine pH 7.0, Ur Specific [place] 1.010, Urine Protein Negative, Urine Glucose (UA) Negative, Urine Ketones 2+, Urine Blood 3+ A, Urine Nitrate Positive A, Urine Bilirubin Negative, Urine Urobilinogen 0.2, Ur Leukocyte Esterase Trace, Urine RBC 10-20, Urine WBC 10-20, Ur Squamous Epith Cells None, Urine Bacteria 3+ 01/18/25 17:35: Lactate 1.6, Troponin I < 0.01 Orders (Tests/Meds): ED MEDICATIONS Discontinued Medications Generic Name Dose Route Start Last Admin Trade Name Freq PRN Reason Stop Dose Admin Magnesium Sulfate 2 gm in 50 mls @ 50 mls/hr 01/18/25 13:03 01/18/25 15:24 Magnesium Sulfate 2gm/50ml Premix IV 01/18/25 14:02 Infused ONCE ONE Infusion Iopamidol 75 ml 01/18/25 13:26 01/18/25 13:31 Iopamidol-370 (76%);100ml Bottle IV 01/18/25 13:27 75 ml ONCE ONE Administration Sodium Chloride 10 ml 01/18/25 13:26 01/18/25 13:31 Sodium Chloride 0.9% 10ml Syr (Rad Only) IV 01/18/25 13:27 10 ml ONCE ONE Administration ORDERS Category Date Time Status CT abdomen pelvis w con Stat Cat Scan 01/18/25 12:12 Completed CXR --portable [XR chest portable] Stat Exams 01/18/25 12:12 Completed POCUS Point of Care (ER Only) Stat Exams 01/18/25 12:16 Completed Ammonia Stat Lab 01/18/25 12:35 Completed BNP [NT Pro Brain Natriuretic Pep.] Stat Lab 01/18/25 12:35 Completed Body Fluid: Cell Count w/ Diff Stat Lab 01/18/25 15:30 Completed CBC w/Auto Diff [Complete Blood Count Auto Diff] Stat Lab 01/18/25 12:35 Completed CMP [Comprehensive Metabolic Panel] Stat Lab 01/18/25 12:35 Completed Lactic Acid Follow Up (RFLX 1) Stat Lab 01/18/25 17:35 Completed Lactic Acid Stat Lab 01/18/25 12:35 Completed Lipase Stat Lab 01/18/25 12:35 Completed Magnesium Stat Lab 01/18/25 12:35 Completed Troponin I Q3H Lab 01/18/25 17:35 Completed Troponin I Stat Lab 01/18/25 12:35 Completed UA [Urinalysis and Microscopic] Stat Lab 01/18/25 16:58 Completed Body Fluid Cult & Gram Stain Stat Micro 01/18/25 15:30 Results Urine Culture Stat Micro 01/18/25 16:58 Received Medical Decision Narrative: This is Dr. Sam I took over from Dr. Knox at 5 PM pending cell counts from paracentesis. There is no evidence of any SBP from paracentesis cell count standpoint also patient did have a positive nitrite urinalysis we will treat this with antibiotics which may be the cause of his symptoms. Otherwise no emergent medical condition identified. Patient was discharged in a stable condition. Procedures <Jarrett Roa MD - Last Filed: 01/18/25 20:08> Paracentesis Time Out Performed: Yes Indication: possible spontaneous bacterial peritonitis Procedure: diagnostic paracentesis Location: RLQ Local Anesthetic: lidocaine 1% Amount of anesthesia used (mL): 5 Bedside Ultrasound Used: yes, Ascites confirmed and location marked Preparation: sterile prep and drape Amount of fluid obtained (mL): 1,000 Fluid: clear Size of Needle Used: 6 Post Procedure Exam: awake, alert, normal BP, normal HR and normal SpO2 Patient Tolerated Procedure: well Complications: none Critical Care <Lefty Sam MD - Last Filed: 01/18/25 17:40> Critical Care Time Critical Care Time: No
[2025-01-18 12:44] LABS: Hematocrit 33.8 % (42.0-52.0); Hemoglobin 11.1 g/dL (14.1-18.0); Immature Granulocytes % 0.2 %; Mean Corpuscular HGB Conc 32.8 g/dL (31.8-35.4); Mean Corpuscular Hemoglobin 29.4 pg (27.0-31.2); Mean Corpuscular Volume 89.4 fl (80-94); Nucleated Red Blood Cells % 0 %; Platelet Count 110 K/mm3 (142-424); Red Blood Count 3.78 M/mm3 (4.60-6.20); Red Cell Distribution Width-SD 48.7 fL; White Blood Count 4.6 K/mm3 (4.8-10.8)
[2025-01-18 12:56] LABS: Alanine Aminotransferase 23 U/L (12-78); Albumin Level 3.8 g/dl (3.5-5.0); Albumin/Globulin Ratio 1.1 (1.1-1.8); Alkaline Phosphatase 97 U/L (38-126); Anion Gap 10.1 mEq/L (5-15); Aspartate Amino Transferase 36 U/L (17-59); Bilirubin,Total 1.0 mg/dl (0.2-1.3); Blood Urea Nitrogen 9 mg/dl (9-20); Calcium 9.0 mg/dl (8.4-10.2); Carbon Dioxide 27 mmol/L (22.0-30.0); Chloride 107 mmol/L (98-107); Creatinine Clearance Estimated 96 mL/min (50-200); Creatinine,Serum 0.70 mg/dl (0.66-1.25); Estimated Glomerular Filt Rate 111 ml/min (>60); GFR (African American) 134 ML/MIN (>60); Globulin 3.5 g/dL (1.3-3.2); Glucose 66 mg/dl (74-100); Lipase 76 U/L (23-300); Magnesium 1.5 mg/dl (1.6-2.3); Potassium 4.1 mmoL/L (3.5-5.1); Sodium 140 mmol/L (136-145); Total Protein,Serum 7.3 g/dl (6.3-8.2)
[2025-01-18 12:58] LABS: Ammonia < 9 umol/L (9-30)
--- OUTSIDE RECORDS SUMMARY | 2025-01-18 13:05 | XMS_ITS | Clinical Summary ---
Author Organization [facility] [place] [address] Phone Care Team Providers Care Security System Technician Name Role Phone Unavailable Primary Care Provider [...] age to complete this topic Insurance [place] [address]
[2025-01-18 13:07] LABS: NT Pro Brain Natriuretic Pep. 233 pg/mL (0-125)
[2025-01-18 13:08] LABS: Troponin I < 0.01 ng/ml (0.00-0.034)
[2025-01-18] MEDS: MAGNESIUM SULFATE IN WATER 2 GM/50 ML PIGGYBACK IV (13:12)
[2025-01-18] MEDS: SODIUM CHLORIDE 0.9% 10ML SYR (RAD ONLY) 10 ML IV (13:31)
[2025-01-18] MEDS: IOPAMIDOL-370 (76%);100ML BOTTLE 75 ML IV (13:31)
[2025-01-18 16:35] LABS: Appearance,Body Fld. Normal; Source, Body Fld. Peritoneal Fluid; Volume,Body Fld. 16.5 mL
[2025-01-18 16:36] LABS: RBC,Body Fluid 0 cells/uL (< 10 X 10^3); TNC,Body Fluid 89 cells/uL (< 1000)
[2025-01-18 16:41] LABS: Reflex Lactic Add Lactic Reflex
[2025-01-18 17:03] LABS: Microscopic, Urine URINE MICROSCOPIC (MICROSCOPIC)
[2025-01-18 17:06] LABS: Bilirubin,Urine Negative (Negative); Color,Urine YELLOW (Yellow); Glucose,Urine (UA) Negative (Negative); Ketones,Urine 2+ (Negative); Leukocyte Esterase,Urine TRACE (Negative); PH,Urine 7.0 (5.0-8.5); Protein,Urine Negative (Negative); Specific Gravity, Urine 1.010 (1.005-1.030); Urobilinogen,Urine 0.2 EU/dl (0.2)
[2025-01-18 17:25] LABS: Bacteria,Urine 3+ /lpf
[2025-01-18 17:45] LABS: Mononuclear WBCs,Body Fluid 85 %; Polynuclear WBC,Body Fluid 15 %
[2025-01-18 17:56] VITALS: BP 151/88; PULSE 74; RESP 20; TEMP 37.1; O2SAT 97
[2025-01-18 17:57] LABS: Lactic Acid Follow Up (RFLX 1) 1.6 mmol/L (0.7-2.1)
[2025-01-18 18:12] LABS: Troponin I < 0.01 ng/ml (0.00-0.034)
[2025-01-19 14:17] LABS: Glucose, Body Fluid 69 mg/dL (.)
--- NOTE | 2025-01-20 02:07 | PC.NURSE ---
urine culture results given to MD Amador. No changes to prescriptions at this time
--- NOTE | 2025-01-20 12:31 | PC.NURSE ---
FINAL URINE CULTURE DISCUSSED WITH . NO CHANGE NEEDED TO TREATMENT PLAN.
== END 2025-01-18 17:59 ==
PROVIDERS: Emergency Provider Student in an Organized Health Care Education/Training Program; PCP Family Medicine
DX: R10.84 Generalized abdominal pain (principal); K72.10 Chronic hepatic failure without coma; R18.8 Other ascites; N39.0 Urinary tract infection, site not specified; E83.42 Hypomagnesemia; R74.02 Elevation of levels of lactic acid dehydrogenase [LDH]; J90 Pleural effusion, not elsewhere classified; F17.210 Nicotine dependence, cigarettes, uncomplicated; B96.20 Unspecified Escherichia coli [E. coli] as the cause of diseases classified elsewhere
CPT/HCPCS: 49083; 71045; 74177; 80053; 81001; 82140; 82945; 83605; 83690; 83735; 83880; 84157; 84484; 85025; 87070; 87086; 87088; 87186; 87205; 89051; 93005; 96365; 99285; J3475; Q9967

== ENCOUNTER 2025-02-03 08:19 | Outpatient (CLI) | payer MEDICARE, MEDICAID, SELFPAY ==
[2025-02-03 08:36] LABS: Hematocrit 32.7 % (42.0-52.0); Hemoglobin 10.7 g/dL (14.1-18.0); Immature Granulocytes % 0.2 %; Mean Corpuscular HGB Conc 32.7 g/dL (31.8-35.4); Mean Corpuscular Hemoglobin 29.2 pg (27.0-31.2); Mean Corpuscular Volume 89.1 fl (80-94); Nucleated Red Blood Cells % 0 %; Platelet Count 107 K/mm3 (142-424); Red Blood Count 3.67 M/mm3 (4.60-6.20); Red Cell Distribution Width-SD 48.1 fL; White Blood Count 4.8 K/mm3 (4.8-10.8)
[2025-02-03 08:43] LABS: Ammonia 36 umol/L (9-30)
[2025-02-03 09:32] LABS: Alanine Aminotransferase 22 U/L (12-78); Albumin Level 3.3 g/dl (3.5-5.0); Albumin/Globulin Ratio 1.0 (1.1-1.8); Alkaline Phosphatase 83 U/L (38-126); Anion Gap 10.1 mEq/L (5-15); Aspartate Amino Transferase 35 U/L (17-59); Bilirubin,Total 1.3 mg/dl (0.2-1.3); Blood Urea Nitrogen 13 mg/dl (9-20); Calcium 8.8 mg/dl (8.4-10.2); Carbon Dioxide 26 mmol/L (22.0-30.0); Chloride 108 mmol/L (98-107); Creatinine,Serum 0.70 mg/dl (0.66-1.25); Estimated Glomerular Filt Rate 111 ml/min (>60); GFR (African American) 134 ML/MIN (>60); Globulin 3.3 g/dL (1.3-3.2); Potassium 4.1 mmoL/L (3.5-5.1); Sodium 140 mmol/L (136-145); Total Protein,Serum 6.6 g/dl (6.3-8.2)
[2025-02-03 09:39] LABS: Glucose 48 mg/dl (74-100)
== END 2025-02-03 23:59 | disposition home or self-care (01) ==
LOC: LAB.DROPOF 08:22
PROVIDERS: PCP Family Medicine; Visit Provider Nurse Practitioner Family
DX: K74.60 Unspecified cirrhosis of liver (principal)
CPT/HCPCS: 36415; 80053; 82140; 85025

== ENCOUNTER 2025-02-08 08:40 | Outpatient (CLI) | payer MEDICARE, MEDICAID, SELFPAY ==
--- NOTE | 2025-02-08 09:00 | US_ITS ---
FINAL REPORT CLINICAL HISTORY: K72.10 - Chronic hepatic failure without coma // RAFAEL BRADFORD // 8250 ML / RT SIDE FINDINGS: ULTRASOUND-GUIDED PARACENTESIS HISTORY: Ascites ATTENDING PHYSICIAN: Dr. Fernandez PHYSICIAN [employer] DE[employer]MENT: Rafael Almodovar PA-C FINDINGS: After informed consent was obtained and timeout procedure performed, fluid was localized in the right lower quadrant under ultrasound guidance and marked on the skin appropriately. The patient was then prepped and draped in the usual sterile fashion and the skin was anesthetized with 1% lidocaine. An ultrasound guided paracentesis was then performed using a Turkel needle. Approximately 8.3 liters of clear yellow fluid was removed. No fluid was sent to lab. The patient tolerated the procedure well and there were no immediate complications. IMPRESSION: Ultrasound guided right lower quadrant paracentesis as discussed above. Reviewed, Interpreted and Dictated by Darrell Fernandez MD Transcribed by SUZETTE You Authenticated and [facility]
[2025-02-08 11:47] VITALS: BP 149/76; PULSE 60; RESP 17
[2025-02-08] MEDS: ALBUMIN HUMAN 12.5 GM/50 ML BAG IV ×2 (11:47→12:57)
[2025-02-08 12:48] VITALS: BP 129/74; PULSE 73; RESP 17
[2025-02-08 12:57] VITALS: BP 132/75; PULSE 74; RESP 17
[2025-02-08 13:30] VITALS: BP 124/69; PULSE 72; RESP 16
[2025-02-08 14:56] LABS: Source, Body Fld. Paracentesis Fluid
[2025-02-08 14:57] LABS: Appearance,Body Fld. Normal; TNC,Body Fluid 111 cells/uL (< 1000); Volume,Body Fld. 40 mL
[2025-02-08 15:04] LABS: RBC,Body Fluid < 2000 cells/uL (< 10 X 10^3)
[2025-02-08 15:35] LABS: Mononuclear WBCs,Body Fluid 97 %; Polynuclear WBC,Body Fluid 3 %
== END 2025-02-08 23:59 | disposition home or self-care (01) ==
LOC: RAD 08:41 → INF 09:57
PROVIDERS: Nurse Practitioner Family; PCP Family Medicine; Visit Provider Family Medicine
DX: K72.10 Chronic hepatic failure without coma (principal); K74.60 Unspecified cirrhosis of liver; R18.8 Other ascites
CPT/HCPCS: 49083; 87070; 87205; 89051; 96365; P9047

== ENCOUNTER 2025-02-24 09:51 | Outpatient (CLI) | payer MEDICARE, MEDICAID, SELFPAY ==
--- OUTSIDE RECORDS SUMMARY | 2025-02-24 09:53 | XMS_ITS ---
Laboratory report Created on: January 31, 2025 CHARLETTE PAGE : 1950 Sex: Male Author Organization Unknown PROBLEMS Problems List Code Description RESULTS Laboratory Orders Date Order Code Test 2025-01-18 [id number] GLUCOSE, BODY FL UID 2025-01-18 [id number] PROTEIN, BODY FL UID Laboratory Results Date LOINC Test Value Unit Reference Range Interpre tation 2025-01-18 [id number] GLUCOSE, BODY FLUID 69 MG/DL 2025-01-18 [id number] PROTEIN, BODY FLUID .7 G/DL
--- OUTSIDE RECORDS SUMMARY | 2025-02-24 09:53 | XMS_ITS ---
Laboratory report Created on: January 31, 2025 CHARLETTE PAGE : 1950 Sex: Male Author Organization Unknown PROBLEMS Problems List Code Description RESULTS Laboratory Orders Date Order Code Test 2024-10-07 [id number] AFP, SERUM, TUMO R MARKER Laboratory Results Date LOINC Test Value Unit Reference Range Interpre tation 2024-10-07 55940-2 AFP, SERUM, TUMO R MARKER <1.8 NG/ML 0.0-8.4
--- OUTSIDE RECORDS SUMMARY | 2025-02-24 09:53 | XMS_ITS | Clinical Summary ---
Author Organization [place] 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
--- OUTSIDE RECORDS SUMMARY | 2025-02-24 09:53 | XMS_ITS ---
Laboratory report Created on: January 21, 2025 CHARLETTE PAGE : 1950 Sex: Male Author Organization Unknown PROBLEMS Problems List Code Description RESULTS Laboratory Orders Date Order Code Test 2025-01-18 [id number] GLUCOSE, BODY FL UID 2025-01-18 460911 PROTEIN, BODY FL UID Laboratory Results Date LOINC Test Value Unit Reference Range Interpre tation 2025-01-18 2344-0 GLUCOSE, BODY FLUID 69 MG/DL 2025-01-18 2881-1 PROTEIN, BODY FLUID .7 G/DL
--- OUTSIDE RECORDS SUMMARY | 2025-02-24 09:53 | XMS_ITS ---
Laboratory report Created on: January 31, 2025 CHARLETTE PAGE : 1950 Sex: Male Author Name [email or web address] Unknown PROBLEMS Problems List Code Description K74.60 RESULTS Laboratory Orders Date Order Code Test 2023-04-16 [id number] HUMBERTO+AMA+ASMA+LKM AB 2023-04-16 578130 CBC WITH DIFFERE NTIAL/PLATELET 2023-04-16 317345 COMP. METABOLIC PANEL (14) 2023-04-16 387751 PROTHROMBIN TIME (PT), SERIAL 2023-04-16 661064 [id number] SIN DEFICIENCY 2023-04-16 719537 HCV ANTIBODY RFX TO QUANT PCR 2023-04-16 751453 HERED.HEMOCHROMA TOSIS, DNA 2023-04-16 240101 AFP, SERUM, TUMO R MARKER 2023-04-16 307922 HEP B SURFACE AB , QUAL 2023-04-16 652885 IMMUNOGLOBULIN G , QN, SERUM 2023-04-16 775164 HBSAG SCREEN 2023-04-16 421120 HEP B CORE AB, T OT 2023-04-16 143469 HEP A AB, TOTAL Laboratory Results Date LOINC Test Value Unit Reference Range Interpretation 2023-04-16 8061-4 HUMBERTO DIRECT N NEGATIVE 2023-04-16 48089-9 ACTIN (SMOOTH MU SCLE) ANTIBODY 10 UNITS 0-19 2023-04-16 48512-6 MITOCHONDRIAL (M 2) ANTIBODY <20.0 UNITS 0.0-20.0 2023-04-16 73393-4 LIVER-KIDNEY MICROSOMAL AB 1.6 UNITS 0.0-20.0 2023-04-16 6690-2 WBC 3.8 X10E3/UL 3.4-10.8 2023-04-16 789-8 RBC 4.11 X10E6/UL 4.14-5.80 L 2023-04-16 718-7 HEMOGLOBIN 11.9 G/DL 13.0-17.7 L 2023-04-16 4544-3 HEMATOCRIT 37 % 37.5-51.0 L 2023-04-16 787-2 MCV 90 FL 79-97 2023-04-16 785-6 MCH 29 PG 26.6-33.0 2023-04-16 786-4 MCHC 32.2 G/DL 31.5-35.7 2023-04-16 788-0 RDW 13.3 % 11.6-15.4 2023-04-16 777-3 PLATELETS 68 X10E3/UL 150-450 LL 2023-04-16 770-8 NEUTROPHILS 68 % 2023-04-16 736-9 LYMPHS 22 % 2023-04-16 5905-5 MONOCYTES 9 % 2023-04-16 713-8 EOS 1 % 2023-04-16 706-2 BASOS 0 % 2023-04-16 751-8 NEUTROPHILS (ABSOLUTE) 2.5 X10E3/UL 1.4-7.0 2023-04-16 731-0 LYMPHS (ABSOLUTE) .8 X10E3/UL 0.7-3.1 2023-04-16 742-7 MONOCYTES(ABSOLUTE) .3 X10E3/UL 0.1-0.9 2023-04-16 711-2 EOS (ABSOLUTE) 0 X10E3/UL 0.0-0.4 2023-04-16 704-7 BASO (ABSOLUTE) 0 X10E3/UL 0.0-0.2 2023-04-16 93494-6 IMMATURE GRANULOCYTES 0 % 2023-04-16 18988-2 IMMATURE GRANS (ABS) 0 X10E3/UL 0.0-0.1 2023-04-16 60925-0 HEMATOLOGY COMMENTS: NOTE 2023-04-16 2345-7 GLUCOSE 219 MG/DL 70-99 H 2023-04-16 3094-0 BUN 12 MG/DL 8-27 2023-04-16 2160-0 CREATININE .84 MG/DL 0.76-1.27 2023-04-16 28954-0 EGFR 93 ML/MIN/1.7 3 >59 2023-04-16 3097-3 BUN/CREATININE RATIO 14 10-24 2023-04-16 2951-2 SODIUM 140 MMOL/L 673-111 2552-02-15 2823-3 POTASSIUM 4.1 MMOL/L 3.5-5.2 2023-04-16 2075-0 CHLORIDE 103 MMOL/L 96-106 2023-04-168-9 CARBON DIOXIDE, TOTAL 22 MMOL/L 20-29 2023-04-16 34202-8 CALCIUM 9.1 MG/DL 8.6-10.2 2023-04-16 2885-2 PROTEIN, TOTAL 6.9 G/DL 6.0-8.5 2023-04-16 1751-7 ALBUMIN 4.2 G/DL 3.8-4.8 2023-04-16 66161-3 GLOBULIN, TOTAL 2.7 G/DL 1.5-4.5 2023-04-16 1759-0 A/G RATIO 1.6 1.2-2.2 2023-04-16 1975-2 BILIRUBIN, TOTAL 1.2 MG/DL 0.0-1.2 2023-04-16 6768-6 ALKALINE PHOSPHATASE 78 IU/L 44-121 2023-04-16 1920-8 AST (SGOT) 28 IU/L 0-40 2023-04-16 1742-6 ALT (SGPT) 24 IU/L 0-44 2023-04-16 6301-6 INR 1 0.9-1.2 2023-04-16 5902-2 PROTHROMBIN TIME 10.9 SEC 9.1-12.0 2023-04-16 88781-3 PDF IMAGE 2023-04-16 01456-2 AAT, DNA ANALYSIS AANEG1 2023-04-16 93452-3 ELECTRONICALLY S IGNED BY: JEREMIE 2023-04-16 93139-6 HCV AB NR NON REACTIVE 2023-04-16 22187-8 HEREDITARY HEMOCHROMATOSIS NEGHH2 2023-04-16 81339-6 REVIEWED BY: JEREMIE 2023-04-16 58334-1 AFP, SERUM, TUMO R MARKER 1.9 NG/ML 0.0-8.4 2023-04-16 19969-7 HEP B SURFACE AB , QUAL NR 2023-04-16 9375-3 IMMUNOGLOBULIN G , QN, SERUM 1234 MG/DL 603-1613 2023-04-16 0416-1 HBSAG SCREEN N NEGATIVE 2023-04-16 49231-0 HEP B CORE AB, TOT N NEGATIVE 2023-04-16 04248-3 HEP A AB, TOTAL N NEGATIVE
[2025-02-24 09:55] LABS: Ammonia 42 umol/L (9-30)
[2025-02-24 10:34] LABS: Albumin Level 3.3 g/dl (3.5-5.0); Chloride 109 mmol/L (98-107); Potassium 3.9 mmoL/L (3.5-5.1); Sodium 143 mmol/L (136-145)
[2025-02-24 10:37] LABS: Alanine Aminotransferase 17 U/L (12-78); Albumin/Globulin Ratio 1.0 (1.1-1.8); Alkaline Phosphatase 84 U/L (38-126); Anion Gap 13.9 mEq/L (5-15); Aspartate Amino Transferase 32 U/L (17-59); Bilirubin,Total 1.0 mg/dl (0.2-1.3); Blood Urea Nitrogen 12 mg/dl (9-20); Carbon Dioxide 24 mmol/L (22.0-30.0); Creatinine,Serum 0.80 mg/dl (0.66-1.25); Estimated Glomerular Filt Rate 95 ml/min (>60); GFR (African American) 115 ML/MIN (>60); Globulin 3.2 g/dL (1.3-3.2); Total Protein,Serum 6.5 g/dl (6.3-8.2)
[2025-02-24 10:38] LABS: Calcium 8.9 mg/dl (8.4-10.2); Glucose 150 mg/dl (74-100)
== END 2025-02-24 23:59 | disposition home or self-care (01) ==
LOC: LAB.DROPOF 09:51
PROVIDERS: PCP Family Medicine; Visit Provider Nurse Practitioner Family
DX: K74.60 Unspecified cirrhosis of liver (principal)
CPT/HCPCS: 36415; 80053; 82140

== ENCOUNTER 2025-02-28 08:29 | Outpatient (CLI) | payer MEDICARE, MEDICAID, SELFPAY ==
--- OUTSIDE RECORDS SUMMARY | 2025-02-28 08:32 | XMS_ITS | Clinical Summary ---
Author Organization [facility] [place] [address] Phone Care Team Providers Care Director [employer] Name Role Phone Unavailable Primary Care Provider [...] age to complete this topic Insurance MEDICAID [place] [address]
--- NOTE | 2025-02-28 09:00 | US_ITS ---
FINAL REPORT CLINICAL HISTORY: R18.8 - Other ascites ANDREEA BRADFORD - 7950 ML REMOVED - RT SIDE FINDINGS: ULTRASOUND-GUIDED PARACENTESIS HISTORY:Ascites ATTENDING PHYSICIAN: Dr. Napier PHYSICIAN POWER SUPERINTENDENT: Andreea Springer PA-C FINDINGS: After informed consent was obtained and timeout procedure performed, fluid was localized in the right lower quadrant under ultrasound guidance and marked on the skin appropriately. The patient was then prepped and draped in the usual sterile fashion and the skin was anesthetized with 1% lidocaine. An ultrasound guided paracentesis was then performed using a Turkel needle. Approximately 8 liters of fluid was removed. No fluid was sent to lab. The patient tolerated the procedure well and there were no immediate complications. IMPRESSION: Ultrasound guided right lower quadrant paracentesis as discussed above. Reviewed, Interpreted and Dictated by Natalie Napier MD Transcribed by SUZETTE Miller Authenticated and [facility]
[2025-02-28 10:06] VITALS: BMI 28.5
[2025-02-28 10:19] VITALS: BP 119/65; PULSE 52; RESP 18; TEMP 36.6; O2SAT 99
[2025-02-28 10:28] LABS: Creatinine Clearance Estimated 76 mL/min (50-200); Creatinine,Serum 0.80 mg/dl (0.66-1.25); Estimated Glomerular Filt Rate 95 ml/min (>60); GFR (African American) 115 ML/MIN (>60)
[2025-02-28] MEDS: ALBUMIN HUMAN 12.5 GM/50 ML BAG IV ×2 (10:41→11:13)
[2025-02-28 11:11] VITALS: BP 111/63; PULSE 54; O2SAT 94
== END 2025-02-28 23:59 | disposition home or self-care (01) ==
LOC: RAD 08:30 → INF 09:48
PROVIDERS: PCP Family Medicine; Visit Provider Nurse Practitioner Family
DX: R18.8 Other ascites (principal); K72.10 Chronic hepatic failure without coma; K74.69 Other cirrhosis of liver; R06.00 Dyspnea, unspecified
CPT/HCPCS: 49083; 82565; 96365; P9047